=== PATIENT | female | born 1940 | race Caucasian/White ===

== ENCOUNTER → 2016-11-21 | Outpatient (CLI) | payer MEDICARE, BC ==
--- NOTE | 2016-11-21 09:59 | USB ---
Reason for exam: follow-up at short interval from prior study. History: Patient is postmenopausal. Benign US biopsy breast VAD RT of the right breast, May 18, 2014. Benign right US cyst aspiration of the right breast, January 18, 2008. Benign right mammotome panel of the right breast, December 08, 2006. Took hormonal contraceptives for 1 year 6 months beginning at age 25. Physical Findings: Nurse Summary: bilateral breast all soft, nodular, movable, prominent thickening right breast upper outer quadrant (nurse ts). US Breast LT Left breast ultrasound including all four quadrants, the retroareolar region and axilla demonstrates a 0.40 x 0.18 x 0.41cm lesion too small to characterize at 1 o'clock, stable. These results were verbally communicated with the patient and result sheet given to the patient on 11/21/16. ASSESSMENT: Probably benign, BI-RAD 3 RECOMMENDATION: Follow-up diagnostic mammogram of both breasts in 6 months. Ultrasound of the left breast in 6 months.
== END | disposition home or self-care (01) ==
LOC: RADUSWWP 09:01
PROVIDERS: ATTEND Family Medicine
DX: N63 Unspecified lump in breast (principal); R92.8 Other abnormal and inconclusive findings on diagnostic imaging of breast

== ENCOUNTER → 2017-05-22 | Outpatient (CLI) | payer MEDICARE, BC ==
--- NOTE | 2017-05-23 07:51 | MM ---
Reason for exam: additional evaluation requested from prior study. Last mammogram was performed 1 year and 1 month ago. History: Patient is postmenopausal. Benign US biopsy breast VAD RT of the right breast, May 18, 2014. Benign right US cyst aspiration of the right breast, January 18, 2008. Benign right mammotome panel of the right breast, December 08, 2006. Took hormonal contraceptives for 1 year 6 months beginning at age 25. Physical Findings: Nurse did not find any significant physical abnormalities on exam. MG 3D Diag Mammo W/Cad MO Bilateral CC and MLO view(s) were taken. Prior study comparison: November 21, 2016, left breast US breast LT. May 16, 2016, left breast US breast workup limited LT. April 25, 2016, bilateral MG 3d screening mammo w/cad. There are scattered fibroglandular densities. Finding: There are typically benign round calcifications in both breasts. Previous mammotome biopsy in the right breast x 2. There is a chronic nodularity in the left breast. There is no new dominant lesion. Left axillary pacemaker. These results were verbally communicated with the patient and result sheet given to the patient on 05/22/17. ASSESSMENT: Benign, BI-RAD 2 RECOMMENDATION: Routine screening mammogram of both breasts in 1 year.
--- NOTE | 2017-05-23 07:57 | USB ---
Reason for exam: follow-up at short interval from prior study. History: Patient is postmenopausal. Benign US biopsy breast VAD RT of the right breast, May 18, 2014. Benign right US cyst aspiration of the right breast, January 18, 2008. Benign right mammotome panel of the right breast, December 08, 2006. Took hormonal contraceptives for 1 year 6 months beginning at age 25. US Breast LT Left breast ultrasound includes all four quadrants, the retroareolar region and axilla. Finding demonstrates a 5 x 3 x 4mm oval, cystic lesion with debris is stable at 1 o'clock and a 3mm oval lesion too small to characterize at 3 o'clock. These results were verbally communicated with the patient and result sheet given to the patient on 05/22/17. ASSESSMENT: Benign, BI-RAD 2 RECOMMENDATION: Routine screening mammogram of both breasts in 1 year.
== END | disposition home or self-care (01) ==
LOC: RADMAMWWP 14:25
PROVIDERS: ATTEND Family Medicine
DX: R92.8 Other abnormal and inconclusive findings on diagnostic imaging of breast (principal)
CPT/HCPCS: 76641; G0204; G0279

== ENCOUNTER 2017-07-20 12:36 | Inpatient (IN) | payer MEDICARE, BC ==
--- NOTE | 2017-07-20 13:08 | ED ---
General Adult HPI - General Chief complaint: Shortness of Breath Stated complaint: Difficulty Breathing Time Seen by Provider: 07/20/17 12:45 Source: patient, family, RN notes reviewed, old records reviewed Mode of arrival: wheelchair Limitations: no limitations - History of Present Illness Initial comments: 77 yo female presents for evaluation of worsening dyspnea. Patient has history of cardiomyopathy and congestive heart failure. She has an AICD/pacemaker. Patient states she has had some central chest discomfort, no significant chest pain. No radiating symptoms. Patient states she walked this morning while at [employer] and became severely short of breath and fatigue. This prompted her ER visit. According to the patient she has no history of coronary artery disease, cardiomyopathy is nonischemic. Patient is on Coreg, amiodarone,eliquis, and losartan. She also takes 100 mg of Lasix daily, 60 in the morning and 40 at night. Possibly 3 weeks ago her Coreg dose was reduced from 25-12.5 twice a day. Patient denies missing any of her medication. Denies lower swelling. Patient's symptoms have been worsening over several weeks. Denies fever chills. Has had a mild cough for the past 3 weeks. This was dry no sputum. - Related Data Home Medications Medication Instructions Recorded Confirmed Apixaban [Eliquis] 5 mg PO BID 01/01/15 07/20/17 Aspirin EC [Ecotrin Low Dose] 81 mg PO DAILY 01/01/15 07/20/17 Cholecalciferol [Vitamin D3] 1,000 unit PO QAM 01/01/15 07/20/17 Cyanocobalamin [Vitamin B-12] 500 mcg PO BID 01/01/15 07/20/17 Multivitamins, Thera [Multivitamin 1 tab PO DAILY 01/01/15 07/20/17 (formulary)] [place]-3 Fatty Acids/Fish Oil [Fish 1 cap PO BID 03/27/15 07/20/17 Oil 1,000 mg Softgel] metFORMIN HCL [Glucophage] 1,000 mg PO AC-BRKFST 03/27/15 07/20/17 Amiodarone [Cordarone] 100 mg PO QAM 10/06/15 07/20/17 Carvedilol [Coreg] 12.5 mg PO HS 10/06/15 07/20/17 Furosemide [Lasix] 40 mg PO HS 07/20/17 07/20/17 Furosemide [Lasix] 60 mg PO DAILY 07/20/17 07/20/17 Losartan Potassium [Cozaar] 25 mg PO HS 07/20/17 07/20/17 metFORMIN HCL [Glucophage] 500 mg PO AC-SUPPER 07/20/17 07/20/17 Previous Rx's Medication Instructions Recorded Atorvastatin [Lipitor] 10 mg PO HS #30 tab 08/21/15 Allergies Allergy/AdvReac Type Severity Reaction Status Date / Time nitrofurantoin Allergy Unknown Rash/Hives Verified 07/20/17 13:07 [From Macrobid] nitrofurantoin Allergy Unknown Rash/Hives Verified 07/20/17 13:07 macrocrystalline [From Macrobid] cefuroxime Allergy Rash/Hives Verified 07/20/17 13:07 Penicillins Allergy Rash/Hives Verified 07/20/17 13:07 Review of Systems ROS Statement: Those systems with pertinent positive or pertinent negative responses have been documented in the HPI. ROS Other: All systems not noted in ROS Statement are negative. Past Medical History Past Medical History: Diabetes Mellitus Additional Past Medical History / Comment(s): DR DR VALENCIA'S H&P History of Any Multi-Drug Resistant Organisms: None Reported Past Surgical History: AICD, Appendectomy, Section, Cholecystectomy, Hernia Repair, Hysterectomy, Tonsillectomy, Tubal Ligation Additional Past Surgical History / Comment(s): bilateral knee replacements, bilateral cataract removal, Past Anesthesia/Blood Transfusion Reactions: No Reported Reaction Type of Cardiac Device: AICD Device Placement Date:: 07/2011 Past Psychological History: No Psychological Hx Reported Smoking Status: Never smoker Past Alcohol Use History: None Reported Past Drug Use History: None Reported - Past Family History Father Family Medical History: Cancer Additional Family Medical History / Comment(s): THROAT CA Mother Family Medical History: CVA/TIA, Diabetes Mellitus General Exam Limitations: no limitations General appearance: alert, in no apparent distress Head exam: Present: atraumatic, normocephalic Eye exam: Present: normal appearance, PERRL ENT exam: Present: normal exam, mucous membranes moist Neck exam: Present: normal inspection. Absent: tenderness, meningismus Respiratory exam: Present: normal lung sounds bilaterally. Absent: respiratory distress, wheezes, rales Cardiovascular Exam: Present: tachycardia GI/Abdominal exam: Present: soft. Absent: distended, tenderness Extremities exam: Present: normal inspection, full ROM, normal capillary refill. Absent: pedal edema Neurological exam: Present: alert, oriented X3, CN II-XII intact. Absent: motor sensory deficit Psychiatric exam: Present: normal affect, normal mood Skin exam: Present: warm, dry, intact. Absent: cyanosis, diaphoretic Course Vital Signs 07/20/17 07/20/17 07/20/17 12:37 13:30 14:31 Temperature 98.0 F Pulse Rate 59 L 81 72 Respiratory 18 16 16 Rate Blood Pressure 101/61 126/106 113/64 O2 Sat by Pulse 97 98 89 L Oximetry - Reevaluation(s) Reevaluation #1: 07/20/17 15:03 And with the patient on reevaluation, she became approximately 89% on room air. EKG Findings - EKG Comments: EKG Findings:: EKG shows ventricular paced rhythm, rate of 89, QRS duration 22, QTC 562, no discordant or concordant ST segment elevation Medical Decision Making - Medical Decision Making 77 yo female with history of nonischemic cardiomyopathy presents with a 3 week history of worsening dyspnea. No chest pain. Chest x-ray shows cardiomegaly with no pulmonary edema. Lungs are clear on auscultation. There is no peripheral edema on examination. Patient does have AICD placement and EKG shows paced ventricular rhythm. Laboratory studies reveal a elevations patient' s serum creatinine 1.39, baseline 1.2. There is a slight elevation in patient' s troponin 0.036, and BNP is elevated at 7590. Case is discussed with cardiology. Given the hypoxia with ambulation and continued dyspnea patient will be placed in observation for repeat cardiac enzymes and cardiology consult. Diagnosis: Congestive heart failure, nonischemic cardiomyopathy, elevated troponin - Lab Data Result diagrams: 07/20/17 13:00 07/20/17 13:00 Lab Results 07/20/17 07/20/17 07/20/17 Range/Units 13:00 13:00 13:00 WBC 9.5 (3.8-10.6) k/uL RBC 4.02 (3.80-5.40) m/uL Hgb 11.7 (11.4-16.0) gm/dL Hct 36.8 (34.0-46.0) % MCV 91.5 (80.0-100.0) fL MCH 29.0 (25.0-35.0) pg MCHC 31.7 (31.0-37.0) g/dL RDW 15.2 (11.5-15.5) % Plt Count 340 (150-450) k/uL Neutrophils % 75 % Lymphocytes % 13 % Monocytes % 7 % Eosinophils % 2 % Basophils % 1 % Neutrophils # 7.2 (1.3-7.7) k/uL Lymphocytes # 1.2 (1.0-4.8) k/uL Monocytes # 0.6 (0-1.0) k/uL Eosinophils # 0.2 (0-0.7) k/uL Basophils # 0.1 (0-0.2) k/uL PT (9.0-12.0) sec INR (<1.2) APTT (22.0-30.0) sec Sodium 139 (137-145) mmol/L Potassium 4.2 (3.5-5.1) mmol/L Chloride 101 (98-107) mmol/L Carbon Dioxide 23 (22-30) mmol/L Anion Gap 15 mmol/L BUN 46 H (7-17) mg/dL Creatinine 1.36 H (0.52-1.04) mg/dL Est GFR (MDRD) Af Amer 46 (>60 ml/min/1.73 sqM) Est GFR (MDRD) Non-Af 38 (>60 ml/min/1.73 sqM) Glucose 99 (74-99) mg/dL Calcium 9.9 (8.4-10.2) mg/dL Magnesium 2.2 (1.6-2.3) mg/dL Total Bilirubin 0.4 (0.2-1.3) mg/dL AST 29 (14-36) U/L ALT 29 (9-52) U/L Alkaline Phosphatase 54 (38-126) U/L Total Creatine Kinase 103 (30-135) U/L CK-MB (CK-2) 2.6 H* (0.0-2.4) ng/mL CK-MB (CK-2) Rel Index 2.5 Troponin I 0.036 H* (0.000-0.034) ng/mL NT-Pro-B Natriuret Pep pg/mL Total Protein 6.9 (6.3-8.2) g/dL Albumin 4.2 (3.5-5.0) g/dL 07/20/17 07/20/17 Range/Units 13:00 13:00 WBC (3.8-10.6) k/uL RBC (3.80-5.40) m/uL Hgb (11.4-16.0) gm/dL Hct (34.0-46.0) % MCV (80.0-100.0) fL MCH (25.0-35.0) pg MCHC (31.0-37.0) g/dL RDW (11.5-15.5) % Plt Count (150-450) k/uL Neutrophils % % Lymphocytes % % Monocytes % % Eosinophils % % Basophils % % Neutrophils # (1.3-7.7) k/uL Lymphocytes # (1.0-4.8) k/uL Monocytes # (0-1.0) k/uL Eosinophils # (0-0.7) k/uL Basophils # (0-0.2) k/uL PT 11.4 (9.0-12.0) sec INR 1.1 (<1.2) APTT 24.0 (22.0-30.0) sec Sodium (137-145) mmol/L Potassium (3.5-5.1) mmol/L Chloride (98-107) mmol/L Carbon Dioxide (22-30) mmol/L Anion Gap mmol/L BUN (7-17) mg/dL Creatinine (0.52-1.04) mg/dL Est GFR (MDRD) Af Amer (>60 ml/min/1.73 sqM) Est GFR (MDRD) Non-Af (>60 ml/min/1.73 sqM) Glucose (74-99) mg/dL Calcium (8.4-10.2) mg/dL Magnesium (1.6-2.3) mg/dL Total Bilirubin (0.2-1.3) mg/dL AST (14-36) U/L ALT (9-52) U/L Alkaline Phosphatase (38-126) U/L Total Creatine Kinase (30-135) U/L CK-MB (CK-2) (0.0-2.4) ng/mL CK-MB (CK-2) Rel Index Troponin I (0.000-0.034) ng/mL NT-Pro-B Natriuret Pep 7590 pg/mL Total Protein (6.3-8.2) g/dL Albumin (3.5-5.0) g/dL Disposition Clinical Impression: Congestive heart failure, Nonischemic cardiomyopathy, Elevated troponin Disposition: ADMITTED IP TO THIS [facility] Condition: Stable Referrals: Kishore Lucia DO [Primary Care Provider] - 1-2 days Decision to Admit Reason: Admit from EC Decision Date: 07/20/17 Decision Time: 15:07
[2017-07-20 13:17] LABS: Basophils # (A) 0.1 k/uL (0-0.2); Basophils % (A) 1 %; CH 29.4; CHCM 32.3; Eosinophils # (A) 0.2 k/uL (0-0.7); Eosinophils % (A) 2 %; HCT 36.8 % (34.0-46.0); HDW 2.66; HGB 11.7 gm/dL (11.4-16.0); Luc # (Auto) 0.22; Luc % (Auto) 2; Lymphocytes # (A) 1.2 k/uL (1.0-4.8); Lymphocytes % (A) 13 %; MCHC 31.7 g/dL (31.0-37.0); MCV 91.5 fL (80.0-100.0); Monocytes # (A) 0.6 k/uL (0-1.0); Monocytes % (A) 7 %; Neutrophils # (A) 7.2 k/uL (1.3-7.7); Neutrophils % (A) 75 %; RBC 4.02 m/uL (3.80-5.40); RDW 15.2 % (11.5-15.5); WBC 9.5 k/uL (3.8-10.6); WBC (Perox) 10.04
[2017-07-20 13:25] LABS: Calcium 9.9 mg/dL (8.4-10.2); Magnesium 2.2 mg/dL (1.6-2.3); Potassium 4.2 mmol/L (3.5-5.1); Total Bilirubin 0.4 mg/dL (0.2-1.3); Total Protein 6.9 g/dL (6.3-8.2)
--- NOTE | 2017-07-20 13:32 | XR ---
EXAMINATION TYPE: XR chest 2V DATE OF EXAM: 07/20/2017 HISTORY: Chest Pain. REFERENCE: Previous study dated 01/01/2015. FINDINGS: There is a multilead pacing device in place on the left. The heart is enlarged. The lungs appear clear. Pleural spaces are clear.. IMPRESSION: CARDIOMEGALY.
[2017-07-20 13:38] LABS: INR 1.1 (<1.2); Prothrombin Time 11.4 sec (9.0-12.0)
[2017-07-20 13:50] LABS: Creatine Kinase MB 2.6 ng/mL (0.0-2.4)
[2017-07-20 13:52] LABS: Troponin I 0.036 ng/mL (0.000-0.034)
[2017-07-20] MEDS ORDERED: ONDANSETRON 4 MG/2 ML VIAL IVP PRN (15:07)
[2017-07-20] MEDS ORDERED: NALOXONE 0.4 MG/ML 1 ML VIAL IV PRN (15:07)
[2017-07-20] MEDS ORDERED: ACETAMINOPHEN TAB 325 MG TAB PO PRN (15:07)
[2017-07-20 16:39] VITALS: BMI 29.4
[2017-07-20 16:49] LABS: Glucose,Whole Blood 101 mg/dL (75-99)
--- NOTE | 2017-07-20 17:09 | P.CRDCN ---
History of Present Illness Consult date: 07/20/17 Chief complaint: Shortness of breath History of present illness: This is a pleasant 77-year-old female patient who sees Dr. Alvarez as an outpatient with a past medical history significant for severe nonischemic cardiomyopathy with a known EF around 20%, status post AICD, chronic atrial fibrillation, valvular heart disease with known moderate MR, moderate TR, and severe pulmonary hypertension, presented to the hospital complaining of shortness of breath. The patient stated that she was in her usual state of health until the day before yesterday when she started experiencing exertional dyspnea which got worse yesterday. The the dyspnea was even with minimal exertion. She did not have any chest pain or discomfort. No bilateral lower extremities edema. Denies any change in her weight. The patient stated that she was compliant with her medications as well as with her diet. Beside that she stated that lately she has been experiencing some symptoms of cough seems to be dry and not productive for any sputum and not associated with any fever or chills. The chest x-ray showed only cardiomegaly without any acute finding. The EKG showed ventricular paced rhythm. The BNP came in to be around 5000. The cardiac enzymes were checked and came in to be slightly abnormal. Past Medical History Past Medical History: Diabetes Mellitus Additional Past Medical History / Comment(s): DR DR VALENCIA'S H&P History of Any Multi-Drug Resistant Organisms: None Reported Past Surgical History: AICD, Appendectomy, Section, Cholecystectomy, Hernia Repair, Hysterectomy, Tonsillectomy, Tubal Ligation Additional Past Surgical History / Comment(s): bilateral knee replacements, bilateral cataract removal, Past Anesthesia/Blood Transfusion Reactions: No Reported Reaction Type of Cardiac Device: AICD Device Placement Date:: 07/2011 Past Psychological History: No Psychological Hx Reported Smoking Status: Never smoker Past Alcohol Use History: None Reported Past Drug Use History: None Reported - Past Family History Father Family Medical History: Cancer Additional Family Medical History / Comment(s): THROAT CA Mother Family Medical History: CVA/TIA, Diabetes Mellitus Medications and Allergies Home Medications Medication Instructions Recorded Confirmed Type Apixaban [Eliquis] 5 mg PO BID 01/01/15 07/20/17 History Aspirin EC [Ecotrin Low Dose] 81 mg PO DAILY 01/01/15 07/20/17 History Cholecalciferol [Vitamin D3] 1,000 unit PO QAM 01/01/15 07/20/17 History Cyanocobalamin [Vitamin B-12] 2,500 mcg PO DAILY 01/01/15 07/20/17 History Multivitamins, Thera [Multivitamin 1 tab PO DAILY 01/01/15 07/20/17 History (formulary)] [place]-3 Fatty Acids/Fish Oil [Fish 1 cap PO BID 03/27/15 07/20/17 History Oil 1,000 mg Softgel] metFORMIN HCL [Glucophage] 1,000 mg PO AC-BRKFST 03/27/15 07/20/17 History Atorvastatin [Lipitor] 10 mg PO HS #30 tab 08/21/15 07/20/17 Rx Amiodarone [Cordarone] 100 mg PO QAM 10/06/15 07/20/17 History Carvedilol [Coreg] 12.5 mg PO BID-W/MEALS 10/06/15 07/20/17 History Furosemide [Lasix] 40 mg PO HS 07/20/17 07/20/17 History Furosemide [Lasix] 60 mg PO DAILY 07/20/17 07/20/17 History Losartan Potassium [Cozaar] 25 mg PO HS 07/20/17 07/20/17 History metFORMIN HCL [Glucophage] 500 mg PO AC-SUPPER 07/20/17 07/20/17 History Allergies Allergy/AdvReac Type Severity Reaction Status Date / Time nitrofurantoin Allergy Unknown Rash/Hives Verified 07/20/17 13:07 [From Macrobid] nitrofurantoin Allergy Unknown Rash/Hives Verified 07/20/17 13:07 macrocrystalline [From Macrobid] cefuroxime Allergy Rash/Hives Verified 07/20/17 13:07 Penicillins Allergy Rash/Hives Verified 07/20/17 13:07 Physical Exam Vitals: Vital Signs Temp Pulse Resp BP Pulse Ox 07/20/17 16:03 67 18 103/56 97 07/20/17 14:31 72 16 113/64 89 L 07/20/17 13:30 81 16 126/106 98 07/20/17 12:37 98.0 F 59 L 18 101/61 97 Intake and Output 07/20/17 07/20/17 07/20/17 06:59 14:59 22:59 Other: Weight 80.286 kg 80.286 kg Patient Weight 07/21/17 06:59 Weight 80.286 kg - Constitutional General appearance: no acute distress - Respiratory Respiratory: bilateral: CTA - Cardiovascular Rhythm: regular Heart sounds: normal: S1, S2 Results 07/20/17 13:00 07/20/17 13:00 Cardiac Enzymes 07/20/17 07/20/17 Range/Units 13:00 13:00 AST 29 (14-36) U/L CK-MB (CK-2) 2.6 H* (0.0-2.4) ng/mL Troponin I 0.036 H* (0.000-0.034) ng/mL Coagulation 07/20/17 Range/Units 13:00 PT 11.4 (9.0-12.0) sec APTT 24.0 (22.0-30.0) sec CBC 07/20/17 Range/Units 13:00 WBC 9.5 (3.8-10.6) k/uL RBC 4.02 (3.80-5.40) m/uL Hgb 11.7 (11.4-16.0) gm/dL Hct 36.8 (34.0-46.0) % Plt Count 340 (150-450) k/uL Comprehensive Metabolic Panel 07/20/17 Range/Units 13:00 Sodium 139 (137-145) mmol/L Potassium 4.2 (3.5-5.1) mmol/L Chloride 101 (98-107) mmol/L Carbon Dioxide 23 (22-30) mmol/L BUN 46 H (7-17) mg/dL Creatinine 1.36 H (0.52-1.04) mg/dL Glucose 99 (74-99) mg/dL Calcium 9.9 (8.4-10.2) mg/dL AST 29 (14-36) U/L ALT 29 (9-52) U/L Alkaline Phosphatase 54 (38-126) U/L Total Protein 6.9 (6.3-8.2) g/dL Albumin 4.2 (3.5-5.0) g/dL Current Medications Generic Name Dose Route Start Last Admin Trade Name Freq PRN Reason Stop Dose Admin Acetaminophen 650 mg 07/20/17 15:07 Tylenol Tab PO Q6HR PRN Mild Pain or Fever > 100.5 Amiodarone HCl 100 mg 07/21/17 09:00 Cordarone PO QAM VANDANA Apixaban 5 mg 07/20/17 21:00 Eliquis PO BID VANDANA Aspirin 81 mg 07/21/17 09:00 Aspirin PO DAILY VANDANA Atorvastatin Calcium 10 mg 07/20/17 21:00 Lipitor PO HS VANDANA Carvedilol 12.5 mg 07/20/17 21:00 Coreg PO HS VANDANA Furosemide 40 mg 07/20/17 21:00 Lasix PO HS VANDANA Furosemide 60 mg 07/21/17 09:00 Lasix PO DAILY VANDANA Losartan Potassium 12.5 mg 07/20/17 21:00 Cozaar PO BID VANDANA Naloxone HCl 0.2 mg 07/20/17 15:07 Narcan IV Q2M PRN Opioid Reversal Ondansetron HCl 4 mg 07/20/17 15:07 Zofran IVP Q8HR PRN Nausea And Vomiting Intake and Output 07/20/17 07/20/17 07/20/17 06:59 14:59 22:59 Other: Weight 80.286 kg 80.286 kg Patient Weight 07/21/17 06:59 Weight 80.286 kg 07/20/17 13:00 07/20/17 13:00 Assessment and Plan Plan: This is a pleasant 77-year-old female patient with known severe nonischemic cardiomyopathy and status post AICD, chronic atrial fibrillation, and valvular heart disease, was admitted to the hospital was progressive dyspnea of only 2 days duration. I think the patient is in the beginning of congestive heart failure exacerbation secondary to systolic dysfunction. I am going to start the patient on Lasix IV and monitor closely the kidney function and electrolytes. Continue monitor the weight. Obtain an echocardiogram was Doppler. Also the patient has been experiencing intermittent episodes of nonsustained V. tach. I am going to increase the dose of Coreg.
[2017-07-20] MEDS ORDERED: LOSARTAN 25 MG TAB PO SCH ×3 (17:30→21:00)
[2017-07-20] MEDS ORDERED: DEXTROSE 5% IN WATER 100 ML with AMIODARONE 150 MG IV ONE (17:50)
[2017-07-20] MEDS: CARVEDILOL 12.5 MG TAB PO SCH (18:40)
[2017-07-20] MEDS: AMIODARONE 450 MG in DEXTROSE 5% IN WATER 250 ML IV SCH ×2 (18:56)
[2017-07-20 19:39] LABS: Creatine Kinase MB 2.6 ng/mL (0.0-2.4); Troponin I 0.047 ng/mL (0.000-0.034)
[2017-07-20] MEDS: ATORVASTATIN 10 MG TAB PO SCH (20:12)
[2017-07-20] MEDS: LOSARTAN 25 MG TAB PO SCH (20:12)
[2017-07-20] MEDS: APIXABAN 5 MG TAB PO SCH (20:12)
[2017-07-20 20:50] VITALS: RESP 16
[2017-07-20] MEDS ORDERED: CARVEDILOL 12.5 MG TAB PO SCH (21:00)
[2017-07-20] MEDS ORDERED: FUROSEMIDE 40 MG TAB PO SCH (21:00)
[2017-07-20 21:05] LABS: Glucose,Whole Blood 139 mg/dL (75-99)
--- NOTE | 2017-07-20 21:21 | P.HPIM ---
History of Present Illness H&P Date: 07/20/17 Chief Complaint: SOB Pt is a 77 yo female with a past medical history significant for severe nonischemic cardiomyopathy with a known EF around 20%, status post AICD, chronic atrial fibrillation, valvular heart disease with known moderate MR, moderate TR, and severe pulmonary hypertension, presented to the hospital complaining of shortness of breath worsening for the past 2 days., Patient states she has had some central chest discomfort, no significant chest pain. No radiating symptoms. Patient states she walked this morning while at [employer] and became severely short of breath and fatigue. This prompted her ER visit. Patient is on Coreg, amiodarone,eliquis, and losartan. She also takes 100 mg of Lasix daily, 60 in the morning and 40 at night. Possibly 3 weeks ago her Coreg dose was reduced from 25-12.5 twice a day. Patient denies missing any of her medication. Denies lower swelling. Patient's symptoms have been worsening over several weeks. Denies fever chills. Has had a mild cough for the past 3 weeks. This was dry no sputum. Patient follows with cardiology clinic as an outpatient. Patient had stress test 2 years ago and also pacemaker interrogation about the same time patient had cardiac catheterization several years ago. Patient is to get echocardiogram every year The chest x-ray showed only cardiomegaly without any acute finding. The EKG showed ventricular paced rhythm. The BNP 7590 . Troponin 0.036--0.047 Review of Systems CONSTITUTIONAL: No fever, no malaise, no fatigue. HEENT: No recent visual problems or hearing problems. Denied any sore throat. CARDIOVASCULAR: No chest pain, orthopnea, PND, no palpitations, no syncope. PULMONARY: , Positive cough no sputum production no hemoptysis. GASTROINTESTINAL: No diarrhea, no nausea, no vomiting, no abdominal pain. Normoactive bowel sounds. NEUROLOGICAL: No headaches, no weakness, no numbness. HEMATOLOGICAL: Denies any bleeding or petechiae. GENITOURINARY: Denies any burning micturition, frequency, or urgency. MUSCULOSKELETAL/RHEUMATOLOGICAL: Denies any joint pain, swelling, or any muscle pain. ENDOCRINE: Denies any polyuria or polydipsia. The rest of the 14-point review of systems is negative. Past Medical History Past Medical History: Diabetes Mellitus Additional Past Medical History / Comment(s): DR DR VALENCIA'S H&P History of Any Multi-Drug Resistant Organisms: None Reported Past Surgical History: AICD, Appendectomy, Section, Cholecystectomy, Hernia Repair, Hysterectomy, Tonsillectomy, Tubal Ligation Additional Past Surgical History / Comment(s): bilateral knee replacements, bilateral cataract removal, Past Anesthesia/Blood Transfusion Reactions: No Reported Reaction Type of Cardiac Device: AICD Device Placement Date:: 07/2011 Past Psychological History: No Psychological Hx Reported Smoking Status: Never smoker Past Alcohol Use History: None Reported Past Drug Use History: None Reported - Past Family History Father Family Medical History: Cancer Additional Family Medical History / Comment(s): THROAT CA Mother Family Medical History: CVA/TIA, Diabetes Mellitus Medications and Allergies Home Medications Medication Instructions Recorded Confirmed Type Apixaban [Eliquis] 5 mg PO BID 01/01/15 07/20/17 History Aspirin EC [Ecotrin Low Dose] 81 mg PO DAILY 01/01/15 07/20/17 History Cholecalciferol [Vitamin D3] 1,000 unit PO QAM 01/01/15 07/20/17 History Cyanocobalamin [Vitamin B-12] 2,500 mcg PO DAILY 01/01/15 07/20/17 History Multivitamins, Thera [Multivitamin 1 tab PO DAILY 01/01/15 07/20/17 History (formulary)] Zoe-3 Fatty Acids/Fish Oil [Fish 1 cap PO BID 03/27/15 07/20/17 History Oil 1,000 mg Softgel] metFORMIN HCL [Glucophage] 1,000 mg PO AC-BRKFST 03/27/15 07/20/17 History Atorvastatin [Lipitor] 10 mg PO HS #30 tab 08/21/15 07/20/17 Rx Amiodarone [Cordarone] 100 mg PO QAM 10/06/15 07/20/17 History Carvedilol [Coreg] 12.5 mg PO BID-W/MEALS 10/06/15 07/20/17 History Furosemide [Lasix] 40 mg PO HS 07/20/17 07/20/17 History Furosemide [Lasix] 60 mg PO DAILY 07/20/17 07/20/17 History Losartan Potassium [Cozaar] 25 mg PO HS 07/20/17 07/20/17 History metFORMIN HCL [Glucophage] 500 mg PO AC-SUPPER 07/20/17 07/20/17 History Allergies Allergy/AdvReac Type Severity Reaction Status Date / Time nitrofurantoin Allergy Unknown Rash/Hives Verified 07/20/17 13:07 [From Macrobid] nitrofurantoin Allergy Unknown Rash/Hives Verified 07/20/17 13:07 macrocrystalline [From Macrobid] cefuroxime Allergy Rash/Hives Verified 07/20/17 13:07 Penicillins Allergy Rash/Hives Verified 07/20/17 13:07 Physical Exam Vitals: Vital Signs Temp Pulse Pulse Resp BP BP Pulse Ox 07/20/17 19:15 121/65 07/20/17 19:00 118/81 07/20/17 18:56 94/42 07/20/17 18:55 84/48 07/20/17 18:45 90/47 07/20/17 16:03 67 18 103/56 97 07/20/17 16:00 73 18 111/65 97 07/20/17 14:31 72 16 113/64 89 L 07/20/17 13:30 81 16 126/106 98 07/20/17 12:37 98.0 F 59 L 18 101/61 97 Intake and Output 07/20/17 07/20/17 07/20/17 06:59 14:59 22:59 Intake Total 120 Balance 120 Intake: Oral 120 Other: # Voids 1 # Bowel Movements 0 Weight 80.286 kg 80.286 kg Patient Weight 07/21/17 06:59 Weight 80.286 kg PHYSICAL EXAMINATION: Patient is lying in the bed comfortably, no acute distress, awake alert and oriented.. HEENT: Normocephalic. Neck is supple. Pupils reactive. Nostrils clear. Oral cavity is moist. Ears reveal no drainage. Neck reveals no JVD, carotid bruits, or thyromegaly. CHEST EXAMINATION: Trachea is central. Symmetrical expansion. Lung col[place]a clear to auscultation and percussion. CARDIAC: Normal S1, S2 with no gallops. No murmurs. Irregularly irregular ABDOMEN: Soft. Bowel sounds normal. No organomegaly. No abdominal bruits. Extremities reveal no edema. No clubbing or cyanosis Neurologically awake, alert, oriented x3 with well-coordinated movements. Skin: no rash or skin lesions Musculoskeletal: no joint swelling or deformity. Results CBC & Chem 7: 07/20/17 13:00 07/20/17 13:00 Labs: Abnormal Lab Results - Last 24 Hours (Table) 07/20/17 07/20/17 07/20/17 Range/Units 13:00 13:00 16:46 BUN 46 H (7-17) mg/dL Creatinine 1.36 H (0.52-1.04) mg/dL POC Glucose (mg/dL) 101 H (75-99) mg/dL CK-MB (CK-2) 2.6 H* (0.0-2.4) ng/mL Troponin I 0.036 H* (0.000-0.034) ng/mL 07/20/17 Range/Units 18:55 BUN (7-17) mg/dL Creatinine (0.52-1.04) mg/dL POC Glucose (mg/dL) (75-99) mg/dL CK-MB (CK-2) 2.6 H* (0.0-2.4) ng/mL Troponin I 0.047 H* (0.000-0.034) ng/mL Thrombosis Risk Factor Assmnt - Choose All That Apply Any of the Below Risk Factors Present?: No Each Risk Factor Represents 3 Points: Age 75 years or older Thrombosis Risk Factor Assessment Total Risk Factor Score: 3 Thrombosis Risk Factor Assessment Level: Moderate Risk Assessment and Plan Plan: #1 acute on chronic CHF with systolic and diastolic dysfunction ejection fraction 20% #2 intermittent nonsustained V. tach. Coreg dose increased as per cardiology #3 elevated troponin. Possible demand mismatch #4 acute on chronic kidney disease stage III #4 chronic Atrial fibrillation on anticoagulation #6 nonischemic cardiomyopathy status post AICD #7 moderate MR and TR #8 severe pulmonary hypertension Plan: Patient was started on IV Lasix and Coreg dose has been increased. Patient was also started on amiodarone drip. Cardiology is following this patient. Continue with home medications and follow up renal function. Further recommendations as on the clinical course. Time with Patient: Greater than 30
[2017-07-20] MEDS: FUROSEMIDE 10 MG/ML 4 ML VIAL IV SCH (22:38)
[2017-07-21] MEDS: AMIODARONE 450 MG in DEXTROSE 5% IN WATER 250 ML IV SCH ×6 (01:34→15:17)
[2017-07-21 02:31] LABS: Basophils % (A) 1 %; CH 28.6; CHCM 30.8; Eosinophils # (A) 0.3 k/uL (0-0.7); Eosinophils % (A) 4 %; HCT 34.6 % (34.0-46.0); HDW 2.55; HGB 10.9 gm/dL (11.4-16.0); Hypochromasia Moderate; Luc # (Auto) 0.26; Luc % (Auto) 3; Lymphocytes # (A) 1.8 k/uL (1.0-4.8); Lymphocytes % (A) 21 %; MCH 29.3 pg (25.0-35.0); MCHC 31.5 g/dL (31.0-37.0); MCV 93.1 fL (80.0-100.0); Mean Platelet Volume 7.6; Monocytes # (A) 0.6 k/uL (0-1.0); Monocytes % (A) 8 %; Neutrophils # (A) 5.4 k/uL (1.3-7.7); Neutrophils % (A) 64 %; RBC 3.72 m/uL (3.80-5.40); RDW 14.6 % (11.5-15.5); WBC 8.4 k/uL (3.8-10.6); WBC (Perox) 8.99
[2017-07-21 02:46] LABS: Calcium 9.5 mg/dL (8.4-10.2)
[2017-07-21 02:52] LABS: Creatine Kinase MB 2.1 ng/mL (0.0-2.4)
[2017-07-21 02:59] LABS: Troponin I 0.043 ng/mL (0.000-0.034)
[2017-07-21 06:07] LABS: Glucose,Whole Blood 124 mg/dL (75-99)
[2017-07-21] MEDS: CARVEDILOL 12.5 MG TAB PO SCH ×2 (06:28→17:05)
[2017-07-21] MEDS: FUROSEMIDE 10 MG/ML 4 ML VIAL IV SCH ×2 (08:33→20:24)
[2017-07-21] MEDS: ASPIRIN 81 MG PO SCH (08:33)
[2017-07-21] MEDS ORDERED: AMIODARONE 100 MG TAB PO SCH (09:00)
[2017-07-21] MEDS ORDERED: FUROSEMIDE 20 MG TAB PO SCH (09:00)
--- NOTE | 2017-07-21 11:19 | P.PN ---
Subjective Principal diagnosis: Congestive heart failure/nonischemic cardiomyopathy/nonsustained VT This is a pleasant 77-year-old female patient who sees Dr. Alvarez as an outpatient with a past medical history significant for severe nonischemic cardiomyopathy with a known EF around 20%, status post AICD, chronic atrial fibrillation, valvular heart disease with known moderate MR, moderate TR, and severe pulmonary hypertension, presented to the hospital complaining of shortness of breath. The patient stated that she was in her usual state of health until the day before yesterday when she started experiencing exertional dyspnea which got worse yesterday. The the dyspnea was even with minimal exertion. She did not have any chest pain or discomfort. No bilateral lower extremities edema. Denies any change in her weight. The patient stated that she was compliant with her medications as well as with her diet. Beside that she stated that lately she has been experiencing some symptoms of cough seems to be dry and not productive for any sputum and not associated with any fever or chills. The chest x-ray showed only cardiomegaly without any acute finding. The EKG showed ventricular paced rhythm. The BNP came in to be around 5000. The cardiac enzymes were checked and came in to be slightly abnormal. Objective - Vital Signs Vital signs: Vital Signs Temp 97.1 F L 07/21/17 08:00 Pulse 59 L 07/21/17 08:00 Resp 16 07/21/17 08:00 BP 108/57 07/21/17 08:00 Pulse Ox 96 07/21/17 08:00 Intake & Output 07/20/17 07/21/17 07/21/17 18:59 06:59 18:59 Intake Total 120 746.049 116.343 Output Total 1999 Balance 120 -1253.951 116.343 Weight 80.286 kg Intake: IV 517 0.9% NS at 10 mL/hr 80 Amiodarone 450 mg In 337 Dextrose 5% in Water 250 ml @ 1 MG/MIN 34.53 mls/ hr IV .Q7H31M [facility] Rx#: [id number] Dextrose 5% in Water 100 100 ml @ 618 mls/hr IV .Q10M ONE with Amiodarone 150 mg Rx#:[id number] Intake, IV Titration 229.049 116.343 Amount Amiodarone 450 mg In 229.049 116.343 Dextrose 5% in Water 250 ml @ 1 MG/MIN 34.53 mls/ hr IV .Q7H31M [facility] Rx#: [id number] Oral 120 Output: Urine 2000 Other: # Voids 1 2 # Bowel Movements 0 - Constitutional General appearance: Present: no acute distress - Respiratory Respiratory: bilateral: CTA - Cardiovascular Rhythm: regular Heart sounds: normal: S1, S2 - Labs CBC & Chem 7: 07/21/17 01:30 07/21/17 01:30 Labs: Abnormal Lab Results - Last 24 Hours (Table) 07/20/17 07/20/17 07/20/17 Range/Units 13:00 13:00 16:46 RBC (3.80-5.40) m/uL Hgb (11.4-16.0) gm/dL BUN 46 H (7-17) mg/dL Creatinine 1.36 H (0.52-1.04) mg/dL Glucose (74-99) mg/dL POC Glucose (mg/dL) 101 H (75-99) mg/dL CK-MB (CK-2) 2.6 H* (0.0-2.4) ng/mL Troponin I 0.036 H* (0.000-0.034) ng/mL 07/20/17 07/20/17 07/21/17 Range/Units 18:55 21:03 01:27 RBC (3.80-5.40) m/uL Hgb (11.4-16.0) gm/dL BUN (7-17) mg/dL Creatinine (0.52-1.04) mg/dL Glucose (74-99) mg/dL POC Glucose (mg/dL) 139 H (75-99) mg/dL CK-MB (CK-2) 2.6 H* (0.0-2.4) ng/mL Troponin I 0.047 H* 0.043 H* (0.000-0.034) ng/mL 07/21/17 07/21/17 07/21/17 Range/Units 01:30 01:30 06:05 RBC 3.72 L (3.80-5.40) m/uL Hgb 10.9 L (11.4-16.0) gm/dL BUN 43 H (7-17) mg/dL Creatinine 1.30 H (0.52-1.04) mg/dL Glucose 124 H (74-99) mg/dL POC Glucose (mg/dL) 124 H (75-99) mg/dL CK-MB (CK-2) (0.0-2.4) ng/mL Troponin I (0.000-0.034) ng/mL Assessment and Plan Plan: This is a pleasant 77-year-old female patient with known severe nonischemic cardiomyopathy and status post AICD, chronic atrial fibrillation, and valvular heart disease, was admitted to the hospital was progressive dyspnea of only 2 days duration. I think the patient is in the beginning of congestive heart failure exacerbation secondary to systolic dysfunction. The patient was started on Lasix IV yesterday with improvement in the shortness of breath. Last night she was experiencing intermittent episodes of nonsustained V. tach. She was receiving amiodarone by mouth which was stopped and I started the patient on amiodarone IV. During the night the patient did not have any more episodes of nonsustained VT. Once the amiodarone drip is overall start the patient on amiodarone by mouth 400 mg by mouth twice a day. The device was checked and did not show any evidence of sustained VT. I will continue the Lasix IV for now for additional 24 hours and continue monitor the kidney function and electrolytes.
[2017-07-21] MEDS: APIXABAN 5 MG TAB PO SCH ×2 (11:21→20:24)
[2017-07-21 12:00] LABS: Glucose,Whole Blood 138 mg/dL (75-99)
[2017-07-21 16:58] LABS: Glucose,Whole Blood 205 mg/dL (75-99)
--- NOTE | 2017-07-21 19:06 | ECHOF ---
Referral Reason:chf MEASUREMENTS -------- HEIGHT: 165.1 cm WEIGHT: 80.3 kg BP: 112/53 RVIDd: 4.5 cm (< 3.3) IVSd: 1.0 cm (0.6 - 1.1) LVIDd: 5.9 cm (3.9 - 5.3) LVPWd: 0.7 cm (0.6 - 1.1) IVSs: 1.0 cm LVIDs: 5.8 cm LVPWs: 0.7 cm LAESV Index (A-L): 70.85 ml/m Ao Diam: 3.3 cm (2.0 - 3.7) AV Cusp: 2.1 cm (1.5 - 2.6) LA Diam: 3.9 cm (2.7 - 3.8) MV EXCURSION: 13.666 mm (> 18.000) MV EF SLOPE: 69 mm/s (70 - 150) EPSS: 1.2 cm MV E Eron: 1.22 m/s MV DecT: 180 ms MV A Eron: 0.48 m/s MV E/A Ratio: 2.56 AR PHT: 182 ms RAP: 15.00 mmHg RVSP: 40.70 mmHg FINDINGS -------- AICD This was a technically good study. The left ventricle is moderately dilated. Left ventricular wall thickness is normal. There is severe global hypokinesis of LV . Overall left ventricular systolic function is severely impaired with, an EF < 20%. The right ventricle is normal in size and function. LA is severely dilated >40 ml/m2 The right atrium is normal in size. Aortic valve is trileaflet and is mildly thickened. Trace amount of aortic regurgitation. The mitral valve leaflets are mildly thickened. Severe mitral regurgitation is present. Mild tricuspid regurgitation present. There is mild pulmonary hypertension. The right ventricular systolic pressure, as measured by Doppler, is 40.70mmHg. Pulmonic valve appears structurally normal. The aortic root size is normal. The inferior vena cava is mildly dilated. The pericardium is normal. CONCLUSIONS -------- 1. AICD 2. Aortic valve is trileaflet and is mildly thickened. 3. Trace amount of aortic regurgitation. 4. The mitral valve leaflets are mildly thickened. 5. Severe mitral regurgitation is present. 6. Mild tricuspid regurgitation present. 7. There is mild pulmonary hypertension. 8. The right ventricular systolic pressure, as measured by Doppler, is 40.70mmHg. 9. Pulmonic valve appears structurally normal. 10. The aortic root size is normal. 11. The inferior vena cava is mildly dilated. 12. This was a technically good study. 13. The pericardium is normal. 14. The left ventricle is moderately dilated. 15. Left ventricular wall thickness is normal. 16. There is severe global hypokinesis of LV . 17. Overall left ventricular systolic function is severely impaired with, an EF < 20%. 18. The right ventricle is normal in size and function. 19. LA is severely dilated >40 ml/m2 20. The right atrium is normal in size. DIRECTOR SOFTWARE QUALITY ASSURANCE: Jessica Bryant RDCS
[2017-07-21] MEDS: ATORVASTATIN 10 MG TAB PO SCH (20:24)
[2017-07-21] MEDS: LOSARTAN 25 MG TAB PO SCH (20:24)
[2017-07-21] MEDS: AMIODARONE 200 MG TAB PO SCH (20:28)
[2017-07-21 21:08] LABS: Glucose,Whole Blood 144 mg/dL (75-99)
--- NOTE | 2017-07-21 23:10 | P.PN ---
Subjective Principal diagnosis: Acute CHF exacerbation and nonsustained V. tach Pt is a 77 yo female with a past medical history significant for severe nonischemic cardiomyopathy with a known EF around 20%, status post AICD, chronic atrial fibrillation, valvular heart disease with known moderate MR, moderate TR, and severe pulmonary hypertension, presented to the hospital complaining of shortness of breath worsening for the past 2 days., Patient states she has had some central chest discomfort, no significant chest pain. No radiating symptoms. Patient states she [facility] this [facility] [employer] and became severely short of breath and fatigue. This prompted her ER visit. Patient is on Coreg, amiodarone,eliquis, and losartan. She also takes 100 mg of Lasix daily, 60 in the morning and 40 at night. Possibly 3 weeks ago her Coreg dose was reduced from 25-12.5 twice a day. Patient denies missing any of her medication. Denies lower swelling. Patient's symptoms have been worsening over several weeks. Denies fever chills. Has had a mild cough for the past 3 weeks. This was dry no sputum. Patient follows with cardiology clinic as an outpatient. Patient had stress test 2 years ago and also pacemaker interrogation about the same time patient had cardiac catheterization several years ago. Patient is to get echocardiogram every year The chest x-ray showed only cardiomegaly without any acute finding. The EKG showed ventricular paced rhythm. The BNP 7590 . Troponin 0.036--0.047 0.043 On 07/21/2017 Patient states that her breathing is improved compared to yesterday. Patient did have nonsustained V. tach last night. Currently denied any chest pain or short of breath no headache or dizziness. 2-D echo showed ejection fraction 20 % with severe LV dilatation and global hypokinesis as well as severe LV dilatation. All other review of systems negative except as above Current medications reviewed. Objective - Vital Signs Vital signs: Vital Signs Temp 96.6 F L 07/21/17 20:00 Pulse 69 07/21/17 20:00 Resp 16 07/21/17 20:00 BP 127/60 07/21/17 20:00 Pulse Ox 96 07/21/17 20:00 Intake & Output 07/21/17 07/21/17 07/22/17 06:59 18:59 06:59 Intake Total 746.049 468.191 30 Output Total 2000 600 200 Balance -1253.951 -131.809 -170 Weight 80.286 kg Intake: IV 517 30 0.9% NS at 10 mL/hr 80 Amiodarone 450 mg In 337 16 Dextrose 5% in Water 250 ml @ 1 MG/MIN 34.53 mls/ hr IV .Q7H31M [facility] Rx#: [id number] Dextrose 5% in Water 100 100 ml @ 618 mls/hr IV .Q10M ONE with Amiodarone 150 mg Rx#:[id number] Lasix 4 NS FLUSH 10 Intake, IV Titration 229.049 228.191 Amount Amiodarone 450 mg In 229.049 228.191 Dextrose 5% in Water 250 ml @ 1 MG/MIN 34.53 mls/ hr IV .Q7H31M [facility] Rx#: [id number] Oral 240 Output: Urine 1999 600 200 Other: # Voids 2 - Exam Patient is lying in the bed comfortably, no acute distress, awake alert and oriented.. HEENT: Normocephalic. Neck is supple. Pupils reactive. Nostrils clear. Oral cavity is moist. Ears reveal no drainage. Neck reveals no JVD, carotid bruits, or thyromegaly. CHEST EXAMINATION: Trachea is central. Symmetrical expansion. Lung col[place] clear to auscultation and percussion. CARDIAC: Normal S1, S2 with no gallops. No murmurs. Irregularly irregular ABDOMEN: Soft. Bowel sounds normal. No organomegaly. No abdominal bruits. Extremities reveal no edema. No clubbing or cyanosis Neurologically awake, alert, oriented x3 with well-coordinated movements. Skin: no rash or skin lesions Musculoskeletal: no joint swelling or deformity. - Labs CBC & Chem 7: 07/21/17 01:30 07/21/17 01:30 Labs: Abnormal Lab Results - Last 24 Hours (Table) 07/21/17 07/21/17 07/21/17 Range/Units 01:27 01:30 01:30 RBC 3.72 L (3.80-5.40) m/uL Hgb 10.9 L (11.4-16.0) gm/dL BUN 43 H (7-17) mg/dL Creatinine 1.30 H (0.52-1.04) mg/dL Glucose 124 H (74-99) mg/dL POC Glucose (mg/dL) (75-99) mg/dL Troponin I 0.043 H* (0.000-0.034) ng/mL 07/21/17 07/21/17 07/21/17 Range/Units 06:05 11:46 16:46 RBC (3.80-5.40) m/uL Hgb (11.4-16.0) gm/dL BUN (7-17) mg/dL Creatinine (0.52-1.04) mg/dL Glucose (74-99) mg/dL POC Glucose (mg/dL) 124 H 138 H 205 H (75-99) mg/dL Troponin I (0.000-0.034) ng/mL 07/21/17 Range/Units 21:06 RBC (3.80-5.40) m/uL Hgb (11.4-16.0) gm/dL BUN (7-17) mg/dL Creatinine (0.52-1.04) mg/dL Glucose (74-99) mg/dL POC Glucose (mg/dL) 144 H (75-99) mg/dL Troponin I (0.000-0.034) ng/mL Assessment and Plan Plan: #1 acute on chronic CHF with systolic and diastolic dysfunction ejection fraction 20% #2 intermittent nonsustained V. tach. Coreg and amiodarone dose increased as per cardiology. DC'd amiodarone drip. #3 elevated troponin. Possible demand mismatch #4 acute on chronic kidney disease stage III #4 chronic Atrial fibrillation on anticoagulation #6 nonischemic cardiomyopathy status post AICD #7 moderate MR and TR #8 severe pulmonary hypertension Plan: Patient was started on IV Lasix and Coreg dose has been increased. Amiodarone increased to 400 mg twice a day. Cardiology is following this patient. Continue with home medications and follow up renal function. Further recommendations as on the clinical course. Time with Patient: Greater than 30
[2017-07-22 06:01] LABS: Basophils # (A) 0.1 k/uL (0-0.2); Basophils % (A) 1 %; CH 29.3; CHCM 32.1; Eosinophils # (A) 0.4 k/uL (0-0.7); Eosinophils % (A) 5 %; HCT 34.5 % (34.0-46.0); HDW 2.61; HGB 10.7 gm/dL (11.4-16.0); Luc # (Auto) 0.16; Luc % (Auto) 2; Lymphocytes # (A) 1.5 k/uL (1.0-4.8); Lymphocytes % (A) 20 %; MCH 28.5 pg (25.0-35.0); MCV 91.8 fL (80.0-100.0); Mean Platelet Volume 8.8; Monocytes # (A) 0.7 k/uL (0-1.0); Monocytes % (A) 9 %; Neutrophils # (A) 4.7 k/uL (1.3-7.7); Neutrophils % (A) 63 %; RBC 3.75 m/uL (3.80-5.40); RDW 15.1 % (11.5-15.5); WBC 7.4 k/uL (3.8-10.6); WBC (Perox) 8.05
[2017-07-22] MEDS: CARVEDILOL 12.5 MG TAB PO SCH (06:10)
[2017-07-22 06:19] LABS: Potassium 3.9 mmol/L (3.5-5.1)
[2017-07-22 06:26] LABS: Glucose,Whole Blood 127 mg/dL (75-99)
[2017-07-22] MEDS: FUROSEMIDE 10 MG/ML 4 ML VIAL IV SCH (08:10)
[2017-07-22] MEDS: ASPIRIN 81 MG PO SCH (08:11)
[2017-07-22] MEDS: AMIODARONE 200 MG TAB PO SCH (08:11)
[2017-07-22] MEDS: APIXABAN 5 MG TAB PO SCH (08:11)
--- NOTE | 2017-07-22 11:01 | P.PN ---
Subjective Principal diagnosis: Congestive heart failure/nonischemic cardiomyopathy/nonsustained VT This is a pleasant 77-year-old female patient who sees Dr. Alvarez as an outpatient with a past medical history significant for severe nonischemic cardiomyopathy with a known EF around 20%, status post AICD, chronic atrial fibrillation, valvular heart disease with known moderate MR, moderate TR, and severe pulmonary hypertension, presented to the hospital complaining of shortness of breath. The patient stated that she was in her usual state of health until the day before yesterday when she started experiencing exertional dyspnea which got worse yesterday. The the dyspnea was even with minimal exertion. She did not have any chest pain or discomfort. No bilateral lower extremities edema. Denies any change in her weight. The patient stated that she was compliant with her medications as well as with her diet. Beside that she stated that lately she has been experiencing some symptoms of cough seems to be dry and not productive for any sputum and not associated with any fever or chills. The chest x-ray showed only cardiomegaly without any acute finding. The EKG showed ventricular paced rhythm. The BNP came in to be around 5000. The cardiac enzymes were checked and came in to be slightly abnormal. The patient was started on Lasix IV with improvement in her symptoms. During her hospitalization she was going into nonsustained V. tach. She was taking amiodarone by mouth which was stopped and she was started on amiodarone IV which was then stopped and she was switched to amiodarone by mouth at 400 mg by mouth twice a day. I'll follow-up with her today she is feeling better. Shortness of breath has improved. No arrhythmia overnight. Objective - Vital Signs Vital signs: Vital Signs Temp 98.3 F 07/22/17 08:00 Pulse 80 07/22/17 08:00 Resp 16 07/22/17 08:00 BP 96/51 07/22/17 08:00 Pulse Ox 96 07/22/17 08:00 Intake & Output 07/21/17 07/22/17 07/22/17 18:59 06:59 18:59 Intake Total 468.191 40 480 Output Total 600 1600 Balance -131.809 -1560 480 Weight 80.286 kg Intake: IV 40 Amiodarone 450 mg In 16 Dextrose 5% in Water 250 ml @ 1 MG/MIN 34.53 mls/ hr IV .Q7H31M [facility] Rx#: [id number] Lasix 4 NS FLUSH 20 Intake, IV Titration 228.191 Amount Amiodarone 450 mg In 228.191 Dextrose 5% in Water 250 ml @ 1 MG/MIN 34.53 mls/ hr IV .Q7H31M [facility] Rx#: [id number] Oral 240 480 Output: Urine 600 1600 - Constitutional General appearance: Present: no acute distress - Respiratory Respiratory: bilateral: CTA - Cardiovascular Rhythm: regular Heart sounds: normal: S1, S2 - Labs CBC & Chem 7: 07/22/17 05:44 07/22/17 05:44 Labs: Abnormal Lab Results - Last 24 Hours (Table) 07/21/17 07/21/17 07/21/17 Range/Units 11:46 16:46 21:06 RBC (3.80-5.40) m/uL Hgb (11.4-16.0) gm/dL BUN (7-17) mg/dL Creatinine (0.52-1.04) mg/dL Glucose (74-99) mg/dL POC Glucose (mg/dL) 138 H 205 H 144 H (75-99) mg/dL 07/22/17 07/22/17 07/22/17 Range/Units 05:44 05:44 06:24 RBC 3.75 L (3.80-5.40) m/uL Hgb 10.7 L (11.4-16.0) gm/dL BUN 37 H (7-17) mg/dL Creatinine 1.40 H (0.52-1.04) mg/dL Glucose 115 H (74-99) mg/dL POC Glucose (mg/dL) 127 H (75-99) mg/dL Assessment and Plan Plan: This is a pleasant 77-year-old female patient with known severe nonischemic cardiomyopathy and status post AICD, chronic atrial fibrillation, and valvular heart disease, was admitted to the hospital was progressive dyspnea of only 2 days duration. Clinically the patient is doing better. There is no arrhythmia from overnight. From the cardiovascular standpoint of view, she might be able to be discharged home. I will stop the Lasix IV and started on Lasix by mouth. Continue amiodarone at 400 mg by mouth twice a day.
[2017-07-22 11:38] LABS: Glucose,Whole Blood 109 mg/dL (75-99)
[2017-07-22 12:38] VITALS: BP 99/56; PULSE 67; TEMP 96.3
--- NOTE | 2017-07-22 13:33 | P.DS ---
Providers Date of admission: 07/20/17 15:07 Attending physician: Rita Swift Consults: 07/20/17 15:08 Consult Physician Urgent Consulting Provider: Prashant Francisco Consult Reason/Comments: CHF Do you want consulting provider notified?: Yes Primary care physician: [facility] Course: Pt is a 77 yo female with a past medical history significant for severe nonischemic cardiomyopathy with a known EF around 20%, status post AICD, chronic atrial fibrillation, valvular heart disease with known moderate MR, moderate TR, and severe pulmonary hypertension, presented to the hospital complaining of shortness of breath worsening for the past 2 days., Patient states she has had some central chest discomfort, no significant chest pain. No radiating symptoms. Patient states she walked this morning while at [employer] and became severely short of breath and fatigue. This prompted her ER visit. Patient is on Coreg, amiodarone,eliquis, and losartan. She also takes 100 mg of Lasix daily, 60 in the morning and 40 at night. Possibly 3 weeks ago her Coreg dose was reduced from 25-12.5 twice a day. Patient denies missing any of her medication. Denies lower swelling. Patient's symptoms have been worsening over several weeks. Denies fever chills. Has had a mild cough for the past 3 weeks. This was dry no sputum. Patient follows with cardiology clinic as an outpatient. Patient had stress test 2 years ago and also pacemaker interrogation about the same time patient had cardiac catheterization several years ago. Patient is to get echocardiogram every year The chest x-ray showed only cardiomegaly without any acute finding. The EKG showed ventricular paced rhythm. The BNP 7590 . Troponin 0.036--0.047 0.043 On 07/21/2017 Patient states that her breathing is improved compared to yesterday. Patient did have nonsustained V. tach last night. Currently denied any chest pain or short of breath no headache or dizziness. 2-D echo showed ejection fraction 20 % with severe LV dilatation and global hypokinesis as well as severe LV dilatation. 07/22/2017 Patient is euvolemic at this point of time any function is at her baseline, because of fractured in kidney function and had a creatinine being 1.4 metformin is probably not appropriate. Metformin will be discontinued instead patient was started on low-dose of Januvia PHYSICAL EXAMINATION: GENERAL: The patient is alert and oriented x3, not in any acute distress. Well developed, well nourished. HEENT: Pupils are round and equally reacting to light. EOMI. No scleral icterus. No conjunctival pallor. Normocephalic, atraumatic. No pharyngeal erythema. No thyromegaly. CARDIOVASCULAR: S1 and S2 present. No murmurs, rubs, or gallops. PULMONARY: Chest is clear to auscultation, no wheezing or crackles. ABDOMEN: Soft, nontender, nondistended, normoactive bowel sounds. No palpable organomegaly. MUSCULOSKELETAL: No joint swelling or deformity. EXTREMITIES: No cyanosis, clubbing, or pedal edema. NEUROLOGICAL: Gross neurological examination did not reveal any focal deficits. SKIN: No rashes. #1 acute on chronic CHF with systolic and diastolic dysfunction ejection fraction 20%, patient is presently euvolemic #2 intermittent nonsustained V. tach. Coreg and amiodarone dose increased as per cardiology. DC'd amiodarone drip. #3 elevated troponin. Possible demand mismatch #4 acute on chronic kidney disease stage III #4 chronic Atrial fibrillation on anticoagulation #6 nonischemic cardiomyopathy status post AICD #7 moderate MR and TR #8 severe pulmonary hypertension Patient Condition at Discharge: Stable Plan - Discharge Summary New Discharge Prescriptions: New Amiodarone [Cordarone] 400 mg PO BID #30 tab sitaGLIPtin PHOSPHATE [Januvia] 25 mg PO DAILY #30 tab Continue Cyanocobalamin [Vitamin B-12] 2,500 mcg PO DAILY Cholecalciferol [Vitamin D3] 1,000 unit PO QAM Multivitamins, Thera [Multivitamin (formulary)] 1 tab PO DAILY Apixaban [Eliquis] 5 mg PO BID Aspirin EC [Ecotrin Low Dose] 81 mg PO DAILY [place]-3 Fatty Acids/Fish Oil [Fish Oil 1,000 mg Softgel] 1 cap PO BID Atorvastatin [Lipitor] 10 mg PO HS #30 tab Carvedilol [Coreg] 12.5 mg PO BID-W/MEALS Furosemide [Lasix] 60 mg PO DAILY Furosemide [Lasix] 40 mg PO HS Losartan Potassium [Cozaar] 25 mg PO HS Discontinued metFORMIN HCL [Glucophage] 1,000 mg PO AC-BRKFST Amiodarone [Cordarone] 100 mg PO QAM metFORMIN HCL [Glucophage] 500 mg PO AC-SUPPER Discharge Medication List Apixaban [Eliquis] 5 mg PO BID 01/01/15 [History] Aspirin EC [Ecotrin Low Dose] 81 mg PO DAILY 01/01/15 [History] Cholecalciferol [Vitamin D3] 1,000 unit PO QAM 01/01/15 [History] Cyanocobalamin [Vitamin B-12] 2,500 mcg PO DAILY 01/01/15 [History] Multivitamins, Thera [Multivitamin (formulary)] 1 tab PO DAILY 01/01/15 [History ] [place]-3 Fatty Acids/Fish Oil [Fish Oil 1,000 mg Softgel] 1 cap PO BID 03/27/15 [ History] Atorvastatin [Lipitor] 10 mg PO HS #30 tab 08/21/15 [Rx] Carvedilol [Coreg] 12.5 mg PO BID-W/MEALS 10/06/15 [History] Furosemide [Lasix] 40 mg PO HS 07/20/17 [History] Furosemide [Lasix] 60 mg PO DAILY 07/20/17 [History] Losartan Potassium [Cozaar] 25 mg PO HS 07/20/17 [History] Amiodarone [Cordarone] 400 mg PO BID #30 tab 07/22/17 [Rx] sitaGLIPtin PHOSPHATE [Januvia] 25 mg PO DAILY #30 tab 07/22/17 [Rx] Follow up Appointment(s)/Referral(s): Kezia Alvarez MD [STAFF PHYSICIAN] - 08/01/17 3:45 pm Kishore Lucia DO [Primary Care Provider] - 1-2 days (OFFICE IS CLOSED. PLEASE CALL TO MAKE APPOINTMENT) Discharge Disposition: HOME SELF-CARE
[2017-07-22 13:39] LABS: Hemoglobin A1C 6.2 % (4.2-6.1)
[2017-07-22] MEDS ORDERED: FUROSEMIDE 20 MG TAB PO SCH (21:00)
[2017-07-23] MEDS ORDERED: FUROSEMIDE 40 MG TAB PO SCH (09:00)
== END 2017-07-22 13:27 | disposition home or self-care (01) | DRG 291 ==
LOC: EC 12:36 → 6SEL 15:07
PROVIDERS: ADMIT Internal Medicine; ATTEND Internal Medicine
DX: I13.0 Hypertensive heart and chronic kidney disease with heart failure and stage 1 through stage 4 chronic kidney disease, or unspecified chronic kidney disease (principal); I50.43 Acute on chronic combined systolic (congestive) and diastolic (congestive) heart failure; N17.9 Acute kidney failure, unspecified; I47.2 Ventricular tachycardia; E11.22 Type 2 diabetes mellitus with diabetic chronic kidney disease; I42.8 Other cardiomyopathies; I27.2 Other secondary pulmonary hypertension; N18.3 Chronic kidney disease, stage 3 (moderate); I48.2 Chronic atrial fibrillation; I08.1 Rheumatic disorders of both mitral and tricuspid valves; Z96.653 Presence of artificial knee joint, bilateral; Z79.01 Long term (current) use of anticoagulants; Z95.810 Presence of automatic (implantable) cardiac defibrillator; Z88.1 Allergy status to other antibiotic agents; Z88.0 Allergy status to penicillin; Z88.8 Allergy status to other drugs, medicaments and biological substances; Z79.899 Other long term (current) drug therapy; Z79.84 Long term (current) use of oral hypoglycemic drugs; Z80.8 Family history of malignant neoplasm of other organs or systems; Z83.3 Family history of diabetes mellitus; Z82.3 Family history of stroke; Z98.41 Cataract extraction status, right eye; Z98.42 Cataract extraction status, left eye; Z90.710 Acquired absence of both cervix and uterus; Z90.49 Acquired absence of other specified parts of digestive tract; Z87.19 Personal history of other diseases of the digestive system; Z90.89 Acquired absence of other organs
CPT/HCPCS: 36415; 71020; 80048; 80053; 82550; 82553; 83036; 83735; 83880; 84484; 85025; 85610; 85730; 93005; 93306; 99285

== ENCOUNTER 2017-08-01 09:25 | Inpatient (IN) | payer MEDICARE, BC ==
[2017-08-01] MEDS ORDERED: IPRATROPIUM-ALBUTEROL 3 ML NEB INHALATION STA (10:18)
--- NOTE | 2017-08-01 10:26 | ED ---
General Adult HPI - General Chief complaint: Shortness of Breath Stated complaint: SOB Time Seen by Provider: 08/01/17 09:30 Source: patient, RN notes reviewed Mode of arrival: wheelchair Limitations: no limitations - History of Present Illness Initial comments: This is a 77-year-old female who states she was in the hospital at the end of June for V. tach. Patient states she was discharged and was feeling little bit better but since Friday or shortness of breath got progressively worse. Patient states anytime she gets up and moves around she is much more short of breath. Patient denies any chest pain or palpitations. Patient denies any leg swelling or calf pain. Patient denies any recent fever chills but states she does have a cough but no sputum production recently. Patient denies feeling lightheaded or dizzy. Patient denies any headache patient denies numbness weakness. Patient denies abdominal pain patient denies nausea vomiting or diarrhea. - Related Data Home Medications Medication Instructions Recorded Confirmed Apixaban [Eliquis] 5 mg PO BID 01/01/15 08/01/17 Aspirin EC [Ecotrin Low Dose] 81 mg PO DAILY 01/01/15 08/01/17 Cholecalciferol [Vitamin D3] 1,000 unit PO QAM 01/01/15 08/01/17 Cyanocobalamin [Vitamin B-12] 2,500 mcg PO DAILY 01/01/15 08/01/17 Multivitamins, Thera [Multivitamin 1 tab PO DAILY 01/01/15 08/01/17 (formulary)] [place]-3 Fatty Acids/Fish Oil [Fish 1 cap PO BID 03/27/15 08/01/17 Oil 1,000 mg Softgel] Carvedilol [Coreg] 12.5 mg PO BID-W/MEALS 10/06/15 08/01/17 Furosemide [Lasix] 40 mg PO HS 07/20/17 08/01/17 Furosemide [Lasix] 80 mg PO DAILY 07/20/17 08/01/17 Losartan Potassium [Cozaar] 25 mg PO HS 07/20/17 08/01/17 Previous Rx's Medication Instructions Recorded Atorvastatin [Lipitor] 10 mg PO HS #30 tab 08/21/15 Amiodarone [Cordarone] 400 mg PO BID #30 tab 07/22/17 sitaGLIPtin PHOSPHATE [Januvia] 25 mg PO DAILY #30 tab 07/22/17 Allergies Allergy/AdvReac Type Severity Reaction Status Date / Time nitrofurantoin Allergy Unknown Rash/Hives Verified 08/01/17 10:00 [From Macrobid] nitrofurantoin Allergy Unknown Rash/Hives Verified 08/01/17 10:00 macrocrystalline [From Macrobid] cefuroxime Allergy Rash/Hives Verified 08/01/17 10:00 Penicillins Allergy Rash/Hives Verified 08/01/17 10:00 Review of Systems ROS Statement: Those systems with pertinent positive or pertinent negative responses have been documented in the HPI. ROS Other: All systems not noted in ROS Statement are negative. Past Medical History Past Medical History: Diabetes Mellitus Additional Past Medical History / Comment(s): DR DR VALENCIA'S H&P History of Any Multi-Drug Resistant Organisms: None Reported Past Surgical History: AICD, Appendectomy, Section, Cholecystectomy, Hernia Repair, Hysterectomy, Tonsillectomy, Tubal Ligation Additional Past Surgical History / Comment(s): bilateral knee replacements, bilateral cataract removal, Past Anesthesia/Blood Transfusion Reactions: No Reported Reaction Type of Cardiac Device: AICD Device Placement Date:: 07/2011 Past Psychological History: No Psychological Hx Reported Smoking Status: Never smoker Past Alcohol Use History: None Reported Past Drug Use History: None Reported - Past Family History Father Family Medical History: Cancer Additional Family Medical History / Comment(s): THROAT CA Mother Family Medical History: CVA/TIA, Diabetes Mellitus General Exam - General Exam Comments Initial Comments: GENERAL: Patient is well-developed and well-nourished. Patient is nontoxic and well- hydrated and is in mild distress. ENT: Neck is soft and supple. No significant lymphadenopathy is noted. Oropharynx is clear. Moist mucous membranes. Neck has full range of motion without eliciting any pain. There is no thyroid enlargement and no masses were felt. EYES: The sclera were anicteric and conjunctiva were pink and moist. Extraocular movements were intact and pupils were equal round and reactive to light. Eyelids were unremarkable. PULMONARY: Unlabored respirations. Good breath sounds bilaterally. Very slight crackles in the bases. CARDIOVASCULAR: There is a regular rate and rhythm without any murmurs gallops or rubs. ABDOMEN: Soft and nontender with normal bowel sounds. No palpable organomegaly was noted. There is no palpable pulsatile mass. SKIN: Skin is clear with no lesions or rashes and otherwise unremarkable. NEUROLOGIC: Patient is alert and oriented x3. Cranial nerves II through XII are grossly intact. Motor and sensory are also intact. Normal speech, volume and content. Symmetrical smile. MUSCULOSKELETAL: Normal extremities with adequate strength and full range of motion. No lower extremity swelling or edema. No calf tenderness. LYMPHATICS: No significant lymphadenopathy is noted PSYCHIATRIC: Normal psychiatric evaluation. Limitations: no limitations Course Vital Signs 08/01/17 08/01/17 08/01/17 09:29 10:31 10:35 Temperature 97.9 F Pulse Rate 76 63 82 Respiratory 20 20 Rate Blood Pressure 137/101 117/72 O2 Sat by Pulse 95 96 Oximetry 08/01/17 10:41 Temperature Pulse Rate 75 Respiratory Rate Blood Pressure O2 Sat by Pulse Oximetry Medical Decision Making - Medical Decision Making EKG shows ventricular paced rhythm at 87 bpm QRS is 204 QT interval is 462 QTC is 555. Chest x-ray shows a right lower lobe infiltrate. Start the patient on antibiotics I got a lactic acid and a blood culture this point and I spoke with the primary medical care doctor and wrote admitting orders. And continued antibiotics on the floor - Lab Data Result diagrams: 08/01/17 09:42 08/01/17 09:42 Lab Results 08/01/17 08/01/17 08/01/17 Range/Units 09:42 09:42 09:42 WBC 11.4 H (3.8-10.6) k/uL RBC 3.74 L (3.80-5.40) m/uL Hgb 10.9 L (11.4-16.0) gm/dL Hct 34.6 (34.0-46.0) % MCV 92.5 (80.0-100.0) fL MCH 29.1 (25.0-35.0) pg MCHC 31.5 (31.0-37.0) g/dL RDW 14.6 (11.5-15.5) % Plt Count 309 (150-450) k/uL Neutrophils % 84 % Lymphocytes % 7 % Monocytes % 6 % Eosinophils % 1 % Basophils % 0 % Neutrophils # 9.6 H (1.3-7.7) k/uL Lymphocytes # 0.8 L (1.0-4.8) k/uL Monocytes # 0.7 (0-1.0) k/uL Eosinophils # 0.1 (0-0.7) k/uL Basophils # 0.0 (0-0.2) k/uL Hypochromasia Moderate PT (9.0-12.0) sec INR (<1.2) APTT (22.0-30.0) sec Sodium 140 (137-145) mmol/L Potassium 4.0 (3.5-5.1) mmol/L Chloride 101 (98-107) mmol/L Carbon Dioxide 26 (22-30) mmol/L Anion Gap 13 mmol/L BUN 44 H (7-17) mg/dL Creatinine 1.47 H (0.52-1.04) mg/dL Est GFR (MDRD) Af Amer 42 (>60 ml/min/1.73 sqM) Est GFR (MDRD) Non-Af 35 (>60 ml/min/1.73 sqM) Glucose 158 H (74-99) mg/dL Calcium 9.4 (8.4-10.2) mg/dL Magnesium 2.3 (1.6-2.3) mg/dL Total Bilirubin 1.1 (0.2-1.3) mg/dL AST 30 (14-36) U/L ALT 52 (9-52) U/L Alkaline Phosphatase 53 (38-126) U/L Total Creatine Kinase 77 (30-135) U/L CK-MB (CK-2) 1.4 (0.0-2.4) ng/mL CK-MB (CK-2) Rel Index 1.8 Troponin I 0.042 H* (0.000-0.034) ng/mL NT-Pro-B Natriuret Pep pg/mL Total Protein 6.6 (6.3-8.2) g/dL Albumin 4.0 (3.5-5.0) g/dL 08/01/17 08/01/17 Range/Units 09:42 09:42 WBC (3.8-10.6) k/uL RBC (3.80-5.40) m/uL Hgb (11.4-16.0) gm/dL Hct (34.0-46.0) % MCV (80.0-100.0) fL MCH (25.0-35.0) pg MCHC (31.0-37.0) g/dL RDW (11.5-15.5) % Plt Count (150-450) k/uL Neutrophils % % Lymphocytes % % Monocytes % % Eosinophils % % Basophils % % Neutrophils # (1.3-7.7) k/uL Lymphocytes # (1.0-4.8) k/uL Monocytes # (0-1.0) k/uL Eosinophils # (0-0.7) k/uL Basophils # (0-0.2) k/uL Hypochromasia PT 12.1 H (9.0-12.0) sec INR 1.2 H (<1.2) APTT 23.8 (22.0-30.0) sec Sodium (137-145) mmol/L Potassium (3.5-5.1) mmol/L Chloride (98-107) mmol/L Carbon Dioxide (22-30) mmol/L Anion Gap mmol/L BUN (7-17) mg/dL Creatinine (0.52-1.04) mg/dL Est GFR (MDRD) Af Amer (>60 ml/min/1.73 sqM) Est GFR (MDRD) Non-Af (>60 ml/min/1.73 sqM) Glucose (74-99) mg/dL Calcium (8.4-10.2) mg/dL Magnesium (1.6-2.3) mg/dL Total Bilirubin (0.2-1.3) mg/dL AST (14-36) U/L ALT (9-52) U/L Alkaline Phosphatase (38-126) U/L Total Creatine Kinase (30-135) U/L CK-MB (CK-2) (0.0-2.4) ng/mL CK-MB (CK-2) Rel Index Troponin I (0.000-0.034) ng/mL NT-Pro-B Natriuret Pep 7380 pg/mL Total Protein (6.3-8.2) g/dL Albumin (3.5-5.0) g/dL Disposition Clinical Impression: Dyspnea, Pneumonia Disposition: ADMITTED IP TO THIS HOSP Referrals: Kishore Lucia DO [Primary Care Provider] - 1-2 days Time of Disposition: 11:38
[2017-08-01 10:33] LABS: Basophils % (A) 0 %; CH 28.4; CHCM 30.8; Eosinophils # (A) 0.1 k/uL (0-0.7); Eosinophils % (A) 1 %; HCT 34.6 % (34.0-46.0); HDW 2.83; HGB 10.9 gm/dL (11.4-16.0); Hypochromasia Moderate; Luc # (Auto) 0.15; Luc % (Auto) 1; Lymphocytes # (A) 0.8 k/uL (1.0-4.8); Lymphocytes % (A) 7 %; MCH 29.1 pg (25.0-35.0); MCHC 31.5 g/dL (31.0-37.0); MCV 92.5 fL (80.0-100.0); Mean Platelet Volume 7.7; Monocytes # (A) 0.7 k/uL (0-1.0); Monocytes % (A) 6 %; Neutrophils # (A) 9.6 k/uL (1.3-7.7); Neutrophils % (A) 84 %; RBC 3.74 m/uL (3.80-5.40); RDW 14.6 % (11.5-15.5); WBC 11.4 k/uL (3.8-10.6); WBC (Perox) 11.97
--- NOTE | 2017-08-01 10:46 | XR ---
EXAMINATION TYPE: XR chest 2V DATE OF EXAM: 08/01/2017 COMPARISON: 07/20/17 HISTORY: Shortness of breath TECHNIQUE: Frontal and lateral views of the chest are obtained. FINDINGS: Scattered senescent parenchymal changes noted. Hyperinflation compatible with COPD. Right lower lobe infiltrate correlate for pneumonia. Heart size is stable. Mediastinal structures are stable and grossly unremarkable. No evidence for hilar prominence. Degenerative changes dorsal spine. IMPRESSION: 1. Right lower lobe infiltrate correlate for pneumonia.
[2017-08-01 10:50] LABS: Calcium 9.4 mg/dL (8.4-10.2); Magnesium 2.3 mg/dL (1.6-2.3); Total Bilirubin 1.1 mg/dL (0.2-1.3); Total Protein 6.6 g/dL (6.3-8.2)
[2017-08-01 11:08] LABS: Creatine Kinase MB 1.4 ng/mL (0.0-2.4)
[2017-08-01 11:12] LABS: Troponin I 0.042 ng/mL (0.000-0.034)
[2017-08-01 11:22] LABS: INR 1.2 (<1.2); Partial Thromboplastin Time 23.8 sec (22.0-30.0); Prothrombin Time 12.1 sec (9.0-12.0)
[2017-08-01] MEDS ORDERED: LEVOFLOXACIN 750MG-D5W PMX 750 MG in DEXTROSE/WATER 1 150ML.BAG IVPB STA (11:38)
[2017-08-01] MEDS ORDERED: PNEUMONIA PROTOCOL UTILIZED 1 EACH MISC PO PRN (11:38)
[2017-08-01] MEDS: IPRATROPIUM-ALBUTEROL 3 ML NEB INHALATION SCH ×3 (15:20→19:46)
[2017-08-01 16:37] LABS: Glucose,Whole Blood 121 mg/dL (75-99)
[2017-08-01] MEDS: CARVEDILOL 12.5 MG TAB PO SCH (18:36)
[2017-08-01] MEDS: APIXABAN 5 MG TAB PO SCH (20:27)
[2017-08-01] MEDS: ATORVASTATIN 10 MG TAB PO SCH (20:28)
[2017-08-01] MEDS: LOSARTAN 25 MG TAB PO SCH (20:34)
[2017-08-01] MEDS: FUROSEMIDE 10 MG/ML 10 ML VIAL IV SCH (20:34)
[2017-08-01 20:49] LABS: Glucose,Whole Blood 142 mg/dL (75-99)
[2017-08-01] MEDS ORDERED: AMIODARONE 200 MG TAB PO SCH (21:00)
[2017-08-01] MEDS ORDERED: NON-FORMULARY DRUG (Omega-3 Fatty Acids/Fish Oil [Fish Oil 1,000 Mg Softgel] 1 CAP) PO SCH (21:00)
[2017-08-01] MEDS ORDERED: FUROSEMIDE 40 MG TAB PO SCH (21:00)
--- NOTE | 2017-08-01 22:03 | HP ---
HISTORY AND PHYSICAL CHIEF COMPLAINT: Shortness of breath, cough and sputum. HISTORY: This 77-year-old woman with a past medical history of multiple complex medical issues, including cardiomyopathy, history of atrial fibrillation, history of diabetes and hypertension, hyperlipidemia being followed by Dr. Lucia in the outpatient setting is admitted with CHF acute exacerbation as well as intermittent wide-complex ventricular tachycardia. The medication was adjusted and the patient improved significantly and the patient went home, but subsequently patient had increased shortness of breath and cough and sputum and the patient came to [facility] and was admitted for further evaluation and right lower lobe pneumonia suspected. There is no history of any fever, rigors. No history of headache, loss of consciousness or seizures. PAST MEDICAL HISTORY: History of atrial fibrillation, CHF, diabetes mellitus, hypertension, hyperlipidemia. MEDICATIONS PRIOR TO ADMISSION: Include home medications are: 1. Januvia 25 mg p.o. daily. 2. [place]-3 fatty acids 1 p.o. b.i.d. 3. Multivitamins 1 p.o. daily. 4. Cozaar 25 mg q.h.s. 5. Lasix 40 mg increased to 60 mg p.o. daily. 6. Vitamin B12 2.5 mg b.i.d. 7. Vitamin D3 1000 daily. 8. Coreg 12.5 mg b.i.d. 9. Lipitor 20 mg q.h.s. 10.Ecotrin 81 mg daily. 11.Eliquis 5 mg p.o. b.i.d. 12.Cordarone 400 mg p.o. b.i.d. ALLERGIES: NITROFURANTOIN, CEFUROXIME, PENICILLIN. FAMILY HISTORY: No history of heart disease or strokes in the family. SOCIAL HISTORY: No history of smoking. No history of alcohol intake. REVIEW OF SYSTEMS: ENT: No diminished hearing, diminished vision. CARDIOVASCULAR: As mentioned earlier. RESPIRATORY: As mentioned earlier. GI: No nausea. : No dysuria. NERVOUS: No numbness, weakness. ALLERGY/IMMUNOLOGY: No asthma, hay fever. MUSCULOSKELETAL: As mentioned earlier. HEMATOLOGY/ONCOLOGY: No history of anemia. ENDOCRINE: History of diabetes. CONSTITUTIONAL: As mentioned earlier. DERMATOLOGY: Negative. RHEUMATOLOGY: Negative. PSYCHIATRY: As mentioned earlier. PHYSICAL EXAM: Patient is alert, oriented x2. Pulse 95, blood pressure 128/90, respirations 18, temperature 98.2, pulse ox 100% on 3L. HEENT: Conjunctivae normal. Oral mucosa moist. NECK: No jugular venous distention at the root. CARDIOVASCULAR: S1, S2 muffled. No S3. No S4. RESPIRATORY: Breath sounds diminished in the bases. A few scattered rhonchi and crackles on admission, right base. ABDOMEN: Soft, obese, nontender. LEGS: No edema. NERVOUS SYSTEM: Higher functions as mentioned. Moves all 4 limbs. No focal motor deficits. LYMPHATIC: None. SKIN: No rash. LAB STUDIES: WBC 11.8, hemoglobin is 10.8, INR 1.2. Creatinine 1.47. Troponin 0.042. ASSESSMENT: 1. Congestive heart failure acute exacerbation with acute on chronic systolic dysfunction, ejection fraction 20% to 30% with possibly cardiomyopathy. 2. Possible right lower lobe pneumonia, possibly gram-negative. 3. History of recent ventricular tachycardia. 4. Troponin 0.042, indeterminate. 5. Increased creatinine to 1.47, indicating chronic kidney disease stage 3. 6. History of atrial fibrillation. 7. History of diabetes. 8. Hypertension. 9. Hyperlipidemia. 10.History of mitral and tricuspid regurgitation. 11.History of pulmonary hypertension. 12.History automatic implantable cardioverter-defibrillator. 13.History of degenerative joint disease. RECOMMENDATIONS AND DISCUSSION: In this 77-year-old woman who presented with multiple complex medical issues, will monitor the patient closely. Continue the current medical management and symptomatic treatment. I will recommend IV Lasix and also bronchodilators, empiric antibiotics, cardiology consultation. Resume the home medications. Guarded prognosis because of multiple complex medical issues. Further recommendations to follow. A copy of this will be forwarded to Dr. Lucia, who is the primary physician. Fluid resuscitation at 1200 mL per 24 hours. MMODL / IJN: [id number] /
[2017-08-01 22:31] LABS: Appearance,Urine Clear (Clear); Bilirubin,Urine Negative (Negative); Glucose,Urine (UA) Negative (Negative); Ketones,Urine Negative (Negative); Leukocyte Esterase,Urine Moderate (Negative); Mucus,Urine Rare /hpf; Nitrite,Urine Negative (Negative); Particle Count 826; Protein,Urine Negative (Negative); RBC,Urine 1 /hpf (0-5); Specific Gravity,Urine 1.005 (1.001-1.035); Squamous Epithelial Cell,Urine <1 /hpf (0-4); UA Billing (MACRO vs. MICRO) MICRO; Urobilinogen,Urine <2.0 mg/dL (<2.0); WBC,Urine 6 /hpf (0-5)
[2017-08-02] MEDS: IPRATROPIUM-ALBUTEROL 3 ML NEB INHALATION PRN (00:15)
[2017-08-02 00:53] LABS: Glucose,Whole Blood 208 mg/dL (75-99)
[2017-08-02 06:28] LABS: Glucose,Whole Blood 158 mg/dL (75-99)
[2017-08-02] MEDS: CARVEDILOL 12.5 MG TAB PO SCH ×2 (06:33→16:52)
[2017-08-02 07:02] LABS: Basophils % (A) 0 %; CH 29.3; CHCM 31.2; Eosinophils % (A) 0 %; HCT 31.7 % (34.0-46.0); HDW 2.75; HGB 9.7 gm/dL (11.4-16.0); Hypochromasia Slight; Luc # (Auto) 0.17; Luc % (Auto) 2; Lymphocytes # (A) 0.7 k/uL (1.0-4.8); Lymphocytes % (A) 7 %; MCH 28.9 pg (25.0-35.0); MCHC 30.7 g/dL (31.0-37.0); MCV 94.3 fL (80.0-100.0); Mean Platelet Volume 8.1; Monocytes # (A) 0.8 k/uL (0-1.0); Monocytes % (A) 8 %; Neutrophils # (A) 9.1 k/uL (1.3-7.7); Neutrophils % (A) 84 %; RBC 3.37 m/uL (3.80-5.40); RDW 15.6 % (11.5-15.5); WBC 10.8 k/uL (3.8-10.6); WBC (Perox) 11.53
--- NOTE | 2017-08-02 07:22 | XR ---
EXAMINATION TYPE: XR chest 2V DATE OF EXAM: 08/02/2017 HISTORY: pneumonia. REFERENCE: Previous study dated 08/01/2017. FINDINGS: There is a multilead pacing device in place on the left. The lungs are overinflated. The heart is enlarged. There are bibasilar infiltrates. There are small, bilateral effusions.. IMPRESSION: 1. COPD. 2. CARDIOMEGALY. 3. BIBASILAR INFILTRATES. 4. SMALL, BILATERAL EFFUSIONS. 5. THERE HAS NOT BEEN A SIGNIFICANT CHANGE IN THE APPEARANCE OF THE CHEST.
[2017-08-02 07:24] LABS: Potassium 3.3 mmol/L (3.5-5.1)
[2017-08-02] MEDS: IPRATROPIUM-ALBUTEROL 3 ML NEB INHALATION SCH ×5 (08:51→20:50)
[2017-08-02] MEDS ORDERED: FUROSEMIDE 40 MG TAB PO SCH (09:00)
[2017-08-02] MEDS: CYANOCOBALAMIN 500 MCG TAB PO SCH (09:11)
[2017-08-02] MEDS: CHOLECALCIFEROL 1,000 UNIT TAB PO SCH (09:11)
[2017-08-02] MEDS: AMIODARONE 200 MG TAB PO SCH ×2 (09:11→21:12)
[2017-08-02] MEDS: FUROSEMIDE 10 MG/ML 10 ML VIAL IV SCH ×2 (09:12→20:21)
[2017-08-02] MEDS: APIXABAN 5 MG TAB PO SCH ×2 (09:12→21:12)
[2017-08-02] MEDS: ASPIRIN 81 MG PO SCH (09:12)
[2017-08-02] MEDS: LINAGLIPTIN 5 MG TABLET PO SCH (09:12)
--- NOTE | 2017-08-02 10:01 | CONS ---
CONSULTATION Mrs. Wasserman is a 77-year-old female with a known history of severe nonischemic cardiomyopathy, history of mitral valve disease, history of atrial fibrillation, ICD implantation, who presented with symptoms of severe progressive dyspnea that occurred over the last week or so. She was recently admitted to the hospital with symptoms of worsening congestive heart failure. She has no chest pain and she had some weight gain. No peripheral edema. She has symptoms of PND, but no clear orthopnea. She took some extra Lasix because of her progressive dyspnea and weight gain, but did not improve and came into the emergency room. She has been having a cough, productive at times of greenish sputum, but no fever. She denies any dizziness palpitation. No syncope. Her coronary risk factors are remarkable for history of hypertension, hyperlipidemia. She is nonsmoker. She is diabetic. MEDICATION: Her medications at home include: 1. Januvia. 2. Cozaar 25 mg daily. 3. Lasix 60 in the morning, 40 in the afternoon. 4. Vitamin B. 5. Vitamin D. 6. Carvedilol 12.5 mg twice a day. 7. Lipitor 80 mg daily. 8. Aspirin once a day. 9. Eliquis 5 mg twice a day. 10.Amiodarone 400 mg twice a day. REVIEW OF SYSTEMS: RESPIRATORY system: She had dyspnea on exertion. The cough. No history of obstructive lung disease. GI system no recent GI bleeding. No peptic ulcer disease. system no dysuria or hematuria. Nervous system: No history of stroke or seizure. PHYSICAL EXAMINATION: She is a 77-year-old female, alert, mildly dyspneic. Blood pressure 106/60 with a heart in 80s. HEAD: Normocephalic. Eyes sclerae anicteric. Neck no bruit. Lungs with crackles in the right base. Heart irregular regular S1, S2. No S3 with systolic murmur heard at the base. No diastolic murmur. No rub. ABDOMEN: Soft, nontender. Positive bowel sounds. No organomegaly. EXTREMITIES: No edema. LAB DATA: Lab data revealed a troponin of 0.042. NT proBNP of 7380. BUN and creatinine 44 and 1.47. Her hemoglobin is 10.9, white blood cell of 11.4 today. Her BUN and creatinine 38, 1.44, potassium 3.3. Her chest x-ray is suggestive of right lower lobe infiltrate. The EKG revealed atrial fibrillation with paced rhythm with biventricular pacing. On the rhythm strip, she had episode of nonsustained ventricular tachycardia. IMPRESSION: 1. Symptoms of progressive dyspnea in a patient with known history of severe ischemic cardiomyopathy, with a possible exacerbation of systolic congestive heart failure on top of pulmonary infection. 2. History of nonischemic cardiomyopathy. 3. Status post ICD Bi V implantation. 4. Atrial fibrillation. 5. Hypertension. 6. Hyperlipidemia. 7. Diabetes mellitus. 8. Chronic kidney disease. RECOMMENDATION: From the cardiac standpoint, I will continue anticoagulation. Will also continue on intravenous diuretics. Follow her renal function closely. She has been started on antibiotics. I will cut down the dose of her amiodarone. Her aspirin will be held. The elevation of the troponin is related to her congestive heart failure and severe cardiomyopathy. The patient had elevated troponin in the past. I do not believe that this is reflecting an acute ischemic event. Depending on her progress, further recommendation will be made. Thank you for this consult. We will follow with you. DEA / IJN: [id number] /
[2017-08-02 11:56] LABS: Glucose,Whole Blood 165 mg/dL (75-99)
[2017-08-02] MEDS ORDERED: LEVOFLOXACIN 750MG-D5W PMX 750 MG in DEXTROSE/WATER 1 150ML.BAG IVPB SCH (12:00)
[2017-08-02] MEDS: MULTIVITAMINS, THERA 1 EACH TAB PO SCH (12:10)
[2017-08-02] MEDS: POTASSIUM CHLORIDE ER 20 MEQ TAB.ER PO SCH (12:11)
[2017-08-02 16:52] LABS: Glucose,Whole Blood 134 mg/dL (75-99)
--- NOTE | 2017-08-02 19:16 | PN ---
PROGRESS NOTE DATE OF SERVICE: 08/02/2017 INTERVAL HISTORY: This 77-year-old woman who was admitted with CHF acute exacerbation, also had a possible right lower lobe pneumonia. The patient was on antibiotics also. No chest pain. No palpitations. No fever. EXAM: Alert, oriented x3. Pulse 60, blood pressure 104/60, respirations 18, temperature is normal. Pulse ox 94% on 2L. HEENT: Conjunctivae normal. Oral mucosa moist. NECK: No jugular venous distention. No carotid bruit. No lymph node enlargement. CARDIOVASCULAR: S1, S2 muffled. RESPIRATORY: Breath sounds diminished in the bases. Bilateral scattered rhonchi and crackles. ABDOMEN: Soft, nontender. No mass palpable. NERVOUS SYSTEM: No focal deficits. LAB STUDIES: WBC 10.4, hemoglobin is 9.2. Sodium is 140, potassium 3.3 creatinine is 1.44. ASSESSMENT: 1. Congestive heart failure acute exacerbation with acute on chronic systolic dysfunction, ejection fraction under 30% with possible cardiomyopathy. 2. Possible right lower lobe pneumonia, possibly gram-negative. 3. History of recent ventricular tachycardia. 4. Troponin 0.042, indeterminate. 5. History of increased creatinine to 1.47, indicating chronic kidney disease stage 3. 6. History of atrial fibrillation. 7. History of diabetes mellitus type 2. 8. Hypertension, essential. 9. Hyperlipidemia. 10.History of mitral and tricuspid regurgitation. 11.History of pulmonary hypertension. 12.History automatic implantable cardioverter-defibrillator. 13.History of degenerative joint disease. RECOMMENDATIONS AND DISCUSSION: Recommend to continue current medications, continue with monitoring, symptomatic treatment. Otherwise at this time, will monitor the patient closely. Continue the current medications. Continue with the bronchodilators. Continue with empiric antibiotics and consult Dr. Chandler also for evaluation of pneumonia. Guarded prognosis because of multiple complex medical issues. Further recommendations to follow. REVIEW OF SYSTEMS: CARDIOVASCULAR: No angina, palpitations. RESPIRATORY: As mentioned earlier. GI: As mentioned earlier. : As mentioned earlier. NERVOUS: No numbness or weakness. CURRENT MEDICATIONS: 1. DuoNeb q.i.d. and p.r.n. 2. Eliquis 5 mg b.i.d. 3. Aspirin 81 mg daily .. 4. Lipitor 10 mg q.h.s. 5. Coreg 12.5 mg b.i.d. 6. Vitamin D3. 7. Vitamin B12. 8. Lasix 60 mg IV b.i.d. 9. Levaquin. 10.Multivitamin. 11.K-Dur. See orders for further details. Discussed with family and patient at length, who understand and agree. DEA / DIA: [id number] /
[2017-08-02 21:02] LABS: Glucose,Whole Blood 226 mg/dL (75-99)
[2017-08-02] MEDS: ATORVASTATIN 10 MG TAB PO SCH (21:12)
[2017-08-02] MEDS: LOSARTAN 25 MG TAB PO SCH (21:12)
[2017-08-02] MEDS: PANTOPRAZOLE 40 MG/10 ML VIAL IVP SCH (21:44)
[2017-08-02] MEDS: INSULIN LISPRO (humaLOG) 300 UNIT/3 ML VIAL SQ SCH (21:46)
[2017-08-03 05:55] LABS: Glucose,Whole Blood 152 mg/dL (75-99)
[2017-08-03 06:08] LABS: Basophils % (A) 0 %; CH 28.9; CHCM 31.4; Eosinophils # (A) 0.3 k/uL (0-0.7); Eosinophils % (A) 2 %; HCT 30.4 % (34.0-46.0); HDW 2.74; HGB 9.2 gm/dL (11.4-16.0); Hypochromasia Slight; Luc # (Auto) 0.17; Luc % (Auto) 2; Lymphocytes # (A) 0.9 k/uL (1.0-4.8); Lymphocytes % (A) 9 %; MCHC 30.2 g/dL (31.0-37.0); MCV 92.6 fL (80.0-100.0); Mean Platelet Volume 8.2; Monocytes % (A) 9 %; Neutrophils # (A) 8.4 k/uL (1.3-7.7); Neutrophils % (A) 78 %; RBC 3.28 m/uL (3.80-5.40); RDW 15.3 % (11.5-15.5); WBC 10.8 k/uL (3.8-10.6); WBC (Perox) 11.32
[2017-08-03 06:24] LABS: Calcium 9.2 mg/dL (8.4-10.2); Potassium 3.9 mmol/L (3.5-5.1)
[2017-08-03] MEDS: CARVEDILOL 12.5 MG TAB PO SCH ×2 (06:41→17:31)
[2017-08-03] MEDS: INSULIN LISPRO (humaLOG) 300 UNIT/3 ML VIAL SQ SCH ×4 (06:49→21:16)
[2017-08-03] MEDS: IPRATROPIUM-ALBUTEROL 3 ML NEB INHALATION SCH ×5 (07:57→19:36)
[2017-08-03] MEDS: CYANOCOBALAMIN 500 MCG TAB PO SCH (08:40)
[2017-08-03] MEDS: POTASSIUM CHLORIDE ER 20 MEQ TAB.ER PO SCH (08:41)
[2017-08-03] MEDS: APIXABAN 5 MG TAB PO SCH ×2 (08:41→21:06)
[2017-08-03] MEDS: ASPIRIN 81 MG PO SCH (08:41)
[2017-08-03] MEDS: PANTOPRAZOLE 40 MG/10 ML VIAL IVP SCH ×2 (08:41→21:06)
[2017-08-03] MEDS: FUROSEMIDE 10 MG/ML 10 ML VIAL IV SCH ×2 (08:41→21:06)
[2017-08-03] MEDS: AMIODARONE 200 MG TAB PO SCH ×2 (08:41→21:06)
[2017-08-03] MEDS: CHOLECALCIFEROL 1,000 UNIT TAB PO SCH (08:41)
[2017-08-03] MEDS: LINAGLIPTIN 5 MG TABLET PO SCH (08:41)
--- NOTE | 2017-08-03 10:59 | PN ---
PROGRESS NOTE Mrs. Wasserman is a 77-year-old female with a history of severe cardiomyopathy, history of ICD Bi V pacing, history of atrial fibrillation. She presented with symptoms of progressive dyspnea. She continued to be dyspneic today. She has been coughing, dark sputum. She denies any chest pain. No dizziness or palpitation. She has been started on antibiotics. She continues to be at this time on Eliquis 5 mg twice a day, amiodarone 200 mg twice a day, aspirin 81 mg daily, Lipitor 10 mg daily, Coreg 12 .5 mg twice a day, insulin, levofloxacin, losartan 25 mg daily. PHYSICAL EXAMINATION: Blood pressure 103/70 with a heart in the 70s. LUNGS: With few crackles at the left base. HEART: Irregular regular S1, S2. No S3 with a holosystolic murmur at the apex. No diastolic murmur. No rub. ABDOMEN: Soft, nontender. No organomegaly. EXTREMITIES: No edema. LAB DATA: Revealed BUN and creatinine of 40 and 1.4. Potassium is 3.9. Her hemoglobin of 9.2. The chest x-ray revealed no acute changes. IMPRESSION: 1. Progressive dyspnea, probably combination of congestive heart failure and probable pneumonia. 2. History of severe ischemic cardiomyopathy. 3. Atrial fibrillation. 4. Mitral regurgitation. 5. Status post ICD Bi V pacing. 6. Chronic kidney disease. RECOMMENDATION: I will continue on the IV diuresis for another 24 hours. I am hopeful that the pneumonia symptoms will improve. The patient may require cardioversion with scientologist of normal sinus rhythm, but may have to wait until her infectious process is resolved. I have discussed those findings with the patient. MMODL / IJN: [id number] /
[2017-08-03 11:39] LABS: Glucose,Whole Blood 137 mg/dL (75-99)
--- NOTE | 2017-08-03 11:45 | P.CNPUL ---
History of Present Illness Consult date: 08/03/17 Reason for consult: dyspnea, cough, pneumonia, other Chief complaint: Shortness of breath, palpitations History of present illness: Consult dated 08/03/2017 This is a 77-year-old female who presented to the emergency room on August 01. She was recently in the hospital at the end of June for an episode of ventricular tachycardia. More recently, she comes in complaining of being short of breath. Again progressively worse. Worse when she moves around versus sitting or doing absolutely nothing. She had no chest pain or cough or phlegm. More recently she's been coughing producing some yellow green/sullivan phlegm. In addition, she now admits to rapid heartbeat with palpitations. No swelling of extremities. No fever or chills. No nausea vomiting or diarrhea. Other GI complaints. The patient was initially admitted with a diagnosis of possible pneumonia right lower lobe as well as atrial fibrillation with RVR. Review of Systems A 12 point review of system is positive for shortness of breath cough and phlegm production. Also palpitations or rapid heartbeat. The phlegm was not initially present but developed over the last day or so. She has a container in front of her with yellow green/sullivan phlegm. No blood. No fever no chills. No chest pain. Past Medical History Past Medical History: Atrial Fibrillation, Chest Pain / Angina, Heart Failure, Diabetes Mellitus, Hyperlipidemia, Hypertension, Renal Disease Additional Past Medical History / Comment(s): Pt recently admitted to [facility] on with acute on chronic CHF, intermittent nonsustained Vtach. Other hx: severe nonischemic cardiomyopathy, cardiac valvular disease-mitral and tricuspid with seveere pulmonary HTN, NIDDM type II, numbness/tingling bilateral feet/toes, chronic kidney disease stage III. History of Any Multi-Drug Resistant Organisms: None Reported Past Surgical History: AICD, Appendectomy, Section, Cholecystectomy, Hernia Repair, Hysterectomy, Tonsillectomy, Tubal Ligation Additional Past Surgical History / Comment(s): ARMAND/CVN, bilateral knee replacements, colonoscopy, bilateral cataract removal, Past Anesthesia/Blood Transfusion Reactions: No Reported Reaction Type of Cardiac Device: AICD Device Placement Date:: 07/2011 Smoking Status: Never smoker - Past Family History Father Family Medical History: Cancer Additional Family Medical History / Comment(s): THROAT CA and of this at the age of 59yrs. Mother Family Medical History: CVA/TIA, Diabetes Mellitus Additional Family Medical History / Comment(s): Mother had a CVA. She lived to be 73 yrs old. Medications and Allergies Home Medications Medication Instructions Recorded Confirmed Type Apixaban [Eliquis] 5 mg PO BID 01/01/15 08/01/17 History Aspirin EC [Ecotrin Low Dose] 81 mg PO DAILY 01/01/15 08/01/17 History Cholecalciferol [Vitamin D3] 1,000 unit PO QAM 01/01/15 08/01/17 History Cyanocobalamin [Vitamin B-12] 2,500 mcg PO DAILY 01/01/15 08/01/17 History Multivitamins, Thera [Multivitamin 1 tab PO DAILY 01/01/15 08/01/17 History (formulary)] Gheens-3 Fatty Acids/Fish Oil [Fish 1 cap PO BID 03/27/15 08/01/17 History Oil 1,000 mg Softgel] Atorvastatin [Lipitor] 10 mg PO HS #30 tab 08/21/15 08/01/17 Rx Carvedilol [Coreg] 12.5 mg PO BID-W/MEALS 10/06/15 08/01/17 History Furosemide [Lasix] 40 mg PO HS 07/20/17 08/01/17 History Furosemide [Lasix] 60 mg PO DAILY 07/20/17 08/01/17 History Losartan Potassium [Cozaar] 25 mg PO HS 07/20/17 08/01/17 History Amiodarone [Cordarone] 400 mg PO BID #30 tab 07/22/17 08/01/17 Rx sitaGLIPtin PHOSPHATE [Januvia] 25 mg PO DAILY #30 tab 07/22/17 08/01/17 Rx Allergies Allergy/AdvReac Type Severity Reaction Status Date / Time nitrofurantoin Allergy Unknown Rash/Hives Verified 08/01/17 10:00 [From Macrobid] nitrofurantoin Allergy Unknown Rash/Hives Verified 08/01/17 10:00 macrocrystalline [From Macrobid] cefuroxime Allergy Rash/Hives Verified 08/01/17 10:00 Penicillins Allergy Rash/Hives Verified 08/01/17 10:00 Physical Exam Osteopathic Statement: *. No significant issues noted on an osteopathic structural exam other than those noted in the History and Physical/Consult. Vitals: Vital Signs Temp Pulse Pulse Resp BP Pulse Ox 08/03/17 08:12 96 08/03/17 08:00 97.0 F L 66 96/61 96 08/03/17 07:59 98 18 08/03/17 04:00 97.7 F 72 18 103/77 92 L 08/03/17 00:00 97.9 F 96 18 109/71 98 08/02/17 21:01 100 08/02/17 20:50 88 08/02/17 20:00 97.1 F L 73 18 131/64 96 08/02/17 16:00 88 111/62 97 08/02/17 13:45 82 08/02/17 13:19 80 08/02/17 12:00 66 104/63 93 L Intake and Output 08/02/17 08/03/17 08/03/17 22:59 06:59 14:59 Intake Total 236 240 118 Output Total 800 350 Balance -564 -110 118 Intake: Oral 236 240 118 Output: Urine 800 350 Other: Voiding Method Toilet Bedside Commode # Voids 4 Weight 83.6 kg No acute distress, oriented 3 HEENT examination is unremarkable. Mucous membranes are moist. No oral lesions. Neck supple. Full range of motion. No adenopathy or thyromegaly. Neck veins are flat. Cardiovascular examination reveals regular rhythm rate. S1-S2 normal. No S3 or S4. No discernible murmur. Heart rate in the mid 80s. Lungs reveal diffuse bilateral rhonchi. No wheezes or crackles. Breath sounds are equal bilaterally. Abdomen soft bowel sounds are heard. No masses or tenderness. Extremities are intact. No cyanosis clubbing or edema. Skin is without rash or lesion. Neurologic examination is brief but nonfocal. Results - Laboratory Findings CBC and BMP: 08/03/17 05:36 08/03/17 05:36 PT/INR, D-dimer PT 12.1 sec (9.0-12.0) H 08/01/17 09:42 INR 1.2 (<1.2) H 08/01/17 09:42 Abnormal lab findings: Abnormal Labs 08/01/17 08/01/17 08/01/17 09:42 09:42 09:42 WBC 11.4 H RBC 3.74 L Hgb 10.9 L Hct MCHC RDW Neutrophils # 9.6 H Lymphocytes # 0.8 L PT INR Potassium BUN 44 H Creatinine 1.47 H Glucose 158 H POC Glucose (mg/dL) Troponin I 0.042 H* Ur Leukocyte Esterase Urine WBC Urine Mucus 08/01/17 08/01/17 08/01/17 09:42 16:29 20:47 WBC RBC Hgb Hct MCHC RDW Neutrophils # Lymphocytes # PT 12.1 H INR 1.2 H Potassium BUN Creatinine Glucose POC Glucose (mg/dL) 121 H 142 H Troponin I Ur Leukocyte Esterase Urine WBC Urine Mucus 08/01/17 08/02/17 08/02/17 22:10 00:51 06:22 WBC RBC Hgb Hct MCHC RDW Neutrophils # Lymphocytes # PT INR Potassium BUN Creatinine Glucose POC Glucose (mg/dL) 208 H 158 H Troponin I Ur Leukocyte Esterase Moderate H Urine WBC 6 H Urine Mucus Rare H 08/02/17 08/02/17 08/02/17 06:30 06:30 11:35 WBC 10.8 H RBC 3.37 L Hgb 9.7 L Hct 31.7 L MCHC 30.7 L RDW 15.6 H Neutrophils # 9.1 H Lymphocytes # 0.7 L PT INR Potassium 3.3 L BUN 38 H Creatinine 1.44 H Glucose 149 H POC Glucose (mg/dL) 165 H Troponin I Ur Leukocyte Esterase Urine WBC Urine Mucus 08/02/17 08/02/17 08/03/17 16:50 21:01 05:36 WBC 10.8 H RBC 3.28 L Hgb 9.2 L Hct 30.4 L MCHC 30.2 L RDW Neutrophils # 8.4 H Lymphocytes # 0.9 L PT INR Potassium BUN Creatinine Glucose POC Glucose (mg/dL) 134 H 226 H Troponin I Ur Leukocyte Esterase Urine WBC Urine Mucus 08/03/17 08/03/17 08/03/17 05:36 05:51 11:35 WBC RBC Hgb Hct MCHC RDW Neutrophils # Lymphocytes # PT INR Potassium BUN 40 H Creatinine 1.40 H Glucose 139 H POC Glucose (mg/dL) 152 H 137 H Troponin I Ur Leukocyte Esterase Urine WBC Urine Mucus - Diagnostic Findings Chest x-ray: image reviewed (Chest x-ray labs and medications are all reviewed.) Assessment and Plan (1) Atrial fibrillation Status: Acute (2) Dyspnea Status: Acute (3) Pneumonia Status: Acute (4) AICD (automatic cardioverter/defibrillator) present Status: Acute (5) Diabetes Status: Acute (6) HTN (hypertension) Status: Acute (7) Moderate mitral regurgitation Status: Acute (8) Moderate tricuspid regurgitation Status: Acute (9) Paroxysmal a-fib Status: Acute Plan: Plan dated July 2017 The patient seemed be doing relatively well. Blood and sputum analysis as far is negative. She is on Levaquin and updrafts. We'll continue to follow. Chest x-ray hasn't changed very much. Heart rhythm seems to be control. No history of tobacco use. No prior history of any chronic lung disease. Time with Patient: Greater than 30
[2017-08-03] MEDS ORDERED: LEVOFLOXACIN 750MG-D5W PMX 750 MG in DEXTROSE/WATER 1 150ML.BAG IVPB SCH (12:00)
[2017-08-03] MEDS: MULTIVITAMINS, THERA 1 EACH TAB PO SCH (12:18)
--- NOTE | 2017-08-03 16:31 | PN ---
PROGRESS NOTE DATE OF SERVICE: 08/03/2017 This 77-year-old woman was admitted with CHF acute exacerbation with possible pneumonia is being closely monitored. Patient complaining of tiredness and weakness. Cardiology and Pulmonology following the patient closely. No fever. Occasional cough is reported. EXAM: Alert, oriented x3. Pulse 66, blood pressure 96/61, respiration 18, temperature 97 degrees, pulse ox 97% on 3 L. HEENT: Conjunctivae normal. NECK: No jugular venous distention. CARDIOVASCULAR: S1, S2. RESPIRATORY: Breath sounds diminished at the bases. A few scattered rhonchi and crackles. ABDOMEN: Soft, nontender. LEGS: No edema. NERVOUS SYSTEM: No focal deficits. LABS: Creatinine 1.1. WBC 10.8. ASSESSMENT: 1. Congestive heart failure acute exacerbation with acute on chronic systolic dysfunction. Ejection fraction 30% with possibly cardiomyopathy. 2. Possible right upper lobe pneumonia possibly gram-negative. 3. History of recent ventricular tachycardia. 4. Troponin 0.042, indeterminate. 5. Increased creatinine 1.47 indicating chronic kidney disease, stage III. RECOMMENDATIONS AND DISCUSSION: I recommend to continue current management. Continue symptomatic treatment. Continue with the bronchodilators. Continue with antibiotics. Continue the diuretics cautiously. Guarded prognosis because of multiple complex medical issues. Further recommendations to follow. MMODL / IJN: [id number] /
[2017-08-03 16:56] LABS: Glucose,Whole Blood 139 mg/dL (75-99)
[2017-08-03 20:41] LABS: Glucose,Whole Blood 146 mg/dL (75-99)
[2017-08-03] MEDS: ATORVASTATIN 10 MG TAB PO SCH (21:06)
[2017-08-03] MEDS: LOSARTAN 25 MG TAB PO SCH (21:06)
[2017-08-03] MEDS ORDERED: FUROSEMIDE 10 MG/ML 2 ML VIAL IV ONE (23:49)
[2017-08-04] MEDS: IPRATROPIUM-ALBUTEROL 3 ML NEB INHALATION PRN ×2 (00:11→04:02)
[2017-08-04 05:59] LABS: Glucose,Whole Blood 89 mg/dL (75-99)
[2017-08-04] MEDS: INSULIN LISPRO (humaLOG) 300 UNIT/3 ML VIAL SQ SCH ×4 (06:05→21:24)
[2017-08-04 06:32] LABS: Basophils % (A) 0 %; CH 28.3; CHCM 30.1; Eosinophils # (A) 0.1 k/uL (0-0.7); Eosinophils % (A) 1 %; HCT 31.2 % (34.0-46.0); HDW 2.73; HGB 9.5 gm/dL (11.4-16.0); Hypochromasia Marked; Luc # (Auto) 0.24; Luc % (Auto) 2; Lymphocytes # (A) 1.2 k/uL (1.0-4.8); Lymphocytes % (A) 11 %; MCH 28.9 pg (25.0-35.0); MCHC 30.6 g/dL (31.0-37.0); MCV 94.4 fL (80.0-100.0); Mean Platelet Volume 7.5; Monocytes # (A) 0.9 k/uL (0-1.0); Monocytes % (A) 9 %; Neutrophils # (A) 7.9 k/uL (1.3-7.7); Neutrophils % (A) 76 %; RBC 3.31 m/uL (3.80-5.40); RDW 14.9 % (11.5-15.5); WBC 10.4 k/uL (3.8-10.6); WBC (Perox) 10.49
[2017-08-04] MEDS: CARVEDILOL 12.5 MG TAB PO SCH ×2 (06:41→17:31)
[2017-08-04 06:42] LABS: Potassium 3.6 mmol/L (3.5-5.1)
[2017-08-04] MEDS: IPRATROPIUM-ALBUTEROL 3 ML NEB INHALATION SCH ×4 (08:11→20:16)
[2017-08-04] MEDS: APIXABAN 5 MG TAB PO SCH ×2 (08:44→20:34)
[2017-08-04] MEDS: ASPIRIN 81 MG PO SCH (08:45)
[2017-08-04] MEDS: AMIODARONE 200 MG TAB PO SCH ×2 (08:45→20:33)
[2017-08-04] MEDS: PANTOPRAZOLE 40 MG/10 ML VIAL IVP SCH ×2 (08:45→20:35)
[2017-08-04] MEDS: CHOLECALCIFEROL 1,000 UNIT TAB PO SCH (08:46)
[2017-08-04] MEDS: CYANOCOBALAMIN 500 MCG TAB PO SCH (08:46)
[2017-08-04] MEDS: POTASSIUM CHLORIDE ER 20 MEQ TAB.ER PO SCH (08:47)
[2017-08-04] MEDS: LINAGLIPTIN 5 MG TABLET PO SCH (08:50)
[2017-08-04] MEDS: FUROSEMIDE 10 MG/ML 10 ML VIAL IV SCH (10:05)
--- NOTE | 2017-08-04 12:05 | PN ---
PROGRESS NOTE Mrs. Wasserman is a 77-year-old female with known history of severe nonischemic cardiomyopathy, history of ICD, Bi V pacing, prior episode of atrial fibrillation, who presented with symptoms of progressive dyspnea and cough. She is feeling slightly better today. She is coughing, dark sputum. She has no chest pain. No dizziness or palpitation. She continues to be in atrial fibrillation. She continues to be at this time on amiodarone 200 mg twice a day, Eliquis 5 mg twice a day, aspirin 81 mg daily, Lipitor 10 mg daily, Coreg 12.5 mg twice a day, furosemide 60 mg IV q.12 hours, losartan 25 mg daily, and potassium. PHYSICAL EXAMINATION: Blood pressure running in the 90s with the heart rate in 90s. LUNGS: With few crackles at the bases. HEART: Irregular, irregular. S1, S2. No S3 with a holosystolic murmur in the apex. No diastolic murmur. No rub. ABDOMEN: Soft, nontender. No organomegaly. EXTREMITIES: No edema. LAB DATA: Lab data revealed a BUN creatinine of 42 and 1.5. Potassium 3.6. Hemoglobin of 9.5. IMPRESSION: 1. Progressive dyspnea with combination of probable tracheobronchitis and worsening congestive heart failure with known history of severe nonischemic cardiomyopathy. 2. Atrial fibrillation. 3. Status post ICD Bi V pacing. RECOMMENDATION: From the cardiac standpoint, I will switch her to oral diuretics. Continue the rest of her medical regimen. Await further input from the pulmonary service. When she is stable from the pulmonary standpoint and her infection is stable, then she can be re- admitted to undergo attempt to restore normal sinus rhythm by cardioversion. MMODL / IJN: [id number] /
[2017-08-04 12:12] LABS: Glucose,Whole Blood 154 mg/dL (75-99)
[2017-08-04] MEDS: MULTIVITAMINS, THERA 1 EACH TAB PO SCH (12:43)
--- NOTE | 2017-08-04 14:49 | P.PN ---
Subjective Progress Note Date: 08/04/17 Principal diagnosis: Progress note being dictated for Dr. Maki. Interval history: This is a 77-year-old female admitted with acute CHF exacerbation, possible pneumonia and multiple other medical issues. Last night developed increased shortness of breath/respiratory distress and received additional Lasix. Breathing improving. Remains ventricular paced, underlying rhythm atrial fibrillation. Cardiology discussing potential cardioversion after pneumonia/respiratory status improves. Increased weakness, using bedside commode. Denies chest pain, palpitations. Occasional cough. Objective - Vital Signs Vital signs: Vital Signs Temp 97.7 F 08/04/17 12:00 Pulse 84 08/04/17 12:54 Resp 20 08/04/17 12:00 BP 106/70 08/04/17 12:00 Pulse Ox 98 08/04/17 12:00 Intake & Output 08/03/17 08/04/17 08/04/17 18:59 06:59 18:59 Intake Total 478 120 420 Output Total 450 400 Balance 28 120 20 Weight 83.7 kg Intake: Oral 478 120 420 Output: Urine 450 400 Other: Voiding Method Bedside Commode Bedside Commode # Voids 3 - Exam PHYSICAL EXAM: VITAL SIGNS: As above GENERAL: Sitting up in bed, tired appearing HEENT: Conjunctivae normal. Oral mucosa moist NECK: No JVD. No thyroid enlargement. No LNs CARDIOVASCULAR: S1, S2 muffled. No murmur RESPIRATION: Breath sounds diminished in the bases. Occasional rhonchi, left basilar crackles. ABDOMEN: Soft, nontender . No guarding. no masses palpable.Bowel sounds heard. LEGS: No edema. no swelling PSYCHIATRY: Alert and oriented -3, mood and affect normal. NERVOUS SYSTEM: Cranial N 2-12 grossly normal. Moves all 4 limbs. Diffuse weakness No focal deficits. No sensory deficit. Skin: no ulcer no rash Joints: No active swelling. No inflammation. - Labs CBC & Chem 7: 08/04/17 05:53 08/04/17 05:53 Labs: Abnormal Lab Results - Last 24 Hours (Table) 08/03/17 08/03/17 08/04/17 Range/Units 16:54 20:40 05:53 RBC 3.31 L (3.80-5.40) m/uL Hgb 9.5 L (11.4-16.0) gm/dL Hct 31.2 L (34.0-46.0) % MCHC 30.6 L (31.0-37.0) g/dL Neutrophils # 7.9 H (1.3-7.7) k/uL Carbon Dioxide (22-30) mmol/L BUN (7-17) mg/dL Creatinine (0.52-1.04) mg/dL Glucose (74-99) mg/dL POC Glucose (mg/dL) 139 H 146 H (75-99) mg/dL 08/04/17 08/04/17 Range/Units 05:53 11:57 RBC (3.80-5.40) m/uL Hgb (11.4-16.0) gm/dL Hct (34.0-46.0) % MCHC (31.0-37.0) g/dL Neutrophils # (1.3-7.7) k/uL Carbon Dioxide 21 L (22-30) mmol/L BUN 42 H (7-17) mg/dL Creatinine 1.50 H (0.52-1.04) mg/dL Glucose 134 H (74-99) mg/dL POC Glucose (mg/dL) 154 H (75-99) mg/dL Microbiology - Last 24 Hours (Table) 08/01/17 09:42 Blood Culture - Preliminary Blood No Growth after 72 hours 08/02/17 08:40 Gram Stain - Final Sputum Sputum Culture - Final 08/01/17 13:37 Blood Culture - Preliminary Blood No Growth after 48 hours 08/01/17 13:12 Blood Culture - Preliminary Blood No Growth after 48 hours Assessment and Plan Plan: 1. [ Acute on chronic congestive heart failure exacerbation, systolic dysfunction, EF 30%, possible cardiomyopathy]. 2. Right upper lobe pneumonia, possibly gram-negative]. 3. [ Recent ventricular tachycardia]. 4. [ Troponin 0.042, indeterminate]. 5. [ Chronic kidney disease, stage III]. Plan: Continue on current medication regime , nebulized bronchodilators, antibiotics, monitoring and symptomatic treatment. Converted to oral diuretics as per cardiology. Close monitoring of renal function and electrolytes with repeat labs ordered for a.m. PT/OT consulted regarding potential ECF rehab at discharge. Follow closely with both pulmonary and cardiology. The impression and plan of care has been dictated as directed. : Jared performed a H&P examination of this patient and discussed the same with the dictator. I agree with the dictator's note. Any additional findings/opinions/ etc. will be noted.
[2017-08-04] MEDS ORDERED: guaiFENesin SYRUP 100MG/5ML 200 MG/10 ML CUP PO PRN (15:34)
[2017-08-04] MEDS: ONDANSETRON 4 MG/2 ML VIAL IVP PRN (15:40)
[2017-08-04 16:18] LABS: Glucose,Whole Blood 151 mg/dL (75-99)
--- NOTE | 2017-08-04 16:39 | P.PN ---
Subjective Progress Note Date: 08/04/17 On today's evaluation of 08/04/2017 I'm seeing this patient in follow-up. The patient is still having shortness of breath with limited amount of activity. She has a congested cough that she is unable to bring up much sputum. The chest x-ray shows the presence of a right lower lobe pulmonary infiltrates/ pneumonia. Patient is currently on Levaquin. Also the patient is in atrial fibrillation with rapid ventricle response and her heart is under better control. This patient has cardiomyopathy severe, nonischemic with severe portal hypertension. She has also multiple comorbidities including previous history of nonsustained V. tach, diabetes mellitus type 2, and chronic renal failure. Discussed the case with cardiology. The plan is to optimize the pneumonia and consider cardioversion knowing that this has helped in this patient's shortness of breath. Her current hemoglobin is at 9.5. Renal function stable with a creatinine of 1.5. Objective - Vital Signs Vital signs: Vital Signs Temp 98 F 08/04/17 15:28 Pulse 97 08/04/17 15:28 Resp 20 08/04/17 15:28 BP 113/47 08/04/17 15:28 Pulse Ox 99 08/04/17 15:28 Intake & Output 08/03/17 08/04/17 08/04/17 18:59 06:59 18:59 Intake Total 478 120 420 Output Total 450 400 Balance 28 120 20 Weight 83.7 kg Intake: Oral 478 120 420 Output: Urine 450 400 Other: Voiding Method Bedside Commode Bedside Commode # Voids 3 - Exam No acute distress, oriented 3 HEENT examination is unremarkable. Mucous membranes are moist. No oral lesions. Neck supple. Full range of motion. No adenopathy or thyromegaly. Neck veins are flat. Cardiovascular examination reveals irregular rhythm rate. S1-S2 normal. No S3 or S4. No discernible murmur. Heart rate in the mid 80s. Lungs reveal diffuse bilateral rhonchi. No wheezes or crackles. Breath sounds are equal bilaterally. Abdomen soft bowel sounds are heard. No masses or tenderness. Extremities are intact. No cyanosis clubbing or edema. Skin is without rash or lesion. Neurologic examination is brief but nonfocal. - Labs CBC & Chem 7: 08/04/17 05:53 08/04/17 05:53 Labs: Abnormal Lab Results - Last 24 Hours (Table) 08/03/17 08/03/17 08/04/17 Range/Units 16:54 20:40 05:53 RBC 3.31 L (3.80-5.40) m/uL Hgb 9.5 L (11.4-16.0) gm/dL Hct 31.2 L (34.0-46.0) % MCHC 30.6 L (31.0-37.0) g/dL Neutrophils # 7.9 H (1.3-7.7) k/uL Carbon Dioxide (22-30) mmol/L BUN (7-17) mg/dL Creatinine (0.52-1.04) mg/dL Glucose (74-99) mg/dL POC Glucose (mg/dL) 139 H 146 H (75-99) mg/dL 08/04/17 08/04/17 08/04/17 Range/Units 05:53 11:57 16:15 RBC (3.80-5.40) m/uL Hgb (11.4-16.0) gm/dL Hct (34.0-46.0) % MCHC (31.0-37.0) g/dL Neutrophils # (1.3-7.7) k/uL Carbon Dioxide 21 L (22-30) mmol/L BUN 42 H (7-17) mg/dL Creatinine 1.50 H (0.52-1.04) mg/dL Glucose 134 H (74-99) mg/dL POC Glucose (mg/dL) 154 H 151 H (75-99) mg/dL Microbiology - Last 24 Hours (Table) 08/01/17 13:37 Blood Culture - Preliminary Blood No Growth after 72 hours 08/01/17 13:12 Blood Culture - Preliminary Blood No Growth after 72 hours 08/01/17 09:42 Blood Culture - Preliminary Blood No Growth after 72 hours 08/02/17 08:40 Gram Stain - Final Sputum Sputum Culture - Final Assessment and Plan Plan: Assessment 1 acute CHF exacerbation 2 right lower lobe pneumonia with a consolidation involving the right lower lobe posterior segment which is a new finding compared to previous chest x-rays 3 chronic atrial fibrillation 4 nonischemic cardiomyopathy 5 status post biventricular AICD implantation 6 hypertension 7 hyperlipidemia 8 diabetes mellitus 9 chronic anemia 10 chronic renal failure Plan Shortness of breath is multifactorial due to a combination of CHF, A. fib and right lower lobe pneumonia. Continue current treatment. Continue oral Lasix. Continue oral Levaquin. Repeat chest x-ray with next 24 hours. May consider cardioversion once the condition is more stable. We'll continue to follow. Long-term and to coagulation is with Eliquis.
[2017-08-04] MEDS: ATORVASTATIN 10 MG TAB PO SCH (20:33)
[2017-08-04] MEDS: FUROSEMIDE 20 MG TAB PO SCH (20:33)
[2017-08-04 21:00] LABS: Glucose,Whole Blood 156 mg/dL (75-99)
[2017-08-04] MEDS: LOSARTAN 25 MG TAB PO SCH (21:28)
[2017-08-05 05:42] LABS: Glucose,Whole Blood 136 mg/dL (75-99)
[2017-08-05 06:39] LABS: Calcium 8.7 mg/dL (8.4-10.2); Potassium 3.9 mmol/L (3.5-5.1)
[2017-08-05 06:47] LABS: Basophils % (A) 1 %; CHCM 29.4; Eosinophils # (A) 0.4 k/uL (0-0.7); Eosinophils % (A) 4 %; HCT 30.5 % (34.0-46.0); HDW 2.64; HGB 9.3 gm/dL (11.4-16.0); Hypochromasia Marked; Luc # (Auto) 0.19; Luc % (Auto) 2; Lymphocytes % (A) 11 %; MCH 29.2 pg (25.0-35.0); MCHC 30.4 g/dL (31.0-37.0); Mean Platelet Volume 7.9; Monocytes # (A) 0.6 k/uL (0-1.0); Monocytes % (A) 6 %; Neutrophils # (A) 6.6 k/uL (1.3-7.7); Neutrophils % (A) 75 %; RBC 3.18 m/uL (3.80-5.40); WBC 8.8 k/uL (3.8-10.6); WBC (Perox) 9.33
[2017-08-05] MEDS: INSULIN LISPRO (humaLOG) 300 UNIT/3 ML VIAL SQ SCH ×4 (07:01→21:36)
[2017-08-05] MEDS: CARVEDILOL 12.5 MG TAB PO SCH ×2 (07:01→17:46)
[2017-08-05] MEDS: IPRATROPIUM-ALBUTEROL 3 ML NEB INHALATION SCH ×4 (07:47→19:19)
--- NOTE | 2017-08-05 08:33 | XR ---
EXAMINATION TYPE: XR chest 1V DATE OF EXAM: 08/05/2017 CLINICAL HISTORY: Pneumonia progress study. Cough. TECHNIQUE: Single AP portable upright view of the chest is obtained. COMPARISON: Chest x-ray from 3 days earlier FINDINGS: There is persistent cardiomegaly with multi lead pacemaker/AICD. There is persistent right medial basilar opacity. There is persistent left basilar opacity silhouetting left hemidiaphragm. Up per lungs remain clear without pneumothorax. Degenerative changes in both shoulders are redemonstrate d. IMPRESSION: Overall stable findings, cardiomegaly with bibasilar infiltrate and/or atelectasis and probable small bilateral pleural effusions all redemonstrated.
[2017-08-05] MEDS: FUROSEMIDE 20 MG TAB PO SCH ×2 (09:26→21:31)
[2017-08-05] MEDS: CYANOCOBALAMIN 500 MCG TAB PO SCH (09:26)
[2017-08-05] MEDS: ASPIRIN 81 MG PO SCH (09:26)
[2017-08-05] MEDS: AMIODARONE 200 MG TAB PO SCH ×2 (09:26→21:31)
[2017-08-05] MEDS: CHOLECALCIFEROL 1,000 UNIT TAB PO SCH (09:26)
[2017-08-05] MEDS: APIXABAN 5 MG TAB PO SCH ×2 (09:26→21:31)
[2017-08-05] MEDS: POTASSIUM CHLORIDE ER 20 MEQ TAB.ER PO SCH (09:27)
[2017-08-05] MEDS: LINAGLIPTIN 5 MG TABLET PO SCH (09:27)
[2017-08-05] MEDS: PANTOPRAZOLE 40 MG/10 ML VIAL IVP SCH ×2 (09:27→21:32)
--- NOTE | 2017-08-05 11:06 | P.PN ---
<Charity Vasquez - Last Filed: 08/05/17 10:53> Subjective Progress Note Date: 08/05/17 The patient is seen again today 08/05/2017 in follow-up on the selective care unit. She is currently awake and alert in no acute distress. She denies any worsening shortness of breath, cough or congestion. Her chest x-ray reveals stable findings with evidence of cardiomegaly and bibasilar infiltrate/ atelectasis more so on the right lung base. She remains on bronchodilators and Levaquin. She is maintaining good O2 saturations in the upper 90s on 3 L/m per nasal cannula. She remains on Lasix 60 mg twice a day. She is an anticoagulated with a request. Her heart rate is better controlled today. She remains on Cordarone and Coreg. Objective - Vital Signs Vital signs: Vital Signs Temp 97.9 F 08/05/17 09:22 Pulse 66 08/05/17 09:22 Resp 20 08/05/17 09:22 BP 91/55 08/05/17 09:22 Pulse Ox 93 L 08/05/17 09:22 Intake & Output 08/04/17 08/05/17 08/05/17 18:59 06:59 18:59 Intake Total 540 250 Output Total 400 1000 Balance 140 -750 Weight 84.2 kg Intake: Intake, IV Titration 0 Amount Levofloxacin 750Mg-D5w 0 Pmx 750 mg In Dextrose/ Water 1 150ml.bag @ 100 mls/hr IVPB Q48H [facility] Rx#: [id number] Oral 540 250 Output: Urine 400 1000 Other: Voiding Method Bedside Commode Bedside Commode # Voids 2 - Exam No acute distress, oriented 3 HEENT examination is unremarkable. Mucous membranes are moist. No oral lesions. Neck supple. Full range of motion. No adenopathy or thyromegaly. Neck veins are flat. Cardiovascular examination reveals irregular rhythm rate. S1-S2 normal. No S3 or S4. No discernible murmur. Heart rate in the mid 80s. Lungs reveal diffuse bilateral rhonchi. No wheezes or crackles. Breath sounds are equal bilaterally. Abdomen soft bowel sounds are heard. No masses or tenderness. Extremities are intact. No cyanosis clubbing or edema. Skin is without rash or lesion. Neurologic examination is brief but nonfocal. - Labs CBC & Chem 7: 08/05/17 06:01 08/05/17 05:58 Labs: Abnormal Lab Results - Last 24 Hours (Table) 08/04/17 08/04/17 08/04/17 Range/Units 11:57 16:15 20:58 RBC (3.80-5.40) m/uL Hgb (11.4-16.0) gm/dL Hct (34.0-46.0) % MCHC (31.0-37.0) g/dL Sodium (137-145) mmol/L Carbon Dioxide (22-30) mmol/L BUN (7-17) mg/dL Creatinine (0.52-1.04) mg/dL Glucose (74-99) mg/dL POC Glucose (mg/dL) 154 H 151 H 156 H (75-99) mg/dL 08/05/17 08/05/17 08/05/17 Range/Units 05:40 05:58 06:01 RBC 3.18 L (3.80-5.40) m/uL Hgb 9.3 L (11.4-16.0) gm/dL Hct 30.5 L (34.0-46.0) % MCHC 30.4 L (31.0-37.0) g/dL Sodium 135 L (137-145) mmol/L Carbon Dioxide 21 L (22-30) mmol/L BUN 52 H (7-17) mg/dL Creatinine 1.60 H (0.52-1.04) mg/dL Glucose 113 H (74-99) mg/dL POC Glucose (mg/dL) 136 H (75-99) mg/dL Microbiology - Last 24 Hours (Table) 08/01/17 13:37 Blood Culture - Preliminary Blood No Growth after 72 hours 08/01/17 13:12 Blood Culture - Preliminary Blood No Growth after 72 hours 08/01/17 09:42 Blood Culture - Preliminary Blood No Growth after 72 hours 08/02/17 08:40 Gram Stain - Final Sputum Sputum Culture - Final Assessment and Plan Plan: Assessment 1 acute exacerbation of chronic systolic congestive heart failure. 2 right lower lobe pneumonia with a consolidation involving the right lower lobe posterior segment which is a new finding compared to previous chest x-rays 3 chronic atrial fibrillation 4 nonischemic cardiomyopathy 5 status post biventricular AICD implantation 6 hypertension 7 hyperlipidemia 8 diabetes mellitus 9 chronic anemia 10 chronic renal failure Plan: The patient was seen and evaluated by Dr. Fernández. Her chest x-ray and labs were reviewed. We'll continue with her current medications. She is improved from the pulmonary standpoint. Cardiology is on the case as well. We will increase her activity as tolerated. We'll continue to follow and make further recommendations based on her clinical status. I performed a history and physical examination on the patient. Lung sounds are clear anteriorly with some faint crackles in the posterior bases more so on the right lung base. I discussed the assessment and plan of care with my nurse practitioner, Charity Vasquez. I agree with the above note as dictated. <Salina Fernández - Last Filed: 08/05/17 12:05> Objective - Vital Signs Vital signs: Vital Signs Temp 98.2 F 08/05/17 11:28 Pulse 80 08/05/17 11:58 Resp 20 08/05/17 11:28 BP 102/56 08/05/17 11:28 Pulse Ox 91 L 08/05/17 11:41 Intake & Output 08/04/17 08/05/17 08/05/17 18:59 06:59 18:59 Intake Total 540 250 Output Total 400 1000 Balance 140 -750 Weight 84.2 kg Intake: Intake, IV Titration 0 Amount Levofloxacin 750Mg-D5w 0 Pmx 750 mg In Dextrose/ Water 1 150ml.bag @ 100 mls/hr IVPB Q48H [facility] Rx#: [id number] Oral 540 250 Output: Urine 400 1000 Other: Voiding Method Bedside Commode Bedside Commode Toilet # Voids 2 - Labs CBC & Chem 7: 08/05/17 06:01 08/05/17 05:58 Labs: Abnormal Lab Results - Last 24 Hours (Table) 08/04/17 08/04/17 08/04/17 Range/Units 11:57 16:15 20:58 RBC (3.80-5.40) m/uL Hgb (11.4-16.0) gm/dL Hct (34.0-46.0) % MCHC (31.0-37.0) g/dL Sodium (137-145) mmol/L Carbon Dioxide (22-30) mmol/L BUN (7-17) mg/dL Creatinine (0.52-1.04) mg/dL Glucose (74-99) mg/dL POC Glucose (mg/dL) 154 H 151 H 156 H (75-99) mg/dL 08/05/17 08/05/17 08/05/17 Range/Units 05:40 05:58 06:01 RBC 3.18 L (3.80-5.40) m/uL Hgb 9.3 L (11.4-16.0) gm/dL Hct 30.5 L (34.0-46.0) % MCHC 30.4 L (31.0-37.0) g/dL Sodium 135 L (137-145) mmol/L Carbon Dioxide 21 L (22-30) mmol/L BUN 52 H (7-17) mg/dL Creatinine 1.60 H (0.52-1.04) mg/dL Glucose 113 H (74-99) mg/dL POC Glucose (mg/dL) 136 H (75-99) mg/dL 08/05/17 Range/Units 11:48 RBC (3.80-5.40) m/uL Hgb (11.4-16.0) gm/dL Hct (34.0-46.0) % MCHC (31.0-37.0) g/dL Sodium (137-145) mmol/L Carbon Dioxide (22-30) mmol/L BUN (7-17) mg/dL Creatinine (0.52-1.04) mg/dL Glucose (74-99) mg/dL POC Glucose (mg/dL) 149 H (75-99) mg/dL Microbiology - Last 24 Hours (Table) 08/01/17 13:37 Blood Culture - Preliminary Blood No Growth after 72 hours 08/01/17 13:12 Blood Culture - Preliminary Blood No Growth after 72 hours 08/01/17 09:42 Blood Culture - Preliminary Blood No Growth after 72 hours Assessment and Plan Plan: This is a joint evaluation that was done along with a nurse practitioner. The patient is doing better. The chest x-ray still showing some consolidation of the right lung base at for the most part the patient is less short of breath. Would recommend also cardioversion. This patient get out on her A. fib and hopefully sinus rhythm should be able to help with the shortness of breath.
[2017-08-05 11:53] LABS: Glucose,Whole Blood 149 mg/dL (75-99)
[2017-08-05] MEDS: MULTIVITAMINS, THERA 1 EACH TAB PO SCH (12:42)
[2017-08-05] MEDS: LEVOFLOXACIN 750 MG TAB PO SCH (12:42)
[2017-08-05] MEDS: SODIUM CHLORIDE 0.9% 1,000 ML IV SCH (15:51)
--- NOTE | 2017-08-05 15:56 | P.PN ---
Subjective Progress Note Date: 08/05/17 Principal diagnosis: Progressive dyspnea and cough This is 77-year-old female with known history of severe nonischemic cardio myopathy, prior AICD, bi-V pacing, who presented to the hospital with progressive dyspnea and cough. Her cough overall is much improved today. She continues to be in atrial fibrillation. She states she did have an episode of shortness of breath while walking to the bathroom today. Dr. Alvarez did have a discussion with the patient, regarding ARMAND and cardioversion, he educated the patient regarding the risks and the benefits, this will be performed tomorrow. Objective - Vital Signs Vital signs: Vital Signs Temp 98.4 F 08/05/17 15:51 Pulse 84 08/05/17 15:51 Resp 20 08/05/17 15:51 BP 113/65 08/05/17 15:51 Pulse Ox 92 L 08/05/17 15:51 Intake & Output 08/04/17 08/05/17 08/05/17 18:59 06:59 18:59 Intake Total 540 250 360 Output Total 400 1000 200 Balance 140 -750 160 Weight 84.2 kg Intake: Intake, IV Titration 0 Amount Levofloxacin 750Mg-D5w 0 Pmx 750 mg In Dextrose/ Water 1 150ml.bag @ 100 mls/hr IVPB Q48H [facility] Rx#: [id number] Oral 540 250 360 Output: Urine 400 1000 200 Other: Voiding Method Bedside Commode Bedside Commode Toilet # Voids 2 - Exam PHYSICAL EXAMINATION: HEENT: Head is atraumatic, normocephalic. Pupils equal, round. Neck is supple. There is no elevated jugular venous pressure. HEART EXAMINATION: R S1 and S2 irregular irregular holosystolic murmur is heard. CHEST EXAMINATION: Lungs reveal coarse crackles to bilateral bases. ABDOMEN: Soft, nontender. Bowel sounds are heard. No organomegaly noted. EXTREMITIES: 2+ peripheral pulses with no evidence of peripheral edema and no calf tenderness noted. NEUROLOGIC patient is awake, alert and oriented -3. . - Labs CBC & Chem 7: 08/05/17 06:01 08/05/17 05:58 Labs: Abnormal Lab Results - Last 24 Hours (Table) 08/04/17 08/04/17 08/05/17 Range/Units 16:15 20:58 05:40 RBC (3.80-5.40) m/uL Hgb (11.4-16.0) gm/dL Hct (34.0-46.0) % MCHC (31.0-37.0) g/dL Sodium (137-145) mmol/L Carbon Dioxide (22-30) mmol/L BUN (7-17) mg/dL Creatinine (0.52-1.04) mg/dL Glucose (74-99) mg/dL POC Glucose (mg/dL) 151 H 156 H 136 H (75-99) mg/dL 08/05/17 08/05/17 08/05/17 Range/Units 05:58 06:01 11:48 RBC 3.18 L (3.80-5.40) m/uL Hgb 9.3 L (11.4-16.0) gm/dL Hct 30.5 L (34.0-46.0) % MCHC 30.4 L (31.0-37.0) g/dL Sodium 135 L (137-145) mmol/L Carbon Dioxide 21 L (22-30) mmol/L BUN 52 H (7-17) mg/dL Creatinine 1.60 H (0.52-1.04) mg/dL Glucose 113 H (74-99) mg/dL POC Glucose (mg/dL) 149 H (75-99) mg/dL Microbiology - Last 24 Hours (Table) 08/01/17 13:12 Blood Culture - Preliminary Blood No Growth after 96 hours 08/01/17 09:42 Blood Culture - Preliminary Blood No Growth after 96 hours 08/01/17 13:37 Blood Culture - Preliminary Blood No Growth after 72 hours Assessment and Plan Plan: Assessment and plan #1 progressive dyspnea with combination of tracheobronchitis and worsening congestive heart failure, acute and chronic systolic #2 atrial fibrillation #3 status post bi-V AICD Plan She will be scheduled to undergo a ARMAND and elective cardioversion by Dr. Alvarez tomorrow. The risks and benefits were explained to the patient in detail. DNP note has been reviewed, I agree with a documented findings and plan of care. Patient was seen and examined.
[2017-08-05] MEDS: ONDANSETRON 4 MG/2 ML VIAL IVP PRN ×2 (16:04→23:21)
[2017-08-05 16:39] LABS: Glucose,Whole Blood 147 mg/dL (75-99)
[2017-08-05 20:58] LABS: Glucose,Whole Blood 158 mg/dL (75-99)
[2017-08-05] MEDS: ATORVASTATIN 10 MG TAB PO SCH (21:31)
[2017-08-05] MEDS: LOSARTAN 25 MG TAB PO SCH (21:32)
[2017-08-06] MEDS: SODIUM CHLORIDE 0.9% 1,000 ML IV SCH ×3 (04:35→12:36)
[2017-08-06 05:58] LABS: Glucose,Whole Blood 161 mg/dL (75-99)
[2017-08-06] MEDS: CARVEDILOL 12.5 MG TAB PO SCH ×2 (06:04→17:29)
[2017-08-06 06:28] LABS: Basophils % (A) 0 %; CH 28.9; CHCM 30.5; Eosinophils # (A) 0.1 k/uL (0-0.7); Eosinophils % (A) 1 %; HCT 31.2 % (34.0-46.0); HDW 2.72; HGB 9.4 gm/dL (11.4-16.0); Hypochromasia Moderate; Luc # (Auto) 0.16; Luc % (Auto) 2; Lymphocytes # (A) 0.8 k/uL (1.0-4.8); Lymphocytes % (A) 8 %; MCH 28.6 pg (25.0-35.0); MCHC 30.1 g/dL (31.0-37.0); MCV 95.3 fL (80.0-100.0); Mean Platelet Volume 8.4; Monocytes # (A) 0.7 k/uL (0-1.0); Monocytes % (A) 8 %; Neutrophils # (A) 7.7 k/uL (1.3-7.7); Neutrophils % (A) 81 %; RBC 3.27 m/uL (3.80-5.40); RDW 15.9 % (11.5-15.5); WBC 9.4 k/uL (3.8-10.6); WBC (Perox) 9.91
[2017-08-06 06:34] LABS: Calcium 8.5 mg/dL (8.4-10.2); Potassium 4.4 mmol/L (3.5-5.1)
[2017-08-06] MEDS: INSULIN LISPRO (humaLOG) 300 UNIT/3 ML VIAL SQ SCH ×4 (06:54→21:40)
[2017-08-06] MEDS: POTASSIUM CHLORIDE ER 20 MEQ TAB.ER PO SCH (07:11)
[2017-08-06] MEDS: ASPIRIN 81 MG PO SCH (07:11)
[2017-08-06] MEDS: APIXABAN 5 MG TAB PO SCH ×2 (07:11→21:40)
[2017-08-06] MEDS: AMIODARONE 200 MG TAB PO SCH ×2 (07:11→21:40)
[2017-08-06] MEDS: CYANOCOBALAMIN 500 MCG TAB PO SCH (07:12)
[2017-08-06] MEDS: IPRATROPIUM-ALBUTEROL 3 ML NEB INHALATION SCH ×4 (07:54→21:55)
[2017-08-06] MEDS: FUROSEMIDE 20 MG TAB PO SCH (08:41)
[2017-08-06] MEDS: PANTOPRAZOLE 40 MG/10 ML VIAL IVP SCH ×2 (08:42→23:35)
[2017-08-06] MEDS: CHOLECALCIFEROL 1,000 UNIT TAB PO SCH (08:42)
[2017-08-06] MEDS: LINAGLIPTIN 5 MG TABLET PO SCH (08:42)
--- NOTE | 2017-08-06 10:20 | P.PN ---
Subjective Progress Note Date: 08/06/17 The patient has a known history of severe cardiomyopathy, status post ICD implant, paroxysmal atrial fibrillation who presented with symptoms of progressive dyspnea and cough. She was diagnosed with pneumonia and worsening congestive heart failure was chronic severe systolic dysfunction. She's feeling better this morning with improved breathing and cough. She is not back to her baseline yet. She continues to be in atrial fibrillation with a controlled ventricular response and no evidence of ventricular tachyarrhythmia. She continues to be on amiodarone 200 mg twice a day, Eliquis 5 mg twice a day, Lipitor 10 mg daily, Coreg 12-1/2 mg twice a day, Lasix 60 mg twice a day, losartan 25 mg daily. Objective - Vital Signs Vital signs: Vital Signs Temp 96.8 F L 08/06/17 08:00 Pulse 73 08/06/17 08:00 Resp 19 08/06/17 04:00 BP 106/67 08/06/17 08:00 Pulse Ox 96 08/06/17 08:00 Intake & Output 08/05/17 08/06/17 08/06/17 18:59 06:59 18:59 Intake Total 360 370 Output Total 200 1300 Balance 160 -930 Weight 84.9 kg Intake: Oral 360 370 Output: Urine 200 1300 Other: Voiding Method Toilet Toilet # Voids 2 - Exam Head: Normocephalic. Eyes: Sclerae nonicteric . Neck: Good carotid upstroke, no bruit, no jugular venous distention. Lungs: Few crackles at the base. Heart: Irregular rate and rhythm, S1-S2, no S3, holosystolic murmur at the apex. Abdomen: Soft nontender, positive bowel sounds no organomegaly. Extremities: No edema, intact distal pulses. - Labs CBC & Chem 7: 08/06/17 05:58 08/06/17 05:58 Labs: Abnormal Lab Results - Last 24 Hours (Table) 08/05/17 08/05/17 08/05/17 Range/Units 11:48 16:36 20:54 RBC (3.80-5.40) m/uL Hgb (11.4-16.0) gm/dL Hct (34.0-46.0) % MCHC (31.0-37.0) g/dL RDW (11.5-15.5) % Lymphocytes # (1.0-4.8) k/uL BUN (7-17) mg/dL Creatinine (0.52-1.04) mg/dL Glucose (74-99) mg/dL POC Glucose (mg/dL) 149 H 147 H 158 H (75-99) mg/dL 08/06/17 08/06/17 08/06/17 Range/Units 05:56 05:58 05:58 RBC 3.27 L (3.80-5.40) m/uL Hgb 9.4 L (11.4-16.0) gm/dL Hct 31.2 L (34.0-46.0) % MCHC 30.1 L (31.0-37.0) g/dL RDW 15.9 H (11.5-15.5) % Lymphocytes # 0.8 L (1.0-4.8) k/uL BUN 59 H (7-17) mg/dL Creatinine 1.89 H (0.52-1.04) mg/dL Glucose 135 H (74-99) mg/dL POC Glucose (mg/dL) 161 H (75-99) mg/dL Microbiology - Last 24 Hours (Table) 08/01/17 13:37 Blood Culture - Preliminary Blood No Growth after 96 hours 08/01/17 13:12 Blood Culture - Preliminary Blood No Growth after 96 hours 08/01/17 09:42 Blood Culture - Preliminary Blood No Growth after 96 hours Assessment and Plan Plan: Impression: 1. Atrial fibrillation, persistent 2. Pneumonia, improving 3. Severe nonischemic cardiomyopathy. 4. Mitral regurgitation 5. CAD Plan: We will proceed with ARMAND guided cardioversion and if she is stable afterward I would expect she should be able to be discharged home soon. The plan, the risk and the complications were discussed with the patient and her and they are in full agreement and understanding.
--- NOTE | 2017-08-06 10:46 | P.PN ---
<Charity Vasquez - Last Filed: 08/06/17 10:14> Subjective Progress Note Date: 08/06/17 Principal diagnosis: Acute on chronic systolic congestive heart failure The patient is seen again today 08/05/2017 in follow-up on the selective care unit. She is currently awake and alert in no acute distress. She denies any worsening shortness of breath, cough or congestion. Her chest x-ray reveals stable findings with evidence of cardiomegaly and bibasilar infiltrate/ atelectasis more so on the right lung base. She remains on bronchodilators and Levaquin. She is maintaining good O2 saturations in the upper 90s on 3 L/m per nasal cannula. She remains on Lasix 60 mg twice a day. She is an anticoagulated with Eliquis. Her heart rate is better controlled today. She remains on Cordarone and Coreg. The patient is seen again today 08/06/2017 in follow-up on the selective care unit. She is awake and alert in no acute distress. She is breathing easier today as compared to yesterday. She has a dry nonproductive cough. She is afebrile. Maintaining O2 saturations in the upper 90s on 2 L/m per nasal cannula. No leukocytosis. Blood and sputum cultures revealed no growth. She remains on bronchodilators and Levaquin. She is on oral diuretics. She remains anticoagulated with Eliquis. The plan is for a ARMAND/cardioversion today. Objective - Vital Signs Vital signs: Vital Signs Temp 96.8 F L 08/06/17 08:00 Pulse 73 08/06/17 08:00 Resp 19 08/06/17 04:00 BP 106/67 08/06/17 08:00 Pulse Ox 96 08/06/17 08:00 Intake & Output 08/05/17 08/06/17 08/06/17 18:59 06:59 18:59 Intake Total 360 370 Output Total 200 1300 Balance 160 -930 Weight 84.9 kg Intake: Oral 360 370 Output: Urine 200 1300 Other: Voiding Method Toilet Toilet # Voids 2 - Exam GENERAL EXAM: Alert, active, comfortable in no apparent distress. HEAD: Normocephalic. EYES: Normal reaction of pupils, equal size. NOSE: Clear with pink turbinates. THROAT: No erythema or exudates. NECK: No masses, no JVD. CHEST: No chest wall deformity. LUNGS: Equal air entry with faint crackles in the bilateral bases.. CVS: S1 and S2 normal with an audible murmur, irregular rhythm. ABDOMEN: No hepatosplenomegaly, normal bowel sounds, no guarding or rigidity. SPINE: No scoliosis or deformity SKIN: No rashes CENTRAL NERVOUS SYSTEM: No focal deficits, tone is normal in all 4 extremities. Extremities: There is trace peripheral edema. No clubbing, no cyanosis. Peripheral pulses are intact. - Labs CBC & Chem 7: 08/06/17 05:58 08/06/17 05:58 Labs: Abnormal Lab Results - Last 24 Hours (Table) 08/05/17 08/05/17 08/05/17 Range/Units 11:48 16:36 20:54 RBC (3.80-5.40) m/uL Hgb (11.4-16.0) gm/dL Hct (34.0-46.0) % MCHC (31.0-37.0) g/dL RDW (11.5-15.5) % Lymphocytes # (1.0-4.8) k/uL BUN (7-17) mg/dL Creatinine (0.52-1.04) mg/dL Glucose (74-99) mg/dL POC Glucose (mg/dL) 149 H 147 H 158 H (75-99) mg/dL 08/06/17 08/06/17 08/06/17 Range/Units 05:56 05:58 05:58 RBC 3.27 L (3.80-5.40) m/uL Hgb 9.4 L (11.4-16.0) gm/dL Hct 31.2 L (34.0-46.0) % MCHC 30.1 L (31.0-37.0) g/dL RDW 15.9 H (11.5-15.5) % Lymphocytes # 0.8 L (1.0-4.8) k/uL BUN 59 H (7-17) mg/dL Creatinine 1.89 H (0.52-1.04) mg/dL Glucose 135 H (74-99) mg/dL POC Glucose (mg/dL) 161 H (75-99) mg/dL Microbiology - Last 24 Hours (Table) 08/01/17 13:37 Blood Culture - Preliminary Blood No Growth after 96 hours 08/01/17 13:12 Blood Culture - Preliminary Blood No Growth after 96 hours 08/01/17 09:42 Blood Culture - Preliminary Blood No Growth after 96 hours Assessment and Plan Plan: Assessment 1 acute exacerbation of chronic systolic congestive heart failure. 2 right lower lobe pneumonia with a consolidation involving the right lower lobe posterior segment which is a new finding compared to previous chest x-rays , recovered. 3 chronic atrial fibrillation anticoagulated with the apixaban. Plan is for cardioversion today. 4 nonischemic cardiomyopathy 5 status post biventricular AICD implantation 6 hypertension 7 hyperlipidemia 8 diabetes mellitus 9 chronic anemia 10 chronic renal failure Plan: The patient was seen and evaluated by Dr. Fernández. She is stable from the pulmonary standpoint. We'll continue with her current medications. Cardiology is on the case as well. We will increase her activity as tolerated. We'll continue to follow and make further recommendations based on her clinical status. I performed a history and physical examination on the patient. Lung sounds are clear anteriorly with some faint crackles in the posterior bases more so on the right lung base. I discussed the assessment and plan of care with my nurse practitioner, Charity Vasquez. I agree with the above note as dictated. <Salina Fernández - Last Filed: 08/06/17 11:22> Objective - Vital Signs Vital signs: Vital Signs Temp 96.8 F L 08/06/17 08:00 Pulse 82 08/06/17 10:56 Resp 16 08/06/17 10:56 BP 98/70 08/06/17 10:56 Pulse Ox 94 L 08/06/17 10:56 Intake & Output 08/05/17 08/06/17 08/06/17 18:59 06:59 18:59 Intake Total 360 370 Output Total 200 1300 Balance 160 -930 Weight 84.9 kg Intake: Oral 360 370 Output: Urine 200 1300 Other: Voiding Method Toilet Toilet # Voids 2 - Labs CBC & Chem 7: 08/06/17 05:58 08/06/17 05:58 Labs: Abnormal Lab Results - Last 24 Hours (Table) 08/05/17 08/05/17 08/05/17 Range/Units 11:48 16:36 20:54 RBC (3.80-5.40) m/uL Hgb (11.4-16.0) gm/dL Hct (34.0-46.0) % MCHC (31.0-37.0) g/dL RDW (11.5-15.5) % Lymphocytes # (1.0-4.8) k/uL BUN (7-17) mg/dL Creatinine (0.52-1.04) mg/dL Glucose (74-99) mg/dL POC Glucose (mg/dL) 149 H 147 H 158 H (75-99) mg/dL 08/06/17 08/06/17 08/06/17 Range/Units 05:56 05:58 05:58 RBC 3.27 L (3.80-5.40) m/uL Hgb 9.4 L (11.4-16.0) gm/dL Hct 31.2 L (34.0-46.0) % MCHC 30.1 L (31.0-37.0) g/dL RDW 15.9 H (11.5-15.5) % Lymphocytes # 0.8 L (1.0-4.8) k/uL BUN 59 H (7-17) mg/dL Creatinine 1.89 H (0.52-1.04) mg/dL Glucose 135 H (74-99) mg/dL POC Glucose (mg/dL) 161 H (75-99) mg/dL Microbiology - Last 24 Hours (Table) 08/01/17 13:37 Blood Culture - Preliminary Blood No Growth after 96 hours 08/01/17 13:12 Blood Culture - Preliminary Blood No Growth after 96 hours 08/01/17 09:42 Blood Culture - Preliminary Blood No Growth after 96 hours Assessment and Plan Plan: This is a joint evaluation that was done along with the nurse practitioner. The patient is doing better. The plan is to proceed with cardioversion today. Her creatinine is up to 1.8 which is essentially a prerenal azotemia related to diuresis. We'll continue to follow up this patient and I anticipate further improvement in shortness of breath after the cardioversion. I hope this will be successful cardioversion and the patient should be able to maintain a normal sinus rhythm. I attest to the information mentioned above.
[2017-08-06] MEDS ORDERED: PROPOFOL 10 MG/ML 20 ML VIAL IV ONE (10:58)
[2017-08-06] MEDS ORDERED: ePHEDrine SULFATE/0.9% NACL/PF 50 MG/5 ML SYRINGE IV ONE (10:58)
[2017-08-06] MEDS ORDERED: MIDAZOLAM 2 MG/2 ML VIAL ONE (10:58)
[2017-08-06] MEDS ORDERED: BENZOCAINE SPRAY 1 SPRAY CAN MUCOUS MEM ONE (11:04)
[2017-08-06] MEDS ORDERED: SODIUM CHLORIDE 0.9% 1,000 ML IV ONE (11:44)
--- NOTE | 2017-08-06 12:17 | ECHOT ---
TRANSESOPHAGEAL ECHOCARDIOGRAM INDICATION: Evaluation of left atrial appendage. PROCEDURE: After explaining the procedure to the patient, its risks and complication. Blood pressure, heart rate, O2 saturation was monitored. The throat was sprayed with Cetacaine. She received sedation per anesthesia department. The probe was introduced in the esophagus without difficulty. Images were obtained. Following that, the probe was removed. FINDING: Severe biatrial enlargement was noted. Left atrial appendage is normal. Left ventricular size is dilated with severe global hypokinesis. Estimated ejection fraction is 20%. The aortic valve revealed mild fibrocalcific change with aortic cusp with preserved opening. Mitral valve is normal. Tricuspid valve is normal. Descending thoracic aorta appears to be normal. No pericardial effusion was noted. Contrast bubble study revealed no evidence of shunting across the interatrial septum. A wire is noted in the RV and RA. Doppler pulse wave and color Doppler obtained and revealed a moderate to severe mitral with moderate tricuspid regurgitation. The estimated right ventricular systolic pressure 40 mmHg. There was no shunting across the interatrial septum. Trace pulmonic and mild aortic regurgitation was noted. IMPRESSION: 1. Severe biatrial enlargement with normal appearance of left atrial appendage. 2. Dilated left ventricle with severe global hypokinesis. 3. Moderate severe mitral with moderate tricuspid regurgitation and mild pulmonary hypertension. 4. Mild aortic regurgitation with trace pulmonic regurgitation. 5. No evidence of shunting across the interatrial septum. MMODL / IJN: [id number] / MTDD
[2017-08-06] MEDS: FUROSEMIDE 40 MG TAB PO SCH ×2 (12:35→17:29)
[2017-08-06] MEDS: MULTIVITAMINS, THERA 1 EACH TAB PO SCH (12:36)
--- NOTE | 2017-08-06 13:26 | CE ---
CARDIAC ELECTROPHYSIOLOGY REPORT CARDIOVERSION: INDICATION: Atrial fibrillation. PROCEDURE: After explaining the procedure to the patient, its risks and complication, blood pressure, heart rate, O2 saturation was monitored. After obtaining sedated state and performing transesophageal echocardiogram, using 200 biphasic synchronized joules, cardioversion was performed with congregational of normal sinus rhythm. There was no immediate complication. MMODL / IJN: [id number] /
[2017-08-06 13:33] LABS: Glucose,Whole Blood 188 mg/dL (75-99)
--- NOTE | 2017-08-06 15:21 | P.PN ---
Subjective Progress Note Date: 08/05/17 Principal diagnosis: Progress note being dictated for Dr. Maki. 08/04/17 Interval history: This is a 77-year-old female admitted with acute CHF exacerbation, possible pneumonia and multiple other medical issues. Last night developed increased shortness of breath/respiratory distress and received additional Lasix. Breathing improving. Remains ventricular paced, underlying rhythm atrial fibrillation. Cardiology discussing potential cardioversion after pneumonia/respiratory status improves. Increased weakness, using bedside commode. Denies chest pain, palpitations. Occasional cough. 08/05/17 Respiratory status continues to improve with less shortness of breath. Chest x-ray stable, reporting bibasilar infiltrate and/or atelectasis, probable small bilateral pleural effusions. Diuresing well on Lasix, with 24- hour I&O reflecting a negative fluid balance. Renal function mildly worsened currently 1.6. Maintained on Coreg, Cordarone remains in atrial fibrillation with controlled ventricular rate. Objective - Vital Signs Vital signs: Vital Signs Temp 98.4 F 08/05/17 15:51 Pulse 84 08/05/17 15:51 Resp 20 08/05/17 15:51 BP 113/65 08/05/17 15:51 Pulse Ox 92 L 08/05/17 15:51 Intake & Output 08/04/17 08/05/17 08/05/17 18:59 06:59 18:59 Intake Total 540 250 360 Output Total 400 1000 200 Balance 140 -750 160 Weight 84.2 kg Intake: Intake, IV Titration 0 Amount Levofloxacin 750Mg-D5w 0 Pmx 750 mg In Dextrose/ Water 1 150ml.bag @ 100 mls/hr IVPB Q48H [facility] Rx#: [id number] Oral 540 250 360 Output: Urine 400 1000 200 Other: Voiding Method Bedside Commode Bedside Commode Toilet # Voids 2 - Exam PHYSICAL EXAM: VITAL SIGNS: As above GENERAL: Sitting up in bed, no acute distress HEENT: Conjunctivae normal. Oral mucosa moist NECK: No JVD. No thyroid enlargement. No LNs CARDIOVASCULAR: S1, S2 muffled. Irregular, No murmur RESPIRATION: Breath sounds diminished in the bases. Occasional rhonchi, no crackles ABDOMEN: Soft, nontender . No guarding. no masses palpable.Bowel sounds heard. LEGS: No edema. no swelling PSYCHIATRY: Alert and oriented -3, mood and affect normal. NERVOUS SYSTEM: Cranial N 2-12 grossly normal. Moves all 4 limbs. Diffuse weakness No focal deficits. No sensory deficit. Skin: no ulcer no rash Joints: No active swelling. No inflammation. - Labs CBC & Chem 7: 08/06/17 05:58 08/06/17 05:58 Labs: Abnormal Lab Results - Last 24 Hours (Table) 08/04/17 08/05/17 08/05/17 Range/Units 20:58 05:40 05:58 RBC (3.80-5.40) m/uL Hgb (11.4-16.0) gm/dL Hct (34.0-46.0) % MCHC (31.0-37.0) g/dL Sodium 135 L (137-145) mmol/L Carbon Dioxide 21 L (22-30) mmol/L BUN 52 H (7-17) mg/dL Creatinine 1.60 H (0.52-1.04) mg/dL Glucose 113 H (74-99) mg/dL POC Glucose (mg/dL) 156 H 136 H (75-99) mg/dL 08/05/17 08/05/17 08/05/17 Range/Units 06:01 11:48 16:36 RBC 3.18 L (3.80-5.40) m/uL Hgb 9.3 L (11.4-16.0) gm/dL Hct 30.5 L (34.0-46.0) % MCHC 30.4 L (31.0-37.0) g/dL Sodium (137-145) mmol/L Carbon Dioxide (22-30) mmol/L BUN (7-17) mg/dL Creatinine (0.52-1.04) mg/dL Glucose (74-99) mg/dL POC Glucose (mg/dL) 149 H 147 H (75-99) mg/dL Microbiology - Last 24 Hours (Table) 08/01/17 13:37 Blood Culture - Preliminary Blood No Growth after 96 hours 08/01/17 13:12 Blood Culture - Preliminary Blood No Growth after 96 hours 08/01/17 09:42 Blood Culture - Preliminary Blood No Growth after 96 hours Assessment and Plan Plan: 1. [ Acute on chronic congestive heart failure exacerbation, systolic dysfunction, EF 30%, possible cardiomyopathy]. 2. Right upper lobe pneumonia, possibly gram-negative]. 3. [ Recent ventricular tachycardia]. 4. [ Troponin 0.042, indeterminate]. 5. [ Acute on Chronic kidney disease, stage III, diuretic induced]. Plan: Continue on current medication regime , nebulized bronchodilators, antibiotics, monitoring and symptomatic treatment. Cleared by pulmonary for cardioversion in a.m. .Close monitoring of renal function and electrolytes with repeat labs ordered for a.m. The impression and plan of care has been dictated as directed. : I performed a H&P examination of this patient and discussed the same with the dictator. I agree with the dictator's note. Any additional findings/opinions/ etc. will be noted.
--- NOTE | 2017-08-06 17:22 | P.PN ---
Subjective Progress Note Date: 08/06/17 Progress note being dictated for Dr Swift 08/04/17 Interval history: This is a 77-year-old female admitted with acute CHF exacerbation, possible pneumonia and multiple other medical issues. Last night developed increased shortness of breath/respiratory distress and received additional Lasix. Breathing improving. Remains ventricular paced, underlying rhythm atrial fibrillation. Cardiology discussing potential cardioversion after pneumonia/respiratory status improves. Increased weakness, using bedside commode. Denies chest pain, palpitations. Occasional cough. 08/05/17 Respiratory status continues to improve with less shortness of breath. Chest x-ray stable, reporting bibasilar infiltrate and/or atelectasis, probable small bilateral pleural effusions. Diuresing well on Lasix, with 24- hour I&O reflecting a negative fluid balance. Renal function mildly worsened currently 1.6. Maintained on Coreg, Cordarone remains in atrial fibrillation with controlled ventricular rate. 08/06/2017. Underwent successful cardioversion this morning; remains in sinus rhythm. Maintained on nebulized bronchodilators, Levaquin, oral Lasix. Breathing continues to improve with oxygen requirements weaned down to 2 L, maintaining O2 sats in the 90s. Renal function mildly worsened .Denies chest pain, palpitations or increasing shortness of breath. Objective - Vital Signs Vital signs: Vital Signs Temp 96.8 F L 08/06/17 08:00 Pulse 73 08/06/17 08:00 Resp 19 08/06/17 04:00 BP 106/67 08/06/17 08:00 Pulse Ox 96 08/06/17 08:00 Intake & Output 08/05/17 08/06/17 08/06/17 18:59 06:59 18:59 Intake Total 360 370 Output Total 200 1300 Balance 160 -930 Weight 84.9 kg Intake: Oral 360 370 Output: Urine 200 1300 Other: Voiding Method Toilet Toilet # Voids 2 - Exam PHYSICAL EXAM: VITAL SIGNS: As above GENERAL: Sitting up in bed, no acute distress HEENT: Conjunctivae normal. Oral mucosa moist NECK: No JVD. No thyroid enlargement. No LNs CARDIOVASCULAR: S1, S2 muffled. Irregular, No murmur RESPIRATION: Breath sounds diminished in the bases. Occasional rhonchi, fine bibasilar crackles ABDOMEN: Soft, nontender . No guarding. no masses palpable.Bowel sounds heard. LEGS: No edema. no swelling PSYCHIATRY: Alert and oriented -3, mood and affect normal. NERVOUS SYSTEM: Cranial N 2-12 grossly normal. Moves all 4 limbs. Diffuse weakness No focal deficits. No sensory deficit. Skin: no ulcer no rash Joints: No active swelling. No inflammation. - Labs CBC & Chem 7: 08/06/17 05:58 08/06/17 05:58 Labs: Abnormal Lab Results - Last 24 Hours (Table) 08/05/17 08/05/17 08/05/17 Range/Units 11:48 16:36 20:54 RBC (3.80-5.40) m/uL Hgb (11.4-16.0) gm/dL Hct (34.0-46.0) % MCHC (31.0-37.0) g/dL RDW (11.5-15.5) % Lymphocytes # (1.0-4.8) k/uL BUN (7-17) mg/dL Creatinine (0.52-1.04) mg/dL Glucose (74-99) mg/dL POC Glucose (mg/dL) 149 H 147 H 158 H (75-99) mg/dL 08/06/17 08/06/17 08/06/17 Range/Units 05:56 05:58 05:58 RBC 3.27 L (3.80-5.40) m/uL Hgb 9.4 L (11.4-16.0) gm/dL Hct 31.2 L (34.0-46.0) % MCHC 30.1 L (31.0-37.0) g/dL RDW 15.9 H (11.5-15.5) % Lymphocytes # 0.8 L (1.0-4.8) k/uL BUN 59 H (7-17) mg/dL Creatinine 1.89 H (0.52-1.04) mg/dL Glucose 135 H (74-99) mg/dL POC Glucose (mg/dL) 161 H (75-99) mg/dL Microbiology - Last 24 Hours (Table) 08/01/17 13:37 Blood Culture - Preliminary Blood No Growth after 96 hours 08/01/17 13:12 Blood Culture - Preliminary Blood No Growth after 96 hours 08/01/17 09:42 Blood Culture - Preliminary Blood No Growth after 96 hours Assessment and Plan Plan: 1. [ Acute on chronic congestive heart failure exacerbation, systolic dysfunction, EF 30%, possible cardiomyopathy]. 2. Right upper lobe pneumonia, possibly gram-negative]. 3. [ Recent ventricular tachycardia]. 4. [ Troponin 0.042, indeterminate]. 5. [ Acute on Chronic kidney disease, stage III, diuretic induced]. 6. Persistent atrial fibrillation, status post successful cardioversion Plan: Continue on current medication regime , nebulized bronchodilators, antibiotics, monitoring and symptomatic treatment. Increase in relation as tolerated. Close monitoring of renal function and electrolytes with repeat labs ordered for a.m. discharge planning in progress for tomorrow. The impression and plan of care has been dictated as directed. : I performed a H&P examination of this patient and discussed the same with the dictator. I agree with the dictator's note. Any additional findings/opinions/ etc. will be noted.
[2017-08-06 17:35] LABS: Glucose,Whole Blood 150 mg/dL (75-99)
[2017-08-06 20:43] LABS: Glucose,Whole Blood 217 mg/dL (75-99)
[2017-08-06] MEDS: LOSARTAN 25 MG TAB PO SCH (21:40)
[2017-08-06] MEDS: ATORVASTATIN 10 MG TAB PO SCH (21:40)
[2017-08-07] MEDS: ONDANSETRON 4 MG/2 ML VIAL IVP PRN ×3 (04:29→21:23)
[2017-08-07 05:51] LABS: Glucose,Whole Blood 138 mg/dL (75-99)
[2017-08-07 06:42] LABS: Calcium 8.4 mg/dL (8.4-10.2); Potassium 4.8 mmol/L (3.5-5.1)
[2017-08-07] MEDS: INSULIN LISPRO (humaLOG) 300 UNIT/3 ML VIAL SQ SCH ×4 (06:56→21:31)
[2017-08-07] MEDS: CARVEDILOL 12.5 MG TAB PO SCH ×2 (06:57→17:19)
[2017-08-07] MEDS: IPRATROPIUM-ALBUTEROL 3 ML NEB INHALATION SCH ×4 (08:13→20:04)
[2017-08-07] MEDS: APIXABAN 5 MG TAB PO SCH ×2 (10:59→21:30)
[2017-08-07] MEDS: CYANOCOBALAMIN 500 MCG TAB PO SCH (10:59)
[2017-08-07] MEDS: FUROSEMIDE 40 MG TAB PO SCH ×2 (10:59→12:18)
[2017-08-07] MEDS: AMIODARONE 200 MG TAB PO SCH ×2 (10:59→21:30)
[2017-08-07] MEDS: CHOLECALCIFEROL 1,000 UNIT TAB PO SCH (10:59)
[2017-08-07] MEDS: POTASSIUM CHLORIDE ER 20 MEQ TAB.ER PO SCH (10:59)
[2017-08-07] MEDS: PANTOPRAZOLE 40 MG/10 ML VIAL IVP SCH ×2 (10:59→21:28)
[2017-08-07] MEDS: LINAGLIPTIN 5 MG TABLET PO SCH (10:59)
[2017-08-07] MEDS: ASPIRIN 81 MG PO SCH (10:59)
[2017-08-07 11:40] LABS: Glucose,Whole Blood 144 mg/dL (75-99)
--- NOTE | 2017-08-07 11:42 | P.PN ---
Subjective The patient is seen again today 08/05/2017 in follow-up on the selective care unit. She is currently awake and alert in no acute distress. She denies any worsening shortness of breath, cough or congestion. Her chest x-ray reveals stable findings with evidence of cardiomegaly and bibasilar infiltrate/ atelectasis more so on the right lung base. She remains on bronchodilators and Levaquin. She is maintaining good O2 saturations in the upper 90s on 3 L/m per nasal cannula. She remains on Lasix 60 mg twice a day. She is an anticoagulated with Eliquis. Her heart rate is better controlled today. She remains on Cordarone and Coreg. The patient is seen again today 08/06/2017 in follow-up on the selective care unit. She is awake and alert in no acute distress. She is breathing easier today as compared to yesterday. She has a dry nonproductive cough. She is afebrile. Maintaining O2 saturations in the upper 90s on 2 L/m per nasal cannula. No leukocytosis. Blood and sputum cultures revealed no growth. She remains on bronchodilators and Levaquin. She is on oral diuretics. She remains anticoagulated with Eliquis. The plan is for a ARMAND/cardioversion today. On 08/07/2017 the patient is in sinus rhythm. She underwent a cardioversion yesterday her current rhythm is sinus. She is bringing up some limited amount of sputum. Her chest wall is sore from coughing. No new complaints otherwise for now. No nausea. No vomiting. No abdominal pain. No fever or chills. Renal function is stable with a creatinine of 1.9. A follow-up chest x-ray to be done tomorrow to follow-up on the pulmonary infiltrate that was done in the right lung base. Meanwhile, the patient is still on antibiotics and the patient is receiving Levaquin 750 mg every 48 hours. Lasix is at a dose of 40 mg by mouth twice a day. Objective - Vital Signs Vital signs: Vital Signs Temp 97.6 F 08/07/17 04:00 Pulse 54 L 08/07/17 04:00 Resp 16 08/07/17 04:00 BP 99/52 08/07/17 04:00 Pulse Ox 93 L 08/07/17 04:00 Intake & Output 08/06/17 08/07/1717 18:59 06:59 18:59 Intake Total 360 680 420 Output Total 700 625 Balance -340 55 420 Weight 86.3 kg Intake: Intake, IV Titration 20 500 Amount Sodium Chloride 0.9% 1, 20 500 000 ml @ 20 mls/hr IV . Q24H [facility] Rx#:[id number] Oral 340 180 420 Output: Urine 700 625 Other: Voiding Method Toilet # Voids 1 2 - Exam No acute distress, oriented 3 HEENT examination is unremarkable. Mucous membranes are moist. No oral lesions. Neck supple. Full range of motion. No adenopathy or thyromegaly. Neck veins are flat. Cardiovascular examination reveals regular rhythm rate. S1-S2 normal. No S3 or S4. No discernible murmur. Heart rate in the mid 80s. Lungs reveal diffuse bilateral rhonchi. No wheezes or crackles. Breath sounds are equal bilaterally. Abdomen soft bowel sounds are heard. No masses or tenderness. Extremities are intact. No cyanosis clubbing or edema. Skin is without rash or lesion. Neurologic examination is brief but nonfocal. - Labs CBC & Chem 7: 08/06/17 05:58 08/07/17 05:50 Labs: Abnormal Lab Results - Last 24 Hours (Table) 08/06/17 08/06/17 08/06/17 Range/Units 12:55 17:21 20:41 Sodium (137-145) mmol/L Carbon Dioxide (22-30) mmol/L BUN (7-17) mg/dL Creatinine (0.52-1.04) mg/dL Glucose (74-99) mg/dL POC Glucose (mg/dL) 188 H 150 H 217 H (75-99) mg/dL 08/07/17 08/07/17 Range/Units 05:49 05:50 Sodium 134 L (137-145) mmol/L Carbon Dioxide 21 L (22-30) mmol/L BUN 61 H (7-17) mg/dL Creatinine 1.97 H (0.52-1.04) mg/dL Glucose 120 H (74-99) mg/dL POC Glucose (mg/dL) 138 H (75-99) mg/dL Microbiology - Last 24 Hours (Table) 08/01/17 13:12 Blood Culture Gram Stain - Preliminary Blood 08/01/17 13:12 Blood Culture - Final Blood 08/01/17 13:37 Blood Culture - Preliminary Blood No Growth after 120 hours 08/01/17 09:42 Blood Culture - Preliminary Blood No Growth after 120 hours Assessment and Plan Plan: Assessment 1 acute exacerbation of chronic systolic congestive heart failure. 2 right lower lobe pneumonia with a consolidation involving the right lower lobe posterior segment which is a new finding compared to previous chest x-rays , recovered. 3 chronic atrial fibrillation anticoagulated with the apixaban. Plan is for cardioversion today. 4 nonischemic cardiomyopathy 5 status post biventricular AICD implantation 6 hypertension 7 hyperlipidemia 8 diabetes mellitus 9 chronic anemia 10 chronic renal failure Plan: The patient is doing well. The patient underwent cardioversion and her current rhythm is back to sinus. She is on anticoagulation. She is being treated for right lower lobe pneumonia. The follow-up chest x-ray will be done tomorrow. Renal function is stable. She is also on diuretics. Encourage increased level of activity as tolerated. Will add Robitussin-DM for cough. We'll continue to follow. Possible discharge within the next 24 hours.
[2017-08-07] MEDS ORDERED: guaiFENesin-DM 100-10MG/5ML 10 ML CUP PO PRN (11:45)
[2017-08-07] MEDS: SODIUM CHLORIDE 0.9% 1,000 ML IV SCH (12:14)
[2017-08-07] MEDS: MULTIVITAMINS, THERA 1 EACH TAB PO SCH (12:16)
[2017-08-07] MEDS: LEVOFLOXACIN 750 MG TAB PO SCH (12:16)
--- NOTE | 2017-08-07 12:20 | P.PN ---
Subjective Progress Note Date: 08/07/17 Principal diagnosis: Progressive dyspnea and cough This is 77-year-old female with known history of severe nonischemic cardio myopathy, prior AICD, bi-V pacing, who presented to the hospital with progressive dyspnea and cough. Her cough overall is much improved today. She continues to be in atrial fibrillation. She states she did have an episode of shortness of breath while walking to the bathroom today. Dr. Alvarez did have a discussion with the patient, regarding ARMAND and cardioversion, he educated the patient regarding the risks and the benefits, this will be performed tomorrow. 08/07/2017 Patient seen and examined this morning, status post ARMAND and cardioversion of yesterday. Continues to be in normal sinus rhythm. wallpaper consultant shows a 100% paced rhythm. BUN today 59, creatinine 1.8, potassium 4.4. We'll decrease her by mouth Lasix dose to 40 mg daily, check lytes BUN and creatinine in the morning. Overall patient is feeling better, still has mild cough. Objective - Vital Signs Vital signs: Vital Signs Temp 97.6 F 08/07/17 04:00 Pulse 54 L 08/07/17 04:00 Resp 16 08/07/17 04:00 BP 99/52 08/07/17 04:00 Pulse Ox 93 L 08/07/17 04:00 Intake & Output 08/06/17 08/07/17 08/07/17 18:59 06:59 18:59 Intake Total 360 680 420 Output Total 700 625 Balance -340 55 420 Weight 86.3 kg Intake: Intake, IV Titration 20 500 Amount Sodium Chloride 0.9% 1, 20 500 000 ml @ 20 mls/hr IV . Q24H [facility] Rx#:[id number] Oral 340 180 420 Output: Urine 700 625 Other: Voiding Method Toilet # Voids 1 2 - Exam PHYSICAL EXAMINATION: HEENT: Head is atraumatic, normocephalic. Pupils equal, round. Neck is supple. There is no elevated jugular venous pressure. HEART EXAMINATION: Heart S1 and S2 holosystolic murmur is heard. CHEST EXAMINATION: Lungs clear to auscultation. ABDOMEN: Soft, nontender. Bowel sounds are heard. No organomegaly noted. EXTREMITIES: 2+ peripheral pulses with no evidence of peripheral edema and no calf tenderness noted. NEUROLOGIC patient is awake, alert and oriented -3. . - Labs CBC & Chem 7: 08/06/17 05:58 08/07/17 05:50 Labs: Abnormal Lab Results - Last 24 Hours (Table) 08/06/17 08/06/17 08/06/17 Range/Units 12:55 17:21 20:41 Sodium (137-145) mmol/L Carbon Dioxide (22-30) mmol/L BUN (7-17) mg/dL Creatinine (0.52-1.04) mg/dL Glucose (74-99) mg/dL POC Glucose (mg/dL) 188 H 150 H 217 H (75-99) mg/dL 08/07/17 08/07/17 08/07/17 Range/Units 05:49 05:50 11:38 Sodium 134 L (137-145) mmol/L Carbon Dioxide 21 L (22-30) mmol/L BUN 61 H (7-17) mg/dL Creatinine 1.97 H (0.52-1.04) mg/dL Glucose 120 H (74-99) mg/dL POC Glucose (mg/dL) 138 H 144 H (75-99) mg/dL Microbiology - Last 24 Hours (Table) 08/01/17 13:12 Blood Culture Gram Stain - Preliminary Blood 08/01/17 13:12 Blood Culture - Final Blood 08/01/17 13:37 Blood Culture - Preliminary Blood No Growth after 120 hours 08/01/17 09:42 Blood Culture - Preliminary Blood No Growth after 120 hours Assessment and Plan Plan: Assessment and plan #1 progressive dyspnea with combination of tracheobronchitis and worsening congestive heart failure, acute and chronic systolic #2 atrial fibrillation, s/p ARMAND and Cardioversion #3 status post bi-V AICD Plan We'll decrease the patient's Lasix dose to 40 mg one tablet by mouth daily. Check lytes BUN and creatinine in the morning. Plan for possible discharge home in 24 hours appointment will be made with Dr. Alvarez in the office post discharge. DNP note has been reviewed, I agree with a documented findings and plan of care. Patient was seen and examined.
--- NOTE | 2017-08-07 16:38 | P.PN ---
Subjective Progress Note Date: 08/07/17 Principal diagnosis: Progress note being dictated for Dr. Maki. Progress note being dictated for Dr Maki 08/04/17 Interval history: This is a 77-year-old female admitted with acute CHF exacerbation, possible pneumonia and multiple other medical issues. Last night developed increased shortness of breath/respiratory distress and received additional Lasix. Breathing improving. Remains ventricular paced, underlying rhythm atrial fibrillation. Cardiology discussing potential cardioversion after pneumonia/respiratory status improves. Increased weakness, using bedside commode. Denies chest pain, palpitations. Occasional cough. 08/05/17 Respiratory status continues to improve with less shortness of breath. Chest x-ray stable, reporting bibasilar infiltrate and/or atelectasis, probable small bilateral pleural effusions. Diuresing well on Lasix, with 24- hour I&O reflecting a negative fluid balance. Renal function mildly worsened currently 1.6. Maintained on Coreg, Cordarone remains in atrial fibrillation with controlled ventricular rate. 08/06/2017. Underwent successful cardioversion this morning; remains in sinus rhythm. Maintained on nebulized bronchodilators, Levaquin, oral Lasix. Breathing continues to improve with oxygen requirements weaned down to 2 L, maintaining O2 sats in the 90s. Renal function mildly worsened .Denies chest pain, palpitations or increasing shortness of breath. 08/07/2017 status post cardioversion, remains in sinus rhythm. Continues on oral Lasix, diuresing well with 24-hour I&O reflecting a negative fluid balance. Renal function continues to worsen. Systolic blood pressures in the high 90s. Maintained on Levaquin. Minimal productive cough, pale yellow sputum. Denies chest pain, palpitations, or increasing shortness of breath. Objective - Vital Signs Vital signs: Vital Signs Temp 97.6 F 08/07/17 04:00 Pulse 54 L 08/07/17 04:00 Resp 16 08/07/17 04:00 BP 99/52 08/07/17 04:00 Pulse Ox 93 L 08/07/17 04:00 Intake & Output 08/06/17 08/07/17 08/07/17 18:59 06:59 18:59 Intake Total 360 680 420 Output Total 700 625 Balance -340 55 420 Weight 86.3 kg Intake: Intake, IV Titration 20 500 Amount Sodium Chloride 0.9% 1, 20 500 000 ml @ 20 mls/hr IV . Q24H [facility] Rx#:[id number] Oral 340 180 420 Output: Urine 700 625 Other: Voiding Method Toilet # Voids 1 2 1 - Exam PHYSICAL EXAM: VITAL SIGNS: As above GENERAL: Sitting up in bed, no acute distress HEENT: Conjunctivae normal. Oral mucosa moist NECK: No JVD. No thyroid enlargement. No LNs CARDIOVASCULAR: S1, S2 muffled. Irregular, no murmur RESPIRATION: Breath sounds diminished in the bases. Occasional rhonchi, no crackles ABDOMEN: Soft, nontender . No guarding. no masses palpable.Bowel sounds heard. LEGS: No edema. no swelling PSYCHIATRY: Alert and oriented -3, mood and affect normal. NERVOUS SYSTEM: Cranial N 2-12 grossly normal. Moves all 4 limbs. Diffuse weakness No focal deficits. No sensory deficit. Skin: no ulcer no rash Joints: No active swelling. No inflammation. - Labs CBC & Chem 7: 08/06/17 05:58 08/07/17 05:50 Labs: Abnormal Lab Results - Last 24 Hours (Table) 08/06/17 08/06/17 08/07/17 Range/Units 17:21 20:41 05:49 Sodium (137-145) mmol/L Carbon Dioxide (22-30) mmol/L BUN (7-17) mg/dL Creatinine (0.52-1.04) mg/dL Glucose (74-99) mg/dL POC Glucose (mg/dL) 150 H 217 H 138 H (75-99) mg/dL 08/07/17 08/07/17 Range/Units 05:50 11:38 Sodium 134 L (137-145) mmol/L Carbon Dioxide 21 L (22-30) mmol/L BUN 61 H (7-17) mg/dL Creatinine 1.97 H (0.52-1.04) mg/dL Glucose 120 H (74-99) mg/dL POC Glucose (mg/dL) 144 H (75-99) mg/dL Microbiology - Last 24 Hours (Table) 08/01/17 09:42 Blood Culture - Final Blood No Growth after 144 hours 08/01/17 13:12 Blood Culture Gram Stain - Preliminary Blood 08/01/17 13:12 Blood Culture - Final Blood 08/01/17 13:37 Blood Culture - Preliminary Blood No Growth after 120 hours Assessment and Plan Plan: 1. [ Acute on chronic congestive heart failure exacerbation, systolic dysfunction, EF 30%, nonischemic cardiomyopathy]. 2. Right lower lobe pneumonia, possibly gram-negative]. 3. [ Recent ventricular tachycardia]. 4. [ Troponin 0.042, indeterminate]. 5. [ Acute on Chronic kidney disease, stage III, diuretic induced]. 6. Persistent atrial fibrillation, status post successful cardioversion Plan: Continue on current medication regime , nebulized bronchodilators, antibiotics, monitoring and symptomatic treatment. Worsening renal function with subsequent increase in potassium currently at 4.8, Lasix decreased .Close monitoring of renal function and electrolytes with repeat labs ordered for a.m. discharge planning in progress for tomorrow. The impression and plan of care has been dictated as directed. : I performed a H&P examination of this patient and discussed the same with the dictator. I agree with the dictator's note. Any additional findings/opinions/ etc. will be noted.
[2017-08-07 17:00] LABS: Glucose,Whole Blood 155 mg/dL (75-99)
[2017-08-07 20:48] LABS: Glucose,Whole Blood 173 mg/dL (75-99)
[2017-08-07] MEDS: LOSARTAN 25 MG TAB PO SCH (21:29)
[2017-08-07] MEDS: ATORVASTATIN 10 MG TAB PO SCH (21:30)
[2017-08-07 21:49] VITALS: RESP 18
[2017-08-07] MEDS: LACTULOSE 20 GM/30 ML CUP PO PRN (23:29)
[2017-08-08] MEDS: ONDANSETRON 4 MG/2 ML VIAL IVP PRN (03:50)
[2017-08-08 05:31] LABS: Glucose,Whole Blood 201 mg/dL (75-99)
[2017-08-08] MEDS: INSULIN LISPRO (humaLOG) 300 UNIT/3 ML VIAL SQ SCH ×4 (06:12→20:54)
[2017-08-08] MEDS: CARVEDILOL 12.5 MG TAB PO SCH ×2 (06:12→17:10)
--- NOTE | 2017-08-08 07:31 | XR ---
EXAMINATION TYPE: XR abdomen complete w decub DATE OF EXAM: 08/08/2017 COMPARISON: NONE HISTORY: Abdominal pain with concern for bowel obstruction. TECHNIQUE: Supine, upright, and left side down lateral decubitus views of the abdomen are obtained. FINDINGS: No evidence of pneumoperitoneum. Bowel gas pattern is unremarkable throughout the large and small bowel with no bowel dilation. Mild amount of retained stool seen throughout the nondilated col on. Surgical sutures are present within the pelvis. Degenerative changes of the visualized thoracolum bar and lumbosacral spine as well as the sacroiliac joints, pubic symphysis, and femoral acetabular j oints are seen. A few phleboliths are present within the low pelvis. There is a mild S-shaped scoliot ic curvature of the thoracolumbar spine. IMPRESSION: Nonobstructive bowel gas pattern. No evidence of pneumoperitoneum.
[2017-08-08] MEDS: APIXABAN 5 MG TAB PO SCH ×2 (09:13→20:20)
[2017-08-08] MEDS: PANTOPRAZOLE 40 MG/10 ML VIAL IVP SCH (09:13)
[2017-08-08] MEDS: AMIODARONE 200 MG TAB PO SCH ×2 (09:13→20:20)
[2017-08-08] MEDS: LACTULOSE 20 GM/30 ML CUP PO PRN (09:13)
[2017-08-08] MEDS: FUROSEMIDE 40 MG TAB PO SCH (09:14)
[2017-08-08] MEDS: CHOLECALCIFEROL 1,000 UNIT TAB PO SCH (09:14)
[2017-08-08] MEDS: CYANOCOBALAMIN 500 MCG TAB PO SCH (09:14)
[2017-08-08] MEDS: LINAGLIPTIN 5 MG TABLET PO SCH (09:14)
[2017-08-08] MEDS: ASPIRIN 81 MG PO SCH (09:14)
[2017-08-08] MEDS: MULTIVITAMINS, THERA 1 EACH TAB PO SCH (09:15)
[2017-08-08] MEDS: POTASSIUM CHLORIDE ER 20 MEQ TAB.ER PO SCH (09:15)
[2017-08-08] MEDS: IPRATROPIUM-ALBUTEROL 3 ML NEB INHALATION SCH ×4 (10:00→20:16)
[2017-08-08] MEDS: SODIUM CHLORIDE 0.9% 1,000 ML IV SCH (11:39)
[2017-08-08 12:11] LABS: Glucose,Whole Blood 263 mg/dL (75-99)
--- NOTE | 2017-08-08 12:11 | XR ---
EXAMINATION TYPE: XR chest 2V DATE OF EXAM: 08/08/2017 COMPARISON: Prior chest x-ray 08/05/2017 HISTORY: Right lower lobe pneumonia TECHNIQUE: Frontal and lateral views of the chest are obtained. FINDINGS: Central vascularity appears somewhat prominently. Patchy basilar density persists. Intraca rdiac defibrillator leads are stable. No pneumothorax. Heart is enlarged. IMPRESSION: Correlate for possible volume overload, pulmonary venous hypertension and interstitial e heidi, there may be some basilar atelectasis, edema, pleural effusion, correlate to exclude pneumonia.
--- NOTE | 2017-08-08 12:39 | P.PN ---
<Charity Vasquez - Last Filed: 08/08/17 12:31> Subjective Progress Note Date: 08/08/17 Principal diagnosis: Acute on chronic systolic congestive heart failure The patient is seen again today 08/05/2017 in follow-up on the selective care unit. She is currently awake and alert in no acute distress. She denies any worsening shortness of breath, cough or congestion. Her chest x-ray reveals stable findings with evidence of cardiomegaly and bibasilar infiltrate/ atelectasis more so on the right lung base. She remains on bronchodilators and Levaquin. She is maintaining good O2 saturations in the upper 90s on 3 L/m per nasal cannula. She remains on Lasix 60 mg twice a day. She is an anticoagulated with Eliquis. Her heart rate is better controlled today. She remains on Cordarone and Coreg. The patient is seen again today 08/06/2017 in follow-up on the selective care unit. She is awake and alert in no acute distress. She is breathing easier today as compared to yesterday. She has a dry nonproductive cough. She is afebrile. Maintaining O2 saturations in the upper 90s on 2 L/m per nasal cannula. No leukocytosis. Blood and sputum cultures revealed no growth. She remains on bronchodilators and Levaquin. She is on oral diuretics. She remains anticoagulated with Eliquis. The plan is for a ARMAND/cardioversion today. Patient is On 08/07/2017 the patient is in sinus rhythm. She underwent a cardioversion yesterday her current rhythm is sinus. She is bringing up some limited amount of sputum. Her chest wall is sore from coughing. No new complaints otherwise for now. No nausea. No vomiting. No abdominal pain. No fever or chills. Renal function is stable with a creatinine of 1.9. A follow-up chest x-ray to be done tomorrow to follow-up on the pulmonary infiltrate that was done in the right lung base. Meanwhile, the patient is still on antibiotics and the patient is receiving Levaquin 750 mg every 48 hours. Lasix is at a dose of 40 mg by mouth twice a day. The patient is seen Again tohebert benson 08/08/2017 in follow-up on the selective care unit. She is awake and alert in no acute distress. She is having issues with nausea and vomiting. She also had some constipation and abdominal discomfort. Abdominal x-ray reveals a nonobstructive bowel gas pattern. No evidence of pneumoperitoneum. Her chest x-ray does reveal some evidence of fluid volume overload and pulmonary venous hypertension with interstitial edema. She is maintaining good O2 saturations in the 90s on room air. She denies any significant shortness of breath, cough or congestion. She remains on bronchodilators, antibiotics and diuretics. Objective - Vital Signs Vital signs: Vital Signs Temp 97.0 F L 08/08/17 11:58 Pulse 53 L 08/08/17 12:00 Resp 18 08/08/17 12:00 BP 101/50 08/08/17 11:58 Pulse Ox 97 08/08/17 11:58 Intake & Output 08/07/17 08/08/17 08/08/17 18:59 06:59 18:59 Intake Total 420 Output Total 400 Balance 420 -400 Weight 84.5 kg Intake: Oral 420 Output: Urine 400 Other: Voiding Method Toilet Toilet # Voids 1 2 - Exam GENERAL EXAM: Alert, active, comfortable in no apparent distress. HEAD: Normocephalic. EYES: Normal reaction of pupils, equal size. NOSE: Clear with pink turbinates. THROAT: No erythema or exudates. NECK: No masses, no JVD. CHEST: No chest wall deformity. LUNGS: Equal air entry with faint crackles in the bilateral bases.. CVS: S1 and S2 normal with an audible murmur, regular rhythm. ABDOMEN: No hepatosplenomegaly, normal bowel sounds, no guarding or rigidity. SPINE: No scoliosis or deformity SKIN: No rashes CENTRAL NERVOUS SYSTEM: No focal deficits, tone is normal in all 4 extremities. Extremities: There is trace peripheral edema. No clubbing, no cyanosis. Peripheral pulses are intact. - Labs CBC & Chem 7: 08/06/17 05:58 08/07/17 05:50 Labs: Abnormal Lab Results - Last 24 Hours (Table) 08/07/17 08/07/17 08/08/17 Range/Units 16:59 20:46 05:29 POC Glucose (mg/dL) 155 H 173 H 201 H (75-99) mg/dL 08/08/17 Range/Units 11:56 POC Glucose (mg/dL) 263 H (75-99) mg/dL Microbiology - Last 24 Hours (Table) 08/01/17 13:12 Blood Culture Gram Stain - Preliminary Blood Blood Culture - Preliminary Anaerobic Gm Positive Bacill 08/01/17 13:37 Blood Culture - Final Blood No Growth after 144 hours 08/01/17 09:42 Blood Culture - Final Blood No Growth after 144 hours Assessment and Plan Plan: Assessment 1 acute exacerbation of chronic systolic congestive heart failure. 2 right lower lobe pneumonia with a consolidation involving the right lower lobe posterior segment which is a new finding compared to previous chest x-rays , recovered. 3 chronic atrial fibrillation anticoagulated with the apixaban. She had undergone cardioversion is currently in normal sinus rhythm. 4 nonischemic cardiomyopathy 5 status post biventricular AICD implantation 6 hypertension 7 hyperlipidemia 8 diabetes mellitus 9 chronic anemia 10 chronic renal failure Plan: The patient was seen and evaluated by Dr. Fernández. She is stable from the pulmonary standpoint. We'll continue with her current medications. Cardiology is on the case as well. We will increase her activity as tolerated. We'll continue to follow and make further recommendations based on her clinical status. <Salina Fernández - Last Filed: 08/08/17 13:00> Objective - Vital Signs Vital signs: Vital Signs Temp 97.0 F L 08/08/17 11:58 Pulse 53 L 08/08/17 12:00 Resp 18 08/08/17 12:00 BP 101/50 08/08/17 11:58 Pulse Ox 97 08/08/17 11:58 Intake & Output 08/07/17 08/08/17 08/08/17 18:59 06:59 18:59 Intake Total 420 Output Total 400 Balance 420 -400 Weight 84.5 kg Intake: Oral 420 Output: Urine 400 Other: Voiding Method Toilet Toilet # Voids 1 2 - Labs CBC & Chem 7: 08/08/17 12:00 08/08/17 12:00 Labs: Abnormal Lab Results - Last 24 Hours (Table) 08/07/17 08/07/17 08/08/17 Range/Units 16:59 20:46 05:29 WBC (3.8-10.6) k/uL RBC (3.80-5.40) m/uL Hgb (11.4-16.0) gm/dL MCHC (31.0-37.0) g/dL RDW (11.5-15.5) % Neutrophils # (1.3-7.7) k/uL Lymphocytes # (1.0-4.8) k/uL Potassium (3.5-5.1) mmol/L Carbon Dioxide (22-30) mmol/L BUN (7-17) mg/dL Creatinine (0.52-1.04) mg/dL Glucose (74-99) mg/dL POC Glucose (mg/dL) 155 H 173 H 201 H (75-99) mg/dL AST (14-36) U/L ALT (9-52) U/L Total Protein (6.3-8.2) g/dL Albumin (3.5-5.0) g/dL 08/08/17 08/08/17 08/08/17 Range/Units 11:56 12:00 12:00 WBC 11.6 H (3.8-10.6) k/uL RBC 3.58 L (3.80-5.40) m/uL Hgb 9.7 L (11.4-16.0) gm/dL MCHC 28.6 L (31.0-37.0) g/dL RDW 16.1 H (11.5-15.5) % Neutrophils # 9.6 H (1.3-7.7) k/uL Lymphocytes # 0.8 L (1.0-4.8) k/uL Potassium 5.3 H (3.5-5.1) mmol/L Carbon Dioxide 21 L (22-30) mmol/L BUN 60 H (7-17) mg/dL Creatinine 2.04 H (0.52-1.04) mg/dL Glucose 235 H (74-99) mg/dL POC Glucose (mg/dL) 263 H (75-99) mg/dL AST 364 H (14-36) U/L ALT 753 H (9-52) U/L Total Protein 6.0 L (6.3-8.2) g/dL Albumin 3.4 L (3.5-5.0) g/dL Microbiology - Last 24 Hours (Table) 08/01/17 13:12 Blood Culture Gram Stain - Preliminary Blood Blood Culture - Preliminary Anaerobic Gm Positive Bacill 08/01/17 13:37 Blood Culture - Final Blood No Growth after 144 hours 08/01/17 09:42 Blood Culture - Final Blood No Growth after 144 hours Assessment and Plan Plan: This is a joint evaluation that was done along with the nurse practitioner. I do a test that information mentioned above. Patient is doing well in terms of her breathing. That hemoglobin is at 9.7. The cardiac rhythm is still sinus. Her chest x-ray shows a stable right lower lobe pulmonary infiltrate which remains unchanged on today's chest x-ray. The patient's liver function tests are slightly abnormal and elevated. She has transaminitis. This could be potentially related to drug side effects and the patient is on a combination of Lipitor and amiodarone. Monitor the liver function tests. She was having some issues with constipation and she was given laxative. She was also having some limited nausea. For that reason she'll be kept in hospital for another 24 hours.
[2017-08-08 12:44] LABS: Calcium 9.1 mg/dL (8.4-10.2); Potassium 5.3 mmol/L (3.5-5.1); Total Bilirubin 0.8 mg/dL (0.2-1.3)
[2017-08-08 12:47] LABS: Anisocytosis Slight; Basophils % (A) 0 %; CH 28.6; CHCM 30.3; Eosinophils # (A) 0.1 k/uL (0-0.7); Eosinophils % (A) 1 %; HDW 2.89; HGB 9.7 gm/dL (11.4-16.0); Hypochromasia Marked; Luc # (Auto) 0.21; Luc % (Auto) 2; Lymphocytes # (A) 0.8 k/uL (1.0-4.8); Lymphocytes % (A) 7 %; MCH 27.2 pg (25.0-35.0); MCHC 28.6 g/dL (31.0-37.0); MCV 94.9 fL (80.0-100.0); Mean Platelet Volume 8.5; Monocytes % (A) 8 %; Neutrophils # (A) 9.6 k/uL (1.3-7.7); Neutrophils % (A) 82 %; RBC 3.58 m/uL (3.80-5.40); RDW 16.1 % (11.5-15.5); WBC 11.6 k/uL (3.8-10.6); WBC (Perox) 11.05
[2017-08-08 14:33] VITALS: BMI 30.9
--- NOTE | 2017-08-08 16:11 | P.PN ---
Subjective Progress Note Date: 08/08/17 Principal diagnosis: Progressive dyspnea and cough This is 77-year-old female with known history of severe nonischemic cardio myopathy, prior AICD, bi-V pacing, who presented to the hospital with progressive dyspnea and cough. Her cough overall is much improved today. She continues to be in atrial fibrillation. She states she did have an episode of shortness of breath while walking to the bathroom today. Dr. Alvarez did have a discussion with the patient, regarding ARMAND and cardioversion, he educated the patient regarding the risks and the benefits, this will be performed tomorrow. 08/07/2017 Patient seen and examined this morning, status post ARMAND and cardioversion of yesterday. Continues to be in normal sinus rhythm. blood bank laboratory technologist shows a 100% paced rhythm. BUN today 59, creatinine 1.8, potassium 4.4. We'll decrease her by mouth Lasix dose to 40 mg daily, check lytes BUN and creatinine in the morning. Overall patient is feeling better, still has mild cough. 08/08/2017 Patient seen and examined this afternoon, overall doing well. Complaining of some abdominal discomfort and nausea and vomiting earlier. X-ray of the abdomen was performed which revealed nonobstructive bowel gas pattern with no evidence of a pneumoperitoneum. Remaining in normal sinus rhythm, hemodynamically stable. Creatinine up to 2.0 today, potassium 5.3 Objective - Vital Signs Vital signs: Vital Signs Temp 97.0 F L 08/08/17 16:00 Pulse 57 L 08/08/17 16:00 Resp 18 08/08/17 16:00 BP 119/63 08/08/17 16:00 Pulse Ox 97 08/08/17 16:00 Intake & Output 08/07/17 08/08/17 08/08/17 18:59 06:59 18:59 Intake Total 420 Output Total 400 Balance 420 -400 Weight 84.5 kg 84.5 kg Intake: Oral 420 Output: Urine 400 Other: Voiding Method Toilet Toilet # Voids 1 2 2 # Bowel Movements 2 - Exam PHYSICAL EXAMINATION: HEENT: Head is atraumatic, normocephalic. Pupils equal, round. Neck is supple. There is no elevated jugular venous pressure. HEART EXAMINATION: Heart S1 and S2 holosystolic murmur is heard. CHEST EXAMINATION: Lungs clear to auscultation. ABDOMEN: Soft, nontender. Bowel sounds are heard. No organomegaly noted. EXTREMITIES: 2+ peripheral pulses with no evidence of peripheral edema and no calf tenderness noted. NEUROLOGIC patient is awake, alert and oriented -3. . - Labs CBC & Chem 7: 08/08/17 12:00 08/08/17 12:00 Labs: Abnormal Lab Results - Last 24 Hours (Table) 08/07/17 08/07/17 08/08/17 Range/Units 16:59 20:46 05:29 WBC (3.8-10.6) k/uL RBC (3.80-5.40) m/uL Hgb (11.4-16.0) gm/dL MCHC (31.0-37.0) g/dL RDW (11.5-15.5) % Neutrophils # (1.3-7.7) k/uL Lymphocytes # (1.0-4.8) k/uL Potassium (3.5-5.1) mmol/L Carbon Dioxide (22-30) mmol/L BUN (7-17) mg/dL Creatinine (0.52-1.04) mg/dL Glucose (74-99) mg/dL POC Glucose (mg/dL) 155 H 173 H 201 H (75-99) mg/dL AST (14-36) U/L ALT (9-52) U/L Total Protein (6.3-8.2) g/dL Albumin (3.5-5.0) g/dL 08/08/17 08/08/17 08/08/17 Range/Units 11:56 12:00 12:00 WBC 11.6 H (3.8-10.6) k/uL RBC 3.58 L (3.80-5.40) m/uL Hgb 9.7 L (11.4-16.0) gm/dL MCHC 28.6 L (31.0-37.0) g/dL RDW 16.1 H (11.5-15.5) % Neutrophils # 9.6 H (1.3-7.7) k/uL Lymphocytes # 0.8 L (1.0-4.8) k/uL Potassium 5.3 H (3.5-5.1) mmol/L Carbon Dioxide 21 L (22-30) mmol/L BUN 60 H (7-17) mg/dL Creatinine 2.04 H (0.52-1.04) mg/dL Glucose 235 H (74-99) mg/dL POC Glucose (mg/dL) 263 H (75-99) mg/dL AST 364 H (14-36) U/L ALT 753 H (9-52) U/L Total Protein 6.0 L (6.3-8.2) g/dL Albumin 3.4 L (3.5-5.0) g/dL Microbiology - Last 24 Hours (Table) 08/01/17 13:12 Blood Culture Gram Stain - Final Blood Blood Culture - Final Eubacterium lentum 08/01/17 13:37 Blood Culture - Final Blood No Growth after 144 hours 08/01/17 09:42 Blood Culture - Final Blood No Growth after 144 hours Assessment and Plan Plan: Assessment and plan #1 progressive dyspnea with combination of tracheobronchitis and worsening congestive heart failure, acute and chronic systolic #2 atrial fibrillation, s/p ARMAND and Cardioversion #3 status post bi-V AICD Plan We'll discontinue the Lasix and potassium today. Check lytes BUN and creatinine in the morning DNP note has been reviewed, I agree with a documented findings and plan of care. Patient was seen and examined.
[2017-08-08 16:32] LABS: Glucose,Whole Blood 114 mg/dL (75-99)
--- NOTE | 2017-08-08 17:05 | P.PN ---
Subjective Progress Note Date: 08/08/17 Progress note being dictated for Dr Maki 08/04/17 Interval history: This is a 77-year-old female admitted with acute CHF exacerbation, possible pneumonia and multiple other medical issues. Last night developed increased shortness of breath/respiratory distress and received additional Lasix. Breathing improving. Remains ventricular paced, underlying rhythm atrial fibrillation. Cardiology discussing potential cardioversion after pneumonia/respiratory status improves. Increased weakness, using bedside commode. Denies chest pain, palpitations. Occasional cough. 08/05/17 Respiratory status continues to improve with less shortness of breath. Chest x-ray stable, reporting bibasilar infiltrate and/or atelectasis, probable small bilateral pleural effusions. Diuresing well on Lasix, with 24- hour I&O reflecting a negative fluid balance. Renal function mildly worsened currently 1.6. Maintained on Coreg, Cordarone remains in atrial fibrillation with controlled ventricular rate. 08/06/2017. Underwent successful cardioversion this morning; remains in sinus rhythm. Maintained on nebulized bronchodilators, Levaquin, oral Lasix. Breathing continues to improve with oxygen requirements weaned down to 2 L, maintaining O2 sats in the 90s. Renal function mildly worsened .Denies chest pain, palpitations or increasing shortness of breath. 08/07/2017 status post cardioversion, remains in sinus rhythm. Continues on oral Lasix, diuresing well with 24-hour I&O reflecting a negative fluid balance. Renal function continues to worsen. Systolic blood pressures in the high 90s. Maintained on Levaquin. Minimal productive cough, pale yellow sputum. Denies chest pain, palpitations, or increasing shortness of breath. 08/08/2017. Maintained on nebulized bronchodilators, antibiotics, Lasix, .Patient had complained of nausea and vomiting, constipation. received lactulose with large bowel movement this morning. Abdominal x-ray reported no evidence of pneumoperitoneum, no bowel dilation, mild retained stool throughout nondilated colon, nonobstructive bowel gas pattern. Chest x-ray reporting fluid volume overload, interstitial edema, bibasilar atelectasis. Maintaining O2 sats in the 90s on room air. Telemetry sinus rhythm. Renal function and subsequent potassium continues to trend up/worsen each day. Denies chest pain, palpitations or increasing shortness of breath. Objective - Vital Signs Vital signs: Vital Signs Temp 97.0 F L 08/08/17 16:00 Pulse 57 L 08/08/17 16:00 Resp 18 08/08/17 16:00 BP 119/63 08/08/17 16:00 Pulse Ox 97 08/08/17 16:00 Intake & Output 08/07/17 08/08/17 08/08/17 18:59 06:59 18:59 Intake Total 420 Output Total 400 Balance 420 -400 Weight 84.5 kg 84.5 kg Intake: Oral 420 Output: Urine 400 Other: Voiding Method Toilet Toilet # Voids 1 2 2 # Bowel Movements 2 - Exam PHYSICAL EXAM: VITAL SIGNS: As above GENERAL: Sitting up in bed, no acute distress HEENT: Conjunctivae normal. Oral mucosa moist NECK: No JVD. No thyroid enlargement. No LNs CARDIOVASCULAR: S1, S2 muffled. Irregular, no murmur RESPIRATION: Breath sounds diminished in the bases. Occasional rhonchi, fine bibasilar crackles ABDOMEN: Soft, nontender . No guarding. no masses palpable.Bowel sounds heard. LEGS: No edema. no swelling PSYCHIATRY: Alert and oriented -3, mood and affect normal. NERVOUS SYSTEM: Cranial N 2-12 grossly normal. Moves all 4 limbs. Diffuse weakness No focal deficits. No sensory deficit. Skin: no ulcer no rash Joints: No active swelling. No inflammation. - Labs CBC & Chem 7: 08/08/17 12:00 08/08/17 12:00 Labs: Abnormal Lab Results - Last 24 Hours (Table) 08/07/17 08/07/17 08/08/17 Range/Units 16:59 20:46 05:29 WBC (3.8-10.6) k/uL RBC (3.80-5.40) m/uL Hgb (11.4-16.0) gm/dL MCHC (31.0-37.0) g/dL RDW (11.5-15.5) % Neutrophils # (1.3-7.7) k/uL Lymphocytes # (1.0-4.8) k/uL Potassium (3.5-5.1) mmol/L Carbon Dioxide (22-30) mmol/L BUN (7-17) mg/dL Creatinine (0.52-1.04) mg/dL Glucose (74-99) mg/dL POC Glucose (mg/dL) 155 H 173 H 201 H (75-99) mg/dL AST (14-36) U/L ALT (9-52) U/L Total Protein (6.3-8.2) g/dL Albumin (3.5-5.0) g/dL 08/08/17 08/08/17 08/08/17 Range/Units 11:56 12:00 12:00 WBC 11.6 H (3.8-10.6) k/uL RBC 3.58 L (3.80-5.40) m/uL Hgb 9.7 L (11.4-16.0) gm/dL MCHC 28.6 L (31.0-37.0) g/dL RDW 16.1 H (11.5-15.5) % Neutrophils # 9.6 H (1.3-7.7) k/uL Lymphocytes # 0.8 L (1.0-4.8) k/uL Potassium 5.3 H (3.5-5.1) mmol/L Carbon Dioxide 21 L (22-30) mmol/L BUN 60 H (7-17) mg/dL Creatinine 2.04 H (0.52-1.04) mg/dL Glucose 235 H (74-99) mg/dL POC Glucose (mg/dL) 263 H (75-99) mg/dL AST 364 H (14-36) U/L ALT 753 H (9-52) U/L Total Protein 6.0 L (6.3-8.2) g/dL Albumin 3.4 L (3.5-5.0) g/dL 08/08/17 Range/Units 16:30 WBC (3.8-10.6) k/uL RBC (3.80-5.40) m/uL Hgb (11.4-16.0) gm/dL MCHC (31.0-37.0) g/dL RDW (11.5-15.5) % Neutrophils # (1.3-7.7) k/uL Lymphocytes # (1.0-4.8) k/uL Potassium (3.5-5.1) mmol/L Carbon Dioxide (22-30) mmol/L BUN (7-17) mg/dL Creatinine (0.52-1.04) mg/dL Glucose (74-99) mg/dL POC Glucose (mg/dL) 114 H (75-99) mg/dL AST (14-36) U/L ALT (9-52) U/L Total Protein (6.3-8.2) g/dL Albumin (3.5-5.0) g/dL Microbiology - Last 24 Hours (Table) 08/01/17 13:12 Blood Culture Gram Stain - Final Blood Blood Culture - Final Eubacterium lentum 08/01/17 13:37 Blood Culture - Final Blood No Growth after 144 hours 08/01/17 09:42 Blood Culture - Final Blood No Growth after 144 hours Assessment and Plan Plan: 1. [ Acute on chronic congestive heart failure exacerbation, systolic dysfunction, EF 30%, nonischemic cardiomyopathy]. 2. Right lower lobe pneumonia, possibly gram-negative]. 3. [ Recent ventricular tachycardia]. 4. [ Troponin 0.042, indeterminate]. 5. [ Acute on Chronic kidney disease, stage III, diuretic induced]. 6. Persistent atrial fibrillation, status post successful cardioversion Plan: Continue on current medication regime , nebulized bronchodilators, antibiotics, monitoring and symptomatic treatment. Lasix discontinued. Renal function and subsequent potassium continues to trend up.Consider holding Cozaar if renal function/potassium continues to worsen.Close monitoring of renal function and electrolytes with repeat labs ordered for a.m. discharge planning in progress for tomorrow. The impression and plan of care has been dictated as directed. : I performed a H&P examination of this patient and discussed the same with the dictator. I agree with the dictator's note. Any additional findings/opinions/ etc. will be noted.
[2017-08-08] MEDS: PANTOPRAZOLE 40 MG TABLET PO SCH (17:10)
[2017-08-08] MEDS: ATORVASTATIN 10 MG TAB PO SCH (20:20)
[2017-08-08] MEDS: LOSARTAN 25 MG TAB PO SCH (20:20)
[2017-08-08 20:37] LABS: Glucose,Whole Blood 259 mg/dL (75-99)
[2017-08-09 06:20] LABS: Glucose,Whole Blood 117 mg/dL (75-99)
[2017-08-09] MEDS: INSULIN LISPRO (humaLOG) 300 UNIT/3 ML VIAL SQ SCH ×4 (06:25→22:00)
[2017-08-09] MEDS: CARVEDILOL 12.5 MG TAB PO SCH ×2 (06:29→16:44)
[2017-08-09] MEDS: PANTOPRAZOLE 40 MG TABLET PO SCH ×2 (06:29→16:44)
[2017-08-09 06:52] LABS: Calcium 8.5 mg/dL (8.4-10.2); Potassium 4.7 mmol/L (3.5-5.1)
[2017-08-09 06:53] LABS: Basophils % (A) 0 %; CH 27.8; Eosinophils # (A) 0.3 k/uL (0-0.7); Eosinophils % (A) 4 %; HCT 29.2 % (34.0-46.0); HDW 2.98; HGB 8.8 gm/dL (11.4-16.0); Hypochromasia Marked; Luc # (Auto) 0.24; Luc % (Auto) 3; Lymphocytes # (A) 0.9 k/uL (1.0-4.8); Lymphocytes % (A) 10 %; MCV 93.4 fL (80.0-100.0); Mean Platelet Volume 7.5; Monocytes # (A) 0.7 k/uL (0-1.0); Monocytes % (A) 8 %; Neutrophils # (A) 6.7 k/uL (1.3-7.7); Neutrophils % (A) 75 %; RBC 3.13 m/uL (3.80-5.40); WBC 8.9 k/uL (3.8-10.6); WBC (Perox) 9.05
[2017-08-09] MEDS: AMIODARONE 200 MG TAB PO SCH ×2 (08:36→20:33)
[2017-08-09] MEDS: CYANOCOBALAMIN 500 MCG TAB PO SCH (08:36)
[2017-08-09] MEDS: LINAGLIPTIN 5 MG TABLET PO SCH (08:36)
[2017-08-09] MEDS: LEVOFLOXACIN 750 MG TAB PO SCH (08:37)
[2017-08-09] MEDS: SODIUM CHLORIDE 0.9% 1,000 ML IV SCH (08:37)
[2017-08-09] MEDS: CHOLECALCIFEROL 1,000 UNIT TAB PO SCH (08:37)
[2017-08-09] MEDS: MULTIVITAMINS, THERA 1 EACH TAB PO SCH (08:37)
[2017-08-09] MEDS: APIXABAN 5 MG TAB PO SCH ×2 (08:37→20:33)
--- NOTE | 2017-08-09 10:33 | P.PN ---
Subjective Progress Note Date: 08/09/17 The patient is seen again today 08/05/2017 in follow-up on the selective care unit. She is currently awake and alert in no acute distress. She denies any worsening shortness of breath, cough or congestion. Her chest x-ray reveals stable findings with evidence of cardiomegaly and bibasilar infiltrate/ atelectasis more so on the right lung base. She remains on bronchodilators and Levaquin. She is maintaining good O2 saturations in the upper 90s on 3 L/m per nasal cannula. She remains on Lasix 60 mg twice a day. She is an anticoagulated with Eliquis. Her heart rate is better controlled today. She remains on Cordarone and Coreg. The patient is seen again today 08/06/2017 in follow-up on the selective care unit. She is awake and alert in no acute distress. She is breathing easier today as compared to yesterday. She has a dry nonproductive cough. She is afebrile. Maintaining O2 saturations in the upper 90s on 2 L/m per nasal cannula. No leukocytosis. Blood and sputum cultures revealed no growth. She remains on bronchodilators and Levaquin. She is on oral diuretics. She remains anticoagulated with Eliquis. The plan is for a ARMAND/cardioversion today. Patient is On 08/07/2017 the patient is in sinus rhythm. She underwent a cardioversion yesterday her current rhythm is sinus. She is bringing up some limited amount of sputum. Her chest wall is sore from coughing. No new complaints otherwise for now. No nausea. No vomiting. No abdominal pain. No fever or chills. Renal function is stable with a creatinine of 1.9. A follow-up chest x-ray to be done tomorrow to follow-up on the pulmonary infiltrate that was done in the right lung base. Meanwhile, the patient is still on antibiotics and the patient is receiving Levaquin 750 mg every 48 hours. Lasix is at a dose of 40 mg by mouth twice a day. The patient is seen Again tohebert benson 08/08/2017 in follow-up on the selective care unit. She is awake and alert in no acute distress. She is having issues with nausea and vomiting. She also had some constipation and abdominal discomfort. Abdominal x-ray reveals a nonobstructive bowel gas pattern. No evidence of pneumoperitoneum. Her chest x-ray does reveal some evidence of fluid volume overload and pulmonary venous hypertension with interstitial edema. She is maintaining good O2 saturations in the 90s on room air. She denies any significant shortness of breath, cough or congestion. She remains on bronchodilators, antibiotics and diuretics. On 08/09/2017 the patient remains in a sinus rhythm. He is ambulating. Seems not having any respiratory difficulties. No chest pain. No shortness of breath. No nausea vomiting or diarrhea. She had a bowel movement yesterday. She may be potentially even going home today. The rest of the blood work is all stable. The patient has chronic renal failure with a creatinine that is stable at 1.9. He will was also stable at 8.8. Objective - Vital Signs Vital signs: Vital Signs Temp 97.1 F L 08/09/17 08:00 Pulse 51 L 08/09/17 08:00 Resp 18 08/09/17 08:00 BP 97/52 08/09/17 08:00 Pulse Ox 95 08/09/17 08:00 Intake & Output 08/08/17 08/09/17 08/09/17 18:59 06:59 18:59 Intake Total 400 Balance 400 Weight 84.5 kg Intake: Oral 400 Other: Voiding Method Toilet Toilet Toilet # Voids 2 # Bowel Movements 2 - Exam No acute distress, oriented 3 HEENT examination is unremarkable. Mucous membranes are moist. No oral lesions. Neck supple. Full range of motion. No adenopathy or thyromegaly. Neck veins are flat. Cardiovascular examination reveals regular rhythm rate. S1-S2 normal. No S3 or S4. No discernible murmur. Heart rate in the mid 80s. Lungs reveal diffuse bilateral rhonchi. No wheezes or crackles. Breath sounds are equal bilaterally. Abdomen soft bowel sounds are heard. No masses or tenderness. Extremities are intact. No cyanosis clubbing or edema. Skin is without rash or lesion. Neurologic examination is brief but nonfocal. - Labs CBC & Chem 7: 08/09/17 05:26 08/09/17 05:26 Labs: Abnormal Lab Results - Last 24 Hours (Table) 08/08/17 08/08/17 08/08/17 Range/Units 11:56 12:00 12:00 WBC 11.6 H (3.8-10.6) k/uL RBC 3.58 L (3.80-5.40) m/uL Hgb 9.7 L (11.4-16.0) gm/dL Hct (34.0-46.0) % MCHC 28.6 L (31.0-37.0) g/dL RDW 16.1 H (11.5-15.5) % Neutrophils # 9.6 H (1.3-7.7) k/uL Lymphocytes # 0.8 L (1.0-4.8) k/uL Sodium (137-145) mmol/L Potassium 5.3 H (3.5-5.1) mmol/L Carbon Dioxide 21 L (22-30) mmol/L BUN 60 H (7-17) mg/dL Creatinine 2.04 H (0.52-1.04) mg/dL Glucose 235 H (74-99) mg/dL POC Glucose (mg/dL) 263 H (75-99) mg/dL AST 364 H (14-36) U/L ALT 753 H (9-52) U/L Total Protein 6.0 L (6.3-8.2) g/dL Albumin 3.4 L (3.5-5.0) g/dL 08/08/17 08/08/17 08/09/17 Range/Units 16:30 20:35 05:26 WBC (3.8-10.6) k/uL RBC 3.13 L (3.80-5.40) m/uL Hgb 8.8 L (11.4-16.0) gm/dL Hct 29.2 L (34.0-46.0) % MCHC 30.0 L (31.0-37.0) g/dL RDW (11.5-15.5) % Neutrophils # (1.3-7.7) k/uL Lymphocytes # 0.9 L (1.0-4.8) k/uL Sodium (137-145) mmol/L Potassium (3.5-5.1) mmol/L Carbon Dioxide (22-30) mmol/L BUN (7-17) mg/dL Creatinine (0.52-1.04) mg/dL Glucose (74-99) mg/dL POC Glucose (mg/dL) 114 H 259 H (75-99) mg/dL AST (14-36) U/L ALT (9-52) U/L Total Protein (6.3-8.2) g/dL Albumin (3.5-5.0) g/dL 08/09/17 08/09/17 Range/Units 05:26 06:03 WBC (3.8-10.6) k/uL RBC (3.80-5.40) m/uL Hgb (11.4-16.0) gm/dL Hct (34.0-46.0) % MCHC (31.0-37.0) g/dL RDW (11.5-15.5) % Neutrophils # (1.3-7.7) k/uL Lymphocytes # (1.0-4.8) k/uL Sodium 135 L (137-145) mmol/L Potassium (3.5-5.1) mmol/L Carbon Dioxide (22-30) mmol/L BUN 55 H (7-17) mg/dL Creatinine 1.90 H (0.52-1.04) mg/dL Glucose 106 H (74-99) mg/dL POC Glucose (mg/dL) 117 H (75-99) mg/dL AST (14-36) U/L ALT (9-52) U/L Total Protein (6.3-8.2) g/dL Albumin (3.5-5.0) g/dL Microbiology - Last 24 Hours (Table) 08/01/17 13:12 Blood Culture Gram Stain - Final Blood Blood Culture - Final Eubacterium lentum Assessment and Plan Plan: Assessment 1 acute exacerbation of chronic systolic congestive heart failure. 2 right lower lobe pneumonia with a consolidation involving the right lower lobe posterior segment which is a new finding compared to previous chest x-rays , recovered. 3 chronic atrial fibrillation anticoagulated with the apixaban. She had undergone cardioversion is currently in normal sinus rhythm. 4 nonischemic cardiomyopathy 5 status post biventricular AICD implantation 6 hypertension 7 hyperlipidemia 8 diabetes mellitus 9 chronic anemia 10 chronic renal failure Plan: We'll complete the course of Levaquin outpatient basis regarding the right basilar pneumonia. Outpatient follow-up regarding complete radiographic clearance of the right lower lobe pulmonary infiltrate. The patient's cardiac rhythm is sinus pH is anticoagulated. Renal function stable. Hemoglobin stable at 8.8. Ambulate in the hallway. Discharge planning is in progress. Outpatient follow-up.
[2017-08-09 12:17] LABS: Glucose,Whole Blood 193 mg/dL (75-99)
--- NOTE | 2017-08-09 13:20 | P.PN ---
Subjective Progress Note Date: 08/09/17 Principal diagnosis: Progressive dyspnea and cough This is 77-year-old female with known history of severe nonischemic cardio myopathy, prior AICD, bi-V pacing, who presented to the hospital with progressive dyspnea and cough. Her cough overall is much improved today. She continues to be in atrial fibrillation. She states she did have an episode of shortness of breath while walking to the bathroom today. Dr. Alvarez did have a discussion with the patient, regarding ARMAND and cardioversion, he educated the patient regarding the risks and the benefits, this will be performed tomorrow. 08/07/2017 Patient seen and examined this morning, status post ARMAND and cardioversion of yesterday. Continues to be in normal sinus rhythm. threat monitoring analyst shows a 100% paced rhythm. BUN today 59, creatinine 1.8, potassium 4.4. We'll decrease her by mouth Lasix dose to 40 mg daily, check lytes BUN and creatinine in the morning. Overall patient is feeling better, still has mild cough. 08/08/2017 Patient seen and examined this afternoon, overall doing well. Complaining of some abdominal discomfort and nausea and vomiting earlier. X-ray of the abdomen was performed which revealed nonobstructive bowel gas pattern with no evidence of a pneumoperitoneum. Remaining in normal sinus rhythm, hemodynamically stable. Creatinine up to 2.0 today, potassium 5.3. 08/09/2017 She was seen and examined this morning, no further episodes of nausea, had a good bowel movement. Being discharged home today. Objective - Vital Signs Vital signs: Vital Signs Temp 96.6 F L 08/09/17 12:00 Pulse 54 L 08/09/17 12:00 Resp 18 08/09/17 12:00 BP 102/51 08/09/17 12:00 Pulse Ox 95 08/09/17 12:00 Intake & Output 08/08/17 08/09/17 08/09/17 18:59 06:59 18:59 Intake Total 400 Balance 400 Weight 84.5 kg Intake: Oral 400 Other: Voiding Method Toilet Toilet Toilet # Voids 2 # Bowel Movements 2 - Exam PHYSICAL EXAMINATION: HEENT: Head is atraumatic, normocephalic. Pupils equal, round. Neck is supple. There is no elevated jugular venous pressure. HEART EXAMINATION: Heart S1 and S2 holosystolic murmur is heard. CHEST EXAMINATION: Lungs clear to auscultation. ABDOMEN: Soft, nontender. Bowel sounds are heard. No organomegaly noted. EXTREMITIES: 2+ peripheral pulses with no evidence of peripheral edema and no calf tenderness noted. NEUROLOGIC patient is awake, alert and oriented -3. . - Labs CBC & Chem 7: 08/09/17 05:26 08/09/17 05:26 Labs: Abnormal Lab Results - Last 24 Hours (Table) 08/08/17 08/08/17 08/09/17 Range/Units 16:30 20:35 05:26 RBC 3.13 L (3.80-5.40) m/uL Hgb 8.8 L (11.4-16.0) gm/dL Hct 29.2 L (34.0-46.0) % MCHC 30.0 L (31.0-37.0) g/dL Lymphocytes # 0.9 L (1.0-4.8) k/uL Sodium (137-145) mmol/L BUN (7-17) mg/dL Creatinine (0.52-1.04) mg/dL Glucose (74-99) mg/dL POC Glucose (mg/dL) 114 H 259 H (75-99) mg/dL 08/09/17 08/09/17 08/09/17 Range/Units 05:26 06:03 11:43 RBC (3.80-5.40) m/uL Hgb (11.4-16.0) gm/dL Hct (34.0-46.0) % MCHC (31.0-37.0) g/dL Lymphocytes # (1.0-4.8) k/uL Sodium 135 L (137-145) mmol/L BUN 55 H (7-17) mg/dL Creatinine 1.90 H (0.52-1.04) mg/dL Glucose 106 H (74-99) mg/dL POC Glucose (mg/dL) 117 H 193 H (75-99) mg/dL Microbiology - Last 24 Hours (Table) 08/01/17 13:12 Blood Culture Gram Stain - Final Blood Blood Culture - Final Eubacterium lentum Assessment and Plan Plan: Assessment and plan #1 progressive dyspnea with combination of tracheobronchitis and worsening congestive heart failure, acute and chronic systolic #2 atrial fibrillation, s/p ARMAND and Cardioversion #3 status post bi-V AICD Plan Patient may be able to be discharged home from cardiology's perspective, creatinine 1.9 today. We'll check lytes BUN and creatinine as an outpatient and schedule her to see Dr. Alvarez in the office. DNP note has been reviewed, I agree with a documented findings and plan of care. Patient was seen and examined.
[2017-08-09] MEDS: IPRATROPIUM-ALBUTEROL 3 ML NEB INHALATION SCH ×3 (15:22→19:55)
[2017-08-09 16:44] LABS: Glucose,Whole Blood 158 mg/dL (75-99)
--- NOTE | 2017-08-09 17:27 | PN ---
PROGRESS NOTE DATE OF SERVICE: 08/09/17. INTERVAL HISTORY: This 77-year-old woman was admitted with CHF, pneumonia also had abdominal discomfort, which is possibly secondary to constipation. Patient improving significantly at this time. Cardiology and pulmonology following the patient closely. The patient is feeling slightly stronger at this time. The patient also had a cardioversion. No chest pain. No palpitations. EXAM: Alert, oriented x3. Pulse 54, blood pressure 102/51, respiration 18, temperature 97.6, pulse ox 94% on room air. HEENT: Conjunctivae normal. NECK: No jugular venous distention. No carotid bruit. Cardiovascular S1 S2 muffled. Respirations: Breath sounds diminished in the bases. A few scattered rhonchi and crackles. Abdomen is soft, nontender. No mass palpable. Legs: No edema. No swelling. Central nervous system: No focal deficits. LABS: WBC 8.9, hemoglobin is 8.8, creatinine is 1.9. ASSESSMENT: 1. Congestive heart failure acute exacerbation with acute on chronic systolic dysfunction, ejection fraction 30% with nonischemic cardiomyopathy. 2. Right lower lobe pneumonia possibly gram-negative. 3. Recent ventricular tachycardia. 4. Atrial fibrillation status post cardioversion. 5. Troponin 0.042, indeterminate. 6. Acute on chronic kidney disease stage 3. Diuretic-induced. RECOMMENDATIONS AND DISCUSSION: Recommend to continue current medications, continue management and symptomatic treatment. Otherwise at this time we will monitor the patient closely. Continue with the current medications, continue symptomatic treatment and continue with antibiotics. Guarded prognosis because of multiple complex medical issues. Further recommendations to follow. MMODL / IJN: [id number] /
[2017-08-09] MEDS: ATORVASTATIN 10 MG TAB PO SCH (20:33)
[2017-08-09] MEDS: LOSARTAN 25 MG TAB PO SCH (20:33)
[2017-08-09 21:11] LABS: Glucose,Whole Blood 191 mg/dL (75-99)
[2017-08-10 07:47] LABS: Glucose,Whole Blood 128 mg/dL (75-99)
[2017-08-10 07:50] VITALS: BP 108/62; PULSE 72; TEMP 98
[2017-08-10 07:50] LABS: Basophils % (A) 0 %; CH 28.8; CHCM 30.9; Eosinophils # (A) 0.4 k/uL (0-0.7); Eosinophils % (A) 5 %; HCT 30.4 % (34.0-46.0); HDW 3.04; HGB 9.2 gm/dL (11.4-16.0); Hypochromasia Moderate; Luc # (Auto) 0.24; Luc % (Auto) 3; Lymphocytes # (A) 0.8 k/uL (1.0-4.8); Lymphocytes % (A) 9 %; MCH 28.4 pg (25.0-35.0); MCHC 30.3 g/dL (31.0-37.0); MCV 93.7 fL (80.0-100.0); Mean Platelet Volume 8.2; Monocytes % (A) 11 %; Neutrophils # (A) 6.3 k/uL (1.3-7.7); Neutrophils % (A) 72 %; RBC 3.24 m/uL (3.80-5.40); RDW 15.9 % (11.5-15.5); WBC 8.8 k/uL (3.8-10.6); WBC (Perox) 9.05
[2017-08-10 08:13] LABS: Calcium 8.8 mg/dL (8.4-10.2); Potassium 4.9 mmol/L (3.5-5.1)
[2017-08-10] MEDS: INSULIN LISPRO (humaLOG) 300 UNIT/3 ML VIAL SQ SCH (09:15)
[2017-08-10] MEDS: AMIODARONE 200 MG TAB PO SCH (09:26)
[2017-08-10] MEDS: PANTOPRAZOLE 40 MG TABLET PO SCH (09:26)
[2017-08-10] MEDS: APIXABAN 5 MG TAB PO SCH (09:27)
[2017-08-10] MEDS: CARVEDILOL 12.5 MG TAB PO SCH (09:27)
[2017-08-10] MEDS: LINAGLIPTIN 5 MG TABLET PO SCH (09:27)
[2017-08-10] MEDS: CYANOCOBALAMIN 500 MCG TAB PO SCH (09:27)
[2017-08-10] MEDS: CHOLECALCIFEROL 1,000 UNIT TAB PO SCH (09:27)
[2017-08-10] MEDS: IPRATROPIUM-ALBUTEROL 3 ML NEB INHALATION SCH ×2 (09:44→12:26)
[2017-08-10 12:11] LABS: Glucose,Whole Blood 131 mg/dL (75-99)
--- NOTE | 2017-08-10 13:19 | XR ---
EXAMINATION TYPE: XR chest 1V portable DATE OF EXAM: 08/10/2017 HISTORY: chf. REFERENCE: Previous study dated 08/08/2017. FINDINGS: There is a multilead pacing device in place on the left. The heart is enlarged. There are small, bilateral effusions. Pulmonary vasculature and interstitial c hange has improved. IMPRESSION: RESOLVING CHANGES OF HEART FAILURE.
--- NOTE | 2017-08-10 16:54 | P.DS ---
Providers Date of admission: 08/01/17 11:38 Attending physician: Kamryn Maki Consults: 08/01/17 18:56 Consult Physician Routine Consulting Provider: Muna Alfaro Consult Reason/Comments: chf Do you want consulting provider notified?: Yes 08/02/17 16:39 Consult Physician Routine Consulting Provider: Jose Chandler Consult Reason/Comments: pneumonia Do you want consulting provider notified?: Yes Primary care physician: [facility] Course: This 77-year-old woman with a past medical history of multiple medical problems was admitted with a CHF acute exacerbation to [facility]. Patient was found to have acute on chronic systolic dysfunction ejection fraction was found to be 30% possibly caused by nonischemic cardio myopathy. Cardiology saw the patient. Patient also had a features of right lower lobe pneumonia. Patient was given diuretics and antibiotics. Patient improved significantly. Patient also had ventricular tachycardia nonsustained. Patient also had atrial fibrillation which was cardioverted. Patient also had indeterminate troponin. Patient also abdominal pain and the renal failure also. Abdominal pain was related to constipation because it improved significantly with conservative plan of management. Currently patient improved significantly but however the patient be discharged in a stable condition with guarded prognosis with further plans to follow in the outpatient setting because of the above-mentioned multiple [facility] medical issues. The case was discussed with the patient's family at length. Total time taken is 35 minutes. On exam vitals are stable. Cardio S1 and S2 normal. Respirator system few scattered rhonchi. Abdomen soft nontender. Leg edema. Nervous system no focal deficit. Final diagnosis 1. CHF acute exacerbation with acute on chronic systolic dysfunction ejection fraction 30% with a nonischemic cardiomyopathy. 2. Right lower lobe pneumonia possibly gram-negative. 3. Recurrent ventricular tachycardia. 4. Atrial fibrillation proximal status post cardioversion. 5. Troponin .042 indeterminate. 6. Acute on chronic kidney disease stage III diuretics induced. 7. Abdominal pain and discomfort possibly secondary to constipation improved. Plan - Discharge Summary New Discharge Prescriptions: New Amiodarone [Cordarone] 200 mg PO BID tab Furosemide [Lasix] 40 mg PO BID@0900,1600 tab guaiFENesin SYRUP 100MG/5ML [Robitussin] 200 mg PO Q6H PRN dose PRN Reason: Cough Levofloxacin [Levaquin] 750 mg PO Q48H #5 tab Potassium Chloride ER [K-Dur 20] 20 meq PO DAILY tab Ipratropium-Albuterol Nebulize [Duoneb 0.5 mg-3 mg/3 ml Soln] 3 ml INHALATION QID #120 neb guaiFENesin-DM 100-10MG/5ML [Robitussin DM] 10 ml PO Q6H PRN #120 ml PRN Reason: Cough Lactulose [Cephulac] 20 gm PO QID PRN #300 ml PRN Reason: Constipation Pantoprazole [Protonix] 40 mg PO AC-BID #60 tab Continue Cyanocobalamin [Vitamin B-12] 2,500 mcg PO DAILY Cholecalciferol [Vitamin D3] 1,000 unit PO QAM Multivitamins, Thera [Multivitamin (formulary)] 1 tab PO DAILY Apixaban [Eliquis] 5 mg PO BID Aspirin EC [Ecotrin Low Dose] 81 mg PO DAILY Drift-3 Fatty Acids/Fish Oil [Fish Oil 1,000 mg Softgel] 1 cap PO BID Atorvastatin [Lipitor] 10 mg PO HS #30 tab Carvedilol [Coreg] 12.5 mg PO BID-W/MEALS Losartan Potassium [Cozaar] 25 mg PO HS sitaGLIPtin PHOSPHATE [Januvia] 25 mg PO DAILY #30 tab Discontinued Furosemide [Lasix] 60 mg PO DAILY Furosemide [Lasix] 40 mg PO HS Amiodarone [Cordarone] 400 mg PO BID #30 tab Discharge Medication List Apixaban [Eliquis] 5 mg PO BID 01/01/15 [History] Aspirin EC [Ecotrin Low Dose] 81 mg PO DAILY 01/01/15 [History] Cholecalciferol [Vitamin D3] 1,000 unit PO QAM 01/01/15 [History] Cyanocobalamin [Vitamin B-12] 2,500 mcg PO DAILY 01/01/15 [History] Multivitamins, Thera [Multivitamin (formulary)] 1 tab PO DAILY 01/01/15 [History ] Drift-3 Fatty Acids/Fish Oil [Fish Oil 1,000 mg Softgel] 1 cap PO BID 03/27/15 [ History] Atorvastatin [Lipitor] 10 mg PO HS #30 tab 08/21/15 [Rx] Carvedilol [Coreg] 12.5 mg PO BID-W/MEALS 10/06/15 [History] Losartan Potassium [Cozaar] 25 mg PO HS 07/20/17 [History] sitaGLIPtin PHOSPHATE [Januvia] 25 mg PO DAILY #30 tab 07/22/17 [Rx] Amiodarone [Cordarone] 200 mg PO BID tab 08/07/17 [Rx] Furosemide [Lasix] 40 mg PO BID@0900,1600 tab 08/07/17 [Rx] Ipratropium-Albuterol Nebulize [Duoneb 0.5 mg-3 mg/3 ml Soln] 3 ml INHALATION QID #120 neb 08/07/17 [Rx] Levofloxacin [Levaquin] 750 mg PO Q48H #5 tab 08/07/17 [Rx] Potassium Chloride ER [K-Dur 20] 20 meq PO DAILY tab 08/07/17 [Rx] guaiFENesin SYRUP 100MG/5ML [Robitussin] 200 mg PO Q6H PRN dose 08/07/17 [Rx] Lactulose [Cephulac] 20 gm PO QID PRN #300 ml 08/10/17 [Rx] Pantoprazole [Protonix] 40 mg PO AC-BID #60 tab 08/10/17 [Rx] guaiFENesin-DM 100-10MG/5ML [Robitussin DM] 10 ml PO Q6H PRN #120 ml 08/10/17 [ Rx] Follow up Appointment(s)/Referral(s): Kezia Alvarez MD [STAFF PHYSICIAN] - 2 Weeks Kishore Lucia DO [Primary Care Provider] - 3 Days Salina Fernández MD [STAFF PHYSICIAN] - 2 Weeks Patient Instructions/Handouts: Pleural Effusion (DC), Bacterial Pneumonia (DC) Activity/Diet/Wound Care/Special Instructions: . Cardiology cleared patient for discharge. DIet: "CHF Diet", JASON Activity: Limited Till F/U Discharge Disposition: HOME SELF-CARE
== END 2017-08-10 15:12 | disposition home or self-care (01) | DRG 177 ==
LOC: EC 09:25 → 6SEL 11:38 → 4MS4W 08-09 21:05
PROVIDERS: ADMIT Hospitalist; ATTEND Hospitalist
DX: J15.6 Pneumonia due to other Gram-negative bacteria (principal); I50.23 Acute on chronic systolic (congestive) heart failure; I47.2 Ventricular tachycardia; E11.22 Type 2 diabetes mellitus with diabetic chronic kidney disease; I48.1 Persistent atrial fibrillation; K76.6 Portal hypertension; I08.1 Rheumatic disorders of both mitral and tricuspid valves; N18.3 Chronic kidney disease, stage 3 (moderate); I13.0 Hypertensive heart and chronic kidney disease with heart failure and stage 1 through stage 4 chronic kidney disease, or unspecified chronic kidney disease; I25.5 Ischemic cardiomyopathy; I25.10 Atherosclerotic heart disease of native coronary artery without angina pectoris; D64.9 Anemia, unspecified; E78.5 Hyperlipidemia, unspecified; I48.0 Paroxysmal atrial fibrillation; I48.2 Chronic atrial fibrillation; K59.00 Constipation, unspecified; T50.2X5A Adverse effect of carbonic-anhydrase inhibitors, benzothiadiazides and other diuretics, initial encounter; Z79.01 Long term (current) use of anticoagulants; Z79.82 Long term (current) use of aspirin; Z79.84 Long term (current) use of oral hypoglycemic drugs; Z79.899 Other long term (current) drug therapy; Z80.8 Family history of malignant neoplasm of other organs or systems; Z82.3 Family history of stroke; Z95.810 Presence of automatic (implantable) cardiac defibrillator; Z96.653 Presence of artificial knee joint, bilateral; Z88.0 Allergy status to penicillin
CPT/HCPCS: 36415; 71010; 71020; 74020; 80048; 80053; 81001; 82550; 82553; 83605; 83735; 83880; 84443; 84484; 85025; 85610; 85730; 87040; 87070; 87205; 87324; 92960; 93005; 93312; 93320; 93325; 94640; 94760; 96365; 99285

== ENCOUNTER 2017-09-08 21:01 | Emergency (ER) | payer MEDICARE, BC ==
[2017-09-08] MEDS ORDERED: diphenhydrAMINE 50 MG/ML 1 ML VIAL IVP STA (21:49)
[2017-09-08] MEDS ORDERED: FAMOTIDINE 20 MG/2 ML VIAL IV STA (21:49)
[2017-09-08 22:12] VITALS: RESP 18
[2017-09-08 22:26] LABS: Anisocytosis Slight; Basophils % (A) 0 %; CH 27.5; Eosinophils % (A) 0 %; HCT 36.7 % (34.0-46.0); HDW 3.22; HGB 11.1 gm/dL (11.4-16.0); Hypochromasia Moderate; Luc # (Auto) 0.12; Luc % (Auto) 1; Lymphocytes # (A) 0.5 k/uL (1.0-4.8); Lymphocytes % (A) 4 %; MCH 27.1 pg (25.0-35.0); MCHC 30.3 g/dL (31.0-37.0); MCV 89.4 fL (80.0-100.0); Mean Platelet Volume 8.4; Monocytes # (A) 0.8 k/uL (0-1.0); Monocytes % (A) 6 %; Neutrophils # (A) 11.8 k/uL (1.3-7.7); Neutrophils % (A) 89 %; RDW 17.6 % (11.5-15.5); WBC 13.3 k/uL (3.8-10.6); WBC (Perox) 13.71
--- NOTE | 2017-09-08 22:34 | ED ---
Allergic Reaction HPI - General Chief complaint: Allergic Reaction Stated complaint: Dr Sanchez/Allergic reaction Time Seen by Provider: 09/08/17 21:32 Source: patient, family Mode of arrival: ambulatory Limitations: no limitations - History of Present Illness Initial Comments: This patient is a 77-year-old woman who presents with complaint that she believes she is having ALLERGIC reaction. The patient states that she had been given a blood transfusion on Friday secondary to her hemoglobin being low and the fact that she has been feeling some shortness of breath. Patient called her doctor on the following day to describe onset of some symptoms that included some tightness in her chest, and she was given prescription for Medrol Dosepak which she started that day. Patient states that she noted a little bit of an itchy rash to her face and forearms today. She states that she also had a little bit of aching of the elbows. The patient is concerned she may be having ALLERGIC reaction to the medication. Patient denies fever or chills. She is denying dyspnea or wheezing. She has not noted any change in urination or bowel movements, including no discoloration or blood. No chest pain or palpitations. MD Complaint: allergic reaction Onset/Timin -: days(s) Exposure: medication, other Symptoms: rash (Blood transfusion), itching, other (Elbow pains) Severity: mild Treatment Prior to Arrival: steroids Previous Allergy History: none - Related Data Home Medications Medication Instructions Recorded Confirmed Apixaban [Eliquis] 5 mg PO BID 01/01/15 09/08/17 Aspirin EC [Ecotrin Low Dose] 81 mg PO DAILY 01/01/15 09/08/17 Cholecalciferol [Vitamin D3] 1,000 unit PO QAM 01/01/15 09/08/17 Cyanocobalamin [Vitamin B-12] 2,500 mcg PO DAILY 01/01/15 09/08/17 Multivitamins, Thera [Multivitamin 1 tab PO DAILY 01/01/15 09/08/17 (formulary)] [place]-3 Fatty Acids/Fish Oil [Fish 1 cap PO BID 03/27/15 09/08/17 Oil 1,000 mg Softgel] Carvedilol [Coreg] 12.5 mg PO BID-W/MEALS 10/06/15 09/08/17 Losartan Potassium [Cozaar] 25 mg PO HS 07/20/17 09/08/17 Furosemide [Lasix] 40 mg PO AC-SUPPER 09/08/17 09/08/17 Furosemide [Lasix] 60 mg PO QAM 09/08/17 09/08/17 methylPREDNISolone Dose Pack See Taper PO DAILY 09/08/17 09/08/17 [Medrol Dose Pack] sitaGLIPtin [Januvia] 100 mg PO DAILY 09/08/17 09/08/17 Previous Rx's Medication Instructions Recorded Atorvastatin [Lipitor] 10 mg PO HS #30 tab 08/21/15 Amiodarone [Cordarone] 200 mg PO BID tab 08/07/17 Pantoprazole [Protonix] 40 mg PO AC-BID #60 tab 08/10/17 Famotidine [Pepcid] 20 mg PO DAILY #14 tablet 09/09/17 Allergies Allergy/AdvReac Type Severity Reaction Status Date / Time nitrofurantoin Allergy Unknown Rash/Hives Verified 09/08/17 21:24 [From Macrobid] nitrofurantoin Allergy Unknown Rash/Hives Verified 09/08/17 21:24 macrocrystalline [From Macrobid] cefuroxime Allergy Rash/Hives Verified 09/08/17 21:24 Penicillins Allergy Rash/Hives Verified 09/08/17 21:24 Review of Systems ROS Statement: Those systems with pertinent positive or pertinent negative responses have been documented in the HPI. ROS Other: All systems not noted in ROS Statement are negative. Constitutional: Denies: fever, chills Eyes: Denies: eye pain, eye discharge, vision change ENT: Denies: throat pain Respiratory: Denies: cough, dyspnea, hemoptysis Cardiovascular: Denies: chest pain, palpitations, edema, syncope Gastrointestinal: Denies: abdominal pain, nausea, vomiting, diarrhea Genitourinary: Denies: dysuria, hematuria Musculoskeletal: Reports: as per HPI, arthralgia. Denies: back pain Skin: Reports: as per HPI, rash Neurological: Denies: headache, weakness, numbness Past Medical History Past Medical History: Atrial Fibrillation, Chest Pain / Angina, Heart Failure, Diabetes Mellitus, Hyperlipidemia, Hypertension, Renal Disease Additional Past Medical History / Comment(s): Pt recently admitted to [facility] on with acute on chronic CHF, intermittent nonsustained Vtach. Other hx: severe nonischemic cardiomyopathy, cardiac valvular disease-mitral and tricuspid with seveere pulmonary HTN, NIDDM type II, numbness/tingling bilateral feet/toes, chronic kidney disease stage III. History of Any Multi-Drug Resistant Organisms: None Reported Past Surgical History: AICD, Appendectomy, Section, Cholecystectomy, Hernia Repair, Hysterectomy, Tonsillectomy, Tubal Ligation Additional Past Surgical History / Comment(s): ARMAND/CVN, bilateral knee replacements, colonoscopy, bilateral cataract removal, Past Anesthesia/Blood Transfusion Reactions: No Reported Reaction Type of Cardiac Device: AICD Device Placement Date:: 07/2011 Past Psychological History: No Psychological Hx Reported Smoking Status: Never smoker Past Alcohol Use History: None Reported Past Drug Use History: None Reported - Past Family History Father Family Medical History: Cancer Additional Family Medical History / Comment(s): THROAT CA and of this at the age of 59yrs. Mother Family Medical History: CVA/TIA, Diabetes Mellitus Additional Family Medical History / Comment(s): Mother had a CVA. She lived to be 73 yrs old. General Exam Limitations: no limitations General appearance: alert, in no apparent distress Head exam: Present: atraumatic, normocephalic Eye exam: Present: normal appearance. Absent: scleral icterus, conjunctival injection ENT exam: Present: normal oropharynx, mucous membranes moist Respiratory exam: Present: normal lung sounds bilaterally, wheezes (There is a mild expiratory wheeze bilaterally). Absent: respiratory distress, rales, rhonchi, stridor Cardiovascular Exam: Present: regular rate, normal rhythm, normal heart sounds. Absent: systolic murmur, diastolic murmur, rubs, gallop GI/Abdominal exam: Present: soft. Absent: distended, tenderness, guarding, rebound, mass Extremities exam: Present: normal inspection, normal capillary refill. Absent: pedal edema, calf tenderness Back exam: Present: normal inspection. Absent: CVA tenderness (R), CVA tenderness (L) Neurological exam: Present: alert Skin exam: Present: warm, dry, intact, urticaria (Bilateral forearms, ) Course Vital Signs 09/08/17 09/08/17 09/08/17 21:05 22:11 23:52 Temperature 97.4 F L Pulse Rate 69 54 L 57 L Respiratory 22 18 18 Rate Blood Pressure 132/63 126/60 139/67 O2 Sat by Pulse 93 L 96 96 Oximetry Medical Decision Making - Lab Data Result diagrams: 09/08/17 22:11 09/08/17 22:11 Lab Results 09/08/17 09/08/17 09/08/17 Range/Units 22:11 22:11 22:13 WBC 13.3 H (3.8-10.6) k/uL RBC 4.10 (3.80-5.40) m/uL Hgb 11.1 L (11.4-16.0) gm/dL Hct 36.7 (34.0-46.0) % MCV 89.4 (80.0-100.0) fL MCH 27.1 (25.0-35.0) pg MCHC 30.3 L (31.0-37.0) g/dL RDW 17.6 H (11.5-15.5) % Plt Count 315 (150-450) k/uL Neutrophils % 89 % Lymphocytes % 4 % Monocytes % 6 % Eosinophils % 0 % Basophils % 0 % Neutrophils # 11.8 H (1.3-7.7) k/uL Lymphocytes # 0.5 L (1.0-4.8) k/uL Monocytes # 0.8 (0-1.0) k/uL Eosinophils # 0.0 (0-0.7) k/uL Basophils # 0.0 (0-0.2) k/uL Hypochromasia Moderate Anisocytosis Slight Sodium 139 (137-145) mmol/L Potassium 3.9 (3.5-5.1) mmol/L Chloride 101 (98-107) mmol/L Carbon Dioxide 27 (22-30) mmol/L Anion Gap 11 mmol/L BUN 48 H (7-17) mg/dL Creatinine 1.30 H (0.52-1.04) mg/dL Est GFR (MDRD) Af Amer 48 (>60 ml/min/1.73 sqM) Est GFR (MDRD) Non-Af 40 (>60 ml/min/1.73 sqM) Glucose 152 H (74-99) mg/dL Calcium 9.5 (8.4-10.2) mg/dL Total Bilirubin 0.8 (0.2-1.3) mg/dL AST 29 (14-36) U/L ALT 36 (9-52) U/L Alkaline Phosphatase 54 (38-126) U/L Total Protein 6.4 (6.3-8.2) g/dL Albumin 3.7 (3.5-5.0) g/dL Urine Color Yellow Urine Appearance Clear (Clear) Urine pH 5.5 (5.0-8.0) Ur Specific [place] 1.009 (1.001-1.035) Urine Protein Negative (Negative) Urine Glucose (UA) Negative (Negative) Urine Ketones Negative (Negative) Urine Blood Negative (Negative) Urine Nitrite Positive H (Negative) Urine Bilirubin Negative (Negative) Urine Urobilinogen <2.0 (<2.0) mg/dL Ur Leukocyte Esterase Small H (Negative) Urine RBC 1 (0-5) /hpf Urine WBC 4 (0-5) /hpf Ur Squamous Epith Cells 1 (0-4) /hpf Urine Bacteria Many H (None) /hpf Hyaline Casts 16 H (0-2) /lpf Urine Mucus Rare H (None) /hpf Direct Antiglob Test 09/08/17 Range/Units 22:20 WBC (3.8-10.6) k/uL RBC (3.80-5.40) m/uL Hgb (11.4-16.0) gm/dL Hct (34.0-46.0) % MCV (80.0-100.0) fL MCH (25.0-35.0) pg MCHC (31.0-37.0) g/dL RDW (11.5-15.5) % Plt Count (150-450) k/uL Neutrophils % % Lymphocytes % % Monocytes % % Eosinophils % % Basophils % % Neutrophils # (1.3-7.7) k/uL Lymphocytes # (1.0-4.8) k/uL Monocytes # (0-1.0) k/uL Eosinophils # (0-0.7) k/uL Basophils # (0-0.2) k/uL Hypochromasia Anisocytosis Sodium (137-145) mmol/L Potassium (3.5-5.1) mmol/L Chloride (98-107) mmol/L Carbon Dioxide (22-30) mmol/L Anion Gap mmol/L BUN (7-17) mg/dL Creatinine (0.52-1.04) mg/dL Est GFR (MDRD) Af Amer (>60 ml/min/1.73 sqM) Est GFR (MDRD) Non-Af (>60 ml/min/1.73 sqM) Glucose (74-99) mg/dL Calcium (8.4-10.2) mg/dL Total Bilirubin (0.2-1.3) mg/dL AST (14-36) U/L ALT (9-52) U/L Alkaline Phosphatase (38-126) U/L Total Protein (6.3-8.2) g/dL Albumin (3.5-5.0) g/dL Urine Color Urine Appearance (Clear) Urine pH (5.0-8.0) Ur Specific [place] (1.001-1.035) Urine Protein (Negative) Urine Glucose (UA) (Negative) Urine Ketones (Negative) Urine Blood (Negative) Urine Nitrite (Negative) Urine Bilirubin (Negative) Urine Urobilinogen (<2.0) mg/dL Ur Leukocyte Esterase (Negative) Urine RBC (0-5) /hpf Urine WBC (0-5) /hpf Ur Squamous Epith Cells (0-4) /hpf Urine Bacteria (None) /hpf Hyaline Casts (0-2) /lpf Urine Mucus (None) /hpf Direct Antiglob Test Negative Disposition Clinical Impression: Allergic reaction Disposition: HOME SELF-CARE Condition: Good Instructions: General Allergic Reaction (ED) Prescriptions: Famotidine [Pepcid] 20 mg PO DAILY #14 tablet Referrals: Kishore Lucia DO [Primary Care Provider] - 1-2 days
[2017-09-08 22:36] LABS: Appearance,Urine Clear (Clear); Bacteria,Urine Many /hpf; Bilirubin,Urine Negative (Negative); Glucose,Urine (UA) Negative (Negative); Ketones,Urine Negative (Negative); Leukocyte Esterase,Urine Small (Negative); Mucus,Urine Rare /hpf; Nitrite,Urine Positive (Negative); PH, Urine 5.5 (5.0-8.0); Particle Count 13595; Protein,Urine Negative (Negative); RBC,Urine 1 /hpf (0-5); Specific Gravity,Urine 1.009 (1.001-1.035); Squamous Epithelial Cell,Urine 1 /hpf (0-4); UA Billing (MACRO vs. MICRO) MICRO; Urobilinogen,Urine <2.0 mg/dL (<2.0); WBC,Urine 4 /hpf (0-5)
[2017-09-08 22:36] LABS: Calcium 9.5 mg/dL (8.4-10.2); Potassium 3.9 mmol/L (3.5-5.1); Total Bilirubin 0.8 mg/dL (0.2-1.3); Total Protein 6.4 g/dL (6.3-8.2)
[2017-09-09 00:21] VITALS: BP 136/67; PULSE 58; TEMP 98
== END 2017-09-09 00:22 | disposition home or self-care (01) ==
LOC: EC 21:01
DX: R21 Rash and other nonspecific skin eruption (principal); T38.0X5A Adverse effect of glucocorticoids and synthetic analogues, initial encounter; I48.91 Unspecified atrial fibrillation; E78.5 Hyperlipidemia, unspecified; I13.0 Hypertensive heart and chronic kidney disease with heart failure and stage 1 through stage 4 chronic kidney disease, or unspecified chronic kidney disease; N18.3 Chronic kidney disease, stage 3 (moderate); I50.9 Heart failure, unspecified; E11.22 Type 2 diabetes mellitus with diabetic chronic kidney disease; Z95.810 Presence of automatic (implantable) cardiac defibrillator; Z88.1 Allergy status to other antibiotic agents; Z88.0 Allergy status to penicillin; Z79.01 Long term (current) use of anticoagulants; Z79.02 Long term (current) use of antithrombotics/antiplatelets; Z79.82 Long term (current) use of aspirin; Z79.84 Long term (current) use of oral hypoglycemic drugs; Z79.899 Other long term (current) drug therapy
CPT/HCPCS: 99283; 96374; 96375; 36415; 80053; 85025; 86880; 81001; J1200

== ENCOUNTER 2018-05-10 21:28 | Observation (INO) | payer BC, MEDICARE ==
[2018-05-10] MEDS ORDERED: ASPIRIN 81 MG PO STA (21:42)
--- NOTE | 2018-05-10 22:01 | ED ---
Weakness HPI - General Chief complaint: Weakness Stated complaint: weakness/pacemaker went off Time Seen by Provider: 05/10/18 21:34 Source: patient, family Mode of arrival: wheelchair Limitations: no limitations - History of Present Illness Initial comments: This patient is a 78-year-old woman who presents with a couple of complaints. He states that for the past couple of days she has been feeling more fatigue and generalized weakness. She states that she feels like walking around the house really wears route and she needs to sit and rest. She states that she usually has better exercise tolerance. She denies having any focal or specific weakness just feels like she is worn out. She is not having fever or chills, chest pain or abdominal pain or back pain. No dyspnea or productive cough. She states that she has an occasional coughing that is been going on for many months. This morning the patient noticed that her pacemaker was making a sounds. She has heard it total of 3 times over the course of today. She states that she was going to schedule follow-up with her associate art director , but decided that due to the fatigue she was experience in [facility] she would be seen here. MD Complaint: generalized weakness, lack of energy Onset/Timin -: days(s) Location: generalized Severity: moderate Improves with: none Worsens with: exertion Associated Symptoms: nausea/vomiting - Related Data Home Medications Medication Instructions Recorded Confirmed Apixaban [Eliquis] 5 mg PO BID 01/01/15 05/10/18 Aspirin EC [Ecotrin Low Dose] 81 mg PO DAILY 01/01/15 05/10/18 Cholecalciferol [Vitamin D3] 1,000 unit PO QAM 01/01/15 05/10/18 Cyanocobalamin [Vitamin B-12] 2,500 mcg PO DAILY 01/01/15 05/10/18 Multivitamins, Thera [Multivitamin 1 tab PO DAILY 01/01/15 05/10/18 (formulary)] [place]-3 Fatty Acids/Fish Oil [Fish 1 cap PO BID 03/27/15 05/10/18 Oil 1,000 mg Softgel] Carvedilol [Coreg] 12.5 mg PO BID-W/MEALS 10/06/15 05/10/18 Losartan Potassium [Cozaar] 25 mg PO HS 07/20/17 05/10/18 Furosemide [Lasix] 40 mg PO AC-SUPPER 09/08/17 05/10/18 Furosemide [Lasix] 60 mg PO QAM 09/08/17 05/10/18 Insulin Glargine,Hum.rec.anlog 14 unit SQ DAILY 05/11/18 05/11/18 [Lantus Solostar] Previous Rx's Medication Instructions Recorded Atorvastatin [Lipitor] 10 mg PO HS #30 tab 08/21/15 Amiodarone [Cordarone] 200 mg PO BID tab 08/07/17 Pantoprazole [Protonix] 40 mg PO AC-BID #60 tab 08/10/17 Famotidine [Pepcid] 20 mg PO DAILY #14 tablet 09/09/17 Allergies Allergy/AdvReac Type Severity Reaction Status Date / Time nitrofurantoin Allergy Unknown Rash/Hives Verified 05/10/18 21:42 [From Macrobid] nitrofurantoin Allergy Unknown Rash/Hives Verified 05/10/18 21:42 macrocrystalline [From Macrobid] cefuroxime Allergy Rash/Hives Verified 05/10/18 21:42 Penicillins Allergy Rash/Hives Verified 05/10/18 21:42 Review of Systems ROS Statement: Those systems with pertinent positive or pertinent negative responses have been documented in the HPI. ROS Other: All systems not noted in ROS Statement are negative. Constitutional: Reports: weakness (Generalized). Denies: fever, chills Eyes: Denies: vision change Respiratory: Denies: cough, dyspnea Cardiovascular: Denies: chest pain, palpitations, orthopnea, edema, syncope Gastrointestinal: Denies: abdominal pain, vomiting, diarrhea, melena, hematochezia Genitourinary: Denies: dysuria, hematuria Musculoskeletal: Denies: back pain Skin: Denies: rash Neurological: Denies: headache, weakness, numbness, paresthesias, confusion Past Medical History Past Medical History: Atrial Fibrillation, Chest Pain / Angina, Heart Failure, Diabetes Mellitus, Hyperlipidemia, Hypertension, Renal Disease Additional Past Medical History / Comment(s): Pt recently admitted to [facility] on with acute on chronic CHF, intermittent nonsustained Vtach. Other hx: severe nonischemic cardiomyopathy, cardiac valvular disease-mitral and tricuspid with seveere pulmonary HTN, NIDDM type II, numbness/tingling bilateral feet/toes, chronic kidney disease stage III. History of Any Multi-Drug Resistant Organisms: None Reported Past Surgical History: AICD, Appendectomy, Section, Cholecystectomy, Hernia Repair, Hysterectomy, Tonsillectomy, Tubal Ligation Additional Past Surgical History / Comment(s): ARMAND/CVN, bilateral knee replacements, colonoscopy, bilateral cataract removal, Past Anesthesia/Blood Transfusion Reactions: No Reported Reaction Type of Cardiac Device: AICD Device Placement Date:: 07/2011 Past Psychological History: No Psychological Hx Reported Smoking Status: Never smoker Past Alcohol Use History: None Reported Past Drug Use History: None Reported - Past Family History Father Family Medical History: Cancer Additional Family Medical History / Comment(s): THROAT CA and of this at the age of 59yrs. Mother Family Medical History: CVA/TIA, Diabetes Mellitus Additional Family Medical History / Comment(s): Mother had a CVA. She lived to be 73 yrs old. General Exam Limitations: no limitations General appearance: alert, in no apparent distress Head exam: Present: atraumatic, normocephalic Eye exam: Present: normal appearance. Absent: scleral icterus, conjunctival injection ENT exam: Present: normal oropharynx Neck exam: Present: normal inspection, full ROM Respiratory exam: Present: normal lung sounds bilaterally. Absent: respiratory distress, wheezes, rales, rhonchi, stridor Cardiovascular Exam: Present: regular rate, normal rhythm, normal heart sounds. Absent: systolic murmur, diastolic murmur, rubs, gallop GI/Abdominal exam: Present: soft. Absent: distended, tenderness, guarding, rebound, rigid, mass Extremities exam: Present: normal inspection, normal capillary refill. Absent: pedal edema, calf tenderness Back exam: Present: normal inspection. Absent: CVA tenderness (R), CVA tenderness (L) Neurological exam: Present: alert, oriented X3, CN II-XII intact. Absent: motor sensory deficit Skin exam: Present: warm, dry, intact, normal color. Absent: rash Course Vital Signs 05/10/18 05/10/18 05/10/18 21:40 22:20 23:24 Temperature 97.7 F Pulse Rate 78 60 80 Pulse Rate [ Pulse Oximetery ] Respiratory 18 16 18 Rate Blood Pressure 118/49 97/47 111/74 Blood Pressure [Right Arm] O2 Sat by Pulse 100 97 98 Oximetry 05/11/18 05/11/18 05/11/18 01:11 01:38 02:38 Temperature 97.1 F L 97.1 F L Pulse Rate 72 60 Pulse Rate [ 61 Pulse Oximetery ] Respiratory 18 17 18 Rate Blood Pressure 120/67 103/55 Blood Pressure 90/53 [Right Arm] O2 Sat by Pulse 98 100 98 Oximetry EKG Findings - EKG Comments: EKG Findings:: The patient's 12-lead ECG shows what appears to be a ventricular paced rhythm with a rate of proximal 67 bpm. - EKG Results: EKG: interpreted by LETICIA Medical Decision Making - Medical Decision Making Patient 78-year-old woman with generalized weakness and fatigue, found to have urinary tract infection. Will be admitted to start antibiotic therapy as well as have her pacemaker interrogated and have cardiology see her regarding the pacemaker alarming. - Lab Data Result diagrams: 05/11/18 05:52 05/11/18 05:52 Lab Results 05/10/18 05/10/18 05/10/18 Range/Units 21:49 21:49 21:49 WBC 8.1 (3.8-10.6) k/uL RBC 4.36 (3.80-5.40) m/uL Hgb 10.6 L (11.4-16.0) gm/dL Hct 34.2 (34.0-46.0) % MCV 78.5 L (80.0-100.0) fL MCH 24.2 L (25.0-35.0) pg MCHC 30.9 L (31.0-37.0) g/dL RDW 16.8 H (11.5-15.5) % Plt Count 313 (150-450) k/uL Neutrophils % 70 % Lymphocytes % 14 % Monocytes % 9 % Eosinophils % 3 % Basophils % 0 % Neutrophils # 5.7 (1.3-7.7) k/uL Lymphocytes # 1.1 (1.0-4.8) k/uL Monocytes # 0.8 (0-1.0) k/uL Eosinophils # 0.2 (0-0.7) k/uL Basophils # 0.0 (0-0.2) k/uL Hypochromasia Moderate Anisocytosis Slight Microcytosis Slight PT (9.0-12.0) sec INR (<1.2) APTT (22.0-30.0) sec Sodium 136 L (137-145) mmol/L Potassium 3.4 L (3.5-5.1) mmol/L Chloride 96 L (98-107) mmol/L Carbon Dioxide 27 (22-30) mmol/L Anion Gap 13 mmol/L BUN 81 H* (7-17) mg/dL Creatinine 1.90 H (0.52-1.04) mg/dL Est GFR (CKD-EPI)AfAm 29 (>60 ml/min/1.73 sqM) Est GFR (CKD-EPI)NonAf 25 (>60 ml/min/1.73 sqM) Glucose 181 H (74-99) mg/dL Plasma Lactic Acid Keegan (0.7-2.0) mmol/L Calcium 9.3 (8.4-10.2) mg/dL Magnesium 2.3 (1.6-2.3) mg/dL Total Bilirubin 0.6 (0.2-1.3) mg/dL AST 34 (14-36) U/L ALT 37 (9-52) U/L Alkaline Phosphatase 55 (38-126) U/L Total Creatine Kinase 82 (30-135) U/L CK-MB (CK-2) 1.8 (0.0-2.4) ng/mL CK-MB (CK-2) Rel Index 2.2 Troponin I 0.035 H* (0.000-0.034) ng/mL NT-Pro-B Natriuret Pep pg/mL Total Protein 6.5 (6.3-8.2) g/dL Albumin 4.1 (3.5-5.0) g/dL Urine Color Urine Appearance (Clear) Urine pH (5.0-8.0) Ur Specific [place] (1.001-1.035) Urine Protein (Negative) Urine Glucose (UA) (Negative) Urine Ketones (Negative) Urine Blood (Negative) Urine Nitrite (Negative) Urine Bilirubin (Negative) Urine Urobilinogen (<2.0) mg/dL Ur Leukocyte Esterase (Negative) Urine RBC (0-5) /hpf Urine WBC (0-5) /hpf Ur Squamous Epith Cells (0-4) /hpf Urine Bacteria (None) /hpf Hyaline Casts (0-2) /lpf Urine Mucus (None) /hpf 05/10/18 05/10/18 05/10/18 Range/Units 21:49 21:49 21:50 WBC (3.8-10.6) k/uL RBC (3.80-5.40) m/uL Hgb (11.4-16.0) gm/dL Hct (34.0-46.0) % MCV (80.0-100.0) fL MCH (25.0-35.0) pg MCHC (31.0-37.0) g/dL RDW (11.5-15.5) % Plt Count (150-450) k/uL Neutrophils % % Lymphocytes % % Monocytes % % Eosinophils % % Basophils % % Neutrophils # (1.3-7.7) k/uL Lymphocytes # (1.0-4.8) k/uL Monocytes # (0-1.0) k/uL Eosinophils # (0-0.7) k/uL Basophils # (0-0.2) k/uL Hypochromasia Anisocytosis Microcytosis PT 11.4 (9.0-12.0) sec INR 1.2 H (<1.2) APTT 23.3 (22.0-30.0) sec Sodium (137-145) mmol/L Potassium (3.5-5.1) mmol/L Chloride (98-107) mmol/L Carbon Dioxide (22-30) mmol/L Anion Gap mmol/L BUN (7-17) mg/dL Creatinine (0.52-1.04) mg/dL Est GFR (CKD-EPI)AfAm (>60 ml/min/1.73 sqM) Est GFR (CKD-EPI)NonAf (>60 ml/min/1.73 sqM) Glucose (74-99) mg/dL Plasma Lactic Acid [place] 1.3 (0.7-2.0) mmol/L Calcium (8.4-10.2) mg/dL Magnesium (1.6-2.3) mg/dL Total Bilirubin (0.2-1.3) mg/dL AST (14-36) U/L ALT (9-52) U/L Alkaline Phosphatase (38-126) U/L Total Creatine Kinase (30-135) U/L CK-MB (CK-2) (0.0-2.4) ng/mL CK-MB (CK-2) Rel Index Troponin I (0.000-0.034) ng/mL NT-Pro-B Natriuret Pep 3590 pg/mL Total Protein (6.3-8.2) g/dL Albumin (3.5-5.0) g/dL Urine Color Urine Appearance (Clear) Urine pH (5.0-8.0) Ur Specific [place] (1.001-1.035) Urine Protein (Negative) Urine Glucose (UA) (Negative) Urine Ketones (Negative) Urine Blood (Negative) Urine Nitrite (Negative) Urine Bilirubin (Negative) Urine Urobilinogen (<2.0) mg/dL Ur Leukocyte Esterase (Negative) Urine RBC (0-5) /hpf Urine WBC (0-5) /hpf Ur Squamous Epith Cells (0-4) /hpf Urine Bacteria (None) /hpf Hyaline Casts (0-2) /lpf Urine Mucus (None) /hpf 05/10/ Range/Units 23:54 WBC (3.8-10.6) k/uL RBC (3.80-5.40) m/uL Hgb (11.4-16.0) gm/dL Hct (34.0-46.0) % MCV (80.0-100.0) fL MCH (25.0-35.0) pg MCHC (31.0-37.0) g/dL RDW (11.5-15.5) % Plt Count (150-450) k/uL Neutrophils % % Lymphocytes % % Monocytes % % Eosinophils % % Basophils % % Neutrophils # (1.3-7.7) k/uL Lymphocytes # (1.0-4.8) k/uL Monocytes # (0-1.0) k/uL Eosinophils # (0-0.7) k/uL Basophils # (0-0.2) k/uL Hypochromasia Anisocytosis Microcytosis PT (9.0-12.0) sec INR (<1.2) APTT (22.0-30.0) sec Sodium (137-145) mmol/L Potassium (3.5-5.1) mmol/L Chloride (98-107) mmol/L Carbon Dioxide (22-30) mmol/L Anion Gap mmol/L BUN (7-17) mg/dL Creatinine (0.52-1.04) mg/dL Est GFR (CKD-EPI)AfAm (>60 ml/min/1.73 sqM) Est GFR (CKD-EPI)NonAf (>60 ml/min/1.73 sqM) Glucose (74-99) mg/dL Plasma Lactic Acid [place] (0.7-2.0) mmol/L Calcium (8.4-10.2) mg/dL Magnesium (1.6-2.3) mg/dL Total Bilirubin (0.2-1.3) mg/dL AST (14-36) U/L ALT (9-52) U/L Alkaline Phosphatase (38-126) U/L Total Creatine Kinase (30-135) U/L CK-MB (CK-2) (0.0-2.4) ng/mL CK-MB (CK-2) Rel Index Troponin I (0.000-0.034) ng/mL NT-Pro-B Natriuret Pep pg/mL Total Protein (6.3-8.2) g/dL Albumin (3.5-5.0) g/dL Urine Color Light Yellow Urine Appearance Clear (Clear) Urine pH 6.5 (5.0-8.0) Ur Specific [place] 1.008 (1.001-1.035) Urine Protein Negative (Negative) Urine Glucose (UA) Negative (Negative) Urine Ketones Negative (Negative) Urine Blood Negative (Negative) Urine Nitrite Negative (Negative) Urine Bilirubin Negative (Negative) Urine Urobilinogen <2.0 (<2.0) mg/dL Ur Leukocyte Esterase Large H (Negative) Urine RBC 1 (0-5) /hpf Urine WBC 81 H (0-5) /hpf Ur Squamous Epith Cells <1 (0-4) /hpf Urine Bacteria Rare H (None) /hpf Hyaline Casts 1 (0-2) /lpf Urine Mucus Rare H (None) /hpf Disposition Clinical Impression: Urinary tract infection, Pacemaker complications Disposition: ADMITTED IP TO THIS [facility] Condition: Fair Is patient prescribed a controlled substance at d/c from ED?: No
[2018-05-10 22:13] LABS: Anisocytosis Slight; Basophils % (A) 0 %; Eosinophils # (A) 0.2 k/uL (0-0.7); Eosinophils % (A) 3 %; HCT 34.2 % (34.0-46.0); HGB 10.6 gm/dL (11.4-16.0); Hypochromasia Moderate; Lymphocytes # (A) 1.1 k/uL (1.0-4.8); Lymphocytes % (A) 14 %; MCH 24.2 pg (25.0-35.0); MCHC 30.9 g/dL (31.0-37.0); MCV 78.5 fL (80.0-100.0); Mean Platelet Volume 7.8; Microcytosis Slight; Monocytes # (A) 0.8 k/uL (0-1.0); Monocytes % (A) 9 %; Neutrophils # (A) 5.7 k/uL (1.3-7.7); Neutrophils % (A) 70 %; Platelet Count 313 k/uL (150-450); RBC 4.36 m/uL (3.80-5.40); RDW 16.8 % (11.5-15.5); WBC 8.1 k/uL (3.8-10.6)
[2018-05-10 22:23] LABS: INR 1.2 (<1.2); Partial Thromboplastin Time 23.3 sec (22.0-30.0); Prothrombin Time 11.4 sec (9.0-12.0)
[2018-05-10 22:26] LABS: Albumin 4.1 g/dL (3.5-5.0); Calcium 9.3 mg/dL (8.4-10.2); Magnesium 2.3 mg/dL (1.6-2.3); Potassium 3.4 mmol/L (3.5-5.1); Total Bilirubin 0.6 mg/dL (0.2-1.3); Total Protein 6.5 g/dL (6.3-8.2)
[2018-05-10 22:55] LABS: Creatine Kinase MB 1.8 ng/mL (0.0-2.4)
[2018-05-10 23:00] LABS: Troponin I 0.035 ng/mL (0.000-0.034)
[2018-05-10] MEDS ORDERED: SODIUM CHLORIDE 0.9% 1,000 ML IV ONE (23:02)
--- NOTE | 2018-05-10 23:38 | XR ---
EXAMINATION TYPE: XR chest 1V portable DATE OF EXAM: 05/10/2018 COMPARISON: 09/29/2017 HISTORY: Weakness TECHNIQUE: Single frontal view of the chest is obtained. FINDINGS: Heart is enlarged. There is no heart failure. Costophrenic angles are clear. There is left axillary pacemaker with the lead tips in the right ventricle. Bony thorax appears intact. IMPRESSION: No active cardiopulmonary disease. There is clearing of the pulmonary congestion and ple ural fluid and atelectasis at the lung bases compared to old exam.
[2018-05-11 00:32] LABS: Appearance,Urine Clear (Clear); Bilirubin,Urine Negative (Negative); Color,Urine Light Yellow; Glucose,Urine (UA) Negative (Negative); Ketones,Urine Negative (Negative); PH, Urine 6.5 (5.0-8.0); Protein,Urine Negative (Negative); Specific Gravity,Urine 1.008 (1.001-1.035)
[2018-05-11 00:33] LABS: Bacteria,Urine Rare /hpf; Blood,Urine Negative (Negative); Hyaline Casts,Urine 1 /lpf (0-2); Leukocyte Esterase,Urine Large (Negative); Mucus,Urine Rare /hpf; Nitrite,Urine Negative (Negative); RBC,Urine 1 /hpf (0-5); Squamous Epithelial Cell,Urine <1 /hpf (0-4); Urobilinogen,Urine <2.0 mg/dL (<2.0); WBC,Urine 81 /hpf (0-5)
[2018-05-11] MEDS ORDERED: LEVOFLOXACIN 750MG-D5W PMX 750 MG in DEXTROSE/WATER 1 150ML.BAG IVPB STA (01:06)
[2018-05-11] MEDS ORDERED: NALOXONE 0.4 MG/ML 1 ML VIAL IV PRN (01:13)
[2018-05-11] MEDS ORDERED: ACETAMINOPHEN TAB 325 MG TAB PO PRN (01:13)
[2018-05-11] MEDS: SODIUM CHLORIDE 0.9% 1,000 ML IV SCH (02:39)
[2018-05-11 03:18] VITALS: BMI 29.0
[2018-05-11 06:42] LABS: Glucose,Whole Blood 139 mg/dL (75-99)
[2018-05-11 06:46] LABS: Anisocytosis Slight; Basophils % (A) 0 %; Eosinophils # (A) 0.3 k/uL (0-0.7); Eosinophils % (A) 5 %; HCT 30.9 % (34.0-46.0); HGB 9.5 gm/dL (11.4-16.0); Hypochromasia Marked; Lymphocytes # (A) 1.1 k/uL (1.0-4.8); Lymphocytes % (A) 17 %; MCH 24.5 pg (25.0-35.0); MCHC 30.8 g/dL (31.0-37.0); MCV 79.6 fL (80.0-100.0); Mean Platelet Volume 7.4; Monocytes # (A) 0.8 k/uL (0-1.0); Monocytes % (A) 12 %; Neutrophils # (A) 4.1 k/uL (1.3-7.7); Neutrophils % (A) 63 %; Platelet Count 295 k/uL (150-450); RBC 3.89 m/uL (3.80-5.40); RDW 16.7 % (11.5-15.5); WBC 6.6 k/uL (3.8-10.6)
[2018-05-11] MEDS: CARVEDILOL 12.5 MG TAB PO SCH ×2 (06:55→17:53)
[2018-05-11 06:57] LABS: Calcium 8.9 mg/dL (8.4-10.2); Potassium 3.2 mmol/L (3.5-5.1)
[2018-05-11] MEDS ORDERED: PANTOPRAZOLE 40 MG TABLET PO SCH ×2 (07:30→09:19)
--- NOTE | 2018-05-11 08:58 | P.CRDCN ---
History of Present Illness Consult date: 05/11/18 Requesting physician: Kamryn Maki Reason for Consult (text): patient alert from BiV ICD Chief complaint: fatigue, weakness History of present illness: This is a pleasant 78-year-old female with a known history of severe nonischemic cardiomyopathy, mitral valve disease, atrial fibrillation, biventricular ICD implantation and diabetes. Presented to the hospital mostly for complaints of worsening fatigue and generalized weakness. She also complained of hearing beeping from her device. At most recent device interrogation it was shown to be nearing SHANIQUA. Chest x-ray on admission showed no active cardiopulmonary disease, clearing of the pulmonary congestion and pleural fluid as well as atelectasis at the lung bases compared to old exam. EKG shows biventricular paced rhythm. Laboratory values showed a hemoglobin of 10.6, sodium 136, potassium 3.4, BUN 81, creatinine 1.90, NT proBNP of 3590 and troponins of 0.035 and 0.046. Laboratory values from this morning were reviewed and show potassium of 3.2, BUN is 73 and creatinine of 1.87. Vital signs have been relatively stable, patient does have a history of known hypotension at times. Lowest blood pressure was found to be 90/53 at around 1: 30 this morning. Current medications ordered inpatient include amiodarone 200 mg by mouth twice a day, Eliquis 5mg BID, aspirin 81 mg daily, atorvastatin 10 mg by mouth daily at bedtime, carvedilol 12.5 mg by mouth twice a day, Lasix 60 mg by mouth every morning and 40 mg by mouth every afternoon, losartan 25 mg by mouth daily at bedtime Protonix, and Levaquin. Upon examination this morning, she is resting comfortably in bed. She says she feels okay sitting in bed however was quite fatigued upon eating up to the bathroom. She denies any shortness of breath, chest discomfort, abdominal pain, dysuria or lightheaded or dizziness. Past Medical History Past Medical History: Atrial Fibrillation, Chest Pain / Angina, Heart Failure, Diabetes Mellitus, Hyperlipidemia, Hypertension, Renal Disease Additional Past Medical History / Comment(s): Pt recently admitted to [facility] on with acute on chronic CHF, intermittent nonsustained Vtach. Other hx: severe nonischemic cardiomyopathy, cardiac valvular disease-mitral and tricuspid with seveere pulmonary HTN, NIDDM type II, numbness/tingling bilateral feet/toes, chronic kidney disease stage III. History of Any Multi-Drug Resistant Organisms: None Reported Past Surgical History: AICD, Appendectomy, Section, Cholecystectomy, Hernia Repair, Hysterectomy, Tonsillectomy, Tubal Ligation Additional Past Surgical History / Comment(s): ARMAND/CVN, bilateral knee replacements, colonoscopy, bilateral cataract removal, Past Anesthesia/Blood Transfusion Reactions: No Reported Reaction Type of Cardiac Device: Permanent Pacemaker, AICD Device Placement Date:: 07/2011 Past Psychological History: No Psychological Hx Reported Additional Psychological History / Comment(s): Pt resides with his spouse of 54yrs. Pt uses no assistive devices. She drives. Smoking Status: Never smoker Past Alcohol Use History: None Reported Past Drug Use History: None Reported - Past Family History Father Family Medical History: Cancer Additional Family Medical History / Comment(s): THROAT CA and of this at the age of 59yrs. Mother Family Medical History: CVA/TIA, Diabetes Mellitus Additional Family Medical History / Comment(s): Mother had a CVA. She lived to be 73 yrs old. Medications and Allergies Home Medications Medication Instructions Recorded Confirmed Type Apixaban [Eliquis] 5 mg PO BID 01/01/15 05/10/18 History Aspirin EC [Ecotrin Low Dose] 81 mg PO DAILY 01/01/15 05/10/18 History Cholecalciferol [Vitamin D3] 1,000 unit PO QAM 01/01/15 05/10/18 History Cyanocobalamin [Vitamin B-12] 2,500 mcg PO DAILY 01/01/15 05/10/18 History Multivitamins, Thera [Multivitamin 1 tab PO DAILY 01/01/15 05/10/18 History (formulary)] [place]-3 Fatty Acids/Fish Oil [Fish 1 cap PO BID 03/27/15 05/10/18 History Oil 1,000 mg Softgel] Atorvastatin [Lipitor] 10 mg PO HS #30 tab 08/21/15 05/10/18 Rx Carvedilol [Coreg] 12.5 mg PO BID-W/MEALS 10/06/15 05/10/18 History Losartan Potassium [Cozaar] 25 mg PO HS 07/20/17 05/10/18 History Amiodarone [Cordarone] 200 mg PO BID tab 08/07/17 05/10/18 Rx Pantoprazole [Protonix] 40 mg PO AC-BID #60 tab 08/10/17 05/10/18 Rx Furosemide [Lasix] 40 mg PO AC-SUPPER 09/08/17 05/10/18 History Furosemide [Lasix] 60 mg PO QAM 09/08/17 05/10/18 History Famotidine [Pepcid] 20 mg PO DAILY #14 tablet 09/09/17 05/10/18 Rx Insulin Glargine,Hum.rec.anlog 14 unit SQ DAILY 05/11/18 05/11/18 History [Lantus Solostar] Allergies Allergy/AdvReac Type Severity Reaction Status Date / Time nitrofurantoin Allergy Unknown Rash/Hives Verified 05/10/18 21:42 [From Macrobid] nitrofurantoin Allergy Unknown Rash/Hives Verified 05/10/18 21:42 macrocrystalline [From Macrobid] cefuroxime Allergy Rash/Hives Verified 05/10/18 21:42 Penicillins Allergy Rash/Hives Verified 05/10/18 21:42 Physical Exam Vitals: Vital Signs Temp Pulse Pulse Resp BP BP Pulse Ox 05/11/18 07:55 96.4 F L 60 16 92/51 96 05/11/18 04:00 97.1 F L 61 17 90/53 100 05/11/18 02:48 47 L 18 167/80 99 05/11/18 02:38 97.1 F L 60 18 103/55 98 05/11/18 01:38 97.1 F L 61 17 90/53 100 05/11/18 01:11 72 18 120/67 98 05/10/18 23:24 80 18 111/74 98 05/10/18 22:20 60 16 97/47 97 05/10/18 21:40 97.7 F 78 18 118/49 100 Intake and Output 05/10/18 05/11/18 05/11/18 22:59 06:59 14:59 Intake Total 10 Balance 10 Intake: IV 10 Invasive Line 1 10 Other: Voiding Method Toilet # Voids 1 Weight 79.379 kg 79.3 kg PHYSICAL EXAMINATION: HEENT: Head is atraumatic, normocephalic. Pupils equal, round. Neck is supple. There is no elevated jugular venous pressure. HEART EXAMINATION: Heart sounds regular, S1 and S2 with a systolic murmur at the base. CHEST EXAMINATION: Lungs are clear to auscultation and precussion. No chest wall tenderness is noted on palpation or with deep breathing. ABDOMEN: Soft, nontender. Bowel sounds are heard. No organomegaly noted. EXTREMITIES: 2+ peripheral pulses with no evidence of peripheral edema and no calf tenderness noted. NEUROLOGIC patient is awake, alert and oriented x3. . Results 05/11/18 05:52 05/11/18 05:52 Cardiac Enzymes 05/10/18 05/10/18 05/11/18 Range/Units 21:49 21:49 05:52 AST 34 (14-36) U/L CK-MB (CK-2) 1.8 (0.0-2.4) ng/mL Troponin I 0.035 H* 0.046 H* (0.000-0.034) ng/mL Coagulation 05/10/18 Range/Units 21:49 PT 11.4 (9.0-12.0) sec APTT 23.3 (22.0-30.0) sec CBC 05/10/18 05/11/18 Range/Units 21:49 05:52 WBC 8.1 6.6 (3.8-10.6) k/uL RBC 4.36 3.89 (3.80-5.40) m/uL Hgb 10.6 L 9.5 L (11.4-16.0) gm/dL Hct 34.2 30.9 L (34.0-46.0) % Plt Count 313 295 (150-450) k/uL Comprehensive Metabolic Panel 05/10/18 05/11/18 Range/Units 21:49 05:52 Sodium 136 L 138 (137-145) mmol/L Potassium 3.4 L 3.2 L (3.5-5.1) mmol/L Chloride 96 L 99 (98-107) mmol/L Carbon Dioxide 27 29 (22-30) mmol/L BUN 81 H* 73 H (7-17) mg/dL Creatinine 1.90 H 1.87 H (0.52-1.04) mg/dL Glucose 181 H 112 H (74-99) mg/dL Calcium 9.3 8.9 (8.4-10.2) mg/dL AST 34 (14-36) U/L ALT 37 (9-52) U/L Alkaline Phosphatase 55 (38-126) U/L Total Protein 6.5 (6.3-8.2) g/dL Albumin 4.1 (3.5-5.0) g/dL Current Medications Generic Name Dose Route Start Last Admin Trade Name Freq PRN Reason Stop Dose Admin Acetaminophen 650 mg 05/11/18 01:13 Tylenol Tab PO Q6HR PRN Mild Pain or Fever > 100.5 Amiodarone HCl 200 mg 05/11/18 09:00 Cordarone PO BID [facility] Apixaban 5 mg 05/11/18 09:00 Eliquis PO BID [facility] Aspirin 81 mg 05/11/18 09:00 Aspirin PO DAILY [facility] Atorvastatin Calcium 10 mg 05/11/18 21:00 Lipitor PO HS [facility] Carvedilol 12.5 mg 05/11/18 07:30 05/11/18 06:55 Coreg PO 12.5 mg BID-W/MEALS [facility] Administration Cholecalciferol 1,000 unit 05/11/18 09:00 Vitamin D3 PO QAM [facility] Cyanocobalamin 2,500 mcg 05/11/18 09:00 Vitamin B-12 PO DAILY [facility] Famotidine 20 mg 05/11/18 09:00 Pepcid PO DAILY [facility] Furosemide 60 mg 05/11/18 09:00 Lasix PO QAM [facility] Furosemide 40 mg 05/11/18 17:30 Lasix PO AC-SUPPER [facility] Sodium Chloride 1,000 mls @ 20 mls/hr 05/11/18 01:15 05/11/18 02:39 Saline 0.9% IV 20 mls/hr .Q24H VANDANA Administration Levofloxacin 750 mg 05/13/18 09:00 Levaquin PO Q48H [facility] Losartan Potassium 25 mg 05/11/18 21:00 Cozaar PO HS [facility] Multivitamins 1 each 05/11/18 09:00 Theragran PO DAILY [facility] Naloxone HCl 0.2 mg 05/11/18 01:13 Narcan IV Q2M PRN Opioid Reversal Pantoprazole Sodium 40 mg 05/11/18 07:30 05/11/18 06:55 Protonix PO 40 mg AC-BID VANDANA Administration Intake and Output 05/10/18 05/11/18 05/11/18 22:59 06:59 14:59 Intake Total 10 Balance 10 Intake: IV 10 Invasive Line 1 10 Other: Voiding Method Toilet # Voids 1 Weight 79.379 kg 79.3 kg 05/11/18 05:52 05/11/18 05:52 Assessment and Plan Assessment: #1 biventricular ICD delivering patient alerts, likely due to device being at SHANIQUA #2 severe nonischemic cardiomyopathy #3 chronic systolic congestive heart failure, no clinical signs of acute heart failure at this time #4 mild troponin leak, likely related to severe cardiomyopathy and not reflective of an acute coronary event, patient has had mild troponin leaks noted on previous admissions #5 persistent atrial fibrillation, status post cardioversion, currently on amiodarone and Eliquis #6 urinary tract infection currently on Levaquin #7 diabetes mellitus type 2 Plan: 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 If device is at SHANIQUA we will schedule the patient for generator change as an outpatient. We will also obtain a 2-D echo with Doppler. We will change Eliquis to 2.5 mg by mouth twice a day and amiodarone to 200 mg daily as taken at home. Further recommendations to follow. [employer] note has been reviewed, I agree with a documented findings and plan of care. Patient was seen and examined.
[2018-05-11] MEDS ORDERED: APIXABAN 5 MG TAB PO SCH (09:00)
[2018-05-11] MEDS ORDERED: FUROSEMIDE 20 MG TAB PO SCH (09:00)
[2018-05-11] MEDS ORDERED: AMIODARONE 200 MG TAB PO SCH ×2 (09:00)
[2018-05-11] MEDS ORDERED: CHOLECALCIFEROL 1,000 UNIT TAB PO SCH (09:00)
[2018-05-11] MEDS ORDERED: POTASSIUM CHLORIDE ER 20 MEQ TAB.ER PO STA (09:19)
[2018-05-11] MEDS: CYANOCOBALAMIN 500 MCG TAB PO SCH (09:47)
[2018-05-11] MEDS: ASPIRIN 81 MG PO SCH (09:48)
[2018-05-11] MEDS: APIXABAN 2.5 MG TABLET PO SCH ×2 (09:48→20:17)
[2018-05-11] MEDS: FAMOTIDINE 20 MG TAB PO SCH (09:49)
[2018-05-11] MEDS: MULTIVITAMINS, THERA 1 EACH TAB PO SCH (09:49)
[2018-05-11 11:45] LABS: Glucose,Whole Blood 171 mg/dL (75-99)
[2018-05-11 12:05] LABS: Hemoglobin A1C 7.3 % (4.0-6.0)
[2018-05-11] MEDS: INSULIN ASPART 100 UNIT/ML 1 ML 10 ML VIAL SQ SCH ×3 (12:18→20:18)
--- NOTE | 2018-05-11 13:06 | ECHOF ---
Referral Reason:fatigue, weakness, hx nonischemic cardiomyopathy MEASUREMENTS -------- HEIGHT: 165.1 cm WEIGHT: 78.9 kg BP: IVSd: 1.2 cm (0.6 - 1.1) LVIDd: 6.8 cm (3.9 - 5.3) LVPWd: 1.2 cm (0.6 - 1.1) IVSs: 1.2 cm LVIDs: 6.3 cm LVPWs: 1.4 cm RVIDd: 2.8 cm (< 3.3) LAESV Index (A-L): 68.24 ml/m Ao Diam: 2.9 cm (2.0 - 3.7) LA Diam: 5.1 cm (2.7 - 3.8) AV Cusp: 1.6 cm (1.5 - 2.6) MV E Eron: 1.44 m/s MV DecT: 179 ms MV A Eron: 0.49 m/s MV E/A Ratio: 2.92 RAP: 5.00 mmHg RVSP: 40.79 mmHg FINDINGS -------- Paced rhythm. This was a technically adequate study. The left ventricle is severely dilated. There is mild concentric left ventricular hypertrophy. Th ere is severe global hypokinesis of LV . Overall left ventricular systolic function is severely imp aired with, an EF < 20%. The right ventricle is normal in size and function. LA is severely dilated >40 ml/m2 Electronic pacemaker lead seen in the right ventricular cavity. RA appears enlarged. There is mild to moderate aortic valve sclerosis. Trace to mild aortic regurgitation. There is no evidence of aortic stenosis. The mitral valve leaflets are mildly thickened. Severe mitral regurgitation is present. Moderate tricuspid regurgitation present. There is mild pulmonary hypertension. The right ventric ular systolic pressure, as measured by Doppler, is 40.79mmHg. The pulmonic valve was not well visualized. The aortic root size is normal. Normal inferior vena cava with normal inspiratory collapse consistent with estimated right atrial pre ssure of 5 mmHg. There is no pericardial effusion. CONCLUSIONS -------- 1. Paced rhythm. 2. This was a technically adequate study. 3. The left ventricle is severely dilated. 4. There is mild concentric left ventricular hypertrophy. 5. There is severe global hypokinesis of LV . 6. Overall left ventricular systolic function is severely impaired with, an EF < 20%. 7. LA is severely dilated >40 ml/m2 8. Electronic pacemaker lead seen in the right ventricular cavity. 9. RA appears enlarged. 10. There is mild to moderate aortic valve sclerosis. 11. Trace to mild aortic regurgitation. 12. The mitral valve leaflets are mildly thickened. 13. Severe mitral regurgitation is present. 14. Moderate tricuspid regurgitation present. 15. There is mild pulmonary hypertension. 16. The right ventricular systolic pressure, as measured by Doppler, is 40.79mmHg. 17. The pulmonic valve was not well visualized. 18. The aortic root size is normal. 19. There is no pericardial effusion. HANDBELL CHOIR DIRECTOR: Jason Lamar RDCS
--- NOTE | 2018-05-11 14:33 | P.HPIM ---
History of Present Illness 78-year-old pleasant female came in with complains of generalized fatigue has been going on for about 3 weeks much more so last couple days. Patient denied any fever chills denied any dysuria denied any suprapubic pain. Patient was admitted for possible urinary tract infection patient has mild abnormality Although and does not have any signs or symptoms of urinary tract infection and did not believe fatigue is secondary to urinary tract infection and medics will be discontinued. TSH is being obtained patient does have history of cardiomyopathy no recent changes in medications except for medications for restless leg syndrome which I do not believe causes increased fatigue. Patient has biventricular AICD which is being interrogated abnormal heart rhythm can contribute to his fatigue. If that is normal patient will be discharged today to follow with PCP. Patient is not requiring physical therapy a subacute rehabilitation placement. Patient gets tired easily but she is exam able to ambulate well and an not dependent on ADLs. Because of severe nonischemic any myopathy patient the blood pressure always runs low. Patient is on Coreg. If it continues to stay low probably coronary can be switched to metoprolol. Patient follows a Dr. Alvarez and Dr. Padron as outpatient Review of Systems REVIEW OF SYSTEMS: CONSTITUTIONAL: No fever, no malaise, HEENT: No recent visual problems or hearing problems. Denied any sore throat. CARDIOVASCULAR: No chest pain, orthopnea, PND, no palpitations, no syncope. PULMONARY: No shortness of breath, no cough, no hemoptysis. GASTROINTESTINAL: No diarrhea, no nausea, no vomiting, no abdominal pain. Normoactive bowel sounds. NEUROLOGICAL: No headaches, no weakness, no numbness. HEMATOLOGICAL: Denies any bleeding or petechiae. GENITOURINARY: Denies any burning micturition, frequency, or urgency. MUSCULOSKELETAL/RHEUMATOLOGICAL: Denies any joint pain, swelling, or any muscle pain. ENDOCRINE: Denies any polyuria or polydipsia. The rest of the 14-point review of systems is negative. Past Medical History Past Medical History: Atrial Fibrillation, Chest Pain / Angina, Heart Failure, Diabetes Mellitus, Hyperlipidemia, Hypertension, Renal Disease Additional Past Medical History / Comment(s): Pt recently admitted to [facility] on with acute on chronic CHF, intermittent nonsustained Vtach. Other hx: severe nonischemic cardiomyopathy, cardiac valvular disease-mitral and tricuspid with seveere pulmonary HTN, NIDDM type II, numbness/tingling bilateral feet/toes, chronic kidney disease stage III. History of Any Multi-Drug Resistant Organisms: None Reported Past Surgical History: AICD, Appendectomy, Section, Cholecystectomy, Hernia Repair, Hysterectomy, Tonsillectomy, Tubal Ligation Additional Past Surgical History / Comment(s): ARMAND/CVN, bilateral knee replacements, colonoscopy, bilateral cataract removal, Past Anesthesia/Blood Transfusion Reactions: No Reported Reaction Type of Cardiac Device: Permanent Pacemaker, AICD Device Placement Date:: 07/2011 Past Psychological History: No Psychological Hx Reported Additional Psychological History / Comment(s): Pt resides with his spouse of 54yrs. Pt uses no assistive devices. She drives. Smoking Status: Never smoker Past Alcohol Use History: None Reported Past Drug Use History: None Reported - Past Family History Father Family Medical History: Cancer Additional Family Medical History / Comment(s): THROAT CA and of this at the age of 59yrs. Mother Family Medical History: CVA/TIA, Diabetes Mellitus Additional Family Medical History / Comment(s): Mother had a CVA. She lived to be 73 yrs old. Medications and Allergies Home Medications Medication Instructions Recorded Confirmed Type Aspirin EC [Ecotrin Low Dose] 81 mg PO DAILY 01/01/15 05/11/18 History Cholecalciferol [Vitamin D3] 1,000 unit PO BID 01/01/15 05/11/18 History Cyanocobalamin [Vitamin B-12] 2,500 mcg PO DAILY 01/01/15 05/11/18 History Multivitamins, Thera [Multivitamin 1 tab PO DAILY 01/01/15 05/11/18 History (formulary)] [place]-3 Fatty Acids/Fish Oil [Fish 1 cap PO BID 03/27/15 05/11/18 History Oil 1,000 mg Softgel] Atorvastatin [Lipitor] 10 mg PO HS #30 tab 08/21/15 05/11/18 Rx Carvedilol [Coreg] 12.5 mg PO BID-W/MEALS 10/06/15 05/11/18 History Furosemide [Lasix] 60 mg PO BID 09/08/17 05/11/18 History Amiodarone [Cordarone] 200 mg PO DAILY 05/11/18 05/11/18 History Apixaban [Eliquis] 2.5 mg PO BID 05/11/18 05/11/18 History Ferrous Sulfate [Feosol] 325 mg PO MOWEFR 05/11/18 05/11/18 History Insulin Glargine,Hum.rec.anlog 14 unit SQ DAILY@1730 05/11/18 05/11/18 History [Lantus Solostar] Metolazone [Zaroxolyn] 2.5 mg PO DAILY PRN 05/11/18 05/11/18 History Pantoprazole Sodium [Protonix] 40 mg PO DAILY 05/11/18 05/11/18 History Potassium Chloride [Klor-Con 20] 20 meq PO DAILY 05/11/18 05/11/18 History Allergies Allergy/AdvReac Type Severity Reaction Status Date / Time nitrofurantoin Allergy Unknown Rash/Hives Verified 05/11/18 09:01 [From Macrobid] nitrofurantoin Allergy Unknown Rash/Hives Verified 05/11/18 09:01 macrocrystalline [From Macrobid] cefuroxime Allergy Rash/Hives Verified 05/11/18 09:01 Penicillins Allergy Rash/Hives Verified 05/11/18 09:01 Physical Exam Vitals: Vital Signs Temp Pulse Pulse Resp BP BP Pulse Ox 05/11/18 12:05 60 16 97/65 96 05/11/18 08:59 96 05/11/18 07:55 96.4 F L 60 16 92/51 96 05/11/18 04:00 97.1 F L 61 17 90/53 100 05/11/18 02:48 47 L 18 167/80 99 05/11/18 02:38 97.1 F L 60 18 103/55 98 05/11/18 01:38 97.1 F L 61 17 90/53 100 05/11/18 01:11 72 18 120/67 98 05/10/18 23:24 80 18 111/74 98 05/10/18 22:20 60 16 97/47 97 05/10/18 21:40 97.7 F 78 18 118/49 100 Intake and Output 05/10/18 05/11/18 05/11/18 22:59 06:59 14:59 Intake Total 10 400 Balance 10 400 Intake: IV 10 Invasive Line 1 10 Intake, IV Titration 160 Amount Sodium Chloride 0.9% 1, 160 000 ml @ 20 mls/hr IV . Q24H VANDANA Rx#:[id number] Oral 240 Other: Voiding Method Toilet Toilet # Voids 1 2 Weight 79.379 kg 79.3 kg PHYSICAL EXAMINATION: GENERAL: The patient is alert and oriented x3, not in any acute distress. Well developed, well nourished. HEENT: Pupils are round and equally reacting to light. EOMI. No scleral icterus. No conjunctival pallor. Normocephalic, atraumatic. No pharyngeal erythema. No thyromegaly. CARDIOVASCULAR: S1 and S2 present. No murmurs, rubs, or gallops. PULMONARY: Chest is clear to auscultation, no wheezing or crackles. ABDOMEN: Soft, nontender, nondistended, normoactive bowel sounds. No palpable organomegaly. MUSCULOSKELETAL: No joint swelling or deformity. EXTREMITIES: No cyanosis, clubbing, or pedal edema. NEUROLOGICAL: Gross neurological examination did not reveal any focal deficits. SKIN: No rashes. Results CBC & Chem 7: 05/11/18 05:52 05/11/18 05:52 Labs: Abnormal Lab Results - Last 24 Hours (Table) 05/10/18 05/10/18 05/10/18 Range/Units 21:49 21:49 21:49 Hgb 10.6 L (11.4-16.0) gm/dL Hct (34.0-46.0) % MCV 78.5 L (80.0-100.0) fL MCH 24.2 L (25.0-35.0) pg MCHC 30.9 L (31.0-37.0) g/dL RDW 16.8 H (11.5-15.5) % INR (<1.2) Sodium 136 L (137-145) mmol/L Potassium 3.4 L (3.5-5.1) mmol/L Chloride 96 L (98-107) mmol/L BUN 81 H* (7-17) mg/dL Creatinine 1.90 H (0.52-1.04) mg/dL Glucose 181 H (74-99) mg/dL POC Glucose (mg/dL) (75-99) mg/dL Hemoglobin A1c (4.0-6.0) % Troponin I 0.035 H* (0.000-0.034) ng/mL Ur Leukocyte Esterase (Negative) Urine WBC (0-5) /hpf Urine Bacteria (None) /hpf Urine Mucus (None) /hpf 05/10/18 05/10/18 05/11/18 Range/Units 21:49 23:54 05:52 Hgb 9.5 L (11.4-16.0) gm/dL Hct 30.9 L (34.0-46.0) % MCV 79.6 L (80.0-100.0) fL MCH 24.5 L (25.0-35.0) pg MCHC 30.8 L (31.0-37.0) g/dL RDW 16.7 H (11.5-15.5) % INR 1.2 H (<1.2) Sodium (137-145) mmol/L Potassium (3.5-5.1) mmol/L Chloride (98-107) mmol/L BUN (7-17) mg/dL Creatinine (0.52-1.04) mg/dL Glucose (74-99) mg/dL POC Glucose (mg/dL) (75-99) mg/dL Hemoglobin A1c (4.0-6.0) % Troponin I (0.000-0.034) ng/mL Ur Leukocyte Esterase Large H (Negative) Urine WBC 81 H (0-5) /hpf Urine Bacteria Rare H (None) /hpf Urine Mucus Rare H (None) /hpf 05/11/18 05/11/18 05/11/18 Range/Units 05:52 05:52 05:52 Hgb (11.4-16.0) gm/dL Hct (34.0-46.0) % MCV (80.0-100.0) fL MCH (25.0-35.0) pg MCHC (31.0-37.0) g/dL RDW (11.5-15.5) % INR (<1.2) Sodium (137-145) mmol/L Potassium 3.2 L (3.5-5.1) mmol/L Chloride (98-107) mmol/L BUN 73 H (7-17) mg/dL Creatinine 1.87 H (0.52-1.04) mg/dL Glucose 112 H (74-99) mg/dL POC Glucose (mg/dL) (75-99) mg/dL Hemoglobin A1c 7.3 H (4.0-6.0) % Troponin I 0.046 H* (0.000-0.034) ng/mL Ur Leukocyte Esterase (Negative) Urine WBC (0-5) /hpf Urine Bacteria (None) /hpf Urine Mucus (None) /hpf 05/11/18 05/11/18 Range/Units 06:40 11:24 Hgb (11.4-16.0) gm/dL Hct (34.0-46.0) % MCV (80.0-100.0) fL MCH (25.0-35.0) pg MCHC (31.0-37.0) g/dL RDW (11.5-15.5) % INR (<1.2) Sodium (137-145) mmol/L Potassium (3.5-5.1) mmol/L Chloride (98-107) mmol/L BUN (7-17) mg/dL Creatinine (0.52-1.04) mg/dL Glucose (74-99) mg/dL POC Glucose (mg/dL) 139 H 171 H (75-99) mg/dL Hemoglobin A1c (4.0-6.0) % Troponin I (0.000-0.034) ng/mL Ur Leukocyte Esterase (Negative) Urine WBC (0-5) /hpf Urine Bacteria (None) /hpf Urine Mucus (None) /hpf Thrombosis Risk Factor Assmnt - Choose All That Apply Any of the Below Risk Factors Present?: Yes Each Factor Represents 1 point: Obesity (BMI >25) Other Risk Factors: Yes Each Risk Factor Represents 3 Points: Age 75 years or older Thrombosis Risk Factor Assessment Total Risk Factor Score: 4 Thrombosis Risk Factor Assessment Level: Moderate Risk Assessment and Plan Plan: -Generalized subacute fatigue: Etiology is not clear AICD interrogation and obtain TSH. If they're normal patient will be discharged to follow up with the primary care physician as an outpatient. -Severe nonischemic cardiomyopathy chronic severe systolic dysfunction without any acute exacerbation patient is fairly euvolemic at this time. -Chronic kidney disease stage 3-4 probably cardiorenal and a competent of diabetic nephropathy -Mild troponin leak secondary to severe cardiomyopathy and chronic kidney disease -Persistent atrial fibrillation presently rate controlled on amiodarone and anticoagulation which will be continued -Asymptomatic bacteriuria which doesn't need any antibiotics, levofloxacin will risk and urine -Type 2 diabetes mellitus patient will be resumed on her home regimen fairly controlled blood sugars -Hyperlipidemia continue with statin -
[2018-05-11 16:53] LABS: Glucose,Whole Blood 166 mg/dL (75-99)
[2018-05-11] MEDS ORDERED: FUROSEMIDE 40 MG TAB PO SCH (17:30)
[2018-05-11] MEDS ORDERED: INSULIN DETEMIR 100 UNIT/ML 10 ML VIAL SQ SCH (17:30)
[2018-05-11] MEDS: FUROSEMIDE 20 MG TAB PO SCH (17:53)
[2018-05-11 20:06] LABS: Glucose,Whole Blood 191 mg/dL (75-99)
[2018-05-11] MEDS: AMIODARONE 200 MG TAB PO SCH (20:17)
[2018-05-11] MEDS: CHOLECALCIFEROL 1,000 UNIT TAB PO SCH (20:17)
[2018-05-11] MEDS ORDERED: ATORVASTATIN 10 MG TAB PO SCH (21:00)
[2018-05-11] MEDS ORDERED: LOSARTAN 25 MG TAB PO SCH (21:00)
[2018-05-12] MEDS: SODIUM CHLORIDE 0.9% 1,000 ML IV SCH (03:11)
[2018-05-12 05:59] LABS: Glucose,Whole Blood 91 mg/dL (75-99)
[2018-05-12] MEDS: INSULIN ASPART 100 UNIT/ML 1 ML 10 ML VIAL SQ SCH ×2 (06:18→11:47)
[2018-05-12] MEDS: CARVEDILOL 12.5 MG TAB PO SCH (06:44)
[2018-05-12 08:57] VITALS: RESP 16; TEMP 97.4
[2018-05-12] MEDS: AMIODARONE 200 MG TAB PO SCH (08:57)
[2018-05-12] MEDS: APIXABAN 2.5 MG TABLET PO SCH (08:57)
[2018-05-12] MEDS: CHOLECALCIFEROL 1,000 UNIT TAB PO SCH (08:58)
[2018-05-12] MEDS: ASPIRIN 81 MG PO SCH (08:58)
[2018-05-12] MEDS: CYANOCOBALAMIN 500 MCG TAB PO SCH (08:58)
[2018-05-12] MEDS: FAMOTIDINE 20 MG TAB PO SCH (08:59)
[2018-05-12] MEDS: MULTIVITAMINS, THERA 1 EACH TAB PO SCH (08:59)
[2018-05-12] MEDS: FUROSEMIDE 20 MG TAB PO SCH (08:59)
[2018-05-12 10:03] LABS: Potassium 3.5 mmol/L (3.5-5.1)
[2018-05-12] MEDS ORDERED: POTASSIUM CHLORIDE ER 20 MEQ TAB.ER PO STA (10:17)
[2018-05-12] MEDS ORDERED: Magnesium Replacement Protocol 1 EACH MISC MISCELLANE PRN (10:17)
--- NOTE | 2018-05-12 10:19 | P.PN ---
Subjective Progress Note Date: 05/12/18 Principal diagnosis: Paroxysmal atrial fibrillation This is a pleasant 78-year-old female with a known history of severe nonischemic cardiomyopathy, mitral valve disease, atrial fibrillation, biventricular ICD implantation and diabetes. Presented to the hospital mostly for complaints of worsening fatigue and generalized weakness. She also complained of hearing beeping from her device. At most recent device interrogation it was shown to be nearing SHANIQUA. Chest x-ray on admission showed no active cardiopulmonary disease, clearing of the pulmonary congestion and pleural fluid as well as atelectasis at the lung bases compared to old exam. EKG shows biventricular paced rhythm. Laboratory values showed a hemoglobin of 10.6, sodium 136, potassium 3.4, BUN 81, creatinine 1.90, NT proBNP of 3590 and troponins of 0.035 and 0.046. Laboratory values from this morning were reviewed and show potassium of 3.2, BUN is 73 and creatinine of 1.87. Vital signs have been relatively stable, patient does have a history of known hypotension at times. Lowest blood pressure was found to be 90/53 at around 1: 30 this morning. Current medications ordered inpatient include amiodarone 200 mg by mouth twice a day, Eliquis 5mg BID, aspirin 81 mg daily, atorvastatin 10 mg by mouth daily at bedtime, carvedilol 12.5 mg by mouth twice a day, Lasix 60 mg by mouth every morning and 40 mg by mouth every afternoon, losartan 25 mg by mouth daily at bedtime Protonix, and Levaquin. Upon examination this morning, she is resting comfortably in bed. She says she feels okay sitting in bed however was quite fatigued upon eating up to the bathroom. She denies any shortness of breath, chest discomfort, abdominal pain, dysuria or lightheaded or dizziness. We did interrogate the device yesterday and it did reveal atrial fibrillation 70 % of the time. The blood pressure is marginally low. Because of that we did increase the dose of amiodarone to 200 mg by mouth twice a day. I'll follow-up with the patient today, she is feeling overall better. From the cardiovascular standpoint of view, she can be discharged home. Objective - Vital Signs Vital signs: Vital Signs Temp 97.4 F L 05/12/18 08:55 Pulse 62 05/12/18 08:55 Resp 16 05/12/18 08:55 BP 110/59 05/12/18 08:55 Pulse Ox 98 05/12/18 08:55 Intake & Output 05/11/18 05/12/18 05/12/18 18:59 06:59 18:59 Intake Total 400 1050 240 Balance 400 1050 240 Weight 79.1 kg Intake: IV 90 Invasive Line 1 90 Intake, IV Titration 160 Amount Sodium Chloride 0.9% 1, 160 000 ml @ 20 mls/hr IV . Q24H [facility] Rx#:[id number] Oral 240 960 240 Other: Voiding Method Toilet Toilet Toilet # Voids 2 3 - Constitutional General appearance: Present: no acute distress - Respiratory Respiratory: bilateral: diminished - Cardiovascular Heart sounds: normal: S1, S2 - Labs CBC & Chem 7: 05/11/18 05:52 05/12/18 09:14 Labs: Abnormal Lab Results - Last 24 Hours (Table) 05/11/18 05/11/18 05/11/18 Range/Units 05:52 11:24 16:23 Carbon Dioxide (22-30) mmol/L BUN (7-17) mg/dL Creatinine (0.52-1.04) mg/dL Glucose (74-99) mg/dL POC Glucose (mg/dL) 171 H 166 H (75-99) mg/dL Hemoglobin A1c 7.3 H (4.0-6.0) % 05/11/18 05/12/18 Range/Units 20:05 09:14 Carbon Dioxide 31 H (22-30) mmol/L BUN 59 H (7-17) mg/dL Creatinine 1.70 H (0.52-1.04) mg/dL Glucose 134 H (74-99) mg/dL POC Glucose (mg/dL) 191 H (75-99) mg/dL Hemoglobin A1c (4.0-6.0) % Assessment and Plan Assessment: Assessment: #1 biventricular ICD delivering patient alerts, likely due to device being at SHANIQUA #2 severe nonischemic cardiomyopathy #3 chronic systolic congestive heart failure, no clinical signs of acute heart failure at this time #4 mild troponin leak, likely related to severe cardiomyopathy and not reflective of an acute coronary event, patient has had mild troponin leaks noted on previous admissions #5 persistent atrial fibrillation, status post cardioversion, currently on amiodarone and Eliquis #6 urinary tract infection currently on Levaquin #7 diabetes mellitus type 2 Plan: #1 increase the dose of amiodarone to 200 mg by mouth twice a day #2 from the cardiovascular standpoint of view, she can be discharged home.
[2018-05-12 11:23] VITALS: BP 132/71; PULSE 70
[2018-05-12 11:30] LABS: Glucose,Whole Blood 114 mg/dL (75-99)
--- NOTE | 2018-05-12 15:46 | P.DS ---
Providers Date of admission: 05/11/18 01:15 Attending physician: Kamryn Maki Consults: 05/11/18 01:14 Consult Physician Routine Consulting Provider: Prashant Francisco Consult Reason/Comments: pacemaker alarmed Do you want consulting provider notified?: Yes Primary care physician: Kishore Lucia [facility] Course: Patient was admitted secondary to generalized fatigue and found to have episodes of atrial fibrillation. Patient is euvolemic at this time patient has a biventricular AICD. Patient's dose of amiodarone is being increased by cardiology cleared for discharge patient is being discharged today in stable medical condition to home. Patient's TSH is essentially within normal limits. Serum creatinine improved a little bit. PHYSICAL EXAMINATION: GENERAL: The patient is alert and oriented x3, not in any acute distress. Well developed, well nourished. HEENT: Pupils are round and equally reacting to light. EOMI. No scleral icterus. No conjunctival pallor. Normocephalic, atraumatic. No pharyngeal erythema. No thyromegaly. CARDIOVASCULAR: S1 and S2 present. No murmurs, rubs, or gallops. PULMONARY: Chest is clear to auscultation, no wheezing or crackles. ABDOMEN: Soft, nontender, nondistended, normoactive bowel sounds. No palpable organomegaly. MUSCULOSKELETAL: No joint swelling or deformity. EXTREMITIES: No cyanosis, clubbing, or pedal edema. NEUROLOGICAL: Gross neurological examination did not reveal any focal deficits. SKIN: No rashes. Assessment and Plan Plan: -Generalized subacute fatigue: Probably secondary to arrhythmia as mentioned above. Fatigue did improve since her hospitalization -Severe nonischemic cardiomyopathy chronic severe systolic dysfunction without any acute exacerbation patient is fairly euvolemic at this time. -Chronic kidney disease stage 3-4 probably cardiorenal and a competent of diabetic nephropathy -Mild troponin leak secondary to severe cardiomyopathy and chronic kidney disease -Persistent atrial fibrillation presently rate controlled on amiodarone and anticoagulation which will be continued -Asymptomatic bacteriuria which doesn't need any antibiotics, levofloxacin was discontinued -Type 2 diabetes mellitus patient will be resumed on her home regimen fairly controlled blood sugars -Hyperlipidemia continue with statin - Patient Condition at Discharge: Stable Plan - Discharge Summary Discharge Rx Participant: No New Discharge Prescriptions: New Amiodarone [Cordarone] 200 mg PO BID tab Continue Cyanocobalamin [Vitamin B-12] 2,500 mcg PO DAILY Cholecalciferol [Vitamin D3] 1,000 unit PO BID Multivitamins, Thera [Multivitamin (formulary)] 1 tab PO DAILY Aspirin EC [Ecotrin Low Dose] 81 mg PO DAILY [place]-3 Fatty Acids/Fish Oil [Fish Oil 1,000 mg Softgel] 1 cap PO BID Atorvastatin [Lipitor] 10 mg PO HS #30 tab Carvedilol [Coreg] 12.5 mg PO BID-W/MEALS Furosemide [Lasix] 60 mg PO BID Insulin Glargine,Hum.rec.anlog [Lantus Solostar] 14 unit SQ DAILY@1730 Pantoprazole Sodium [Protonix] 40 mg PO DAILY Metolazone [Zaroxolyn] 2.5 mg PO DAILY PRN PRN Reason: Edema Apixaban [Eliquis] 2.5 mg PO BID Ferrous Sulfate [Iron (65 MG Elemental)] 325 mg PO MOWEFR Changed Potassium Chloride [Klor-Con 20] 20 meq PO BID #0 Discontinued Amiodarone [Cordarone] 200 mg PO DAILY Discharge Medication List Aspirin EC [Ecotrin Low Dose] 81 mg PO DAILY 01/01/15 [History] Cholecalciferol [Vitamin D3] 1,000 unit PO BID 01/01/15 [History] Cyanocobalamin [Vitamin B-12] 2,500 mcg PO DAILY 01/01/15 [History] Multivitamins, Thera [Multivitamin (formulary)] 1 tab PO DAILY 01/01/15 [History ] [place]-3 Fatty Acids/Fish Oil [Fish Oil 1,000 mg Softgel] 1 cap PO BID 03/27/15 [ History] Atorvastatin [Lipitor] 10 mg PO HS #30 tab 08/21/15 [Rx] Carvedilol [Coreg] 12.5 mg PO BID-W/MEALS 10/06/15 [History] Furosemide [Lasix] 60 mg PO BID 09/08/17 [History] Apixaban [Eliquis] 2.5 mg PO BID 05/11/18 [History] Ferrous Sulfate [Iron (65 MG Elemental)] 325 mg PO MOWEFR 05/11/18 [History] Insulin Glargine,Hum.rec.anlog [Lantus Solostar] 14 unit SQ DAILY@1730 05/11/18 [History] Metolazone [Zaroxolyn] 2.5 mg PO DAILY PRN 05/11/18 [History] Pantoprazole Sodium [Protonix] 40 mg PO DAILY 05/11/18 [History] Amiodarone [Cordarone] 200 mg PO BID tab 05/12/18 [Rx] Potassium Chloride [Klor-Con 20] 20 meq PO BID #0 05/12/18 [Rx] Follow up Appointment(s)/Referral(s): Kezia Alvarez MD [STAFF PHYSICIAN] - 1 Week (Office will call with follow up appointment.) Kishore Lucia DO [Primary Care Provider] - 05/19/18 3:20 pm (Friday) Patient Instructions/Handouts: Hypokalemia (DC), Pacemaker Generator Change (DC ) Activity/Diet/Wound Care/Special Instructions: Follow up with cardiology-pt needs generator change for pacemaker. Per Dr Frankel pt needs no scripts-already has Potassium & Amiodarone dose increased to BID. Discharge Disposition: HOME SELF-CARE
[2018-05-13] MEDS ORDERED: LEVOFLOXACIN 750 MG TAB PO SCH (09:00)
== END 2018-05-12 14:44 | disposition home or self-care (01) ==
LOC: EC 21:28 → 6SEL 05-11 01:15
PROVIDERS: ADMIT Hospitalist; ATTEND Hospitalist
DX: R53.1 Weakness (principal); R53.83 Other fatigue; T82.198A Other mechanical complication of other cardiac electronic device, initial encounter; I42.9 Cardiomyopathy, unspecified; E11.22 Type 2 diabetes mellitus with diabetic chronic kidney disease; N18.4 Chronic kidney disease, stage 4 (severe); E11.21 Type 2 diabetes mellitus with diabetic nephropathy; I48.1 Persistent atrial fibrillation; R82.71 Bacteriuria; E78.5 Hyperlipidemia, unspecified; G25.81 Restless legs syndrome; Z95.810 Presence of automatic (implantable) cardiac defibrillator; I50.22 Chronic systolic (congestive) heart failure; I48.0 Paroxysmal atrial fibrillation; I13.0 Hypertensive heart and chronic kidney disease with heart failure and stage 1 through stage 4 chronic kidney disease, or unspecified chronic kidney disease; I27.20 Pulmonary hypertension, unspecified; I47.2 Ventricular tachycardia; I05.9 Rheumatic mitral valve disease, unspecified; R11.2 Nausea with vomiting, unspecified; R20.0 Anesthesia of skin; R20.2 Paresthesia of skin; Z90.49 Acquired absence of other specified parts of digestive tract; Z80.8 Family history of malignant neoplasm of other organs or systems; Z82.3 Family history of stroke; Z79.4 Long term (current) use of insulin; Z79.82 Long term (current) use of aspirin; Z79.899 Other long term (current) drug therapy; Z79.01 Long term (current) use of anticoagulants; Z88.1 Allergy status to other antibiotic agents; Z88.0 Allergy status to penicillin; Z88.8 Allergy status to other drugs, medicaments and biological substances; E66.9 Obesity, unspecified; Z68.29 Body mass index [BMI] 29.0-29.9, adult
CPT/HCPCS: 99285; 96365 ×2; 96361 ×2; 96366 ×2; 36415; 94760; 93005; 93306; 97162; 97166; 83880; 80053; 80048 ×2; 84443; 82550; 82553; 83605; 83735 ×2; 84484 ×2; 85025 ×2; 85610; 85730; 81001; 83036; 71045; G0378 ×2; J1956

== ENCOUNTER → 2018-06-12 | Outpatient (CLI) | payer MEDICARE ==
--- NOTE | 2018-06-16 12:09 | MM ---
Reason for exam: screening (asymptomatic). Last mammogram was performed 1 year and 1 month ago. History: Patient is postmenopausal. Benign US biopsy breast VAD RT of the right breast, May 18, 2014. Benign right US cyst aspiration of the right breast, January 18, 2008. Benign right mammotome panel of the right breast, December 08, 2006. Took hormonal contraceptives for 1 year 6 months beginning at age 25. Physical Findings: A clinical breast exam by your physician is recommended on an annual basis and results should be correlated with mammographic findings. MG 3D Screening Mammo W/Cad Bilateral CC and MLO view(s) were taken. Prior study comparison: May 22, 2017, bilateral MG 3d diag mammo w/cad [place]. April 25, 2016, bilateral MG 3d screening mammo w/cad. The breast tissue is heterogeneously dense. This may lower the sensitivity of mammography. Previous mammotome biopsy in the right breast x 2. There is chronic nodularity bilaterally. No significant changes when compared with prior studies. ASSESSMENT: Benign, BI-RAD 2 RECOMMENDATION: Routine screening mammogram of both breasts in 1 year.
== END | disposition home or self-care (01) ==
LOC: RADMAMWWP 09:10
PROVIDERS: ATTEND Family Medicine
DX: Z12.31 Encounter for screening mammogram for malignant neoplasm of breast (principal)
CPT/HCPCS: 77063; 77067

== ENCOUNTER 2018-07-02 07:53 | Day surgery (SDC) | payer MEDICARE ==
[~2018-07-02 07:53] MED LIST: CLINDAMYCIN 600 MG in DEXTROSE 5% IN WATER 50 ML IVPB STA; MIDAZOLAM 2 MG/2 ML VIAL IV PRN; fentaNYL (PF) 50 MCG/ML 2 ML AMP IV PRN
[2018-07-02 08:35] LABS: Glucose,Whole Blood 145 mg/dL (75-99)
[2018-07-02] MEDS ORDERED: CLINDAMYCIN 600 MG in SODIUM CHLORIDE 0.9% IRRIGATIO 250 ML IRRIGATION ONE (08:49)
[2018-07-02] MEDS ORDERED: SODIUM CHLORIDE 0.9% 1,000 ML IV ONE (08:55)
[2018-07-02] MEDS ORDERED: CLINDAMYCIN 900 MG in DEXTROSE 5% IN WATER 50 ML IVPB ONE ×2 (09:00)
[2018-07-02] MEDS ORDERED: MIDAZOLAM 2 MG/2 ML VIAL ONE (09:55)
[2018-07-02] MEDS ORDERED: ePHEDrine SULFATE/0.9% NACL/PF 50 MG/5 ML SYRINGE IV ONE (09:55)
[2018-07-02] MEDS ORDERED: PROPOFOL 10 MG/ML 20 ML VIAL IV ONE (09:55)
[2018-07-02] MEDS ORDERED: fentaNYL (PF) 50 MCG/ML 2 ML AMP ONE (09:55)
[2018-07-02] MEDS ORDERED: LIDOCAINE 1% INJ 10MG/ML (20 ML MDV) ONE (10:20)
[2018-07-02] MEDS ORDERED: LIDOCAINE 1% INJ 10MG/ML (20 ML MDV) SQ ONE ×2 (10:25→10:29)
[2018-07-02] MEDS ORDERED: HYDROcodone/APAP 5-325MG 1 EACH TAB PO PRN (11:13)
[2018-07-02] MEDS ORDERED: ACETAMINOPHEN TAB 325 MG TAB PO PRN (11:13)
[2018-07-02] MEDS ORDERED: METOLAZONE 2.5 MG TAB PO PRN (11:16)
--- NOTE | 2018-07-02 11:45 | PCN ---
PROCEDURE NOTE Andreia Wasserman is a 78-year-old female who has a biventricular ICD implanted for cardiomyopathy and underlying left bundle branch block, many years back which is at [facility]. She is brought in for a biventricular ICD generator change. Patient is brought to the EP lab in a fasting state. Written informed consent was obtained prior to the procedure. The left shoulder area was prepped and draped as per protocol; 1% lidocaine was used for local anesthesia. A 4 cm incision was made directly over the previous surgical site and carried down to the level of the generator. The old generator was explanted. This was a [employer] SmartFocus model number H225, serial #[id number], normal battery depletion. The new generator implanted was a MACHINE [employer] CEMENTER-D model number G154, serial #[id number]. The leads were interrogated and were functioning normally. The patient was then in atrial fibrillation. The right atrial sensing was 0.8 mV. Pacing impedance 536 ohms, RV sensing 4 mV. Pacing threshold 1 V at 0.5 milliseconds, pacing impedance of 396 ohms. LV sensing 25 mV. Pacing threshold 0.6 V at 0.5 milliseconds, pacing impedance of 724 ohms. Shocking impedance 35 ohms. The device was then programmed to VVIR at 60-120 ppm with an LV offset of 20 milliseconds, made it RIT tachy programming programmed. The patient tolerated the procedure well without any acute complications. PLAN: IV antibiotics and discharged home tomorrow. Follow up in the Device Clinic in 5 days. MMODL / IJN: [id number] /
[2018-07-02] MEDS ORDERED: ACETAMINOPHEN IV (For NPO) 1,000 MG in EMPTY BAG 1 BAG IVPB ONE (15:00)
[2018-07-02 17:10] LABS: Glucose,Whole Blood 136 mg/dL (75-99)
[2018-07-02] MEDS: LACTATED RINGERS 1,000 ML IV SCH (17:29)
[2018-07-02] MEDS: CARVEDILOL 12.5 MG TAB PO SCH (17:42)
[2018-07-02] MEDS: CLINDAMYCIN 900 MG in DEXTROSE 5% IN WATER 50 ML IVPB SCH ×4 (17:42→22:20)
[2018-07-02] MEDS: FUROSEMIDE 20 MG TAB PO SCH (17:42)
[2018-07-02] MEDS: INSULIN ASPART 100 UNIT/ML 1 ML 10 ML VIAL SQ SCH ×2 (18:07→20:16)
[2018-07-02] MEDS ORDERED: INSULIN DETEMIR 100 UNIT/ML 10 ML VIAL SQ SCH (20:00)
[2018-07-02] MEDS: PANTOPRAZOLE 40 MG TABLET PO SCH (20:08)
[2018-07-02] MEDS: APIXABAN 2.5 MG TABLET PO SCH (20:08)
[2018-07-02] MEDS: POTASSIUM CHLORIDE ER 20 MEQ TAB.ER PO SCH (20:08)
[2018-07-02] MEDS: AMIODARONE 200 MG TAB PO SCH (20:08)
[2018-07-02 20:16] LABS: Glucose,Whole Blood 131 mg/dL (75-99)
[2018-07-02] MEDS ORDERED: ATORVASTATIN 10 MG TAB PO SCH (21:00)
[2018-07-02] MEDS ORDERED: INSULIN ASPART 100 UNIT/ML 1 ML 10 ML VIAL SQ SCH (21:00)
[2018-07-02] MEDS ORDERED: PRAMIPEXOLE 0.125 MG TAB PO SCH (21:00)
[2018-07-03] MEDS: CLINDAMYCIN 900 MG in DEXTROSE 5% IN WATER 50 ML IVPB SCH ×4 (04:15→09:38)
[2018-07-03] MEDS ORDERED: ONDANSETRON 4 MG/2 ML VIAL IVP PRN (05:06)
[2018-07-03] MEDS: FUROSEMIDE 20 MG TAB PO SCH ×2 (06:10→09:38)
[2018-07-03 06:47] LABS: Glucose,Whole Blood 118 mg/dL (75-99)
[2018-07-03 07:37] VITALS: RESP 16
--- NOTE | 2018-07-03 08:24 | P.DS ---
Providers Attending physician: Aguila Black Primary care physician: [facility] Course: Patient is doing well. A little nausea after the antibiotics were otherwise no chest discomfort dizziness lightheadedness. She is resting comfortably in bed. ICD site is healed well there is no hematoma Afebrile 97.7F pulse rate in the 60s, blood pressure 102/70 mmHg Breath sounds are clear Heart sounds are normal Rhythm is irregular Impression Status post bilateral total ICD generator change for device at [place], normal battery depletion in this lady with a history of ventricular tachycardia, persistent atrial fibrillation and cardio myopathy which is severe with class 1- 2 heart failure. Left ventricular ejection fraction is less than 20-25% Plan discharge home after completion of IV antiemetics and pacemaker clinic follow-up in one week Patient Condition at Discharge: Stable Plan - Discharge Summary Discharge Rx Participant: Yes New Discharge Prescriptions: New RX: Amiodarone [Cordarone] 200 mg PO DAILY #90 tab Discontinued RX: Amiodarone [Cordarone] 200 mg PO BID tab No Action RX: Cyanocobalamin [Vitamin B-12] 2,500 mcg PO DAILY RX: Cholecalciferol [Vitamin D3] 1,000 unit PO DAILY RX: Multivitamins, Thera [Multivitamin (formulary)] 1 tab PO DAILY RX: Aspirin EC [Ecotrin Low Dose] 81 mg PO DAILY RX: [place]-3 Fatty Acids/Fish Oil [Fish Oil 1,000 mg Softgel] 1 cap PO BID RX: Atorvastatin [Lipitor] 10 mg PO HS #30 tab RX: Carvedilol [Coreg] 12.5 mg PO BID RX: Furosemide [Lasix] 60 mg PO BID RX: Insulin Glargine,Hum.rec.anlog [Lantus Solostar] 8 unit SQ DAILY@1999 RX: Pantoprazole Sodium [Protonix] 40 mg PO BID RX: Metolazone [Zaroxolyn] 2.5 mg PO DAILY PRN PRN Reason: Edema RX: Apixaban [Eliquis] 2.5 mg PO BID RX: Ferrous Sulfate [Iron (65 MG Elemental)] 325 mg PO MOWEFR RX: Potassium Chloride [Klor-Con 20] 20 meq PO BID #0 Pramipexole [Mirapex] 0.125 mg PO HS Insulin Aspart [Novolog] 2 unit SQ TID-W/MEALS Discharge Medication List RX: Aspirin EC [Ecotrin Low Dose] 81 mg PO DAILY 01/01/15 [History] RX: Cholecalciferol [Vitamin D3] 1,000 unit PO DAILY 01/01/15 [History] RX: Cyanocobalamin [Vitamin B-12] 2,500 mcg PO DAILY 01/01/15 [History] RX: Multivitamins, Thera [Multivitamin (formulary)] 1 tab PO DAILY 01/01/15 [ History] RX: [place]-3 Fatty Acids/Fish Oil [Fish Oil 1,000 mg Softgel] 1 cap PO BID [History] RX: Atorvastatin [Lipitor] 10 mg PO HS #30 tab 08/21/15 [Rx] RX: Carvedilol [Coreg] 12.5 mg PO BID 10/06/15 [History] RX: Furosemide [Lasix] 60 mg PO BID 09/08/17 [History] RX: Apixaban [Eliquis] 2.5 mg PO BID 05/11/18 [History] RX: Ferrous Sulfate [Iron (65 MG Elemental)] 325 mg PO MOWEFR 05/11/18 [History] RX: Insulin Glargine,Hum.rec.anlog [Lantus Solostar] 8 unit SQ DAILY@1999 [History] RX: Metolazone [Zaroxolyn] 2.5 mg PO DAILY PRN 05/11/18 [History] RX: Pantoprazole Sodium [Protonix] 40 mg PO BID 05/11/18 [History] RX: Potassium Chloride [Klor-Con 20] 20 meq PO BID #0 05/12/18 [Rx] Insulin Aspart [Novolog] 2 unit SQ TID-W/MEALS 06/25/18 [History] Pramipexole [Mirapex] 0.125 mg PO HS 06/25/18 [History] RX: Amiodarone [Cordarone] 200 mg PO DAILY #90 tab 07/02/18 [Rx] Follow up Appointment(s)/Referral(s): Aguila Black MD [STAFF PHYSICIAN] - As Needed Kezia Alvarez MD [STAFF PHYSICIAN] - 1 Week (Device clinic follow-up in 5 days Follow-up with Dr. Dr. Alvarez as previously scheduled or the within the next 3 months No follow-up with Dr. Sanches at this time) Activity/Diet/Wound Care/Special Instructions: Keep wound dry for 5 days Reduce amiodarone dose to 200 mg by mouth daily. No change in any other medications Device clinic follow-up in 5 days Follow-up with Dr. Dr. Alvarez as previously scheduled all within the next 3 months Discharge Disposition: HOME SELF-CARE
[2018-07-03] MEDS ORDERED: ASPIRIN 81 MG PO SCH (09:00)
[2018-07-03] MEDS: LACTATED RINGERS 1,000 ML IV SCH (09:28)
[2018-07-03] MEDS: INSULIN ASPART 100 UNIT/ML 1 ML 10 ML VIAL SQ SCH ×2 (09:29→12:56)
[2018-07-03 09:34] VITALS: BMI 28.8
[2018-07-03] MEDS: AMIODARONE 200 MG TAB PO SCH (09:37)
[2018-07-03] MEDS: APIXABAN 2.5 MG TABLET PO SCH (09:37)
[2018-07-03] MEDS: PANTOPRAZOLE 40 MG TABLET PO SCH (09:37)
[2018-07-03] MEDS: CARVEDILOL 12.5 MG TAB PO SCH (09:37)
[2018-07-03] MEDS: POTASSIUM CHLORIDE ER 20 MEQ TAB.ER PO SCH (09:38)
[2018-07-03 11:34] VITALS: BP 95/66; PULSE 66; TEMP 97.9
[2018-07-03 12:14] LABS: Glucose,Whole Blood 128 mg/dL (75-99)
== END 2018-07-03 13:20 | disposition home or self-care (01) ==
LOC: CATHEP 07:53 → 3OBS 14:06 → CATHEP 07-03 13:20
PROVIDERS: ATTEND Internal Medicine Clinical Cardiac Electrophysiology
DX: I42.8 Other cardiomyopathies (principal); I44.7 Left bundle-branch block, unspecified; Z45.02 Encounter for adjustment and management of automatic implantable cardiac defibrillator; I47.2 Ventricular tachycardia; I48.1 Persistent atrial fibrillation; Z79.01 Long term (current) use of anticoagulants; I11.0 Hypertensive heart disease with heart failure; I50.9 Heart failure, unspecified; E78.5 Hyperlipidemia, unspecified; E11.9 Type 2 diabetes mellitus without complications; Z79.84 Long term (current) use of oral hypoglycemic drugs; Z79.82 Long term (current) use of aspirin; Z79.899 Other long term (current) drug therapy; Z88.1 Allergy status to other antibiotic agents; Z88.0 Allergy status to penicillin; Z88.8 Allergy status to other drugs, medicaments and biological substances
CPT/HCPCS: 33264; C1882; J2250; J2405; J2001; J3010; J2704

== ENCOUNTER → 2018-07-29 | Outpatient (CLI) | payer MEDICARE ==
--- NOTE | 2018-07-29 12:23 | XR ---
EXAMINATION TYPE: XR knee complete RT DATE OF EXAM: 07/29/2018 COMPARISON: NONE HISTORY: 78 year-old female right knee pain after fall last week TECHNIQUE: 3 views FINDINGS: There is a right total knee arthroplasty present. Old distal femoral proximal tibial components of th e prosthesis appear well seated. No periprosthetic fracture. No significant knee joint effusion seen. IMPRESSION: Uncomplicated appearance to the right total knee arthroplasty.
== END | disposition home or self-care (01) ==
LOC: RADXRYALE 11:15
PROVIDERS: ATTEND Physician Assistant Medical
DX: M25.561 Pain in right knee (principal); Z96.651 Presence of right artificial knee joint

== ENCOUNTER 2018-08-11 06:33 | Day surgery (SDC) | payer MEDICARE ==
[2018-08-06 11:09] VITALS: BMI 27.9
[~2018-08-11 06:33] MED LIST changes: -CLINDAMYCIN 600 MG in DEXTROSE 5% IN WATER 50 ML IVPB STA; +LACTATED RINGERS 1,000 ML IV SCH; -MIDAZOLAM 2 MG/2 ML VIAL IV PRN; -fentaNYL (PF) 50 MCG/ML 2 ML AMP IV PRN
[2018-08-11 06:58] VITALS: RESP 16; TEMP 98
[2018-08-11 07:19] LABS: Glucose,Whole Blood 161 mg/dL (75-99)
[2018-08-11] MEDS ORDERED: LIDOCAINE 1% INJ 10MG/ML (20 ML MDV) ONE (08:03)
[2018-08-11] MEDS ORDERED: PROPOFOL 10 MG/ML 20 ML VIAL IV ONE (08:03)
[2018-08-11 08:58] VITALS: BP 94/59; PULSE 67
--- NOTE | 2018-08-11 09:22 | P.PCN ---
Date of Procedure: 08/11/18 Procedure(s) Performed: Procedure: Esophagogastroduodenoscopy and biopsy. Preoperative diagnosis: Nausea and vomiting. Postoperative diagnosis: 1. Small sliding hiatal hernia with no obvious esophagitis or complicated reflux disease. 2. Mild antral gastritis. 3. Multiple biopsies obtained from the duodenum, antrum and esophagus. Preparation and sedation: Was provided by anesthesia. Brief clinical history: The patient is a 78-year-old female who is scheduled for this evaluation because of recent onset of nausea and vomiting. She denies hematemesis or melena. No dysphagia or odynophagia. She has been on Protonix. No weight loss or other alarm symptoms. This evaluation is to assess for peptic ulcer disease or other pathology. Procedure: With the patient on her left lateral decubitus position and after informed consent and adequate sedation, the Olympus-GIF H190 video upper endoscope was passed through the cricopharyngeus down the esophagus. The esophagus appeared healthy with no obvious erosions, ulcers, strictures or Francisco's esophagus. GE junction was around 42 cm from the incisors and there was a small sliding hiatal hernia. The endoscope was then passed into the stomach which was insufflated with air and inspected in detail including the retroflex view in the cardia. There was minimal mottling and erythema in the antrum but no ulcers or erosions. Pyloric channel, duodenal bulb, post bulbar area and descending duodenum appeared within normal limits. Because of her symptoms, I obtained biopsies from the duodenum, antrum and esophagus then the endoscope was withdrawn. The patient tolerated the procedure well. Plan: The patient was reassured. Will continue symptomatic treatment will await biopsy results. Further plans based on her course and biopsy results. She will follow-up with you as planned and I will be happy to see in the office if her symptoms persist.
== END 2018-08-11 09:29 | disposition home or self-care (01) ==
LOC: ORWHC2ENDO 06:33
DX: K21.0 Gastro-esophageal reflux disease with esophagitis (principal); K29.50 Unspecified chronic gastritis without bleeding; K31.9 Disease of stomach and duodenum, unspecified; K44.9 Diaphragmatic hernia without obstruction or gangrene; I11.0 Hypertensive heart disease with heart failure; I50.9 Heart failure, unspecified; I48.91 Unspecified atrial fibrillation; I42.9 Cardiomyopathy, unspecified; I47.2 Ventricular tachycardia; E11.9 Type 2 diabetes mellitus without complications; E78.5 Hyperlipidemia, unspecified; N28.9 Disorder of kidney and ureter, unspecified; E07.9 Disorder of thyroid, unspecified; Z95.810 Presence of automatic (implantable) cardiac defibrillator; Z79.899 Other long term (current) drug therapy; Z79.01 Long term (current) use of anticoagulants; Z79.82 Long term (current) use of aspirin; Z79.890 Hormone replacement therapy; Z79.4 Long term (current) use of insulin; Z88.3 Allergy status to other anti-infective agents; Z88.0 Allergy status to penicillin; Z88.8 Allergy status to other drugs, medicaments and biological substances
CPT/HCPCS: 88305; 43239; J2001; J2704

== ENCOUNTER 2018-09-09 10:41 | Inpatient (IN) | payer MEDICARE ==
[2018-09-09] MEDS ORDERED: SODIUM CHLORIDE 0.9% 500 ML 500 ML IV STA (11:09)
--- NOTE | 2018-09-09 11:16 | ED ---
General Adult HPI - General Chief complaint: Shortness of Breath Stated complaint: SOB Time Seen by Provider: 09/09/18 10:45 Source: patient, RN notes reviewed Mode of arrival: wheelchair Limitations: no limitations - History of Present Illness Initial comments: This is a 78-year-old female who presents emergency Department complaining of shortness of breath over the last 10 days. Patient states his been getting progressively worse. Patient states she thought she gained a little weight but hasn't noticed much edema to her legs. Patient denies any fever chills or cough. Patient denies any chest pain or palpitations. Patient denies any calf tenderness. Patient denies any abdominal pain patient denies any nausea vomiting diarrhea. Patient denies any black or bloody stools. Patient denies a history of anemia. - Related Data Home Medications Medication Instructions Recorded Confirmed Aspirin EC [Ecotrin Low Dose] 81 mg PO DAILY 01/01/15 09/09/18 Cholecalciferol [Vitamin D3] 1,000 unit PO DAILY 01/01/15 09/09/18 Multivitamins, Thera [Multivitamin 1 tab PO DAILY 01/01/15 09/09/18 (formulary)] [place]-3 Fatty Acids/Fish Oil [Fish 1 cap PO BID 03/27/15 09/09/18 Oil 1,000 mg Softgel] Carvedilol [Coreg] 12.5 mg PO BID 10/06/15 09/09/18 Furosemide [Lasix] 60 mg PO BID 09/08/17 09/09/18 Apixaban [Eliquis] 2.5 mg PO BID 05/11/18 09/09/18 Ferrous Sulfate [Iron (65 MG 325 mg PO MOWEFR 05/11/18 09/09/18 Elemental)] Metolazone [Zaroxolyn] 2.5 mg PO DAILY PRN 05/11/18 09/09/18 Pramipexole [Mirapex] 0.25 tab PO HS 06/25/18 09/09/18 Insulin Aspart [NovoLOG] 0 units SQ AC-TID 08/06/18 09/09/18 Levothyroxine Sodium [Synthroid] 50 mcg PO DAILY 08/06/18 09/09/18 Pantoprazole Sodium [Protonix] 40 mg PO BID 08/06/18 09/09/18 Amiodarone [Cordarone] 200 mg PO TID 09/09/18 09/09/18 Cyanocobalamin (Vitamin B-12) 2,500 mg PO DAILY 09/09/18 09/09/18 [Vitamin B12] Insulin Glargine,Hum.rec.anlog 10 unit SQ 199909/09/18 09/09/18 [Lantus Solostar] Previous Rx's Medication Instructions Recorded Atorvastatin [Lipitor] 10 mg PO HS #30 tab 08/21/15 Potassium Chloride [Klor-Con 20] 20 meq PO BID #0 05/12/18 Allergies Allergy/AdvReac Type Severity Reaction Status Date / Time nitrofurantoin Allergy Unknown Rash/Hives Verified 09/09/18 11:48 [From Macrobid] nitrofurantoin Allergy Unknown Rash/Hives Verified 09/09/18 11:48 macrocrystalline [From Macrobid] cefuroxime Allergy Rash/Hives Verified 09/09/18 11:48 Penicillins Allergy Rash/Hives Verified 09/09/18 11:48 Review of Systems ROS Statement: Those systems with pertinent positive or pertinent negative responses have been documented in the HPI. ROS Other: All systems not noted in ROS Statement are negative. Past Medical History Past Medical History: Atrial Fibrillation, Chest Pain / Angina, Heart Failure, Diabetes Mellitus, Hyperlipidemia, Hypertension, Renal Disease Additional Past Medical History / Comment(s): Pt recently admitted to [facility] on with acute on chronic CHF, intermittent nonsustained Vtach. Other hx: severe nonischemic cardiomyopathy, cardiac valvular disease-mitral and tricuspid with seveere pulmonary HTN, NIDDM type II, numbness/tingling bilateral feet/toes, chronic kidney disease stage III. History of Any Multi-Drug Resistant Organisms: None Reported Past Surgical History: AICD, Appendectomy, Section, Cholecystectomy, Hernia Repair, Hysterectomy, Tonsillectomy, Tubal Ligation Additional Past Surgical History / Comment(s): ARMAND/CVN, bilateral knee replacements, colonoscopy, bilateral cataract removal, Past Anesthesia/Blood Transfusion Reactions: No Reported Reaction Type of Cardiac Device: Permanent Pacemaker, AICD Device Placement Date:: 2004, 07/2011, 06/2018 Past Psychological History: No Psychological Hx Reported Smoking Status: Never smoker Past Alcohol Use History: None Reported Past Drug Use History: None Reported - Past Family History Father Family Medical History: Cancer Additional Family Medical History / Comment(s): THROAT CA and of this at the age of 59yrs. Mother Family Medical History: CVA/TIA, Diabetes Mellitus Additional Family Medical History / Comment(s): Mother had a CVA. She lived to be 73 yrs old. General Exam - General Exam Comments Initial Comments: GENERAL: Patient is well-developed and well-nourished. Patient is nontoxic and well- hydrated and is in mild distress. ENT: Neck is soft and supple. No significant lymphadenopathy is noted. Oropharynx is clear. Moist mucous membranes. Neck has full range of motion without eliciting any pain. EYES: The sclera were anicteric and conjunctiva were pink and moist. Extraocular movements were intact and pupils were equal round and reactive to light. Eyelids were unremarkable. PULMONARY: Unlabored respirations. Good breath sounds bilaterally. No audible rales rhonchi or wheezing was noted. CARDIOVASCULAR: There is a regular rate and rhythm without any murmurs gallops or rubs. ABDOMEN: Soft and nontender with normal bowel sounds. No palpable organomegaly was noted. There is no palpable pulsatile mass. SKIN: Skin is clear with no lesions or rashes and otherwise unremarkable. NEUROLOGIC: Patient is alert and oriented x3. Cranial nerves II through XII are grossly intact. Motor and sensory are also intact. Normal speech, volume and content. Symmetrical smile. MUSCULOSKELETAL: Normal extremities with adequate strength and full range of motion. No edema bilaterally LYMPHATICS: No significant lymphadenopathy is noted PSYCHIATRIC: Normal psychiatric evaluation. Limitations: no limitations Course Vital Signs 09/09/18 09/09/18 09/09/18 10:46 11:07 11:46 Temperature 97.6 F Pulse Rate 67 74 Respiratory 18 18 18 Rate Blood Pressure 94/60 100/59 O2 Sat by Pulse 95 100 Oximetry Medical Decision Making - Medical Decision Making EKG shows a ventricular paced rhythm with occasional PVC at 72 bpm dresses 2:30 QT interval 550 QTC is 602. Chest x-ray shows some pulmonary edema. I started the patient on Lasix. Patient's troponin was mildly elevated. I spoke with the physician hospitalist and admitted the patient wrote admitting orders and consult cardiology. Patient's d-dimer was elevated but was already on eliquis I did not scan the patient was the patient could not have a CAT scan secondary to the elevated creatinine - Lab Data Result diagrams: 09/09/18 10:59 09/09/18 10:59 Lab Results 09/09/18 09/09/18 09/09/18 Range/Units 10:59 10:59 10:59 WBC 9.8 (3.8-10.6) k/uL RBC 4.21 (3.80-5.40) m/uL Hgb 10.3 L (11.4-16.0) gm/dL Hct 33.8 L (34.0-46.0) % MCV 80.3 (80.0-100.0) fL MCH 24.5 L (25.0-35.0) pg MCHC 30.5 L (31.0-37.0) g/dL RDW 17.9 H (11.5-15.5) % Plt Count 293 (150-450) k/uL Neutrophils % 79 % Lymphocytes % 7 % Monocytes % 9 % Eosinophils % 1 % Basophils % 0 % Neutrophils # 7.7 (1.3-7.7) k/uL Lymphocytes # 0.7 L (1.0-4.8) k/uL Monocytes # 0.9 (0-1.0) k/uL Eosinophils # 0.1 (0-0.7) k/uL Basophils # 0.0 (0-0.2) k/uL Manual Slide Review Performed Polychromasia Present Hypochromasia Marked Poikilocytosis (manual Present Anisocytosis Slight Microcytosis Slight Target Cells Present Ovalocytes Present Fragmented RBCs Present PT (9.0-12.0) sec INR (<1.2) APTT (22.0-30.0) sec D-Dimer (<0.60) mg/L FEU Sodium 136 L (137-145) mmol/L Potassium 4.2 (3.5-5.1) mmol/L Chloride 95 L (98-107) mmol/L Carbon Dioxide 28 (22-30) mmol/L Anion Gap 13 mmol/L BUN 87 H (7-17) mg/dL Creatinine 2.31 H (0.52-1.04) mg/dL Est GFR (CKD-EPI)AfAm 23 (>60 ml/min/1.73 sqM) Est GFR (CKD-EPI)NonAf 20 (>60 ml/min/1.73 sqM) Glucose 178 H (74-99) mg/dL Calcium 9.2 (8.4-10.2) mg/dL Magnesium 2.3 (1.6-2.3) mg/dL Total Bilirubin 1.6 H (0.2-1.3) mg/dL AST 218 H (14-36) U/L ALT 210 H (9-52) U/L Alkaline Phosphatase 75 (38-126) U/L Total Creatine Kinase 44 (30-135) U/L CK-MB (CK-2) 1.5 (0.0-2.4) ng/mL CK-MB (CK-2) Rel Index 3.4 Troponin I 0.040 H* (0.000-0.034) ng/mL NT-Pro-B Natriuret Pep pg/mL Total Protein 6.3 (6.3-8.2) g/dL Albumin 3.6 (3.5-5.0) g/dL 09/09/18 09/09/18 Range/Units 10:59 10:59 WBC (3.8-10.6) k/uL RBC (3.80-5.40) m/uL Hgb (11.4-16.0) gm/dL Hct (34.0-46.0) % MCV (80.0-100.0) fL MCH (25.0-35.0) pg MCHC (31.0-37.0) g/dL RDW (11.5-15.5) % Plt Count (150-450) k/uL Neutrophils % % Lymphocytes % % Monocytes % % Eosinophils % % Basophils % % Neutrophils # (1.3-7.7) k/uL Lymphocytes # (1.0-4.8) k/uL Monocytes # (0-1.0) k/uL Eosinophils # (0-0.7) k/uL Basophils # (0-0.2) k/uL Manual Slide Review Polychromasia Hypochromasia Poikilocytosis (manual Anisocytosis Microcytosis Target Cells Ovalocytes Fragmented RBCs PT 13.9 H (9.0-12.0) sec INR 1.5 H (<1.2) APTT 24.2 (22.0-30.0) sec D-Dimer 0.89 H (<0.60) mg/L FEU Sodium (137-145) mmol/L Potassium (3.5-5.1) mmol/L Chloride (98-107) mmol/L Carbon Dioxide (22-30) mmol/L Anion Gap mmol/L BUN (7-17) mg/dL Creatinine (0.52-1.04) mg/dL Est GFR (CKD-EPI)AfAm (>60 ml/min/1.73 sqM) Est GFR (CKD-EPI)NonAf (>60 ml/min/1.73 sqM) Glucose (74-99) mg/dL Calcium (8.4-10.2) mg/dL Magnesium (1.6-2.3) mg/dL Total Bilirubin (0.2-1.3) mg/dL AST (14-36) U/L ALT (9-52) U/L Alkaline Phosphatase (38-126) U/L Total Creatine Kinase (30-135) U/L CK-MB (CK-2) (0.0-2.4) ng/mL CK-MB (CK-2) Rel Index Troponin I (0.000-0.034) ng/mL NT-Pro-B Natriuret Pep 13185 pg/mL Total Protein (6.3-8.2) g/dL Albumin (3.5-5.0) g/dL Disposition Clinical Impression: Dyspnea, Pulmonary edema, Elevated troponin Disposition: ADMITTED IP TO THIS HOSP Is patient prescribed a controlled substance at d/c from ED?: No Referrals: Kishore Lucia DO [Primary Care Provider] - 1-2 days Time of Disposition: 13:18
--- NOTE | 2018-09-09 11:51 | XR ---
EXAMINATION TYPE: XR chest 2V DATE OF EXAM: 09/09/2018 COMPARISON: 05/10/2018 INDICATION: Difficulty breathing TECHNIQUE: Frontal and lateral views of the chest are obtained. FINDINGS: The heart size is enlarged. The pulmonary vasculature is normal. There is a small right pleural effusion. Some adjacent infiltrate may be present. Mild left lower lob e infiltrate is present. Pacemaker overlies left chest.. IMPRESSION: 1. Bibasilar infiltrates. Correlate for atelectasis and pneumonia. 2. Small right pleural effusion.
[2018-09-09 11:55] LABS: Anisocytosis Slight; Basophils % (A) 0 %; Eosinophils # (A) 0.1 k/uL (0-0.7); Eosinophils % (A) 1 %; HCT 33.8 % (34.0-46.0); HGB 10.3 gm/dL (11.4-16.0); Hypochromasia Marked; Lymphocytes # (A) 0.7 k/uL (1.0-4.8); Lymphocytes % (A) 7 %; MCH 24.5 pg (25.0-35.0); MCHC 30.5 g/dL (31.0-37.0); MCV 80.3 fL (80.0-100.0); Mean Platelet Volume 8.7; Microcytosis Slight; Monocytes # (A) 0.9 k/uL (0-1.0); Monocytes % (A) 9 %; Neutrophils # (A) 7.7 k/uL (1.3-7.7); Neutrophils % (A) 79 %; Platelet Count 293 k/uL (150-450); RBC 4.21 m/uL (3.80-5.40); RDW 17.9 % (11.5-15.5); WBC 9.8 k/uL (3.8-10.6)
[2018-09-09 12:00] LABS: Albumin 3.6 g/dL (3.5-5.0); Calcium 9.2 mg/dL (8.4-10.2); Magnesium 2.3 mg/dL (1.6-2.3); Potassium 4.2 mmol/L (3.5-5.1); Total Bilirubin 1.6 mg/dL (0.2-1.3); Total Protein 6.3 g/dL (6.3-8.2)
[2018-09-09 12:04] LABS: INR 1.5 (<1.2); Partial Thromboplastin Time 24.2 sec (22.0-30.0); Prothrombin Time 13.9 sec (9.0-12.0)
[2018-09-09 12:12] LABS: D-Dimer 0.89 mg/L FEU (<0.60)
[2018-09-09 12:15] LABS: Ovalocytes Present; Poikilocytosis (M) Present; Polychromasia Present; RBC Fragments Present; Target Cells Present
[2018-09-09 12:23] LABS: Creatine Kinase MB 1.5 ng/mL (0.0-2.4)
[2018-09-09 12:35] LABS: Troponin I 0.04 ng/mL (0.000-0.034)
[2018-09-09] MEDS ORDERED: FUROSEMIDE 10 MG/ML 4 ML VIAL IV SCH ×2 (13:30→16:00)
[2018-09-09] MEDS ORDERED: METOLAZONE 2.5 MG TAB PO PRN (14:54)
--- NOTE | 2018-09-09 15:02 | P.HPIM ---
History of Present Illness Patient is a pleasant 78-year-old female came in with comments of generalized weakness tiredness on and off shortness of breath did not give a clear history of orthopnea and did complain of proximal nocturnal dyspnea couple days ago. Patient does have very poor ejection fraction and ischemic cardiomyopathy ejection fraction of 20-25% has an AICD in place. Patient is found to have bilateral pleural effusion highly elevated BNP does have elevated JVD doesn't have any pedal edema and did have weight gain. Does have history of atrial fibrillation on anticoagulation. Patient has mildly elevated d-dimer which is a nonspecific elevation will not need any further intervention regarding this patient does have chronic kidney disease stage IV baseline creatinine around 2. Patient is comparing of cough with whitish sputum production denied any fever chills. Patient does have elevated liver enzymes secondary to hepatic congestion most probably will repeat liver enzymes again tomorrow mildly elevated troponin of 0.040 and no new acute [address]-T wave changes on the EKG cardiology was consulted. Review of Systems REVIEW OF SYSTEMS: CONSTITUTIONAL: No fever, HEENT: No recent visual problems or hearing problems. Denied any sore throat. CARDIOVASCULAR: No chest pain, , no palpitations, no syncope. PULMONARY: no hemoptysis. GASTROINTESTINAL: No diarrhea, no nausea, no vomiting, no abdominal pain. Normoactive bowel sounds. NEUROLOGICAL: No headaches, no weakness, no numbness. HEMATOLOGICAL: Denies any bleeding or petechiae. GENITOURINARY: Denies any burning micturition, frequency, or urgency. MUSCULOSKELETAL/RHEUMATOLOGICAL: Denies any joint pain, swelling, or any muscle pain. ENDOCRINE: Denies any polyuria or polydipsia. The rest of the 14-point review of systems is negative. Past Medical History Past Medical History: Atrial Fibrillation, Chest Pain / Angina, Heart Failure, Diabetes Mellitus, Hyperlipidemia, Hypertension, Renal Disease Additional Past Medical History / Comment(s): Pt recently admitted to [facility] on with acute on chronic CHF, intermittent nonsustained Vtach. Other hx: severe nonischemic cardiomyopathy, cardiac valvular disease-mitral and tricuspid with seveere pulmonary HTN, NIDDM type II, numbness/tingling bilateral feet/toes, chronic kidney disease stage III. History of Any Multi-Drug Resistant Organisms: None Reported Past Surgical History: AICD, Appendectomy, Section, Cholecystectomy, Hernia Repair, Hysterectomy, Tonsillectomy, Tubal Ligation Additional Past Surgical History / Comment(s): ARMAND/CVN, bilateral knee replacements, colonoscopy, bilateral cataract removal, Past Anesthesia/Blood Transfusion Reactions: No Reported Reaction Type of Cardiac Device: Permanent Pacemaker, AICD Device Placement Date:: 2004, 07/2011, 06/2018 Past Psychological History: No Psychological Hx Reported Smoking Status: Never smoker Past Alcohol Use History: None Reported Past Drug Use History: None Reported - Past Family History Father Family Medical History: Cancer Additional Family Medical History / Comment(s): THROAT CA and of this at the age of 59yrs. Mother Family Medical History: CVA/TIA, Diabetes Mellitus Additional Family Medical History / Comment(s): Mother had a CVA. She lived to be 73 yrs old. Medications and Allergies Home Medications Medication Instructions Recorded Confirmed Type Aspirin EC [Ecotrin Low Dose] 81 mg PO DAILY 01/01/15 09/09/18 History Cholecalciferol [Vitamin D3] 1,000 unit PO DAILY 01/01/15 09/09/18 History Multivitamins, Thera [Multivitamin 1 tab PO DAILY 01/01/15 09/09/18 History (formulary)] [place]-3 Fatty Acids/Fish Oil [Fish 1 cap PO BID 03/27/15 09/09/18 History Oil 1,000 mg Softgel] Atorvastatin [Lipitor] 10 mg PO HS #30 tab 08/21/15 09/09/18 Rx Carvedilol [Coreg] 12.5 mg PO BID 10/06/15 09/09/18 History Furosemide [Lasix] 60 mg PO BID 09/08/17 09/09/18 History Apixaban [Eliquis] 2.5 mg PO BID 05/11/18 09/09/18 History Ferrous Sulfate [Iron (65 MG 325 mg PO MOWEFR 05/11/18 09/09/18 History Elemental)] Metolazone [Zaroxolyn] 2.5 mg PO DAILY PRN 05/11/18 09/09/18 History Potassium Chloride [Klor-Con 20] 20 meq PO BID #0 05/12/18 09/09/18 Rx Pramipexole [Mirapex] 0.25 tab PO HS 06/25/18 09/09/18 History Insulin Aspart [NovoLOG] 0 units SQ AC-TID 08/06/18 09/09/18 History Levothyroxine Sodium [Synthroid] 50 mcg PO DAILY 08/06/18 09/09/18 History Pantoprazole Sodium [Protonix] 40 mg PO BID 08/06/18 09/09/18 History Amiodarone [Cordarone] 200 mg PO TID 09/09/18 09/09/18 History Cyanocobalamin (Vitamin B-12) 2,500 mg PO DAILY 09/09/18 09/09/18 History [Vitamin B12] Insulin Glargine,Hum.rec.anlog 10 unit SQ 199909/09/18 09/09/18 History [Lantus Solostar] Allergies Allergy/AdvReac Type Severity Reaction Status Date / Time nitrofurantoin Allergy Unknown Rash/Hives Verified 09/09/18 11:48 [From Macrobid] nitrofurantoin Allergy Unknown Rash/Hives Verified 09/09/18 11:48 macrocrystalline [From Macrobid] cefuroxime Allergy Rash/Hives Verified 09/09/18 11:48 Penicillins Allergy Rash/Hives Verified 09/09/18 11:48 Physical Exam Vitals: Vital Signs Temp Pulse Resp BP Pulse Ox 09/09/18 11:46 74 18 100/59 100 09/09/18 11:07 18 09/09/18 10:46 97.6 F 67 18 94/60 95 Intake and Output 09/08/18 09/09/18 09/09/18 22:59 06:59 14:59 Other: Weight 79.832 kg PHYSICAL EXAMINATION: GENERAL: The patient is alert and oriented x3, not in any acute distress. Well developed, well nourished. HEENT: Pupils are round and equally reacting to light. EOMI. No scleral icterus. No conjunctival pallor. Normocephalic, atraumatic. No pharyngeal erythema. No thyromegaly. CARDIOVASCULAR: S1 and S2 present. No murmurs, rubs, or gallops. She does have elevated JVD PULMONARY: Chest is clear to auscultation, no wheezing or crackles. ABDOMEN: Soft, nontender, nondistended, normoactive bowel sounds. No palpable organomegaly. MUSCULOSKELETAL: No joint swelling or deformity. EXTREMITIES: No cyanosis, clubbing, or pedal edema. NEUROLOGICAL: Gross neurological examination did not reveal any focal deficits. SKIN: No rashes. Results CBC & Chem 7: 09/09/18 10:59 09/09/18 10:59 Labs: Abnormal Lab Results - Last 24 Hours (Table) 09/09/18 09/09/18 09/09/18 Range/Units 10:59 10:59 10:59 Hgb 10.3 L (11.4-16.0) gm/dL Hct 33.8 L (34.0-46.0) % MCH 24.5 L (25.0-35.0) pg MCHC 30.5 L (31.0-37.0) g/dL RDW 17.9 H (11.5-15.5) % Lymphocytes # 0.7 L (1.0-4.8) k/uL PT (9.0-12.0) sec INR (<1.2) D-Dimer (<0.60) mg/L FEU Sodium 136 L (137-145) mmol/L Chloride 95 L (98-107) mmol/L BUN 87 H (7-17) mg/dL Creatinine 2.31 H (0.52-1.04) mg/dL Glucose 178 H (74-99) mg/dL Total Bilirubin 1.6 H (0.2-1.3) mg/dL AST 218 H (14-36) U/L ALT 210 H (9-52) U/L Troponin I 0.040 H* (0.000-0.034) ng/mL 09/09/18 Range/Units 10:59 Hgb (11.4-16.0) gm/dL Hct (34.0-46.0) % MCH (25.0-35.0) pg MCHC (31.0-37.0) g/dL RDW (11.5-15.5) % Lymphocytes # (1.0-4.8) k/uL PT 13.9 H (9.0-12.0) sec INR 1.5 H (<1.2) D-Dimer 0.89 H (<0.60) mg/L FEU Sodium (137-145) mmol/L Chloride (98-107) mmol/L BUN (7-17) mg/dL Creatinine (0.52-1.04) mg/dL Glucose (74-99) mg/dL Total Bilirubin (0.2-1.3) mg/dL AST (14-36) U/L ALT (9-52) U/L Troponin I (0.000-0.034) ng/mL Assessment and Plan Plan: -Generalized headache shortness of breath with cough with whitish productive production: Probably secondary to congestive heart failure chronic systolic dysfunction with acute exacerbation patient takes 60 twice a day F oral Lasix with metolazone with dose will be resumed patient will be switched to IV 60 3 times a day of Lasix. Patient is presently not on any BHARGAVI inhibitor because of unsettled creatinine. -Chronic kidney disease stage IV with some acute renal failure secondary to heart failure exacerbation. Patient may have cardiorenal syndrome. Acute renal failure from heart failure is expected to improve with IV Lasix will repeat basic metabolic profile tomorrow -Elevated liver enzymes secondary to hepatic congestion from heart failure exacerbation expected to improve with diuresis -Atrial fibrillation presently rate controlled on anticoagulation with eliquis which will be continued. -Minimally elevated troponin which is a nonspecific elevation low suspicion for pulmonary embolism no further intervention at this time. -Severe ischemic cardiomyopathy next and happen coronary artery disease -Hyperlipidemia - mild elevated troponin secondary to chronic kidney disease and congestive heart failure -CODE STATUS DO NOT RESUSCITATE discussed the patient, although patient has an AICD
[2018-09-09 17:07] LABS: Glucose,Whole Blood 132 mg/dL (75-99)
[2018-09-09] MEDS: FUROSEMIDE 10 MG/ML 10 ML VIAL IV SCH ×2 (17:26→23:05)
[2018-09-09] MEDS: AMIODARONE 200 MG TAB PO SCH ×2 (17:26→21:08)
[2018-09-09] MEDS: INSULIN ASPART 100 UNIT/ML 1 ML 10 ML VIAL SQ SCH ×2 (17:38→21:09)
[2018-09-09] MEDS: CARVEDILOL 12.5 MG TAB PO SCH (17:38)
[2018-09-09] MEDS: NITROGLYCERIN OINT 1 INCH/GM PACKET TOPICAL SCH ×2 (17:39→21:09)
[2018-09-09 20:55] LABS: Glucose,Whole Blood 234 mg/dL (75-99)
[2018-09-09] MEDS: PRAMIPEXOLE 0.25 MG TAB PO SCH (21:08)
[2018-09-09] MEDS: FAMOTIDINE 20 MG TAB PO SCH (21:08)
[2018-09-09] MEDS: APIXABAN 2.5 MG TABLET PO SCH (21:09)
[2018-09-09] MEDS: ATORVASTATIN 10 MG TAB PO SCH (21:09)
[2018-09-10 06:11] LABS: Glucose,Whole Blood 172 mg/dL (75-99)
[2018-09-10 06:23] LABS: Anisocytosis Slight; HCT 31.1 % (34.0-46.0); HGB 9.5 gm/dL (11.4-16.0); Hypochromasia Marked; MCH 24.5 pg (25.0-35.0); MCHC 30.6 g/dL (31.0-37.0); MCV 79.8 fL (80.0-100.0); Microcytosis Slight; Platelet Count 269 k/uL (150-450); Poikilocytosis Slight; RDW 17.9 % (11.5-15.5); WBC 9.2 k/uL (3.8-10.6)
[2018-09-10] MEDS: CARVEDILOL 12.5 MG TAB PO SCH (06:41)
[2018-09-10] MEDS: LEVOTHYROXINE 50 MCG TAB PO SCH (06:41)
[2018-09-10] MEDS: INSULIN ASPART 100 UNIT/ML 1 ML 10 ML VIAL SQ SCH ×4 (06:41→21:04)
[2018-09-10 06:45] LABS: Albumin 3.2 g/dL (3.5-5.0); Calcium 9.1 mg/dL (8.4-10.2); Potassium 3.5 mmol/L (3.5-5.1); Total Bilirubin 1.4 mg/dL (0.2-1.3); Total Protein 5.7 g/dL (6.3-8.2)
[2018-09-10] MEDS: FUROSEMIDE 10 MG/ML 10 ML VIAL IV SCH ×3 (08:20→23:49)
[2018-09-10] MEDS: NITROGLYCERIN OINT 1 INCH/GM PACKET TOPICAL SCH ×4 (08:21→21:08)
[2018-09-10] MEDS: FAMOTIDINE 20 MG TAB PO SCH (08:21)
[2018-09-10] MEDS: ASPIRIN 81 MG PO SCH (08:21)
[2018-09-10] MEDS: APIXABAN 2.5 MG TABLET PO SCH ×2 (08:21→21:08)
[2018-09-10] MEDS: AMIODARONE 200 MG TAB PO SCH ×3 (08:21→21:08)
--- NOTE | 2018-09-10 10:28 | P.PN ---
Subjective 78-year-old female admitted with shortness of breath secondary to COPD exacerbation patient is feeling better today continue with the same dose of Lasix repeat basic metabolic profile tomorrow we'll consult nephrology. Shadows of breath improved significantly compared to yesterday. Constitutional: Denied any fatigue denied any fever. Cardio vascular: denied any chest pain, palpitations Gastrointestinal denied any nausea vomiting Pulmonary: Denied any shortness of breath cough Neurologic denied any new focal deficits All inpatient medications were reviewed and appropriate changes in these medications as dictated in the interval history and assessment and plan. Objective - Vital Signs Vital signs: Vital Signs Temp 97.7 F 09/10/18 08:15 Pulse 70 09/10/18 08:15 Resp 18 09/10/18 08:15 BP 89/52 09/10/18 08:15 Pulse Ox 94 L 09/10/18 08:15 Intake & Output 09/09/18 09/10/18 09/10/18 18:59 06:59 18:59 Intake Total 360 Output Total 250 1000 Balance -250 -1000 360 Weight 79.832 kg 78.9 kg Intake: Oral 360 Output: Urine 250 1000 Other: Voiding Method Toilet Toilet # Voids 1 1 - Exam PHYSICAL EXAMINATION: GENERAL: The patient is alert and oriented x3, not in any acute distress. Well developed, well nourished. HEENT: Pupils are round and equally reacting to light. EOMI. No scleral icterus. No conjunctival pallor. Normocephalic, atraumatic. No pharyngeal erythema. No thyromegaly. CARDIOVASCULAR: S1 and S2 present. No murmurs, rubs, or gallops. She does have elevated JVD PULMONARY: Chest is clear to auscultation, no wheezing or crackles. ABDOMEN: Soft, nontender, nondistended, normoactive bowel sounds. No palpable organomegaly. MUSCULOSKELETAL: No joint swelling or deformity. EXTREMITIES: No cyanosis, clubbing, or pedal edema. NEUROLOGICAL: Gross neurological examination did not reveal any focal deficits. SKIN: No rashes. - Labs CBC & Chem 7: 09/10/18 05:52 09/10/18 05:52 Labs: Abnormal Lab Results - Last 24 Hours (Table) 09/09/18 09/09/18 09/09/18 Range/Units 10:59 10:59 10:59 Hgb 10.3 L (11.4-16.0) gm/dL Hct 33.8 L (34.0-46.0) % MCV (80.0-100.0) fL MCH 24.5 L (25.0-35.0) pg MCHC 30.5 L (31.0-37.0) g/dL RDW 17.9 H (11.5-15.5) % Lymphocytes # 0.7 L (1.0-4.8) k/uL PT (9.0-12.0) sec INR (<1.2) D-Dimer (<0.60) mg/L FEU Sodium 136 L (137-145) mmol/L Chloride 95 L (98-107) mmol/L Carbon Dioxide (22-30) mmol/L BUN 87 H (7-17) mg/dL Creatinine 2.31 H (0.52-1.04) mg/dL Glucose 178 H (74-99) mg/dL POC Glucose (mg/dL) (75-99) mg/dL Total Bilirubin 1.6 H (0.2-1.3) mg/dL AST 218 H (14-36) U/L ALT 210 H (9-52) U/L Troponin I 0.040 H* (0.000-0.034) ng/mL Total Protein (6.3-8.2) g/dL Albumin (3.5-5.0) g/dL 09/09/18 09/09/18 09/09/18 Range/Units 10:59 17:03 20:53 Hgb (11.4-16.0) gm/dL Hct (34.0-46.0) % MCV (80.0-100.0) fL MCH (25.0-35.0) pg MCHC (31.0-37.0) g/dL RDW (11.5-15.5) % Lymphocytes # (1.0-4.8) k/uL PT 13.9 H (9.0-12.0) sec INR 1.5 H (<1.2) D-Dimer 0.89 H (<0.60) mg/L FEU Sodium (137-145) mmol/L Chloride (98-107) mmol/L Carbon Dioxide (22-30) mmol/L BUN (7-17) mg/dL Creatinine (0.52-1.04) mg/dL Glucose (74-99) mg/dL POC Glucose (mg/dL) 132 H 234 H (75-99) mg/dL Total Bilirubin (0.2-1.3) mg/dL AST (14-36) U/L ALT (9-52) U/L Troponin I (0.000-0.034) ng/mL Total Protein (6.3-8.2) g/dL Albumin (3.5-5.0) g/dL 09/10/18 09/10/18 09/10/18 Range/Units 05:52 05:52 06:09 Hgb 9.5 L (11.4-16.0) gm/dL Hct 31.1 L (34.0-46.0) % MCV 79.8 L (80.0-100.0) fL MCH 24.5 L (25.0-35.0) pg MCHC 30.6 L (31.0-37.0) g/dL RDW 17.9 H (11.5-15.5) % Lymphocytes # (1.0-4.8) k/uL PT (9.0-12.0) sec INR (<1.2) D-Dimer (<0.60) mg/L FEU Sodium (137-145) mmol/L Chloride 97 L (98-107) mmol/L Carbon Dioxide 32 H (22-30) mmol/L BUN 82 H (7-17) mg/dL Creatinine 2.39 H (0.52-1.04) mg/dL Glucose 167 H (74-99) mg/dL POC Glucose (mg/dL) 172 H (75-99) mg/dL Total Bilirubin 1.4 H (0.2-1.3) mg/dL AST 217 H (14-36) U/L ALT 226 H (9-52) U/L Troponin I (0.000-0.034) ng/mL Total Protein 5.7 L (6.3-8.2) g/dL Albumin 3.2 L (3.5-5.0) g/dL Assessment and Plan Plan: -Generalized headache shortness of breath with cough with whitish productive production: Probably secondary to congestive heart failure chronic systolic dysfunction with acute exacerbation patient takes 60 twice a day F oral Lasix with metolazone with dose will be resumed patient will be switched to IV 60 3 times a day of Lasix. Patient is presently not on any BHARGAVI inhibitor probably because of unsettled creatinine. -Chronic kidney disease stage IV with some acute renal failure secondary to heart failure exacerbation. Patient may have cardiorenal syndrome. Acute renal failure from heart failure is expected to improve with IV Lasix will repeat basic metabolic profile tomorrow -Elevated liver enzymes secondary to hepatic congestion from heart failure exacerbation expected to improve with diuresis -Atrial fibrillation presently rate controlled on anticoagulation with eliquis which will be continued. -Minimally elevated troponin which is a nonspecific elevation low suspicion for pulmonary embolism no further intervention at this time. -Severe ischemic cardiomyopathy next and happen coronary artery disease -Hyperlipidemia - mild elevated troponin secondary to chronic kidney disease and congestive heart failure -CODE STATUS DO NOT RESUSCITATE discussed the patient, although patient has an AICD
[2018-09-10 11:27] LABS: Glucose,Whole Blood 180 mg/dL (75-99)
[2018-09-10] MEDS: POTASSIUM CHLORIDE ER 20 MEQ TAB.ER PO SCH (12:25)
--- NOTE | 2018-09-10 14:26 | P.CRDCN ---
History of Present Illness Consult date: 09/10/18 Consult reason: congestive heart failure History of present illness: This patient came to the emergency room with the complaint of increasing shortness of breath over last 1-2 weeks shortness of breath is getting progressively worse and does have a history suggestive of orthopnea and PND has been having some nonproductive cough times any fever or chills. He denies any chest pain patient has a history of for nonischemic cardiomyopathy and AICD placement simply patient had a pacemaker generator change. No previous history of myocardial infarction Past Medical History Past Medical History: Atrial Fibrillation, Chest Pain / Angina, Heart Failure, Diabetes Mellitus, Hyperlipidemia, Hypertension, Renal Disease Additional Past Medical History / Comment(s): Pt recently admitted to [facility] on with acute on chronic CHF, intermittent nonsustained Vtach. Other hx: severe nonischemic cardiomyopathy, cardiac valvular disease-mitral and tricuspid with seveere pulmonary HTN, NIDDM type II, numbness/tingling bilateral feet/toes, chronic kidney disease stage III. History of Any Multi-Drug Resistant Organisms: None Reported Past Surgical History: AICD, Appendectomy, Section, Cholecystectomy, Hernia Repair, Hysterectomy, Tonsillectomy, Tubal Ligation Additional Past Surgical History / Comment(s): ARMAND/CVN, bilateral knee replacements, colonoscopy, bilateral cataract removal, Past Anesthesia/Blood Transfusion Reactions: No Reported Reaction Additional Past Anesthesia/Blood Transfusion Reaction / Comment(s): past blood transfusion- reaction(itiching) Type of Cardiac Device: Permanent Pacemaker, AICD Device Placement Date:: 2004, 07/2011, 06/2018 Smoking Status: Never smoker - Past Family History Father Family Medical History: Cancer Additional Family Medical History / Comment(s): THROAT CA and of this at the age of 59yrs. Mother Family Medical History: CVA/TIA, Diabetes Mellitus Additional Family Medical History / Comment(s): Mother had a CVA. She lived to be 73 yrs old. Medications and Allergies Home Medications Medication Instructions Recorded Confirmed Type Aspirin EC [Ecotrin Low Dose] 81 mg PO DAILY 01/01/15 09/09/18 History Cholecalciferol [Vitamin D3] 1,000 unit PO DAILY 01/01/15 09/09/18 History Multivitamins, Thera [Multivitamin 1 tab PO DAILY 01/01/15 09/09/18 History (formulary)] [place]-3 Fatty Acids/Fish Oil [Fish 1 cap PO BID 03/27/15 09/09/18 History Oil 1,000 mg Softgel] Atorvastatin [Lipitor] 10 mg PO HS #30 tab 08/21/15 09/09/18 Rx Carvedilol [Coreg] 12.5 mg PO BID 10/06/15 09/09/18 History Furosemide [Lasix] 60 mg PO BID 09/08/17 09/09/18 History Apixaban [Eliquis] 2.5 mg PO BID 05/11/18 09/09/18 History Ferrous Sulfate [Iron (65 MG 325 mg PO MOWEFR 05/11/18 09/09/18 History Elemental)] Metolazone [Zaroxolyn] 2.5 mg PO DAILY PRN 05/11/18 09/09/18 History Potassium Chloride [Klor-Con 20] 20 meq PO BID #0 05/12/18 09/09/18 Rx Pramipexole [Mirapex] 0.25 tab PO HS 06/25/18 09/09/18 History Insulin Aspart [NovoLOG] 0 units SQ AC-TID 08/06/18 09/09/18 History Levothyroxine Sodium [Synthroid] 50 mcg PO DAILY 08/06/18 09/09/18 History Pantoprazole Sodium [Protonix] 40 mg PO BID 08/06/18 09/09/18 History Amiodarone [Cordarone] 200 mg PO TID 09/09/18 09/09/18 History Cyanocobalamin (Vitamin B-12) 2,500 mg PO DAILY 09/09/18 09/09/18 History [Vitamin B12] Insulin Glargine,Hum.rec.anlog 10 unit SQ 199909/09/18 09/09/18 History [Lantus Solostar] Allergies Allergy/AdvReac Type Severity Reaction Status Date / Time nitrofurantoin Allergy Unknown Rash/Hives Verified 09/09/18 11:48 [From Macrobid] nitrofurantoin Allergy Unknown Rash/Hives Verified 09/09/18 11:48 macrocrystalline [From Macrobid] cefuroxime Allergy Rash/Hives Verified 09/09/18 11:48 Penicillins Allergy Rash/Hives Verified 09/09/18 11:48 Physical Exam Vitals: Vital Signs Temp Pulse Pulse Resp BP BP Pulse Ox 09/10/18 10:45 69 16 94/55 94 L 09/10/18 08:15 97.7 F 70 18 89/52 94 L 09/10/18 04:00 98.4 F 71 20 86/57 95 09/10/18 00:00 98.3 F 62 20 106/62 97 09/09/18 20:00 98.5 F 76 20 103/56 98 09/09/18 16:57 82 18 113/83 97 Intake and Output 09/09/18 09/10/18 09/10/18 22:59 06:59 14:59 Intake Total 600 Output Total 500 500 Balance -500 -500 600 Intake: Oral 600 Output: Urine 500 500 Other: Voiding Method Toilet Toilet # Voids 1 1 1 Weight 78.9 kg This patient is laying comfortably in bed without any respiratory distress. Patient's vital signs are reviewed. The patient is alert awake and in no acute distress. HEENT negative. Neck-supple no increase in JVP noted no carotid bruits noted. Chest-symmetrical. Heart-first and second heart sounds are normal. No S3 or S4 is noted. No significant murmurs are noted. Lungs bilateral good at entry is noted. No rales or rhonchi are noted Abdomen-soft. Liver and spleen are not enlarged. The bowel sounds are normal. No tenderness noted Extremities-peripheral pulses since are 2+. No significant leg edema noted. Neuro-no significant gross abnormality noted. Results 09/10/18 05:52 09/10/18 05:52 Cardiac Enzymes 09/10/18 Range/Units 05:52 AST 217 H (14-36) U/L CBC 09/10/18 Range/Units 05:52 WBC 9.2 (3.8-10.6) k/uL RBC 3.90 (3.80-5.40) m/uL Hgb 9.5 L (11.4-16.0) gm/dL Hct 31.1 L (34.0-46.0) % Plt Count 269 (150-450) k/uL Comprehensive Metabolic Panel 09/10/18 Range/Units 05:52 Sodium 138 (137-145) mmol/L Potassium 3.5 (3.5-5.1) mmol/L Chloride 97 L (98-107) mmol/L Carbon Dioxide 32 H (22-30) mmol/L BUN 82 H (7-17) mg/dL Creatinine 2.39 H (0.52-1.04) mg/dL Glucose 167 H (74-99) mg/dL Calcium 9.1 (8.4-10.2) mg/dL AST 217 H (14-36) U/L ALT 226 H (9-52) U/L Alkaline Phosphatase 69 (38-126) U/L Total Protein 5.7 L (6.3-8.2) g/dL Albumin 3.2 L (3.5-5.0) g/dL Current Medications Generic Name Dose Route Start Last Admin Trade Name Freq PRN Reason Stop Dose Admin Amiodarone HCl 200 mg 09/09/18 16:00 09/10/18 08:21 Cordarone PO 200 mg TID VANDANA Administration Apixaban 2.5 mg 09/09/18 21:00 09/10/18 08:21 Eliquis PO 2.5 mg BID VANDANA Administration Aspirin 81 mg 09/10/18 09:00 09/10/18 08:21 Aspirin PO 81 mg DAILY VANDANA Administration Atorvastatin Calcium 10 mg 09/09/18 21:00 09/09/18 21:09 Lipitor PO 10 mg HS VANDANA Administration Carvedilol 12.5 mg 09/09/18 17:30 09/10/18 06:41 Coreg PO 12.5 mg BID-W/MEALS VANDANA Administration Famotidine 20 mg 09/11/18 09:00 Pepcid PO DAILY [facility] Furosemide 60 mg 09/09/18 16:00 09/10/18 08:20 Lasix IV 60 mg Q8HR [facility] Administration Insulin Aspart 0 unit 09/09/18 17:30 09/10/18 12:24 Novolog SQ 2 unit ACHS [facility] Administration Protocol Levothyroxine Sodium 50 mcg 09/10/18 06:30 09/10/18 06:41 Synthroid PO 50 mcg DAILY@0630 [facility] Administration Metolazone 2.5 mg 09/09/18 14:54 Zaroxolyn PO DAILY PRN Edema Nitroglycerin 1 inch 09/09/18 18:00 09/10/18 11:51 Nitro-Bid Oint TOPICAL Not Given QID [facility] Potassium Chloride 20 meq 09/10/18 10:15 09/10/18 12:25 K-Dur 20 PO 20 meq DAILY VANDANA Administration Pramipexole Dihydrochloride 0.25 mg 09/09/18 21:00 09/09/18 21:08 Mirapex PO 0.25 mg HS VANDANA Administration Intake and Output 09/09/18 09/10/18 09/10/18 22:59 06:59 14:59 Intake Total 600 Output Total 500 500 Balance -500 -500 600 Intake: Oral 600 Output: Urine 500 500 Other: Voiding Method Toilet Toilet # Voids 1 1 1 Weight 78.9 kg 09/10/18 05:52 09/10/18 05:52 EKG Interpretations (text) EKG shows evidence of paced rhythm. Assessment and Plan Assessment: This patient is admitted with acute on chronic congestive cardiac failure. His since symptoms are improved since admission. I we will recommend to continue the patient on Lasix 60 mg every 8 hourly. We will add hydralazine 25 mg 3 times a day and Imdur 30 mg daily
[2018-09-10] MEDS ORDERED: ISOSORBIDE MONONITRATE ER 30 MG TAB.ER.24H PO SCH (14:30)
[2018-09-10 14:53] VITALS: BMI 28.9
[2018-09-10] MEDS ORDERED: hydrALAZINE HCL 25 MG TAB PO SCH (16:00)
[2018-09-10 16:28] LABS: Glucose,Whole Blood 248 mg/dL (75-99)
[2018-09-10] MEDS: CARVEDILOL 3.125 MG TAB PO SCH (17:35)
[2018-09-10] MEDS: ONDANSETRON 4 MG/2 ML VIAL IVP PRN (17:35)
--- NOTE | 2018-09-10 18:12 | US ---
EXAMINATION TYPE: US renals and bladder DATE OF EXAM: 09/10/2018 COMPARISON: NONE CLINICAL HISTORY: rf. EXAM MEASUREMENTS: Right Kidney: 10.2 x 3.3 x 4.6 cm Left Kidney: 10.4 x 3.9 x 4.2 cm Right pleural effusion noted. Right Kidney: No hydronephrosis or masses seen, inferior pole obscured by bowel gas. Left Kidney: wnl Bladder: not seen, not distended IMPRESSION: No evidence of renal mass or obstruction. Bladder was empty during the exam. Right pleural effusion i s demonstrated.
[2018-09-10 18:35] LABS: Appearance,Urine Clear (Clear); Bacteria,Urine Moderate /hpf; Bilirubin,Urine Negative (Negative); Blood,Urine Negative (Negative); Color,Urine Yellow; Glucose,Urine (UA) Negative (Negative); Ketones,Urine Negative (Negative); Leukocyte Esterase,Urine Large (Negative); Mucus,Urine Rare /hpf; Nitrite,Urine Negative (Negative); Protein,Urine Negative (Negative); RBC,Urine 1 /hpf (0-5); Specific Gravity,Urine 1.008 (1.001-1.035); Squamous Epithelial Cell,Urine 1 /hpf (0-4); Urobilinogen,Urine <2.0 mg/dL (<2.0); WBC,Urine 62 /hpf (0-5)
[2018-09-10 20:31] LABS: Glucose,Whole Blood 130 mg/dL (75-99)
[2018-09-10] MEDS: PRAMIPEXOLE 0.25 MG TAB PO SCH (21:08)
[2018-09-10] MEDS: ATORVASTATIN 10 MG TAB PO SCH (21:08)
[2018-09-10] MEDS ORDERED: hydrALAZINE HCL 10 MG TAB PO SCH (22:00)
--- NOTE | 2018-09-10 23:18 | CONS ---
CONSULTATION REASON FOR CONSULT: Renal failure. HISTORY OF PRESENT ILLNESS: Patient is a 78-year-old female who was admitted to the hospital yesterday with complaints of weakness. She was also mildly short of breath. Patient states she is feeling slightly better. She denies any significant chest pain. Patient states that she has been told that her kidney function is weak for many years now. Patient denied any significant changes in urine output prior to admission. Her serum creatinine was 2.3 mg/dL on admission. Review of previous labs shows a creatinine of 1.9 on 08/04/2018. Otherwise it has been about 1.7 most of 2018. Troponin was elevated at 0.04. Chest x-ray on admission yesterday showed small pleural effusion, bibasilar infiltrates. Patient is currently maintained on Lasix 60 mg IV q.8 hours. She states overall she is feeling better. Patient denies use of any nonsteroidal anti- inflammatory agents prior to admission. She was maintained on diuretics. I do not see any BHARGAVI inhibitors or angiotensin-receptor blockers prior to admission. PAST MEDICAL HISTORY: Significant for: 1. CKD, stage IV, most likely secondary to nephrosclerosis. We will obtain a urinalysis. 2. Patient also has a history of cardiomyopathy, ejection fraction about 20% to 25%. 3. CHF. 4. History of AICD placement. 5. Type 2 diabetes. 6. Hypertension. 7. Pulmonary hypertension. 8. Neuropathy. 9. History of nonsustained ventricular tachycardia. PAST SURGICAL HISTORY: 1. AICD placement. 2. Appendectomy. 3. . 4. Cholecystectomy. 5. Hernia repair. 6. Tonsillectomy. 7. Hysterectomy. 8. Tubal ligation. 9. Knee arthroplasty. 10.Cataract surgery. 11.ARMAND. 12.Colonoscopies. SOCIAL HISTORY: Negative for smoking, drug abuse or alcohol abuse. MEDICATIONS: Medications prior to admission included: 1. Aspirin. 2. Vitamin D3. 3. Lipitor. 4. Coreg. 5. Lasix. 6. Eliquis. 7. Zaroxolyn. 8. Potassium. 9. Insulin. 10.Synthroid. 11.Protonix. 12.Cordarone. 13.B12. ALLERGIES: ALLERGIES INCLUDE: 1. MACROBID. 2. CEFUROXIME. 3. PENICILLINS. PHYSICAL EXAMINATION: Patient is currently comfortable, awake. She is not in any acute distress. She is alert and oriented x3. Blood pressure was 94/55, heart rate 69 per minute. She is afebrile. EXAMINATION OF THE HEART: S1, S2. EXAMINATION OF LUNGS: Bilateral breath sounds are heard. ABDOMEN: Soft, non-tender. Examination of lower extremities shows edema 1+ bilaterally. [employer] exam is grossly intact. LABS: Sodium 138, potassium 3.5, chloride 97, BUN of 82, serum creatinine 2.39, hemoglobin 9.5 g/dL. ASSESSMENT: 1. Acute kidney injury, cardiorenal, with a component of acute tubular necrosis from hypotension and hypoperfusion as well. Blood pressure remains low. I will decrease the dose of hydralazine and Cozaar. Continue with the current dose of Lasix. We will check a urinalysis. Repeat labs in a.m. and check ultrasound of the kidneys as well. 2. Chronic kidney disease, NKF stage IV, most likely secondary to nephrosclerosis. Rule out diabetic nephropathy. 3. Congestive heart failure, acute on top of chronic, mainly systolic. 4. Ischemic cardiomyopathy; ejection fraction 20% to 25%. 5. Type 2 diabetes. 6. Hypertension. Blood pressure is currently low. 7. Hypothyroidism. 8. Hypokalemia secondary to diuresis, being replaced. PLAN: Decrease hydralazine and decrease Coreg. Allow slightly higher perfusion pressures, which will also help with the diuresis. Repeat labs in a.m. Continue to avoid nephrotoxic agents. Thank you for this consultation. Will continue to follow the patient during her hospitalization. MMODL / IJN: [id number] /
[2018-09-11 06:09] LABS: Glucose,Whole Blood 179 mg/dL (75-99)
[2018-09-11] MEDS: INSULIN ASPART 100 UNIT/ML 1 ML 10 ML VIAL SQ SCH ×4 (06:58→21:39)
[2018-09-11] MEDS ORDERED: DEXTROSE 5% IN WATER 100 ML with AMIODARONE 150 MG IV ONE (07:37)
[2018-09-11] MEDS: AMIODARONE 450 MG in DEXTROSE 5% IN WATER 250 ML IV SCH ×4 (08:31→18:21)
[2018-09-11] MEDS: MEXILETINE 150 MG CAP PO SCH ×2 (08:46→18:15)
[2018-09-11] MEDS ORDERED: FAMOTIDINE 20 MG TAB PO SCH (09:00)
[2018-09-11] MEDS: APIXABAN 2.5 MG TABLET PO SCH ×2 (09:43→21:39)
[2018-09-11] MEDS: ASPIRIN 81 MG PO SCH (09:43)
[2018-09-11] MEDS: LEVOTHYROXINE 50 MCG TAB PO SCH (09:43)
[2018-09-11] MEDS: NITROGLYCERIN OINT 1 INCH/GM PACKET TOPICAL SCH ×4 (09:43→21:40)
--- NOTE | 2018-09-11 09:56 | CDI ---
Last Revision, September 2017 Documentation Clarification Form Date: 09/11/2018 9:40:13 AM From: Lisbeth Mason RN, CCDS Admit Date: 09/10/2018 3:26:00 PM Patient Name: Andreia Wasserman Visit Number: [id number] ATTENTION: The Clinical Documentation Specialists (CDI) and [facility] Coding Staff appreciate your assistance in clarifying documentation. Please respond to the clarification below the line at the bottom and electronically sign. The CDI & [facility] Coding staff will review the response and follow-up if needed. Please note: Queries are made part of the Legal Health Record. If you have any questions, please contact the author of this message via ITS. Dr. Frankel Atrial fibrillation is documented in the PMH and plan in your H&P and progress notes and requires further specificity. History/Risk Factors: Atrial Fib, Chest Pain, A/C Systolic CHF, CKD stage 4, DM, Hyperlipidemia Clinical Indicators: 09/09 H&P and 09/10 Progress Note: "Atrial fibrillation presently rate controlled on anticoagulation with Eliquis which will be continued." 09/09 EKG/telemetry:"EKG shows a ventricular paced rhythm with occasional PVC at 72 bpm dresses 2:30 QT interval 550 QTC is 602." Treatment: Consults: Cardiology- no mention of or management of atrial fib documented. Coreg 12.5 mg PO BID Eliquis 2.5 mg PO BID, ASA 81 mg PO QD Mexitil 150 mg PO Q 8 hrs In your professional opinion, can you please clarify the type of atrial fibrillation, if known? Chronic/Permanent Paroxysmal Persistent Other, please specify Please continue to document in your progress notes and discharge summary in order to capture severity of illness and risk of mortality. Include clinical findings that support your diagnosis. Unable to determine MTDD
[2018-09-11 10:17] LABS: Potassium 3.7 mmol/L (3.5-5.1)
--- NOTE | 2018-09-11 10:37 | PN ---
PROGRESS NOTE This patient has severe ischemic cardiomyopathy with a Bi-V ICD placement. Patient had a dizzy spell. The interrogation of the AICD reveals patient to be having sustained ventricular tachycardia at a slower rate. Patient subsequently converted to the normal sinus rhythm. This patient needs to have a ventricular tachycardia ablation. Discussed with Dr. Black. Patient is considered for high risk for VT ablation. He would prefer patient to be transferred to the [facility]. We will contact them. Meanwhile, we will put the patient on amiodarone drip and start mexiletine 150 mg q.8 hourly. MMODL / IJN: [id number] /
--- NOTE | 2018-09-11 11:49 | P.PN ---
Subjective Patient is seen in follow-up for acute kidney injury on chronic kidney disease. Patient has chronic kidney disease stage III with baseline creatinine in the range of 1.7-1.9. Renal function is stable with creatinine at 2.33 today. Patient is noted to have severe cardiomyopathy with ejection fraction of less than 20% with severe mitral regurgitation. She is currently maintained on Lasix 60 mg IV 3 times daily. She is noted to have ventricular arrhythmia and is maintained on amiodarone drip. Still admits to dyspnea. No chest pain. Admits to good urine output. Patient had a dizzy spell this morning. Vital signs are stable. General: The patient appeared well nourished and normally developed. HEENT: Head exam is unremarkable. Neck is without jugular venous distension. LUNGS: Lungs are clear to auscultation and percussion. Breath sounds decreased. HEART: Rate and Rhythm are regular. First and second heart sounds normal. No murmurs, rubs or gallops. ABDOMEN: Abdominal exam reveals normal bowel sounds. Non-tender and non- distended. No evidence of peritonitis. EXTREMITITES: No clubbing, cyanosis, or edema. Objective - Vital Signs Vital signs: Vital Signs Temp 97.4 F L 09/11/18 07:40 Pulse 64 09/11/18 11:10 Resp 16 09/11/18 11:10 BP 101/71 09/11/18 11:10 Pulse Ox 95 09/11/18 11:10 Intake & Output 09/10/18 09/11/18 09/11/18 18:59 06:59 18:59 Intake Total 660 Output Total 500 900 Balance 160 -900 Weight 78.9 kg 78.7 kg Intake: Oral 660 Output: Urine 500 900 Other: Voiding Method Toilet Toilet # Voids 1 1 1 # Bowel Movements 0 - Labs CBC & Chem 7: 09/10/18 05:52 09/11/18 09:34 Labs: Abnormal Lab Results - Last 24 Hours (Table) 09/10/18 09/10/18 09/10/18 Range/Units 05:52 16:26 18:15 Sodium (137-145) mmol/L Chloride (98-107) mmol/L Carbon Dioxide (22-30) mmol/L BUN (7-17) mg/dL Creatinine (0.52-1.04) mg/dL Glucose (74-99) mg/dL POC Glucose (mg/dL) 248 H (75-99) mg/dL Hemoglobin A1c 8.0 H (4.0-6.0) % Ur Leukocyte Esterase Large H (Negative) Urine WBC 62 H (0-5) /hpf Urine Bacteria Moderate H (None) /hpf Urine Mucus Rare H (None) /hpf 09/10/18 09/11/18 09/11/18 Range/Units 20:15 06:02 09:34 Sodium 135 L (137-145) mmol/L Chloride 93 L (98-107) mmol/L Carbon Dioxide 31 H (22-30) mmol/L BUN 90 H (7-17) mg/dL Creatinine 2.33 H (0.52-1.04) mg/dL Glucose 174 H (74-99) mg/dL POC Glucose (mg/dL) 130 H 179 H (75-99) mg/dL Hemoglobin A1c (4.0-6.0) % Ur Leukocyte Esterase (Negative) Urine WBC (0-5) /hpf Urine Bacteria (None) /hpf Urine Mucus (None) /hpf Assessment and Plan Plan: Assessment: 1. Nonoliguric acute kidney injury secondary to ATN secondary to cardiorenal syndrome. Creatinine stable at 2.33 today. No evidence of hydronephrosis noted on renal ultrasound. 2. Chronic kidney disease stage III with baseline creatinine in the range of 1.7-1.9 secondary to cardiorenal syndrome. 3. Systolic CHF with ejection fraction of less than 20% with severe mitral regurgitation. 4. Ventricular tachycardia maintained on amiodarone drip. 5. Hypotension related to underlying cardiac status. Plan: Start midodrine 10 mg 3 times daily. Decrease Lasix to 60 mg IV twice daily. Awaits transfer to [facility] for ablation.
[2018-09-11] MEDS: FUROSEMIDE 10 MG/ML 10 ML VIAL IV SCH (12:06)
[2018-09-11] MEDS: POTASSIUM CHLORIDE ER 20 MEQ TAB.ER PO SCH (12:06)
[2018-09-11] MEDS: CARVEDILOL 3.125 MG TAB PO SCH ×2 (12:06→18:15)
[2018-09-11 12:14] LABS: Glucose,Whole Blood 228 mg/dL (75-99)
[2018-09-11] MEDS: MIDODRINE 5 MG TAB PO SCH ×2 (12:30→18:15)
[2018-09-11 16:51] LABS: Glucose,Whole Blood 240 mg/dL (75-99)
[2018-09-11] MEDS: ONDANSETRON 4 MG/2 ML VIAL IVP PRN (18:26)
[2018-09-11] MEDS ORDERED: FUROSEMIDE 10 MG/ML 10 ML VIAL IV SCH (21:00)
[2018-09-11 21:16] LABS: Glucose,Whole Blood 243 mg/dL (75-99)
[2018-09-11] MEDS: ATORVASTATIN 10 MG TAB PO SCH (21:39)
[2018-09-11] MEDS: PRAMIPEXOLE 0.25 MG TAB PO SCH (21:39)
[2018-09-11] MEDS ORDERED: ALPRAZolam 0.25 MG TAB PO STA (22:11)
[2018-09-12] MEDS: MEXILETINE 150 MG CAP PO SCH (00:26)
[2018-09-12] MEDS: AMIODARONE 450 MG in DEXTROSE 5% IN WATER 250 ML IV SCH ×2 (00:54)
[2018-09-12 04:13] VITALS: BP 111/56; PULSE 91; RESP 30; TEMP 98.1
--- NOTE | 2018-09-25 15:51 | CDI ---
Date: 09/25/2018 3:27:00 PM From: Pastora Albarran Admit Date: 09/10/2018 3:26:00 PM Patient Name: Andreia Wasserman Visit Number: [id number] Discharge Date: 09/12/2018 6:35:00 AM ATTENTION: The Clinical Documentation Specialists (CDI) and [facility] Coding Staff appreciate your assistance in clarifying documentation. Please respond to the clarification below the line at the bottom and electronically sign. The CDI & [facility] Coding staff will review the response and follow-up if needed. Please note: Queries are made part of the Legal Health Record. If you have any questions, please contact the author of this message via ITS. Claudio Jade MD The diagnosis COPD with acute exacerbation was documented in one progress note of the record , but is not consistently noted in subsequent documentation. admitted with shortness of breath secondary to COPD exacerbation patient is feeling better today continue with the same dose of Lasix repeat basic metabolic profile tomorrow we'll consult nephrology. History/Risk Factors:HP and ED note pt Admitted for acute on chronic systolic CHF exacerbation, WIN, hx of CKD4,CHF,HTN, DM2,severe mitral regurgitation Pulmonary HTN, Severe ischemic cardiomyopathy,Afib, AICD Clinical Indicators:ED notes unlabored resp, CTA, Elevated BNP, Elevated D- dimer and elevated tropoinin due to renal disease,JVD elevation noted Liver congestion and enzyme elevation due to CHF No smoking history, no hx of COPD documented Treatment: IV diuretics, supplemental O2 was waiting transfer for VT ablation Chest X-ray The heart size is enlarged.The pulmonary vasculature is normal. There is a small right pleural effusion. Some adjacent infiltrate may be present. Mild left lower lobe infiltrate is present. Pacemaker overlies left chest. IMPRESSION: 1.Bibasilar infiltrates.Correlate for atelectasis and pneumonia. 2.Small right pleural effusion. Please clarify if the COPD documented was? Present/active this admission Treated and resolved this admission Other, please specify Clinically unable to determine (Template New July 2018) Ruled out JESSICA
--- NOTE | 2018-10-15 15:10 | P.DS ---
Providers Date of admission: 09/10/18 15:26 Attending physician: Kamryn Maki Consults: 09/09/18 13:30 Consult Physician Routine Consulting Provider: [facility] Consult Reason/Comments: Pulmonary edema Do you want consulting provider notified?: Yes 09/10/18 09:42 Consult Physician Routine Consulting Provider: Sharyn Glover Consult Reason/Comments: WIN on CKD Do you want consulting provider notified?: Yes [facility] Course: Patient with severe cardiomyopathy admitted for CF Exacerbation was subsequently made hospice Plan - Discharge Summary Discharge Rx Participant: No New Discharge Prescriptions: No Action Cholecalciferol [Vitamin D3] 1,000 unit PO DAILY Multivitamins, Thera [Multivitamin (formulary)] 1 tab PO DAILY Aspirin EC [Ecotrin Low Dose] 81 mg PO DAILY [place]-3 Fatty Acids/Fish Oil [Fish Oil 1,000 mg Softgel] 1 cap PO BID Atorvastatin [Lipitor] 10 mg PO HS #30 tab Carvedilol [Coreg] 12.5 mg PO BID Furosemide [Lasix] 60 mg PO BID Metolazone [Zaroxolyn] 2.5 mg PO DAILY PRN PRN Reason: Edema Apixaban [Eliquis] 2.5 mg PO BID Ferrous Sulfate [Iron (65 MG Elemental)] 325 mg PO MOWEFR Potassium Chloride [Klor-Con 20] 20 meq PO BID #0 Pramipexole [Mirapex] 0.25 tab PO HS Levothyroxine Sodium [Synthroid] 50 mcg PO DAILY Insulin Aspart [NovoLOG] 0 units SQ AC-TID Pantoprazole Sodium [Protonix] 40 mg PO BID Cyanocobalamin (Vitamin B-12) [Vitamin B12] 2,500 mg PO DAILY Amiodarone [Cordarone] 200 mg PO TID Insulin Glargine,Hum.rec.anlog [Lantus Solostar] 10 unit SQ 2000 Discharge Medication List Aspirin EC [Ecotrin Low Dose] 81 mg PO DAILY 01/01/15 [History] Cholecalciferol [Vitamin D3] 1,000 unit PO DAILY 01/01/15 [History] Multivitamins, Thera [Multivitamin (formulary)] 1 tab PO DAILY 01/01/15 [History ] [place]-3 Fatty Acids/Fish Oil [Fish Oil 1,000 mg Softgel] 1 cap PO BID 03/27/15 [ History] Atorvastatin [Lipitor] 10 mg PO HS #30 tab 08/21/15 [Rx] Carvedilol [Coreg] 12.5 mg PO BID 10/06/15 [History] Furosemide [Lasix] 60 mg PO BID 09/08/17 [History] Apixaban [Eliquis] 2.5 mg PO BID 05/11/18 [History] Ferrous Sulfate [Iron (65 MG Elemental)] 325 mg PO MOWEFR 05/11/18 [History] Metolazone [Zaroxolyn] 2.5 mg PO DAILY PRN 05/11/18 [History] Potassium Chloride [Klor-Con 20] 20 meq PO BID #0 05/12/18 [Rx] Pramipexole [Mirapex] 0.25 tab PO HS 06/25/18 [History] Insulin Aspart [NovoLOG] 0 units SQ AC-TID 08/06/18 [History] Levothyroxine Sodium [Synthroid] 50 mcg PO DAILY 08/06/18 [History] Pantoprazole Sodium [Protonix] 40 mg PO BID 08/06/18 [History] Amiodarone [Cordarone] 200 mg PO TID 09/09/18 [History] Cyanocobalamin (Vitamin B-12) [Vitamin B12] 2,500 mg PO DAILY 09/09/18 [History] Insulin Glargine,Hum.rec.anlog [Lantus Solostar] 10 unit SQ 199909/09/18 [ History] Follow up Appointment(s)/Referral(s): Kishore Lucia DO [Primary Care Provider] - 1-2 days Activity/Diet/Wound Care/Special Instructions: [facility] cardiac transfer line [phone] Discharge Disposition: - Preliminary Cause of Preliminary Cause of : Congestive heart failure
== END 2018-09-12 06:35 | disposition expired | DRG 291 ==
LOC: EC 10:41 → 3SCARD 13:33 → OBSVTOIN 09-10 15:26
PROVIDERS: ADMIT Hospitalist; ATTEND Hospitalist
DX: I13.0 Hypertensive heart and chronic kidney disease with heart failure and stage 1 through stage 4 chronic kidney disease, or unspecified chronic kidney disease (principal); I50.23 Acute on chronic systolic (congestive) heart failure; N17.0 Acute kidney failure with tubular necrosis; I47.2 Ventricular tachycardia; N18.4 Chronic kidney disease, stage 4 (severe); E03.9 Hypothyroidism, unspecified; J44.9 Chronic obstructive pulmonary disease, unspecified; E11.22 Type 2 diabetes mellitus with diabetic chronic kidney disease; I48.91 Unspecified atrial fibrillation; E78.5 Hyperlipidemia, unspecified; E87.6 Hypokalemia; I25.10 Atherosclerotic heart disease of native coronary artery without angina pectoris; I25.5 Ischemic cardiomyopathy; I27.20 Pulmonary hypertension, unspecified; I49.3 Ventricular premature depolarization; K76.1 Chronic passive congestion of liver; R79.1 Abnormal coagulation profile; E11.42 Type 2 diabetes mellitus with diabetic polyneuropathy; I95.9 Hypotension, unspecified; I08.1 Rheumatic disorders of both mitral and tricuspid valves; T50.2X5A Adverse effect of carbonic-anhydrase inhibitors, benzothiadiazides and other diuretics, initial encounter; Z66 Do not resuscitate; Z79.01 Long term (current) use of anticoagulants; Z79.4 Long term (current) use of insulin; Z79.899 Other long term (current) drug therapy; Z79.82 Long term (current) use of aspirin; Z79.890 Hormone replacement therapy; Z88.1 Allergy status to other antibiotic agents; Z88.0 Allergy status to penicillin; Z95.810 Presence of automatic (implantable) cardiac defibrillator; Z96.653 Presence of artificial knee joint, bilateral; Z90.710 Acquired absence of both cervix and uterus; Z90.49 Acquired absence of other specified parts of digestive tract; Z98.42 Cataract extraction status, left eye; Z98.41 Cataract extraction status, right eye; Z96.1 Presence of intraocular lens; Z98.51 Tubal ligation status; Z80.8 Family history of malignant neoplasm of other organs or systems; Z82.3 Family history of stroke; Z83.3 Family history of diabetes mellitus
CPT/HCPCS: 36415; 71046; 76770; 80048; 80053; 81001; 82550; 82553; 83036; 83735; 83880; 84484; 85025; 85027; 85379; 85610; 85730; 93005; 96360; 99285